=== PATIENT | female | born 1950 | race Caucasian/White ===

== ENCOUNTER 2020-02-19 15:43 | Outpatient (CLI) | payer MEDICARE, OTHER, SELFPAY ==
[2020-02-19 16:39] LABS: Basophils Absolute Auto 0.1 K/mm3 (0.0-0.1); Basophils Percent Auto 0.5 % (0.2-1.2); Eosinophils Absolute Auto 0.1 K/mm3 (0-0.3); Hematocrit 41.5 % (37.0-47.0); Hemoglobin 14.1 g/dL (12.0-15.0); Immature Granulocyte Absolute 0.05 K/mm3 (0.00-0.031); Immature Granulocyte Percent A 0.4 % (0-0.5); Lymphocytes Absolute Auto 1.16 K/mm3 (0.9-3.2); Lymphocytes Percent Auto 10.1 % (18.3-44.2); Mean Corpuscular Volume 88.3 fl (80-100); Mean Platelet Volume 10.6 fl (7.4-10.4); Monocytes Percent Auto 8.5 % (2.6-8.5); Neutrophils Absolute Auto 9.2 K/mm3 (1.3-6.7); Neutrophils Percent Auto 79.5 % (45.5-73.1); Platelet Count Result 179 k/mm3 (150-375); Red Cell Distribution Width 12.9 % (11.5-14.5); White Blood Count 11.5 K/mm3 (4.5-10.0)
[2020-02-19 17:14] LABS: Alanine Aminotransferase 35 U/L (4-35); Albumin Level 4.5 g/dL (3.5-5.1); Alkaline Phosphatase 96 U/L (38-126); Aspartate Amino Transferase 42 U/L (14-36); Bilirubin,Total 0.5 mg/dL (0.2-1.3); Blood Urea Nitrogen 20 mg/dL (7-17); CRP < 0.5 mg/dL (<1.0); Carbon Dioxide 28 mmol/L (22-30); Chloride 102 mmol/L (98-107); Estimated Glomerular Filt Rate > 60; Glucose 160 mg/dL (65-105); Potassium 4.1 mmol/L (3.4-5.0); Sodium 139 mmol/L (137-145)
[2020-02-19 17:30] LABS: Erythrocyte Sedimentation Rate 15 mm/hr (0-20)
[2020-02-20 06:29] LABS: Add Urine Microscopic? YES; Appearance Urine Clear (Clear); Bilirubin Urine Negative (Negative); Blood Urine Negative (Negative); Color Urine Yellow (Yellow); Glucose Urine UA Negative (Negative); Ketones Urine Negative (Negative); Leukocyte Esterase Ur Trace LEU/UL (NEGATIVE); Mucus Urine Rare /lpf; Nitrate Urine Negative (Negative); Protein Urine Negative (Negative); RBC Urine 0-2 /hpf (0-2); Specific Grav Ur 1.013 (1.001-1.035); Squamous Epithelial Cell Urine Occasional /hpf (Few); Urobilinogen Urine Negative mg/dL (<2.0); WBC Urine 0-3 /hpf (0-3)
== END 2020-02-19 15:44 | disposition home or self-care (01) ==
LOC: ANHLAB 15:47
PROVIDERS: PCP Internal Medicine; Visit Provider Internal Medicine
DX: R50.9 Fever, unspecified (principal); J01.90 Acute sinusitis, unspecified; Z79.899 Other long term (current) drug therapy; I10 Essential (primary) hypertension
CPT/HCPCS: 36415; 80053; 81001; 85025; 85652; 86140; 87086; 87088

== ENCOUNTER 2020-02-20 15:19 | Outpatient (CLI) | payer MEDICARE, OTHER, SELFPAY ==
--- NOTE | ~2020-02-20 | CT_ITS ---
EXAMINATION: CT sinus wo con DATE: 02/20/2020 16:25 INDICATION: Acute sinusitis. Headache. Congestion. TECHNIQUE: Computed tomography (CT) of the paranasal sinuses was performed without contrast. Iterativ e reconstruction technique was employed. Exam dose: 290.55 mGy-cm total exam DLP. COMPARISON: None FINDINGS: There is leftward deviation of the junction of the upper and middle thirds of the nasal sep júnior and rightward bowing of the upper portion of the nasal septum. The nasal turbinates are prominent in size bilaterally. There is prominent interlamellar cell of the left middle nasal turbinate and mild intralamellar cell with partial opacification at the right middl e nasal turbinate. The ostiomeatal units are patent bilaterally. The paranasal sinuses are normally developed and aerated. No mucoperiosteal thickening, fluid level o r soft tissue mass density of the paranasal sinuses. The mastoid air cells are normally developed and aerated bilaterally. Middle and inner ear apparatus appear normal bilaterally. IMPRESSION: Bilateral interlamellar cell of middle nasal turbinates, more prominent on the left Septal deviation and bowing as indicated above Patent paranasal sinuses, ostiomeatal units and mastoid air cells Reviewed, dictated and finalized at Location [facility]. Reviewed, dictated and finalized at location A. IMPRESSION: Bilateral interlamellar cell of middle nasal turbinates, more prom inent on the left Septal deviation and bowing as indicated above Patent paranasal sinuses, ostiomeatal units and mastoid air cells
--- NOTE | ~2020-02-20 | XR_ITS ---
EXAMINATION: XR chest 2V DATE: 02/20/2020 16:04 INDICATION: Other symptoms involving the circulatory and respiratory systems TECHNIQUE: PA and lateral views of the chest are obtained. COMPARISON: 03/08/2013 FINDINGS: The lungs are free of acute opacities. There is no pleural effusion or pneumothorax. The ca rdiomediastinal silhouette is normal. There is mild thoracic spondylosis. Surgical clips in the right upper quadrant are likely from prior cholecystectomy. IMPRESSION: 1. No acute cardiopulmonary abnormality. Reviewed, dictated and finalized at location A.
== END 2020-02-20 15:20 | disposition home or self-care (01) ==
PROVIDERS: PCP Internal Medicine; Visit Provider Internal Medicine
DX: R09.89 Other specified symptoms and signs involving the circulatory and respiratory systems (principal); J01.90 Acute sinusitis, unspecified; J34.2 Deviated nasal septum
CPT/HCPCS: 70486; 71046

== ENCOUNTER 2020-03-27 08:13 | Outpatient (CLI) | payer MEDICARE, OTHER, SELFPAY ==
--- NOTE | ~2020-03-27 | CT_ITS ---
EXAMINATION: CT abdomen pelvis w con EXAM DATE: 03/27/2020 09:03 INDICATION: Abdominal pain. Diverticulitis. TECHNIQUE: Spiral CT of the abdomen and pelvis was performed following intravenous injection of 100 m L Omnipaque 350. Axial, coronal and sagittal images were reviewed. The dose-length product (DLP) fo r this examination was 519.66 mGy-cm. The exposure was tailored according to patient size (auto mA e xposure control), and iterative reconstruction (ASIR) was used as additional dose reduction technique . Comparison is made to prior examination from 07/08/2019. FINDINGS: The liver, spleen, adrenal glands and pancreas are unremarkable. There are cholecystectomy clips. Portal and splenic veins are patent. Kidneys enhance symmetrically. There is no hydronephr osis. The uterus is not identified and has likely been surgically resected. Pelvic lymph node disse ction. The bladder is unremarkable. There is no retroperitoneal or pelvic lymphadenopathy. There i s mild scattered arteriosclerotic disease. The appendix is normal. The stomach and small bowel are unremarkable. There is expected amount of c olonic stool. There is moderate sigmoid predominant colonic diverticulosis. There is no adjacent inf lammatory change to suggest diverticulitis. No free intraperitoneal gas. The heart is normal in si ze. There are no pericardial or pleural effusions. The lung bases are unremarkable. There are no o steoblastic or osteolytic lesions identified. there is small umbilical fat-containing hernia. IMPRESSION: 1. No acute intra-abdominal findings. 2. Moderate sigmoid predominant colonic diverticulosis. 3. Small umbilical fat-containing hernia. 4. Surgical changes. Reviewed, dictated and finalized at location B.
[2020-03-27 08:48] LABS: Estimated Glomerular Filt Rate > 60
[2020-03-27 09:29] LABS: Basophils Percent Auto 0.8 % (0.2-1.2); Eosinophils Absolute Auto 0.2 K/mm3 (0-0.3); Eosinophils Percent Auto 4.9 % (0-4.4); Hematocrit 38.8 % (37.0-47.0); Hemoglobin 13.3 g/dL (12.0-15.0); Immature Granulocyte Absolute 0.03 K/mm3 (0.00-0.031); Immature Granulocyte Percent A 0.8 % (0-0.5); Lymphocytes Absolute Auto 0.97 K/mm3 (0.9-3.2); Lymphocytes Percent Auto 24.9 % (18.3-44.2); Mean Corpuscular HGB Conc 34.3 g/dl (32-36); Mean Corpuscular Hemoglobin 30.6 pg (26-34); Mean Corpuscular Volume 89.4 fl (80-100); Mean Platelet Volume 10.5 fl (7.4-10.4); Monocytes Absolute Auto 0.3 K/mm3 (0.1-0.6); Monocytes Percent Auto 8.5 % (2.6-8.5); Neutrophils Absolute Auto 2.4 K/mm3 (1.3-6.7); Neutrophils Percent Auto 60.1 % (45.5-73.1); Platelet Count Result 150 k/mm3 (150-375); Red Blood Count 4.34 M/mm3 (4.2-5.4); Red Cell Distribution Width 13.2 % (11.5-14.5); White Blood Count 3.9 K/mm3 (4.5-10.0)
[2020-03-27 09:36] LABS: Add Urine Microscopic? YES; Bilirubin Urine Negative (Negative); Blood Urine Negative (Negative); Glucose Urine UA Negative (Negative); Ketones Urine Negative (Negative); Leukocyte Esterase Ur Trace LEU/UL (NEGATIVE); Mucus Urine Rare /lpf; Nitrate Urine Negative (Negative); Protein Urine Negative (Negative); RBC Urine 0-2 /hpf (0-2); Squamous Epithelial Cell Urine Occasional /hpf (Few); Urobilinogen Urine Negative mg/dL (<2.0)
[2020-03-27 09:39] LABS: Alanine Aminotransferase 27 U/L (4-35); Albumin Level 4.2 g/dL (3.5-5.1); Alkaline Phosphatase 89 U/L (38-126); Aspartate Amino Transferase 32 U/L (14-36); Bilirubin,Total 0.4 mg/dL (0.2-1.3); Blood Urea Nitrogen 26 mg/dL (7-17); Calcium 9.4 mg/dL (8.4-10.2); Carbon Dioxide 26 mmol/L (22-30); Chloride 104 mmol/L (98-107); Estimated Glomerular Filt Rate > 60; Glucose 169 mg/dL (65-105); Sodium 139 mmol/L (137-145)
[2020-03-27 09:39] LABS: Specific Grav Ur 1.045 (1.001-1.035)
[2020-03-27 09:40] LABS: Appearance Urine Sl Cloudy (Clear); Color Urine Light Yellow (Yellow)
== END 2020-03-27 08:14 | disposition home or self-care (01) ==
PROVIDERS: PCP Internal Medicine; Visit Provider Internal Medicine
DX: R10.9 Unspecified abdominal pain (principal); K57.92 Diverticulitis of intestine, part unspecified, without perforation or abscess without bleeding; K42.9 Umbilical hernia without obstruction or gangrene; Z98.890 Other specified postprocedural states
CPT/HCPCS: 36415; 74177; 80053; 81001; 85025; 87086; 87088; Q9967

== ENCOUNTER 2020-04-15 08:35 | Outpatient (CLI) | payer MEDICARE, OTHER, SELFPAY ==
--- NOTE | ~2020-04-15 | XR_ITS ---
XR knee RT 3V DATE: 04/15/2020 09:21 INDICATION: Generalized chronic knee pain. No injury. TECHNIQUE: [place], AP and lateral views COMPARISON: None FINDINGS: There is prominent narrowing of the medial and lateral compartment joint spaces. There is p articular spurring as well, particularly at the patellofemoral compartment. The findings are consiste nt with osteoarthritis. No fracture or dislocation or joint effusion is detected. No periosteal reaction or bone destruction. IMPRESSION: Osteoarthritis involving particularly the patellofemoral and medial compartments Reviewed, dictated and finalized at location A.
--- NOTE | ~2020-04-15 | XR_ITS ---
XR lumbar spine 2-3V 04/15/2020 09:20 Indication: Low back pain Procedure: 3 views lumbar spine Comparison: No prior studies for comparison. Findings: Vertebral body heights are maintained. Mild disc narrowing at L5-S1. Mild facet hypertrophy at L5-S1. No fracture or traumatic malalignment. No evidence for spondylolisthesis. There are cholec ystectomy clips. There are surgical clips in the pelvis. Impression: 1: Mild lumbar spondylosis. Reviewed, dictated and finalized at location B. Impression: 1: Mild lumbar spondylosis.
--- NOTE | ~2020-04-15 | XR_ITS ---
XR sacroiliac joints min 3V 04/15/2020 09:20 Indication: Low back pain Procedure: 3 views of the sacroiliac joints Comparison: No prior studies for comparison. Findings: There is mild bilateral symmetric degenerative changes of the sacroiliac joints. No erosive changes. No evidence for ankylosis. Sacral foramen are symmetric. Surrounding pelvic structures unre markable. There are surgical clips in the lower abdomen and pelvis consistent with lymph node dissect ion. Impression: 1: Mild symmetric degenerative changes of the sacroiliac joints. Reviewed, dictated and finalized at location B. Impression: 1: Mild symmetric degenerative changes of the sacroiliac joints.
== END 2020-04-15 08:36 | disposition home or self-care (01) ==
PROVIDERS: PCP Internal Medicine; Visit Provider Internal Medicine
DX: M25.561 Pain in right knee (principal); M47.816 Spondylosis without myelopathy or radiculopathy, lumbar region; M17.11 Unilateral primary osteoarthritis, right knee
CPT/HCPCS: 72100; 72202; 73562

== ENCOUNTER 2020-05-04 22:25 | Emergency (ER) | payer MEDICARE, OTHER, SELFPAY ==
--- NOTE | ~2020-05-04 | CT_ITS ---
EXAMINATION: CT abdomen pelvis w con EXAM DATE: 05/04/2020 23:29 INDICATION: Lower abdominal pain, nausea. TECHNIQUE: Spiral CT of the abdomen and pelvis was performed following intravenous injection of 100 m L Omnipaque 350. Axial, coronal and sagittal images were reviewed. The dose-length product (DLP) fo r this examination was 646.90 mGy-cm. The exposure was tailored according to patient size (auto mA e xposure control), and iterative reconstruction (ASIR) was used as additional dose reduction technique . Comparison is made to prior examination from 03/27/2020. FINDINGS: There is hepatic steatosis without suspicious focal lesion identified. Spleen, adrenal glan ds, pancreas are unremarkable. There are cholecystectomy clips. Portal and splenic veins are patent . Kidneys enhance symmetrically. There is no hydronephrosis. The uterus is not identified and has likely been surgically resected. The bladder is unremarkable. There is no retroperitoneal or pelvi c lymphadenopathy. Probable pelvic lymph node dissection. There is mild scattered arteriosclerotic di sease. Small umbilical fat-containing hernia. The appendix is not positively visualized. There is no pericecal inflammatory change to suggest appe ndicitis. There is moderate sigmoid predominant colonic diverticulosis. There is no adjacent inflamm atory change to suggest diverticulitis. The stomach and small bowel are unremarkable. There is expec francisco javier amount of colonic stool. No free intraperitoneal gas. The heart is normal in size. There are no pericardial or pleural effusions. The lung bases are unremarkable. There are no osteoblastic or osteolytic lesions identified. IMPRESSION: 1. No acute intra-abdominal findings. 2. Moderate sigmoid diverticulosis. 3. Hepatic steatosis. Reviewed, dictated and finalized at location G.
[2020-05-04 22:27] VITALS: BP 175/81; PULSE 93; RESP 14; TEMP 36.8; O2SAT 99
[2020-05-04 22:49] LABS: Basophils Percent Auto 0.5 % (0.2-1.2); Eosinophils Percent Auto 0.2 % (0-4.4); Hematocrit 41.4 % (37.0-47.0); Hemoglobin 14.3 g/dL (12.0-15.0); Immature Granulocyte Absolute 0.07 K/mm3 (0.00-0.031); Immature Granulocyte Percent A 1.2 % (0-0.5); Lymphocytes Absolute Auto 0.76 K/mm3 (0.9-3.2); Lymphocytes Percent Auto 13.4 % (18.3-44.2); Mean Corpuscular HGB Conc 34.5 g/dl (32-36); Mean Corpuscular Hemoglobin 30.5 pg (26-34); Mean Corpuscular Volume 88.3 fl (80-100); Monocytes Absolute Auto 0.1 K/mm3 (0.1-0.6); Monocytes Percent Auto 1.1 % (2.6-8.5); Neutrophils Absolute Auto 4.8 K/mm3 (1.3-6.7); Neutrophils Percent Auto 83.6 % (45.5-73.1); Platelet Count Result 170 k/mm3 (150-375); Red Blood Count 4.69 M/mm3 (4.2-5.4); Red Cell Distribution Width 13.2 % (11.5-14.5); White Blood Count 5.7 K/mm3 (4.5-10.0)
[2020-05-04] MEDS: SODIUM CHLORIDE 0.9% IV 1,000 ML 999 ML IV CONT (22:52)
[2020-05-04 23:01] LABS: Albumin Level 4.8 g/dL (3.5-5.1); Alkaline Phosphatase 101 U/L (38-126); Anion Gap 18.4 mmol/L (7-16); Aspartate Amino Transferase 47 U/L (14-36); Bilirubin,Total 0.5 mg/dL (0.2-1.3); Blood Urea Nitrogen 21 mg/dL (7-17); Calcium 9.8 mg/dL (8.4-10.2); Carbon Dioxide 20 mmol/L (22-30); Chloride 101 mmol/L (98-107); Estimated CRCL calculation 51 ml/min; Estimated Glomerular Filt Rate > 60; Glucose 324 mg/dL (65-105); Lipase 138 U/L (23-300); Potassium 4.4 mmol/L (3.4-5.0); Sodium 135 mmol/L (137-145)
[2020-05-04] MEDS: INSULIN HUMAN REGULAR (*BKC) 100 UNITS/ML 6 UNITS SUB-Q (23:14)
[2020-05-04] MEDS: MORPHINE SULFATE 4 MG/ML INJ IV PUSH (23:15)
--- NOTE | 2020-05-04 23:17 | ED.ABDPAIN ---
HPI - Abdominal Pain General Chief Complaint: Abdominal Pain Stated Complaint: abdominal pain Time Seen by Provider: 05/04/20 22:33 History of Present Illness HPI narrative: Patient presents to the ED for lower abdominal pain. She said that earlier today she got injections on her hips , her chronic low back pain. She points to her iliac sacral joints. She said that when she got home she had lower abdominal pain, similar to when she has had diverticulitis. She has had nausea but no vomiting. No fever, chills, or sweats. She is retired. Does not smoke drink or do drugs. MD elicited complaint: abdominal pain Pertinent past history: diverticulitis Onset (ago): hour(s) Pain Consistency: constant Location: other (Lower abdominal pain) Severity: moderate Radiation: none Exacerbating factors: nothing Relieving factors: nothing Context: confirms history of similar episodes Associated symptoms: nausea Treatments prior to arrival: other (None) Related Data Home Medications Medication Instructions Recorded Confirmed Lactobacillus rhamnosus GG 1 cap PO DAILY 08/16/19 04/15/20 [Culturelle] loratadine [Claritin] 10 mg PO DAILY 08/16/19 04/15/20 calcium carbonat and lactate 200 2 tablet PO DAILY 04/07/20 04/15/20 mg calcium-vitamin D3 250 unit tablet folic acid 400 mcg tablet 0.8 mg PO DAILY tablet 04/07/20 04/15/20 mecobalamin (vitamin B12) 1,000 1,000 mcg SUBLINGUAL DAILY 04/07/20 04/15/20 mcg disintegrating tablet,sublingual Allergies Allergy/AdvReac Type Severity Reaction Status Date / Time No Known Allergies Allergy Verified 04/29/20 14:11 Review of Systems Review of Systems: Narrative: CONSTITUTIONAL: Denies fever, chills, or sweats. EYES: Denies visual changes, redness, or discharge. ENT: Denies rhinorrhea, congestion, sore throat, or otalgia. CARDIOVASCULAR: Denies chest pain, palpitations, or edema. RESPIRATORY: Denies cough or dyspnea. GASTROINTESTINAL: He has abdominal pain, nausea, but not vomiting, or diarrhea. GENITOURINARY: Denies dysuria or hematuria. SKIN: Denies rash or itching. MUSCULOSKELETAL: Denies back pain, joint pain, or myalgia. NEUROLOGIC: Denies headache, numbness, or weakness. . 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 Encounter for Medicare annual wellness exam Follow up GERD (gastroesophageal reflux disease) GERD with esophagitis History of diverticulitis of colon Hx of colonic polyps Hx of ovarian cancer Hyperlipidemia Hypothyroidism (acquired) Impaired functional mobility, balance, gait, and endurance LLQ abdominal pain Low back pain Nausea On intermediate drug therapy Ovarian cancer Persistent fever Sacroiliitis Stress Umbilical hernia Surgical History Surgical History Hx of cholecystectomy Hx of colonoscopy Hx of esophagogastroduodenoscopy Hx of hysterectomy Social History Social History Smoking status: Never smoker Alcohol intake: current Gender identity (if verbalized by the patient): Female Exam Narrative: Exam Narrative: GENERAL: Well-appearing, well-nourished, and in no acute distress. Well-groomed HEAD: Normocephalic, atraumatic. EYES: PERRLA and EOMI. ENT: Nares clear, no rhinorrhea or epistaxis. Mucous membranes moist. NECK: Supple. CHEST: Clear to auscultation. No respiratory distress. HEART: Regular rate and rhythm. No murmur heard. Normal peripheral pulses. ABDOMEN: Soft, nontender, nondistended, normal active bowel
[2020-05-04 23:33] LABS: Alanine Aminotransferase 39 U/L (4-35)
[2020-05-05 00:30] VITALS: BP 169/88; PULSE 82; RESP 15; O2SAT 92
[2020-05-05] MEDS: MORPHINE SULFATE 4 MG/ML INJ IV PUSH (00:31)
[2020-05-05 00:38] LABS: Glucose Point of Care 248 (65-105)
== END 2020-05-05 00:30 | disposition home or self-care (01) ==
PROVIDERS: Emergency Provider Emergency Medicine; PCP Internal Medicine
DX: R10.30 Lower abdominal pain, unspecified (principal); M54.5 Low back pain; I10 Essential (primary) hypertension; E11.9 Type 2 diabetes mellitus without complications; K21.0 Gastro-esophageal reflux disease with esophagitis; Z86.010 Personal history of colon polyps; E78.5 Hyperlipidemia, unspecified; E03.9 Hypothyroidism, unspecified; Z85.41 Personal history of malignant neoplasm of cervix uteri; K76.0 Fatty (change of) liver, not elsewhere classified
CPT/HCPCS: 36415; 74177; 80053; 83690; 85025; 96361; 96374; 96376; 99284; J1815; J2270; J7030; Q9967

== ENCOUNTER 2021-02-12 14:13 | Emergency (ER) | payer MEDICARE, OTHER, SELFPAY ==
[2021-02-12 14:20] VITALS: BP 178/82; PULSE 72; RESP 16; TEMP 36.5; O2SAT 99
--- NOTE | 2021-02-12 14:50 | ED.URI ---
HPI - URI/Sore Throat General Chief Complaint: Upper Respiratory Infection Stated Complaint: sinus issues Time Seen by Provider: 02/12/21 14:40 Source: patient, RN notes reviewed and old records reviewed Mode of arrival: ambulatory Limitations: no limitations History of Present Illness HPI Narrative: 71 year old female who presents to [facility] with complaints of 1 1/2 weeks duration of sinus congestion and drainage with pain to the right side of her face and right ear with pain along gums also. Patient states that she has been using nasal saline, Nasacort nasal spray, Tylenol sinus medication with no improvement in her symptoms. Patient reports low grade temperatures with fatigue and general malaise. MD elicited complaint: fever (low grade), sore throat, rhinorrhea, nasal congestion and sinus pain Pertinent past history: pneumonia, sinusitis and other (bronchitis) Onset (ago): week(s) (1 1/2 weeks) Consistency: progressively worsening Severity: moderate Pain scale (0-10): 5 Description of mucous: clear Able to tolerate fluids by mouth: Yes Treatments prior to arrival: other (nasacort nasal spray and nasal saline,Tylenol sinus) Related Data Home Medications Medication Instructions Recorded Confirmed folic acid 400 mcg tablet 0.8 mg PO DAILY tablet 04/07/20 02/12/21 mecobalamin (vitamin B12) 1,000 1,000 mcg SUBLINGUAL DAILY 04/07/20 02/12/21 mcg disintegrating tablet,sublingual lactobacillus combination no.8 3,000 mmu cells PO DAILY 02/12/21 02/12/21 [Adult Probiotic] levothyroxine 175 mcg PO DAILY 02/12/21 02/12/21 omega 2-ptx-[id number]-fish oil [Fish Oil] 1 cap PO DAILY 02/12/21 02/12/21 Allergies Allergy/AdvReac Type Severity Reaction Status Date / Time No Known Allergies Allergy Verified 02/12/21 14:22 Review of Systems Review of Systems: Narrative: CONSTITUTIONAL:Positive for low grade fevers, chills, or sweats. EYES: Denies visual changes, redness, or discharge. ENT:Positive for rhinorrhea, congestion with right sided facial pain, sore throat,right ear otalgia. CARDIOVASCULAR: Denies chest pain, palpitations, or edema. RESPIRATORY: Denies acute cough or dyspnea. GASTROINTESTINAL: Denies abdominal pain, nausea, vomiting, or diarrhea. GENITOURINARY: Denies dysuria or hematuria. SKIN: Denies rash or itching. MUSCULOSKELETAL: Denies back pain, joint pain, or myalgia. NEUROLOGIC: Denies headache, numbness, or weakness. 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 Encounter for Medicare annual wellness exam Follow up GERD (gastroesophageal reflux disease) GERD with esophagitis History of diverticulitis of colon Hx of colonic polyps Hx of ovarian cancer Hyperlipidemia Hypothyroidism (acquired) Impaired functional mobility, balance, gait, and endurance LLQ abdominal pain Low back pain Nausea On fpc drug therapy Ovarian cancer Persistent fever Sacroiliitis Sinus pressure Stress Umbilical hernia Surgical History Surgical History (Updated 02/16/21 @ 10:36 by Mary Hernandez NP) History of colon resection August 2020 Hx of cholecystectomy Hx of colonoscopy Hx of esophagogastroduodenoscopy Hx of hysterectomy Family History Family History Father Family history of elevated blood lipids Family history of Alzheimer's disease Family history of heart disease in male family member before age 55 Patient's father is Family history of cardiovascular disease Sibling Family
== END 2021-02-12 14:55 | disposition home or self-care (01) ==
PROVIDERS: Emergency Provider Registered Nurse; PCP Internal Medicine
DX: J01.90 Acute sinusitis, unspecified (principal); I10 Essential (primary) hypertension; E11.9 Type 2 diabetes mellitus without complications; K21.00 Gastro-esophageal reflux disease with esophagitis, without bleeding; E78.5 Hyperlipidemia, unspecified; E03.9 Hypothyroidism, unspecified; Z85.43 Personal history of malignant neoplasm of ovary
CPT/HCPCS: 99213; G0463

== ENCOUNTER → 2021-05-17 14:45 | Outpatient (CLI) | payer MEDICARE, OTHER, SELFPAY ==
--- NOTE | ~2021-05-17 | MM_ITS ---
EXAMINATION: MM screening ede BI w pernell HISTORY: Screening mammogram, history of left breast cancer TECHNIQUE: Craniocaudal and mediolateral oblique 3-D tomosynthesis images were obtained and synthetic 2-D images were generated. CAD analysis was submitted and interpreted. COMPARISON: 12/03/2018, 03/23/2017, 08/03/2015 BREAST PARENCHYMAL COMPOSITION: There are scattered areas of fibroglandular density. FINDINGS: There is no evidence of suspicious mass, calcification, or architectural distortion to sugg est malignancy in either breast. There has been no suspicious interval change. IMPRESSION: 1. No mammographic evidence of malignancy. 2. Recommend routine screening mammography in one year. BI-RADS Category 1: Negative Reviewed, dictated and finalized at location A.
== END ==
PROVIDERS: PCP Internal Medicine; Visit Provider Internal Medicine
DX: Z12.31 Encounter for screening mammogram for malignant neoplasm of breast (principal)
CPT/HCPCS: 77063; 77067

== ENCOUNTER 2021-06-02 15:00 | Outpatient (CLI) | payer MEDICARE, OTHER, SELFPAY ==
--- NOTE | ~2021-06-02 | CT_ITS ---
EXAMINATION: CT abdomen pelvis w con DATE: 06/02/2021 16:01 INDICATION: Left lower quadrant abdominal pain. TECHNIQUE: Computed tomography (CT) of the abdomen and pelvis was performed with 100 mL Omnipaque 350 intravenous contrast. Automated exposure control and iterative reconstruction technique were employe d. The dose-length product was 513.93 mGy-cm. COMPARISON: CT abdomen and pelvis 05/04/2020 FINDINGS: The visualized portions of the lung bases are clear without pneumonia or pleural effusion. The heart size is normal. No pericardial effusion. There is diffuse hepatic steatosis. There are todd ges of cholecystectomy. The spleen, pancreas, and adrenal glands are normal. There is cortical thinni ng of the kidneys. There is a 5 mm cyst in left kidney. There is an anastomosis in the rectosigmoid. The appendix is not visualized. There are no dilated loops of bowel. There are no pathologically enla rged lymph nodes. There is no free intraperitoneal fluid. There is mild lumbar spondylosis. IMPRESSION: 1. Diffuse hepatic steatosis. Reviewed, dictated and finalized at location A.
[2021-06-02 15:34] LABS: Basophils Percent Auto 0.7 % (0.2-1.2); Eosinophils Absolute Auto 0.5 K/mm3 (0-0.3); Eosinophils Percent Auto 8.2 % (0-4.4); Hematocrit 41.1 % (37.0-47.0); Hemoglobin 13.5 g/dL (12.0-15.0); Immature Granulocyte Absolute 0.02 K/mm3 (0.00-0.031); Immature Granulocyte Percent A 0.3 % (0-0.5); Lymphocytes Percent Auto 26.6 % (18.3-44.2); Mean Corpuscular HGB Conc 32.8 g/dl (32-36); Mean Corpuscular Hemoglobin 28.5 pg (26-34); Mean Corpuscular Volume 86.9 fl (80-100); Mean Platelet Volume 10.7 fl (7.4-10.4); Monocytes Absolute Auto 0.5 K/mm3 (0.1-0.6); Monocytes Percent Auto 8.2 % (2.6-8.5); Neutrophils Absolute Auto 3.4 K/mm3 (1.3-6.7); Platelet Count Result 187 k/mm3 (150-375); Red Blood Count 4.73 M/mm3 (4.2-5.4); Red Cell Distribution Width 14.2 % (11.5-14.5)
[2021-06-02 15:40] LABS: Anion Gap 16 mmol/L (8-16); Blood Urea Nitrogen 23 mg/dL (7-17); Calcium 10.3 mg/dL (8.4-10.2); Carbon Dioxide 25 mmol/L (22-30); Chloride 98 mmol/L (98-107); Estimated Glomerular Filt Rate 49; Glucose 177 mg/dL (65-110); Potassium 4.7 mmol/L (3.4-5.0); Sodium 139 mmol/L (137-145)
== END 2021-06-02 15:01 | disposition home or self-care (01) ==
LOC: ANHIMG 15:02
PROVIDERS: PCP Internal Medicine; Visit Provider Internal Medicine
DX: R10.32 Left lower quadrant pain (principal); Z87.19 Personal history of other diseases of the digestive system; Z51.81 Encounter for therapeutic drug level monitoring; Z79.899 Other long term (current) drug therapy; K76.0 Fatty (change of) liver, not elsewhere classified
CPT/HCPCS: 36415; 74177; 80048; 85025; Q9967

== ENCOUNTER 2021-06-29 14:45 | Outpatient (CLI) | payer MEDICARE, OTHER, SELFPAY ==
[2021-06-29 15:34] LABS: Alanine Aminotransferase 32 U/L (4-35); Aspartate Amino Transferase 39 U/L (14-36)
== END 2021-06-29 14:46 | disposition home or self-care (01) ==
LOC: ANHLAB 14:48
PROVIDERS: PCP Internal Medicine; Visit Provider Podiatrist Foot & Ankle Surgery
DX: B35.1 Tinea unguium (principal)
CPT/HCPCS: 36415; 84450; 84460

== ENCOUNTER 2022-01-03 16:15 | Outpatient (CLI) | payer MEDICARE, OTHER, SELFPAY ==
[2022-01-03 16:48] LABS: Basophils Absolute Auto 0.1 K/mm3 (0.0-0.1); Basophils Percent Auto 1.1 % (0.2-1.2); Eosinophils Absolute Auto 0.2 K/mm3 (0-0.3); Eosinophils Percent Auto 3.2 % (0-4.4); Hematocrit 39.2 % (37.0-47.0); Immature Granulocyte Absolute 0.02 K/mm3 (0.00-0.031); Immature Granulocyte Percent A 0.4 % (0-0.5); Lymphocytes Absolute Auto 1.02 K/mm3 (0.9-3.2); Lymphocytes Percent Auto 19.1 % (18.3-44.2); Mean Corpuscular HGB Conc 33.2 g/dl (32-36); Mean Corpuscular Hemoglobin 29.5 pg (26-34); Mean Corpuscular Volume 89.1 fl (80-100); Mean Platelet Volume 10.4 fl (7.4-10.4); Monocytes Absolute Auto 0.4 K/mm3 (0.1-0.6); Monocytes Percent Auto 8.1 % (2.6-8.5); Neutrophils Absolute Auto 3.6 K/mm3 (1.3-6.7); Neutrophils Percent Auto 68.1 % (45.5-73.1); Platelet Count Result 216 k/mm3 (150-375); Red Cell Distribution Width 14.6 % (11.5-14.5); White Blood Count 5.3 K/mm3 (4.5-10.0)
[2022-01-03 16:56] LABS: Add Urine Microscopic? YES; Appearance Urine Cloudy (Clear); Bilirubin Urine Negative (Negative); Blood Urine Negative (Negative); Color Urine Yellow (Yellow); Glucose Urine UA Negative (Negative); Ketones Urine Trace mg/dL (Negative); Leukocyte Esterase Ur Negative LEU/UL (Negative); Mucus Urine Rare /lpf; Nitrate Urine Negative (Negative); Protein Urine Negative (Negative); RBC Urine 0-2 /hpf (0-2); Specific Grav Ur 1.021 (1.001-1.035); Squamous Epithelial Cell Urine Rare /hpf (Few); Urobilinogen Urine Negative mg/dL (<2.0); WBC Urine 0-3 /hpf
[2022-01-03 17:02] LABS: Alanine Aminotransferase 28 U/L (4-35); Albumin Level 4.7 g/dL (3.5-5.1); Alkaline Phosphatase 102 U/L (38-126); Anion Gap 9 mmol/L (8-16); Aspartate Amino Transferase 28 U/L (14-36); Bilirubin,Total 0.5 mg/dL (0.2-1.3); Blood Urea Nitrogen 22 mg/dL (7-17); Calcium 9.6 mg/dL (8.4-10.2); Carbon Dioxide 23 mmol/L (22-30); Chloride 105 mmol/L (98-107); Cholesterol 155 mg/dL (0-200); Estimated Glomerular Filt Rate 45; Glucose 165 mg/dL (65-110); HDL Direct 50 mg/dL; Sodium 137 mmol/L (137-145); Triglycerides 110 mg/dL (<150)
[2022-01-03 17:07] LABS: Creatinine Urine 226.5 mg/dL
[2022-01-03 17:14] LABS: LDL Cholesterol Direct 66 mg/dL
[2022-01-03 17:16] LABS: Hemoglobin A1C 7.5 % (<5.7)
[2022-01-03 17:41] LABS: MALB Creatinine Ratio 6.5 mg/g (0-30); Microalbumin Urine Random 14.8 mg/L (0-16.7)
[2022-01-03 17:55] LABS: Free T4 Free Thyroxine 2.06 ng/mL (0.78-2.19); Vitamin D 25 Hydroxy 49.7 ng/mL
== END 2022-01-03 16:16 | disposition home or self-care (01) ==
LOC: ANHLAB 16:19
PROVIDERS: PCP Internal Medicine; Visit Provider Internal Medicine
DX: E03.9 Hypothyroidism, unspecified (principal); Z79.899 Other long term (current) drug therapy; E55.9 Vitamin D deficiency, unspecified; E11.9 Type 2 diabetes mellitus without complications; I10 Essential (primary) hypertension; E78.2 Mixed hyperlipidemia
CPT/HCPCS: 36415; 80053; 80061; 81001; 82043; 82306; 83036; 84439; 84443; 85025

== ENCOUNTER 2022-02-07 14:48 | Outpatient (CLI) | payer MEDICARE, OTHER, SELFPAY ==
[2022-02-07 15:18] LABS: CRP < 0.5 mg/dL (<1.0)
[2022-02-07 15:22] LABS: Complement C3 140 mg/dL (88-165)
[2022-02-07 15:50] LABS: Erythrocyte Sedimentation Rate 12 mm/hr (0-20)
[2022-02-12 21:12] LABS: Complement Total CH50 >60 U/mL (31-60)
== END 2022-02-07 14:49 | disposition home or self-care (01) ==
LOC: ANHLAB 14:50
PROVIDERS: PCP Internal Medicine; Visit Provider Internal Medicine
DX: L50.5 Cholinergic urticaria (principal); R21 Rash and other nonspecific skin eruption
CPT/HCPCS: 36415; 85652; 86140; 86160; 86162

== ENCOUNTER → 2022-10-26 15:41 | Outpatient (CLI) | payer MEDICARE, OTHER, SELFPAY ==
--- NOTE | ~2022-10-26 | MM_ITS ---
EXAMINATION: MM screening [facility] BI w pernell HISTORY: Screening mammogram TECHNIQUE: Craniocaudal and mediolateral oblique 3-D tomosynthesis images were obtained and synthetic 2-D images were generated. CAD analysis was submitted and interpreted. COMPARISON: 05/17/2021, 12/03/2018, 03/23/2017 BREAST PARENCHYMAL COMPOSITION: There are scattered areas of fibroglandular density. FINDINGS: Scattered benign-appearing calcifications are present. No suspicious mass, calcification, o r architectural distortion are identified in either breast to suggest malignancy. There has been no s uspicious interval change. IMPRESSION: 1. No mammographic evidence of malignancy. 2. Recommend routine screening mammography in one year. BI-RADS Category 2: Benign finding(s). Reviewed, dictated and finalized at location A. 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
== END ==
PROVIDERS: PCP Internal Medicine; Visit Provider Internal Medicine
DX: Z12.31 Encounter for screening mammogram for malignant neoplasm of breast (principal)
CPT/HCPCS: 77063; 77067

== ENCOUNTER 2023-10-30 12:01 | Outpatient (CLI) | payer MEDICARE, OTHER, SELFPAY ==
[2023-10-30 12:30] LABS: Basophils Percent Auto 0.8 % (0.2-1.2); Eosinophils Absolute Auto 0.5 K/mm3 (0-0.3); Eosinophils Percent Auto 10.6 % (0-4.4); Hematocrit 39.3 % (37.0-47.0); Hemoglobin 13.1 g/dL (12.0-15.0); Immature Granulocyte Absolute 0.05 K/mm3 (0.00-0.031); Lymphocytes Absolute Auto 1.62 K/mm3 (0.9-3.2); Lymphocytes Percent Auto 31.8 % (18.3-44.2); Mean Corpuscular HGB Conc 33.3 g/dl (32-36); Mean Corpuscular Hemoglobin 30.3 pg (26-34); Monocytes Absolute Auto 0.4 K/mm3 (0.1-0.6); Monocytes Percent Auto 8.4 % (2.6-8.5); Neutrophils Absolute Auto 2.4 K/mm3 (1.3-6.7); Neutrophils Percent Auto 47.4 % (45.5-73.1); Platelet Count Result 187 k/mm3 (150-375); Red Blood Count 4.32 M/mm3 (4.2-5.4); Red Cell Distribution Width 12.5 % (11.5-14.5); White Blood Count 5.1 K/mm3 (4.5-10.0)
[2023-10-30 12:42] LABS: Alanine Aminotransferase 26 U/L (6-35); Albumin Level 4.3 g/dL (3.5-5.1); Alkaline Phosphatase 72 U/L (38-126); Anion Gap 11 mmol/L (8-16); Aspartate Amino Transferase 25 U/L (14-36); Bilirubin,Total 0.5 mg/dL (0.2-1.3); Blood Urea Nitrogen 16 mg/dL (7-17); Calcium 9.8 mg/dL (8.4-10.2); Carbon Dioxide 24 mmol/L (22-30); Chloride 101 mmol/L (98-107); Cholesterol 129 mg/dL (0-200); Estimated Glomerular Filt Rate 55; Glucose 171 mg/dL (65-110); HDL Direct 45 mg/dL; Potassium 4.1 mmol/L (3.4-5.0); Sodium 136 mmol/L (137-145); Triglycerides 102 mg/dL (<150)
[2023-10-30 12:53] LABS: LDL Cholesterol Direct 68 mg/dL
[2023-10-30 13:12] LABS: Free T4 Free Thyroxine 2.04 ng/mL (0.78-2.19); Vitamin D 25 Hydroxy 55.4 ng/mL
[2023-10-30 13:13] LABS: Thyroid Stimulating Hormone 0.098 uIU/mL (0.465-4.680)
== END 2023-10-30 12:02 | disposition home or self-care (01) ==
PROVIDERS: PCP Internal Medicine; Visit Provider Internal Medicine
DX: E03.9 Hypothyroidism, unspecified (principal); E11.9 Type 2 diabetes mellitus without complications; E78.5 Hyperlipidemia, unspecified; E55.9 Vitamin D deficiency, unspecified; I10 Essential (primary) hypertension
CPT/HCPCS: 36415; 80053; 80061; 82306; 83036; 84439; 84443; 85025

== ENCOUNTER 2023-11-02 16:11 | Outpatient (CLI) | payer MEDICARE, OTHER, SELFPAY ==
--- NOTE | ~2023-11-02 | XR_ITS ---
EXAMINATION: XR sinus min 3V DATE: 11/02/2023 16:36 INDICATION: Chronic sinusitis, unspecified. TECHNIQUE: 7 views of the paranasal sinuses were obtained. COMPARISON: CT sinuses 02/20/2020 FINDINGS: There is rightward deviation of the nasal septum. The paranasal sinuses are grossly clear. IMPRESSION: 1. Rightward deviation of the nasal septum. Reviewed, dictated and finalized at location A. 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
== END 2023-11-02 16:12 | disposition home or self-care (01) ==
LOC: ANHIMG 16:13
PROVIDERS: PCP Internal Medicine; Visit Provider Internal Medicine
DX: J34.2 Deviated nasal septum (principal); J32.9 Chronic sinusitis, unspecified; J34.89 Other specified disorders of nose and nasal sinuses; R51.9 Headache, unspecified; R68.84 Jaw pain
CPT/HCPCS: 70220

== ENCOUNTER 2023-11-29 14:09 | Outpatient (CLI) | payer MEDICARE, OTHER, SELFPAY ==
[2023-11-29 15:32] LABS: Thyroid Stimulating Hormone 0.182 uIU/mL (0.465-4.680)
[2023-11-29 15:41] LABS: Free T4 Free Thyroxine 2.07 ng/mL (0.78-2.19)
== END 2023-11-29 14:10 | disposition home or self-care (01) ==
PROVIDERS: PCP Internal Medicine; Visit Provider Internal Medicine
DX: E03.9 Hypothyroidism, unspecified (principal); Z79.899 Other long term (current) drug therapy
CPT/HCPCS: 36415; 84439; 84443

== ENCOUNTER 2024-02-01 14:38 | Outpatient (CLI) | payer MEDICARE, OTHER, SELFPAY ==
[2024-02-01 16:14] LABS: Free T4 Free Thyroxine 1.75 ng/mL (0.78-2.19)
== END 2024-02-01 14:39 | disposition home or self-care (01) ==
LOC: ANHLAB 14:40
PROVIDERS: PCP Internal Medicine; Visit Provider Internal Medicine
DX: Z79.899 Other long term (current) drug therapy (principal); E03.9 Hypothyroidism, unspecified
CPT/HCPCS: 36415; 84439; 84443

== ENCOUNTER 2024-02-01 15:50 | Outpatient (CLI) | payer MEDICARE, OTHER, SELFPAY ==
--- NOTE | ~2024-02-01 | XR_ITS ---
EXAMINATION: XR thoracic spine 3V DATE: 02/01/2024 16:11 INDICATION: Dorsalgia, unspecified. TECHNIQUE: 2 views of the thoracic spine on 3 radiographs were obtained. COMPARISON: Chest 2 views 09/21/2020 FINDINGS: There is 12 degrees dextroscoliosis of thoracic spine. There is kyphosis of thoracic spine. Vertebral body heights are normal. There is multilevel disc height loss, moderate from T5-T6 through T8-T9. Surgical clips in the right upper quadrant are likely from cholecystectomy. IMPRESSION: 1. Moderate thoracic spondylosis. 2. Thoracic kyphosis and dextroscoliosis. Reviewed, dictated and finalized at location E.
--- NOTE | ~2024-02-01 | XR_ITS ---
EXAMINATION: XR chest 2V DATE: 02/01/2024 16:10 INDICATION: Dorsalgia, unspecified. TECHNIQUE: Frontal and lateral views of the chest were obtained. COMPARISON: Chest 2 views 02/20/2020 FINDINGS: There is no pneumonia, pleural effusion, or pneumothorax. The heart size is normal. Calcifi ed left hilar lymph nodes are consistent with old granulomatous disease. Surgical clips in the right upper quadrant are likely from cholecystectomy. There is moderate thoracic spondylosis. IMPRESSION: 1. No acute cardiopulmonary disease. Reviewed, dictated and finalized at location E.
== END 2024-02-01 15:51 | disposition home or self-care (01) ==
PROVIDERS: PCP Internal Medicine; Visit Provider Internal Medicine
DX: M43.04 Spondylolysis, thoracic region (principal); M41.84 Other forms of scoliosis, thoracic region
CPT/HCPCS: 36415; 71046; 72072; 84439; 84443

== ENCOUNTER 2024-03-07 14:36 | Outpatient (CLI) | payer MEDICARE, OTHER, SELFPAY ==
--- NOTE | ~2024-03-07 | CT_ITS ---
EXAMINATION:CT diagnostic chest wo con DATE: 03/07/2024 14:55 INDICATION: Exposure to radon, initial encounter. TECHNIQUE: Computed tomography (CT) of the chest was performed without intravenous contrast. Automate d exposure control and iterative reconstruction technique were employed. The dose-length product (DLP ) was 94.25 mGy-cm. COMPARISON: CT abdomen pelvis 06/02/2021 FINDINGS: There is mild scarring at the lung apices. There are a few scattered nodules in the lungs m easuring up to 4 mm, likely benign. A calcified left lung nodule is consistent with old granulomatous disease. No pleural effusion. The heart size is normal. There are coronary artery calcifications. No pericardial effusion. There is diffuse hepatic steatosis. There are changes of cholecystectomy. Ther e is mild thoracic spondylosis. IMPRESSION: 1. Small pulmonary nodules, likely benign. Reviewed, dictated and finalized at location A.
== END 2024-03-07 14:37 | disposition home or self-care (01) ==
LOC: ANHIMG 14:37
PROVIDERS: PCP Internal Medicine; Visit Provider Internal Medicine
DX: R91.1 Solitary pulmonary nodule (principal); X39.01XA Exposure to radon, initial encounter
CPT/HCPCS: 71250

== ENCOUNTER 2024-03-17 16:05 | Emergency (ER) | payer MEDICARE, OTHER, SELFPAY ==
[2024-03-17] VITALS (7 sets, daily range): BP systolic 132–161; BP diastolic 75–94; PULSE 81–110; RESP 16–21; TEMP 36.6; O2SAT 96–99
--- NOTE | ~2024-03-17 | XR_ITS ---
EXAMINATION: XR chest 2V DATE: 03/17/2024 16:51 INDICATION: Palpitations. Lightheadedness. Dizziness. TECHNIQUE: Frontal and lateral views of the chest were obtained. COMPARISON: Chest 2 views 02/01/2024 FINDINGS: There is no pneumonia, pleural effusion, or pneumothorax. The heart size is normal. Surgica l clips in the right upper quadrant are likely from cholecystectomy. IMPRESSION: 1. No acute cardiopulmonary disease. Reviewed, dictated and finalized at location E.
--- NOTE | 2024-03-17 16:22 | ECG_ITS ---
Test Date: 2024-03-17 16:35:08 Measurements Intervals [place] Rate: 85 P: 27 [place]: 169 QRS: -17 QRSD: 86 T: 32 QT: 354 QTc: 422 Interpretive Statements SINUS RHYTHM BORDERLINE VOLTAGE EVIDENCE OF LVH BORDERLINE ECG No previous ECG available for comparison Electronically Signed On 03-18-2024 15:07:44 CDT by Sha Dominguez M.D.
--- NOTE | 2024-03-17 16:42 | ED.GENADULT ---
HPI - General Adult General Chief complaint: Arrhythmia/Palpitations Stated complaint: high B/P, dizzy Time Seen by Provider: 03/17/24 16:09 History of Present Illness HPI narrative: patient is a 74-year-old female who presents ER with reports of elevated blood pressures. They have been running in the 160s at home bed daily 120/80. She also feels like she is having some palpitations of her heart. The heart monitor shows patient in trigeminy. No recent medication change where no fevers or chills or sweats. No chest pain or chest pressure. patient feels anxious and lightheaded. Related Data Home Medications Medication Instructions Recorded Confirmed folic acid 400 mcg tablet 0.8 mg PO DAILY 04/07/20 02/29/24 lactobacillus combination no.8 3 3,000 mmu cells PO DAILY 02/12/21 02/29/24 billion cell capsule (Adult Probiotic) omega 6-rzq-uqf-fish oil 1,200 mg 1 cap PO DAILY 02/12/21 02/29/24 (144 mg-216 mg) capsule (Fish Oil) triamcinolone acetonide 55 mcg 1 spray intranasal DAILY 01/03/22 02/29/24 nasal spray aerosol Calcium with VIt D BYMOUTH 11/24/23 02/29/24 diltiazem HCl 180 mg 360 mg PO DAILY 02/01/24 02/29/24 capsule,extended release 24 hr ciclopirox 0.77 % topical cream 1 applic topical ONCE 02/29/24 02/29/24 Allergies Allergy/AdvReac Type Severity Reaction Status Date / Time No Known Allergies Allergy Verified 03/17/24 16:54 Review of Systems Review of Systems: All systems reviewed & are unremarkable except as noted in HPI and below Constitutional: Constitutional: Reports no additional constitutional complaints ENT: Reports system reviewed and no additional complaints, except as documented Cardiovascular: Cardiovascular: Denies chest pain, Denies rapid heart rate and Denies radiating jaw, neck or arm pain Comments: Palpitations Respiratory: Respiratory: Reports no additional respiratory complaints Genitourinary: Genitourinary: Reports no additional female genitourinary complaints FOR[facility]LY [facility], [facility] Past Medical History Medical History Abdominal mass, left lower quadrant Abdominal pain Anxiety Benign essential hypertension BMI 27.0-27.9,adult BMI 28.0-28.9,adult Chest congestion Cholinergic urticaria Chronic low back pain Chronic pain of right knee CKD (chronic kidney disease) Constipation, acute Contact dermatitis Diabetes mellitus Diverticular disease Diverticulitis DJD (degenerative joint disease) of knee Eczema Elevated homocysteine Encounter for Medicare annual wellness exam Encounter for routine adult health examination with abnormal findings Follow up GERD (gastroesophageal reflux disease) GERD with esophagitis History of diverticulitis History of diverticulitis of colon Hx of colonic polyps Hx of ovarian cancer Hyperlipidemia Hypothyroidism (acquired) Impaired functional mobility, balance, gait, and endurance Left medial knee pain LLQ abdominal pain Nausea On intermediate designer drug therapy Onychomycosis Ovarian cancer Persistent fever Radicular low back pain Sacroiliitis Sinus pressure Sinusitis Stress Umbilical hernia UTI symptoms Vaginal candidiasis Surgical History Surgical History History of colon resection August 2020 Hx of cholecystectomy Hx of colonoscopy Hx of esophagogastroduodenoscopy Hx of hysterectomy Family History Family History Father Family history of elevated blood lipids Family history of Alzheimer's disease Family history of heart disease in male family member before age 55 Patient's father is Family history of cardiovascular disease Sibling Family history of heart disease in male family member before age 55 Family history of cardiovascular disease Mother Family history of seizure disorder Family history of hypercholesterolemia Other Diabetes mellitus Family
[2024-03-17] MEDS: SODIUM CHLORIDE 0.9% IV 1,000 ML 999 ML IV CONT (16:58)
[2024-03-17 17:23] LABS: Basophils Absolute Auto 0.1 K/mm3 (0.0-0.1); Basophils Percent Auto 0.9 % (0.2-1.2); Eosinophils Absolute Auto 0.4 K/mm3 (0-0.3); Eosinophils Percent Auto 6.5 % (0-4.4); Hematocrit 39.5 % (37.0-47.0); Hemoglobin 13.3 g/dL (12.0-15.0); Immature Granulocyte Absolute 0.02 K/mm3 (0.00-0.031); Immature Granulocyte Percent A 0.3 % (0-0.5); Lymphocytes Absolute Auto 1.26 K/mm3 (0.9-3.2); Lymphocytes Percent Auto 19.8 % (18.3-44.2); Mean Corpuscular HGB Conc 33.7 g/dl (32-36); Mean Corpuscular Hemoglobin 30.9 pg (26-34); Mean Corpuscular Volume 91.9 fl (80-100); Mean Platelet Volume 10.7 fl (7.4-10.4); Monocytes Absolute Auto 0.6 K/mm3 (0.1-0.6); Monocytes Percent Auto 8.8 % (2.6-8.5); Neutrophils Percent Auto 63.7 % (45.5-73.1); Platelet Count Result 206 k/mm3 (150-375); Red Cell Distribution Width 14.3 % (11.5-14.5); White Blood Count 6.4 K/mm3 (4.5-10.0)
[2024-03-17 17:29] LABS: Alanine Aminotransferase 33 U/L (6-35); Alkaline Phosphatase 78 U/L (38-126); Anion Gap 15 mmol/L (4-12); Aspartate Amino Transferase 34 U/L (14-36); Bilirubin,Total 0.6 mg/dL (0.2-1.3); Blood Urea Nitrogen 30 mg/dL (7-17); Calcium 10.3 mg/dL (8.4-10.2); Carbon Dioxide 20 mmol/L (22-30); Chloride 106 mmol/L (98-107); Estimated CRCL calculation 31 ml/min; Estimated Glomerular Filt Rate 40; Glucose 151 mg/dL (65-110); Magnesium 1.6 mg/dL (1.6-2.3); Potassium 4.4 mmol/L (3.4-5.0); Sodium 141 mmol/L (137-145)
[2024-03-17 17:33] LABS: Partial Thromboplastin Time 26.2 Seconds (22.3-36.8)
[2024-03-17 17:35] LABS: Troponin I < 0.012 ng/mL (0.000-0.034)
== END 2024-03-17 18:49 | disposition home or self-care (01) ==
PROVIDERS: Emergency Provider Emergency Medicine; PCP Internal Medicine
DX: R00.8 Other abnormalities of heart beat (principal); E86.0 Dehydration; I12.9 Hypertensive chronic kidney disease with stage 1 through stage 4 chronic kidney disease, or unspecified chronic kidney disease; E11.22 Type 2 diabetes mellitus with diabetic chronic kidney disease; N18.9 Chronic kidney disease, unspecified; E78.5 Hyperlipidemia, unspecified; E03.9 Hypothyroidism, unspecified
CPT/HCPCS: 36415; 71046; 80053; 83735; 84484; 85025; 85610; 85730; 93005; 96360; 99284; J7030

== ENCOUNTER 2024-03-25 16:03 | Outpatient (CLI) | payer MEDICARE, OTHER, SELFPAY ==
[2024-03-25 17:01] LABS: Anion Gap 14 mmol/L (4-12); Blood Urea Nitrogen 23 mg/dL (7-17); Carbon Dioxide 19 mmol/L (22-30); Chloride 102 mmol/L (98-107); Estimated Glomerular Filt Rate 49; Glucose 133 mg/dL (65-110); Magnesium 1.5 mg/dL (1.6-2.3); Potassium 4.5 mmol/L (3.4-5.0); Sodium 135 mmol/L (137-145)
[2024-03-25 17:46] LABS: Free T4 Free Thyroxine 1.63 ng/mL (0.78-2.19)
== END 2024-03-25 16:04 | disposition home or self-care (01) ==
LOC: ANHLAB 16:06
PROVIDERS: PCP Internal Medicine; Visit Provider Internal Medicine
DX: E03.9 Hypothyroidism, unspecified (principal); I10 Essential (primary) hypertension; R00.2 Palpitations; Z79.899 Other long term (current) drug therapy
CPT/HCPCS: 36415; 80048; 83735; 84439; 84443

== ENCOUNTER 2024-04-14 16:52 | Emergency (ER) | payer MEDICARE, OTHER, SELFPAY ==
[2024-04-14] VITALS (10 sets, daily range): BP systolic 122–161; BP diastolic 66–77; PULSE 51–90; RESP 15–24; TEMP 36.4; O2SAT 95–100
--- NOTE | ~2024-04-14 | XR_ITS ---
Portable chest x-ray Comparison: 03/17/2024 Clinical History: Shortness of breath Findings: Lungs are clear, without focal consolidation or pleural effusion. Cardiomediastinal silho uette is stable. Bones and soft tissues are unremarkable. Impression: Clear lungs. Reviewed, dictated and finalized at location . Impression: Clear lungs.
--- NOTE | 2024-04-14 16:53 | ECG_ITS ---
Test Date: 2024-04-14 16:59:54 Measurements Intervals [place] Rate: 89 P: 46 DC: 173 QRS: -4 QRSD: 98 T: 56 QT: 351 QTc: 428 Interpretive Statements SINUS RHYTHM WITH FREQUENT VENTRICULAR PREMATURE COMPLEXES VOLTAGE CRITERIA FOR LVH MINIMAL Q WAVES- HIGH LATERAL LEADS ABNORMAL ECG Compared to ECG 03/17/2024 16:35:08 Ventricular premature complex(es) now present Electronically Signed On 04-14-2024 19:47:29 CDT by Jimi Buenrostro D.O.
--- NOTE | 2024-04-14 18:17 | ED.ARRPALP ---
HPI - Arrhythmia/Palpitations General Chief Complaint: Arrhythmia/Palpitations Stated Complaint: palpitations Time Seen by Provider: 04/14/24 17:54 History of Present Illness HPI narrative: Patient is a 74-year-old female with history of hypothyroidism, diabetes, hypertension, anxiety here with palpitations. patient notes that she was seen here for similar about 3 weeks ago. She notes that the symptoms have been persistent but worsened over the last 24 hours which prompted her return to the emergency department. During her last ER visit she was diagnosed with PVCs. She has since seen her primary care doctor and received a cardiac CT and is awaiting scheduling of a outpatient echo as well as a Holter monitor. She notes that she generally felt unwell throughout the day today and her apple watch was telling her that her heart rate was abnormal. No known cardiac history, no recent changes in medications other than the addition of magnesium couple of weeks ago. No prior history of PE or DVT. No leg pain or calf swelling. Related Data Home Medications Medication Instructions Recorded Confirmed folic acid 400 mcg tablet 0.8 mg PO DAILY 04/07/20 03/25/24 lactobacillus combination no.8 3 3,000 mmu cells PO DAILY 02/12/21 03/25/24 billion cell capsule (Adult Probiotic) omega 6-ylm-bmn-fish oil 1,200 mg 1 cap PO DAILY 02/12/21 03/25/24 (144 mg-216 mg) capsule (Fish Oil) triamcinolone acetonide 55 mcg 1 spray intranasal DAILY 01/03/22 03/25/24 nasal spray aerosol Calcium with VIt D BYMOUTH 11/24/23 03/25/24 diltiazem HCl 180 mg 360 mg PO DAILY 02/01/24 03/25/24 capsule,extended release 24 hr ciclopirox 0.77 % topical cream 1 applic topical ONCE 02/29/24 03/25/24 magnesium 200 mg tablet 200 mg PO BID 03/28/24 Allergies Allergy/AdvReac Type Severity Reaction Status Date / Time No Known Allergies Allergy Verified 03/25/24 15:10 Review of Systems Review of Systems: All systems reviewed & are unremarkable except as noted in HPI and below PMFSH Past Medical History Medical History (Updated 04/14/24 @ 20:23 by Ginger Curiel MD) Abdominal mass, left lower quadrant Abdominal pain Anxiety Benign essential hypertension BMI 27.0-27.9,adult BMI 28.0-28.9,adult Chest congestion Cholinergic urticaria Chronic low back pain Chronic pain of right knee CKD (chronic kidney disease) Constipation, acute Contact dermatitis Diabetes mellitus Diverticular disease Diverticulitis DJD (degenerative joint disease) of knee Eczema Elevated homocysteine Encounter for Medicare annual wellness exam Encounter for routine adult health examination with abnormal findings Follow up GERD (gastroesophageal reflux disease) GERD with esophagitis History of diverticulitis History of diverticulitis of colon Hospital discharge follow-up Hx of colonic polyps Hx of ovarian cancer Hyperlipidemia Hypothyroidism (acquired) Impaired functional mobility, balance, gait, and endurance Left medial knee pain LLQ abdominal pain Nausea On supervisor intermediates drug therapy Onychomycosis Ovarian cancer Persistent fever Radicular low back pain Sacroiliitis Sinus pressure Sinusitis Stress Umbilical hernia UTI symptoms Vaginal candidiasis Surgical History Surgical History History of colon resection August 2020 Hx of cholecystectomy Hx of colonoscopy Hx of esophagogastroduodenoscopy Hx of hysterectomy Family History Family History Father Family history of elevated blood lipids Family history of Alzheimer's disease Family history of heart disease in male family member before age 55 Patient's father is Family history of cardiovascular disease Sibling Family history of heart disease in male family member before age 55 Family history of cardiovascular disease Mother Family history of seizure disorder Family history of hyperc
[2024-04-14 18:28] LABS: Basophils Absolute Auto 0.1 K/mm3 (0.0-0.1); Basophils Percent Auto 0.9 % (0.2-1.2); Eosinophils Absolute Auto 0.5 K/mm3 (0-0.3); Eosinophils Percent Auto 8.4 % (0-4.4); Hematocrit 38.5 % (37.0-47.0); Hemoglobin 13.3 g/dL (12.0-15.0); Immature Granulocyte Absolute 0.03 K/mm3 (0.00-0.031); Immature Granulocyte Percent A 0.5 % (0-0.5); Lymphocytes Absolute Auto 1.12 K/mm3 (0.9-3.2); Lymphocytes Percent Auto 17.4 % (18.3-44.2); Mean Corpuscular HGB Conc 34.5 g/dl (32-36); Mean Corpuscular Hemoglobin 31.1 pg (26-34); Mean Corpuscular Volume 90.2 fl (80-100); Mean Platelet Volume 9.9 fl (7.4-10.4); Monocytes Absolute Auto 0.6 K/mm3 (0.1-0.6); Monocytes Percent Auto 9.1 % (2.6-8.5); Neutrophils Absolute Auto 4.1 K/mm3 (1.3-6.7); Neutrophils Percent Auto 63.7 % (45.5-73.1); Platelet Count Result 177 k/mm3 (150-375); Red Blood Count 4.27 M/mm3 (4.2-5.4); Red Cell Distribution Width 13.3 % (11.5-14.5); White Blood Count 6.5 K/mm3 (4.5-10.0)
[2024-04-14 18:39] LABS: Alanine Aminotransferase 37 U/L (6-35); Albumin Level 4.7 g/dL (3.5-5.1); Alkaline Phosphatase 68 U/L (38-126); Anion Gap 16 mmol/L (4-12); Aspartate Amino Transferase 30 U/L (14-36); Bilirubin,Total 0.5 mg/dL (0.2-1.3); Blood Urea Nitrogen 20 mg/dL (7-17); Calcium 9.7 mg/dL (8.4-10.2); Carbon Dioxide 22 mmol/L (22-30); Chloride 93 mmol/L (98-107); Estimated CRCL calculation 40 ml/min; Estimated Glomerular Filt Rate 55; Glucose 122 mg/dL (65-110); Lipase 122 U/L (23-300); Magnesium 1.2 mg/dL (1.6-2.3); Potassium 4.4 mmol/L (3.4-5.0); Sodium 131 mmol/L (137-145)
[2024-04-14 18:40] LABS: INR 0.9; Partial Thromboplastin Time 26.5 Seconds (22.3-36.8); Prothrombin Time 12.8 Seconds (11.1-14.7)
[2024-04-14 18:47] LABS: NT Pro B Type Natriuretic Pept 236 pg/mL (19.9-100)
[2024-04-14 19:09] LABS: Thyroid Stimulating Hormone Reflex 0.602 uIU/mL (0.465-4.68)
[2024-04-14 19:23] LABS: D Dimer 0.49 ug/mL (<0.48)
[2024-04-14] MEDS: MAGNESIUM SULF 2 GM/WATER 50ML 2 GM/50 ML BAG IVPB (19:26)
[2024-04-14 19:32] LABS: Troponin I < 0.012 ng/mL (0.000-0.034)
== END 2024-04-14 21:20 | disposition home or self-care (01) ==
PROVIDERS: Emergency Provider Student in an Organized Health Care Education/Training Program; PCP Internal Medicine
DX: R00.2 Palpitations (principal); I49.3 Ventricular premature depolarization; E83.42 Hypomagnesemia; I12.9 Hypertensive chronic kidney disease with stage 1 through stage 4 chronic kidney disease, or unspecified chronic kidney disease; E11.22 Type 2 diabetes mellitus with diabetic chronic kidney disease; N18.9 Chronic kidney disease, unspecified; E03.9 Hypothyroidism, unspecified; E78.5 Hyperlipidemia, unspecified; K21.00 Gastro-esophageal reflux disease with esophagitis, without bleeding; Z86.010 Personal history of colon polyps; Z85.43 Personal history of malignant neoplasm of ovary; Z90.49 Acquired absence of other specified parts of digestive tract; Z90.710 Acquired absence of both cervix and uterus; Z79.84 Long term (current) use of oral hypoglycemic drugs; Z79.899 Other long term (current) drug therapy
CPT/HCPCS: 36415; 71045; 80053; 83690; 83735; 83880; 84443; 84484; 85025; 85380; 85610; 85730; 93005; 96365; 96366; 99284; J3475

== ENCOUNTER 2024-05-03 22:52 | Inpatient (IN) | payer MEDICARE, OTHER, SELFPAY ==
--- NOTE | ~2024-05-03 | XR_ITS ---
EXAMINATION: XR chest 2V DATE: 05/03/2024 23:20 INDICATION: Chest pain and shortness of breath TECHNIQUE: PA and lateral views of the chest were obtained. COMPARISON: Chest radiograph dated 04/14/2024 FINDINGS: The lungs remain clear with no focal airspace opacities, pulmonary edema, pleural effusion or pneumot horax. The cardiomediastinal silhouette is normal. Mild to moderate thoracic spondylosis. Cholecystec deepali clips in right upper quadrant. IMPRESSION: 1. No acute cardiopulmonary disease. Reviewed, dictated and finalized at location A.
--- NOTE | ~2024-05-03 | CT_ITS ---
EXAMINATION: CTA chest PE abdomen pel DATE: 05/04/2024 04:36 INDICATION: Chest pain. Abnormal liver function tests. TECHNIQUE: Computed tomography angiography (CTA) of the chest was performed with 100 mL Omnipaque-350 intravenous contrast timed to evaluate the pulmonary arteries. Coronal maximum intensity projection 3D-reconstructions were created by the technologist. Computed tomography (CT) of the abdomen and pelv is was performed with intravenous contrast. Automated exposure control and iterative reconstruction t echnique were employed. The dose-length product was 948.56 mGy-cm. COMPARISON: Chest CT 03/07/2024 FINDINGS: CTA chest: There is smooth septal thickening in the lungs, consistent with mild pulmonary edema. Ther e is mild atelectasis bilaterally. Cardiomegaly is noted. There are coronary artery calcifications. N o pericardial effusion. There is no pulmonary embolus. There is wall thickening of the esophagus. The re is moderate thoracic spondylosis. There is mild chronic anterior wedging of multiple midthoracic v ertebral bodies. CT abdomen and pelvis: There is diffuse hepatic steatosis. There are changes of cholecystectomy. The spleen, pancreas, and adrenal glands are normal. There is cortical thinning of the kidneys. There are cysts in the kidneys measuring up to 8 mm on the right. There are no dilated loops of bowel. The cate endix is not visualized. There are no pathologically enlarged lymph nodes. There is no free intraperi toneal fluid. There is moderate lumbar spondylosis. IMPRESSION: 1. No pulmonary embolus. 2. Mild pulmonary edema. 3. Wall thickening of the esophagus, likely esophagitis. Reviewed, dictated and finalized at location A.
[2024-05-03 22:54] VITALS: BP 133/71; PULSE 69; RESP 16; TEMP 36.9; O2SAT 100
--- NOTE | 2024-05-03 22:54 | ECG_ITS ---
Test Date: 2024-05-03 23:02:49 Measurements Intervals [place] Rate: 70 P: 45 AL: 166 QRS: 38 QRSD: 90 T: 61 QT: 386 QTc: 418 Interpretive Statements SINUS RHYTHM POSSIBLE SEPTAL MYOCARDIAL INFARCTION , OF INDETERMINATE AGE [40+ ms Q WAVE IN V1/V2] BORDERLINE ECG Compared to ECG 04/14/2024 16:59:54 LOSS OF R-WAVE VOLTAGE IN V2, INTERVAL INFARCTION VERSUS ALTERED LEAD POSITION PVCS ARE NOT DEMONSTRATED Electronically Signed On 05-04-2024 08:22:34 CDT by Sha Dominguez M.D.
[2024-05-03 23:18] LABS: Basophils Absolute Auto 0.1 K/mm3 (0.0-0.1); Basophils Percent Auto 0.7 % (0.2-1.2); Eosinophils Absolute Auto 0.4 K/mm3 (0-0.3); Eosinophils Percent Auto 3.1 % (0-4.4); Hematocrit 38.9 % (37.0-47.0); Hemoglobin 13.6 g/dL (12.0-15.0); Immature Granulocyte Absolute 0.08 K/mm3 (0.00-0.031); Immature Granulocyte Percent A 0.6 % (0-0.5); Lymphocytes Absolute Auto 1.51 K/mm3 (0.9-3.2); Lymphocytes Percent Auto 12.2 % (18.3-44.2); Mean Corpuscular Hemoglobin 31.3 pg (26-34); Mean Corpuscular Volume 89.4 fl (80-100); Mean Platelet Volume 10.4 fl (7.4-10.4); Monocytes Absolute Auto 0.9 K/mm3 (0.1-0.6); Monocytes Percent Auto 7.5 % (2.6-8.5); Neutrophils Absolute Auto 9.4 K/mm3 (1.3-6.7); Neutrophils Percent Auto 75.9 % (45.5-73.1); Platelet Count Result 254 k/mm3 (150-375); Red Blood Count 4.35 M/mm3 (4.2-5.4); Red Cell Distribution Width 13.1 % (11.5-14.5); White Blood Count 12.4 K/mm3 (4.5-10.0)
[2024-05-03 23:29] LABS: INR 0.9
[2024-05-03 23:30] LABS: Partial Thromboplastin Time 29.3 Seconds (22.3-36.8)
[2024-05-04] VITALS (53 sets, daily range): BP systolic 90–135; BP diastolic 56–109; PULSE 64–84; RESP 15–24; TEMP 36–36.7; O2SAT 90–100
[2024-05-04] LABS: Alanine Aminotransferase 44 U/L (6-35); Albumin Level 4.9 g/dL (3.5-5.1); Alkaline Phosphatase 77 U/L (38-126); Anion Gap 17 mmol/L (4-12); Aspartate Amino Transferase 42 U/L (14-36); Bilirubin,Total 0.8 mg/dL (0.2-1.3); Blood Urea Nitrogen 20 mg/dL (7-17); Calcium 9.6 mg/dL (8.4-10.2); Carbon Dioxide 16 mmol/L (22-30); Chloride 87 mmol/L (98-107); Estimated CRCL calculation 35 ml/min; Estimated Glomerular Filt Rate 49; Glucose 169 mg/dL (65-110); Lipase 104 U/L (23-300); Sodium 120 mmol/L (137-145)
--- NOTE | 2024-05-04 02:11 | ECG_ITS ---
Test Date: 2024-05-04 02:13:06 Measurements Intervals [place] Rate: 67 P: 57 CT: 165 QRS: 32 QRSD: 90 T: 58 QT: 410 QTc: 434 Interpretive Statements SINUS RHYTHM SEPTAL MYOCARDIAL INFARCTION , OF INDETERMINATE AGE [40+ ms Q WAVE IN V1/V2] BORDERLINE ECG Compared to ECG 05/03/2024 23:02:49 No significant changes Electronically Signed On 05-04-2024 08:24:07 CDT by Sha Dominguez M.D.
--- NOTE | 2024-05-04 02:34 | ED.GENADULT ---
HPI - General Adult General Chief complaint: Chest Pain Stated complaint: chest pain Time Seen by Provider: 05/04/24 01:53 History of Present Illness HPI narrative: patient 74-year-old female who presents emergency department with chief complaint of chest pain. Patient reports he has been having a fullness in her chest since around 2:00 p.m. reports that she has tried taking Flexeril and tramadol without relief. The patient states she feels as though there is like a muscle pull her something going on with her back patient reports no prior history of cardiac disease reports that she did feel nauseated with this and feels like it is heavy to breath Related Data Home Medications Medication Instructions Recorded Confirmed folic acid 400 mcg tablet 0.8 mg PO DAILY 04/07/20 03/25/24 lactobacillus combination no.8 3 3,000 mmu cells PO DAILY 02/12/21 03/25/24 billion cell capsule (Adult Probiotic) omega 0-lxe-uvt-fish oil 1,200 mg 1 cap PO DAILY 02/12/21 03/25/24 (144 mg-216 mg) capsule (Fish Oil) triamcinolone acetonide 55 mcg 1 spray intranasal DAILY 01/03/22 03/25/24 nasal spray aerosol Calcium with VIt D BYMOUTH 11/24/23 03/25/24 ciclopirox 0.77 % topical cream 1 applic topical ONCE 02/29/24 03/25/24 magnesium 200 mg tablet 200 mg PO BID 03/28/24 Allergies Allergy/AdvReac Type Severity Reaction Status Date / Time No Known Allergies Allergy Verified 05/03/24 22:57 Review of Systems Review of Systems: A 10 system review of systems was completed on the patient and is negative except for what is stated in the HPI. Nursing and ancillary documentation was reviewed. [facility] Past Medical History Medical History Abdominal mass, left lower quadrant Abdominal pain Anxiety Benign essential hypertension BMI 27.0-27.9,adult BMI 28.0-28.9,adult Chest congestion Cholinergic urticaria Chronic low back pain Chronic pain of right knee CKD (chronic kidney disease) Constipation, acute Contact dermatitis Diabetes mellitus Diverticular disease Diverticulitis DJD (degenerative joint disease) of knee Eczema Elevated homocysteine Encounter for Medicare annual wellness exam Encounter for routine adult health examination with abnormal findings Follow up GERD (gastroesophageal reflux disease) GERD with esophagitis History of diverticulitis History of diverticulitis of colon Hospital discharge follow-up Hx of colonic polyps Hx of ovarian cancer Hyperlipidemia Hypothyroidism (acquired) Impaired functional mobility, balance, gait, and endurance Left medial knee pain LLQ abdominal pain Nausea On custodial drug therapy Onychomycosis Ovarian cancer Persistent fever Radicular low back pain Sacroiliitis Sinus pressure Sinusitis Stress Umbilical hernia UTI symptoms Vaginal candidiasis Surgical History Surgical History History of colon resection August 2020 Hx of cholecystectomy Hx of colonoscopy Hx of esophagogastroduodenoscopy Hx of hysterectomy Family History Family History Father Family history of elevated blood lipids Family history of Alzheimer's disease Family history of heart disease in male family member before age 55 Patient's father is Family history of cardiovascular disease Sibling Family history of heart disease in male family member before age 55 Family history of cardiovascular disease Mother Family history of seizure disorder Family history of hypercholesterolemia Other Diabetes mellitus Family history of allergic disorder Family history of coronary artery disease Hypertension Social History Social History Smoking status: Never smoker Second hand tobacco smoke exposure: No Alcohol intake: current Do You Feel S
[2024-05-04] MEDS: ONDANSETRON INJ 4 MG/2 ML VIAL IV PUSH ×3 (02:56→10:58)
[2024-05-04] MEDS: MORPHINE SULFATE (*CRX) 4 MG/ML INJ IV PUSH (02:57)
[2024-05-04] MEDS: HEPARIN SODIUM 5,000 UNITS/ML VIAL 3500 UNITS IV PUSH (03:01)
[2024-05-04] MEDS: HEPARIN SOD/D5W 100 UNITS/ML 25,000 UNITS/250 ML BAG 7 UNITS IV CONT (03:02)
[2024-05-04 03:25] LABS: Lactic Acid Reflex 1.7 mmol/L (0.7-2.0)
[2024-05-04] MEDS: PROCHLORPERAZINE EDISYLATE 10 MG/2 ML VIAL IV PUSH (04:05)
[2024-05-04] MEDS: SODIUM CHLORIDE 0.9% IV 100 ML (04:06)
[2024-05-04] MEDS: NITROGLYCERIN SL 0.4 MG TABLET SUBLINGUAL (04:06)
[2024-05-04] MEDS: HYDROmorphone HCL INJ (*CRX) 1 MG/ML SYR IV PUSH (06:45)
--- NOTE | 2024-05-04 06:52 | PC.NURSE ---
continual attempts have been made to give baby aspirin to this patient. pt continues to have nausea and vomiting. Multiple rounds of antiemetics have been given to attempt to help pt.
--- NOTE | 2024-05-04 07:13 | PC.NURSE ---
report to kyler morales
[2024-05-04 08:14] LABS: Basophils Percent Auto 0.3 % (0.2-1.2); Eosinophils Absolute Auto 0.1 K/mm3 (0-0.3); Eosinophils Percent Auto 0.3 % (0-4.4); Hemoglobin 13.8 g/dL (12.0-15.0); Immature Granulocyte Absolute 0.12 K/mm3 (0.00-0.031); Immature Granulocyte Percent A 0.8 % (0-0.5); Lymphocytes Absolute Auto 1.29 K/mm3 (0.9-3.2); Lymphocytes Percent Auto 8.7 % (18.3-44.2); Mean Corpuscular HGB Conc 34.5 g/dl (32-36); Mean Corpuscular Hemoglobin 30.8 pg (26-34); Mean Corpuscular Volume 89.3 fl (80-100); Monocytes Absolute Auto 0.7 K/mm3 (0.1-0.6); Monocytes Percent Auto 4.6 % (2.6-8.5); Neutrophils Absolute Auto 12.6 K/mm3 (1.3-6.7); Neutrophils Percent Auto 85.3 % (45.5-73.1); Platelet Count Result 271 k/mm3 (150-375); Red Blood Count 4.48 M/mm3 (4.2-5.4); Red Cell Distribution Width 13.1 % (11.5-14.5); White Blood Count 14.8 K/mm3 (4.5-10.0)
[2024-05-04 08:25] LABS: Prothrombin Time 13.6 Seconds (11.1-14.7)
[2024-05-04 08:26] LABS: Partial Thromboplastin Time 45.8 Seconds (22.3-36.8)
--- NOTE | 2024-05-04 08:39 | ADMGEN ---
This patient, Nona Malagon, was admitted to IMU Room 200-01 at 0839. Patient/family oriented to hospital policies and general routines including ID bracelet, bed and alarms, visiting hours, pain management, procedures, bathroom and other care routines, personal items, smoking policy, room service/diet, and visiting hours. Information on how to activate the Rapid Response Team has been discussed. Patient/Family are encouraged to report perceived risks to care and to ask questions if they do not understand what they are told or what they should do.
[2024-05-04 08:47] LABS: Alanine Aminotransferase 43 U/L (6-35); Albumin Level 4.7 g/dL (3.5-5.1); Alkaline Phosphatase 84 U/L (38-126); Anion Gap 16 mmol/L (4-12); Aspartate Amino Transferase 39 U/L (14-36); Bilirubin,Total 0.7 mg/dL (0.2-1.3); Blood Urea Nitrogen 21 mg/dL (7-17); Calcium 9.2 mg/dL (8.4-10.2); Carbon Dioxide 16 mmol/L (22-30); Chloride 88 mmol/L (98-107); Cholesterol 146 mg/dL (0-200); Estimated CRCL calculation 39 ml/min; Estimated Glomerular Filt Rate 55; Glucose 194 mg/dL (65-110); HDL Direct 50 mg/dL; Magnesium 1.9 mg/dL (1.6-2.3); Potassium 4.8 mmol/L (3.4-5.0); Sodium 120 mmol/L (137-145); Triglycerides 183 mg/dL (<150)
[2024-05-04 08:54] LABS: LDL Cholesterol Direct 65 mg/dL
[2024-05-04 09:59] LABS: Hemoglobin A1C 6.6 % (<5.7)
[2024-05-04 10:31] LABS: Partial Thromboplastin Time 45.6 Seconds (22.3-36.8)
[2024-05-04] MEDS: HEPARIN SODIUM 5,000 UNITS/ML VIAL 4000 UNITS IV PUSH (10:46)
[2024-05-04] MEDS: ASPIRIN 81 MG CHEWABLE TABLET PO (10:48)
--- NOTE | 2024-05-04 10:55 | PM.CNCAR ---
Assessment and Plan Assessment and plan (1) Non-ST elevation NV (NSTEMI): Code(s): I21.4 - Non-ST elevation (NSTEMI) myocardial infarction Status: Acute Plan This is a 74-year-old lady with multiple coronary risk factors presenting in the middle night with chest pain that began about 11:12 a.m. before that. Her ECG looks relatively benign although she has lost R-wave voltage in lead V2. Her troponin levels however are indicative of non ST elevation NV they are fortunately on the downward trend however it is bothersome that she continues to have chest discomfort and nausea. In this setting I am going to arrange for angiography today. This is not an emergency but I do not believe it represents optimal care to delay angiography until Monday since she is still symptomatic. Angiography will be done shortly and we will proceed with further recommendations based on the findings Sha Dominguez MD [facility] History of Present Illness History of Present Illness Consult date/time: 05/04/24 10:55 Reason For Visit: nstemi Narrative: This is a very pleasant 74-year-old lady who I am seeing at the request of the hospitalist because of non ST elevation mi/ACS. The patient is unknown to me prior to this encounter and came to the emergency room in the middle of the night because of chest pain. She says the pain began while she was at home at about 2:00 p.m. yesterday afternoon. She was advised by they primary physician to come to the emergency room for further evaluation. She describes a substernal heaviness associated with some pain in the back and nausea. Her 12 lead electrocardiogram in the emergency room shows no acute ST segment deviation although it does show development of a Q-wave in lead V2 which was not present in the past. She was found to have an elevated troponin level of 1.6 which has been trending downward. She was treated with aspirin, heparin and statin therapy and was admitted to the IMU. When I came in to see her she was asleep with her sister in the room visiting. Upon awakening she is still feeling unwell with some central chest discomfort and nausea. Her past medical history is relevant for non insulin-dependent diabetes hypertension and dyslipidemia. She also has a remote history of ovarian cancer 24 years ago as well as a colectomy for diverticular disease several years ago. Review of Systems Constitutional: Constitutional: Reports no additional constitutional complaints Eyes: Eyes: Reports no additional eye complaints ENT: Reports system reviewed and no additional complaints, except as documented Cardiovascular: Cardiovascular: Reports as per HPI and Reports chest pain Respiratory: Respiratory: Reports no additional respiratory complaints Gastrointestinal: Gastrointestinal: Reports nausea Genitourinary: Genitourinary: Reports no additional female genitourinary complaints Musculoskeletal: Musculoskeletal: Reports no additional musculoskeletal complaints Integumentary/Breasts: Skin/Breast: Reports system reviewed and no additional complaints, except as docu Neurologic: Reports system reviewed and no additional complaints, except as documented Endocrine: Endocrine: Reports no additional endocrine complaints Hematologic/Lymphatic: Hematologic/Lymphatic: Reports no additional hematologic/lymphatic complaints Allergic/Immunologic: Allergic/Immunologic: Reports no additional allergic/immunologic complaints PMFSH Past Medical History Medical History Abdominal mass, left lower quadrant Abdominal pain Anxiety Benign essential hypertension BMI 27.0-27.9,adult BMI 28.0-28.9,adult Chest congestion Cholinergic urticaria Chronic low back pain Chronic pain of right knee CKD (chronic kidney disease) Constipation, acute Contact dermatitis Diabetes mellitus Diverticular disease Diverticulitis DJD (degenerative joint disease) of knee Eczema El
--- NOTE | 2024-05-04 11:27 | WPDMODSED ---
Moderate Sedation Note-Pt Data Patient Data Diagnosis: non ST-elevation GA Present Complaint: chest pressure with nausea Procedure to be performed/Plan: left heart catheterization possible PCI Allergies Allergy/AdvReac Type Severity Reaction Status Date / Time No Known Allergies Allergy Verified 05/03/24 22:57 Home Medications Medication Instructions Recorded Confirmed Type omega 9-rcy-ljw-fish oil 1,200 mg 1 cap PO DAILY 02/12/21 05/04/24 History (144 mg-216 mg) capsule (Fish Oil) tramadol 50 mg tablet 50 mg PO Q6H PRN pain #50 tabs 05/25/23 05/04/24 Rx ondansetron 8 mg disintegrating 8 mg PO Q8H PRN nausea and 01/16/24 05/04/24 Rx tablet vomiting #30 tabs duloxetine 60 mg capsule,delayed 60 mg PO DAILY #90 caps 03/25/24 05/04/24 Rx release (Cymbalta) lorazepam 1 mg tablet 1 mg PO BID #60 tabs 03/26/24 05/04/24 Rx cyclobenzaprine 10 mg tablet See Rx Instructions PO TID PRN 04/05/24 05/04/24 Rx muscle spasm #50 tabs magnesium 200 mg tablet 200 mg PO BID 30 days #60 tabs 04/14/24 05/04/24 Rx zolpidem 12.5 mg tablet,extended 12.5 mg PO QHS #90 tabs 04/18/24 05/04/24 Rx release,multiphase empagliflozin 10 mg tablet 10 mg PO DAILY #90 tabs 04/30/24 05/04/24 Rx (Jardiance) atorvastatin 20 mg tablet 20 mg PO DAILY 05/04/24 05/04/24 History levothyroxine 125 mcg tablet 125 mcg PO DAILY 05/04/24 05/04/24 History losartan 100 1 tablet PO DAILY 05/04/24 05/04/24 History mg-hydrochlorothiazide 25 mg tablet metformin 1,000 mg tablet 1,000 mg PO DAILY 05/04/24 05/04/24 History metformin 1,000 mg tablet 1,500 mg PO HS 05/04/24 05/04/24 History metoprolol tartrate 25 mg tablet 25 mg PO DAILY 05/04/24 05/04/24 History Current Medications: Active Medications Acetaminophen (Acetaminophen 325 Mg Tablet) 650 mg PO Q4H PRN PRN Reason: Mild Pain (1-3) or Fever Aspirin (Aspirin 81 Mg Chewable Tablet) 81 mg PO DAILY@0800 [facility] Last Admin: 05/04/24 10:48 Dose: 81 mg Heparin Sodium (Porcine) (Heparin Sodium 5,000 Units/Ml Vial) 4,000 units IV PUSH PRN PRN PRN Reason: aPTT less than 55 seconds Last Admin: 05/04/24 10:46 Dose: 4,000 units Heparin Sodium (Porcine) (Heparin Sodium 5,000 Units/Ml Vial) 2,500 units IV PUSH PRN PRN PRN Reason: aPTT 55 - 70 seconds Heparin Sodium/Dextrose (Heparin Sodium/D5w 100 Units/Ml) 25,000 units in 250 mls @ 9 mls/hr IV CONT .Q24H [place]; Protocol Last Titration: 05/04/24 10:47 Dose: 900 units/hr, 9 mls/hr Ondansetron HCl (Ondansetron Inj 4 Mg/2 Ml Vial) 4 mg IV PUSH Q6H PRN PRN Reason: Nausea And Vomiting Last Admin: 05/04/24 10:58 Dose: 4 mg Sedation/Anesthesia: No previous sedation/anesthesia problems (including family history). [facility] Past Medical History Medical History Abdominal mass, left lower quadrant Abdominal pain Anxiety Benign essential hypertension BMI 27.0-27.9,adult BMI 28.0-28.9,adult Chest congestion Cholinergic urticaria Chronic low back pain Chronic pain of right knee CKD (chronic kidney disease) Constipation, acute Contact dermatitis Diabetes mellitus Diverticular disease Diverticulitis DJD (degenerative joint disease) of knee Eczema Elevated homocysteine Encounter for Medicare annual wellness exam Encounter for routine adult health examination with abnormal findings Follow up GERD (gastroesophageal reflux disease) GERD with esophagitis History of diverticulitis History of diverticulitis of colon Hospital discharge follow-up Hx of colonic polyps Hx of ovarian cancer Hyperlipidemia Hypothyroidism (acquired) Impaired functional mobility, balance, gait, and endurance Left medial knee pain LLQ abdominal pain Nausea 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
--- NOTE | 2024-05-04 12:24 | WPDCARDPROC ---
Cardiac Cath Procedure Note Date of procedure:: 05/04/24 Performing physician:: Sha Dominguez MD Indication:: acute coronary syndrome/ non ST elevation DC Brief clinical history:: this is a 74-year-old woman with a history of diabetes hypertension and dyslipidemia presenting with chest pain that began yesterday afternoon. The patient troponin levels are mildly elevated she has new ECG abnormalities with Reduced R-wave voltage in the precordial leads and a new Q-wave in V2. No significant ST segment deviation. Because of ongoing chest discomfort and nausea despite anticoagulation angiography has been recommended. Procedure Procedure performed:: Coronary angiography left ventriculography Sedation/Medication given:: no procedural sedation case start time 12:01 p.m. case end time 12:18 p.m. sedation provided by Breanna Anderson RN, trained observer Access site:: right femoral artery Estimated blood loss:: minimal, 20 cc Procedure note:: patient was brought to the cardiac catheterization lab in the postabsorptive state where the right femoral triangle was prepped draped in the usual fashion. Anesthesia was provided with 15 cc of lidocaine infiltrated locally. Using the modified Seldinger technique the femoral artery was punctured and a 6 [place] vascular sheath was placed. After this left heart catheterization were carried out. I used of 5 [place] FL4 catheter to engage and inject the left coronary artery in multiple projections after this a 5 [place] JR4 catheters used to engage and inject the right coronary artery in multiple projections. Following this a 5 [place] angled pigtail catheter was used to measure left-sided hemodynamics and to inject the left ventriculogram in the 30 degree LEGER projection. Following this the cineangiograms were reviewed. An angiogram was done of the femoral artery through the sheath and it was determined that the sheath will be removed with direct manual compression. He was taken to the ICU room 1. For postop sheath removal. Findings:: Hemodynamics: Central aortic pressure is 138 over 70 left ventricle 138/6 end-diastolic 18 there is no gradient on pullback across the aortic valve. Left ventricle: The LV is mildly enlarged there is a large area of akinesis involving the apical 1/2 of the left ventricle. The base of the ventricle contracts well. The global ejection fraction is in the vicinity of 35%. The pattern is typical of takotsubo stress cardiomyopathy the left main coronary artery is nicely patent the left anterior descending is a moderate caliber artery extending down to the apex the LAD and its branches are smooth and angiographically normal in appearance the circumflex is a medium caliber artery giving rise to the marginal branches and a posterior branch the circumflex system is smooth and angiographically normal in appearance the right coronary artery is large in caliber proximally , dominant to the posterior circulation and is smooth a nicely patent. The RPDA and RPL branches are patent small but extremely tortuous in appearance Conclusion:: 1. right coronary dominant circulation with no angiographic evidence of coronary disease 2. akinesis of the apical half of the left ventricle with reduced ejection fraction in a pattern typical of takotsubo cardiomyopathy. Recent echocardiogram in the record does demonstrate hyperdynamic left ventricular function Sha Dominguez MD [facility]
[2024-05-04 12:30] LABS: Activated Clotting Time 183 SEC (74-137)
--- NOTE | 2024-05-04 12:30 | PM.IMHP ---
H&P: HPI History of Present Illness Date/Time: 05/04/24 12:30 Chief Complaint: Chest Pain Narrative: Patient is a 74-year-old female who presented to the emergency department with complaints of chest pain. Patient states she began to have chest pressure that radiated to her back and down her left arm up to her jaw line as though they were going numb around 1400 yesterday 05/03/2024. Patient denied any shortness of breath, dizziness, syncopal episode however did report nausea without vomiting and diaphoresis. patient's past medical history include hypertension, HLD, diabetes, and hypothyroidism. upon arrival to the emergency department patient's troponin levels were found to be elevated with a peak at 1.6.10 and now downtrending. EKG with no ST - T elevation or acute changes however upon assessment patient continued to report chest pain. patient states she has had previous episodes however not this severe and she did not seek treatment for. patient states she called her PCP who recommended she take a tramadol and muscle relaxant however the pain was unrelieved. patient was reported to IMU for further evaluation and treatment of non-STEMI a consult to Cardiology. Review of Systems Review of Systems: All systems reviewed & are unremarkable except as noted in HPI and below PMFSH Past Medical History Medical History Abdominal mass, left lower quadrant Abdominal pain Anxiety Benign essential hypertension BMI 27.0-27.9,adult BMI 28.0-28.9,adult Chest congestion Cholinergic urticaria Chronic low back pain Chronic pain of right knee CKD (chronic kidney disease) Constipation, acute Contact dermatitis Diabetes mellitus Diverticular disease Diverticulitis DJD (degenerative joint disease) of knee Eczema Elevated homocysteine Encounter for Medicare annual wellness exam Encounter for routine adult health examination with abnormal findings Follow up GERD (gastroesophageal reflux disease) GERD with esophagitis History of diverticulitis History of diverticulitis of colon Hospital discharge follow-up Hx of colonic polyps Hx of ovarian cancer Hyperlipidemia Hypothyroidism (acquired) Impaired functional mobility, balance, gait, and endurance Left medial knee pain LLQ abdominal pain Nausea 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 Onychomycosis Ovarian cancer Persistent fever Radicular low back pain Sacroiliitis Sinus pressure Sinusitis Stress Umbilical hernia UTI symptoms Vaginal candidiasis Surgical History Surgical History History of colon resection August 2020 Hx of cholecystectomy Hx of colonoscopy Hx of esophagogastroduodenoscopy Hx of hysterectomy Family History Family History Father Family history of elevated blood lipids Family history of Alzheimer's disease Family history of heart disease in male family member before age 55 Patient's father is Family history of cardiovascular disease Sibling Family history of heart disease in male family member before age 55 Family history of cardiovascular disease Mother Family history of seizure disorder Family history of hypercholesterolemia Other Diabetes mellitus Family history of allergic disorder Family history of coronary artery disease Hypertension Social History Social History Smoking status: Never smoker Second hand tobacco smoke exposure: No Alcohol intake: never Substance use: never Substance use type: does not use Do You Feel Safe in your Home?: Yes Lack of Transportation: No Lack of Food: Never True Current Housing: I Have Housing Concerned About Future Housing: No Difficulty Paying Gas/Electric Bills: No Difficulty Paying for Meds: No Currently Unemployed: No 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
[2024-05-04 14:11] LABS: Partial Thromboplastin Time 59.6 Seconds (22.3-36.8)
--- NOTE | 2024-05-04 14:12 | PC.NURSE ---
This patient, Nona Malagon, was received from Cardiac [facility] tender restoration labor on 05/04/24 at 1240. Patient/family oriented to unit policies and routines
[2024-05-04] MEDS: SODIUM CHLORIDE 0.9% IV 1,000 ML 125 ML IV CONT (14:45)
[2024-05-04] MEDS: METOPROLOL SUCCINATE EXT REL 50 MG TABCR PO (14:45)
[2024-05-04 15:25] LABS: Partial Thromboplastin Time 32.2 Seconds (22.3-36.8)
[2024-05-04] MEDS: ISOSORBIDE MONONITRATE 30 MG TAB.ER.24H PO (16:33)
[2024-05-04 16:42] LABS: Glucose Point of Care 173 mg/dl (65-105)
[2024-05-04] MEDS: ACETAMINOPHEN 325 MG TABLET 650 MG PO (18:05)
--- NOTE | 2024-05-04 19:34 | PC.NURSE ---
Pt went to Cardiac cath around 1140, went to ICU for recovery, and came back to IMU around 1740.
[2024-05-04 20:07] LABS: Glucose Point of Care 169 mg/dl (65-105)
[2024-05-04] MEDS: SACUBITRIL/VALSARTAN 24-26 MG TABLET 1 TAB PO (20:20)
[2024-05-04] MEDS: OMEGA 3 POLYUNSAT FATTY ACIDS 1 GM CAP PO (20:44)
[2024-05-05] VITALS (22 sets, daily range): BP systolic 102–113; BP diastolic 55–77; PULSE 64–71; RESP 16–20; TEMP 36.3–37.2; O2SAT 91–98
[2024-05-05] MEDS: traMADol HCL (*CRX) 50 MG TABLET PO ×2 (02:32→23:23)
[2024-05-05] MEDS: ONDANSETRON INJ 4 MG/2 ML VIAL IV PUSH ×2 (03:54→23:23)
[2024-05-05 05:12] LABS: Basophils Percent Auto 0.2 % (0.2-1.2); Eosinophils Absolute Auto 0.1 K/mm3 (0-0.3); Eosinophils Percent Auto 0.4 % (0-4.4); Hematocrit 39.7 % (37.0-47.0); Hemoglobin 13.5 g/dL (12.0-15.0); Immature Granulocyte Absolute 0.05 K/mm3 (0.00-0.031); Immature Granulocyte Percent A 0.4 % (0-0.5); Lymphocytes Absolute Auto 1.13 K/mm3 (0.9-3.2); Lymphocytes Percent Auto 8.3 % (18.3-44.2); Mean Corpuscular Hemoglobin 30.5 pg (26-34); Mean Corpuscular Volume 89.8 fl (80-100); Monocytes Percent Auto 7.4 % (2.6-8.5); Neutrophils Absolute Auto 11.3 K/mm3 (1.3-6.7); Neutrophils Percent Auto 83.3 % (45.5-73.1); Platelet Count Result 247 k/mm3 (150-375); Red Blood Count 4.42 M/mm3 (4.2-5.4); Red Cell Distribution Width 13.2 % (11.5-14.5); White Blood Count 13.6 K/mm3 (4.5-10.0)
[2024-05-05 05:29] LABS: Alanine Aminotransferase 32 U/L (6-35); Albumin Level 4.3 g/dL (3.5-5.1); Alkaline Phosphatase 78 U/L (38-126); Anion Gap 15 mmol/L (4-12); Aspartate Amino Transferase 31 U/L (14-36); Bilirubin,Total 0.7 mg/dL (0.2-1.3); Blood Urea Nitrogen 22 mg/dL (7-17); Calcium 8.8 mg/dL (8.4-10.2); Carbon Dioxide 19 mmol/L (22-30); Chloride 89 mmol/L (98-107); Estimated CRCL calculation 41 ml/min; Estimated Glomerular Filt Rate 49; Glucose 178 mg/dL (65-110); Potassium 3.9 mmol/L (3.4-5.0); Sodium 123 mmol/L (137-145)
[2024-05-05] MEDS: LEVOTHYROXINE SODIUM 125 MCG TABLET PO (06:08)
[2024-05-05 06:33] LABS: Glucose Point of Care 190 mg/dl (65-105)
[2024-05-05] MEDS: FOLIC ACID 0.4 MG TABLET PO (09:43)
[2024-05-05] MEDS: ATORVASTATIN 20 MG TABLET PO (09:43)
[2024-05-05] MEDS: ASPIRIN 81 MG CHEWABLE TABLET PO (09:43)
[2024-05-05] MEDS: OMEGA 3 POLYUNSAT FATTY ACIDS 1 GM CAP PO ×2 (09:43→21:20)
[2024-05-05] MEDS: SPIRONOLACTONE 25 MG TABLET PO (09:43)
[2024-05-05] MEDS: MAGNESIUM OXIDE 200 MG TABLET PO (09:44)
[2024-05-05] MEDS: SACUBITRIL/VALSARTAN 24-26 MG TABLET 1 TAB PO ×2 (10:23→21:20)
[2024-05-05] MEDS: METOPROLOL SUCCINATE EXT REL 50 MG TABCR PO (10:23)
--- NOTE | 2024-05-05 11:22 | PM.PNCARD ---
Progress Note: A&P Assessment and Plan (1) Takotsubo cardiomyopathy: Code(s): I51.81 - Takotsubo syndrome Status: Acute Plan This is a 74-year-old lady with admission with chest pain found to have takotsubo cardiomyopathy after catheterization yesterday. She has been transition to metoprolol succinate and placed on Entresto because of her low ejection fraction. Discussed the nature of this again with the patient today. Expect likely discharge in the next 24-48 hours if she is stable and outpatient follow-up will be arranged in the office to titrate medication if necessary and to assess for recovery of her left ventricular function. Sha Dominguez MD [facility] Subjective Date/time seen: Date of service: 05/05/24 11:22 Interval history: Follow-up visit in this 74-year-old lady with: Chest pain initial diagnosis was acute coronary syndrome but now after catheterization yesterday patient has established diagnosis of takotsubo cardiomyopathy. She feels well this morning the chest pain has resolved. Comorbidities include diabetes hypertension and dyslipidemia. Exam Const: General: comfortable and no acute distress HENMT: Mouth: Yes moist mucous membranes Eyes: Sclera: sclerae normal Neck: Neck: supple and no JVD Resp: Effort & Inspection: normal respiratory effort Auscultation: clear to auscultation bilaterally Cardio: Rate: regular rate Rhythm: regular rhythm Other: No murmur no gallop GI: GI Palp: Yes Soft to palpation Auscultation: normal bowel sounds Skin: General skin exam: normal color Neuro: Other: Normal cognition alert and oriented x3 Extrem: General: normal to inspection Other: Groin puncture site looks fine no hematoma Objective Data Vital Signs Vital Signs: Vital Signs - 24 hr 05/04/24 12:00 05/04/24 14:45 05/04/24 16:10 Temperature 36.6 C Pulse Rate 80 70 70 Pulse Rate [Right Pedal (Dorsalis Pedis) Doppler] 71 Respiratory Rate 20 16 Blood Pressure 135/81 119/80 Pulse Oximetry 95 100 Oxygen Delivery Oxygen Flow Rate Fraction of Inspired Oxygen 05/04/24 16:25 05/04/24 16:02 05/04/24 16:09 Temperature Pulse Rate 68 70 71 Pulse Rate [Right Pedal (Dorsalis Pedis) Doppler] 68 71 Respiratory Rate 22 H 16 21 H Blood Pressure 112/73 114/72 115/76 Pulse Oximetry 97 98 97 Oxygen Delivery Oxygen Flow Rate Fraction of Inspired Oxygen 05/04/24 16:15 05/04/24 16:20 05/04/24 16:30 Temperature Pulse Rate 75 72 68 Pulse Rate [Right Pedal (Dorsalis Pedis) Doppler] 71 72 68 Respiratory Rate 21 H 19 19 Blood Pressure 120/77 121/77 112/72 Pulse Oximetry 98 96 97 Oxygen Delivery Oxygen Flow Rate Fraction of Inspired Oxygen 05/04/24 16:38 05/04/24 17:00 05/04/24 16:00 Temperature Pulse Rate 69 70 Pulse Rate [Right Pedal (Dorsalis Pedis) Doppler] 69 Respiratory Rate 20 Blood Pressure 120/74 Pulse Oximetry 94 96 Oxygen Delivery High Flow Nasal Cannula Oxygen Flow Rate 7 Fraction of Inspired Oxygen 05/04/24 11:30 05/04/24 11:45 05/04/24 13:32 Temperature Pulse Rate 81 84 71 Pulse Rate [Right Pedal (Dorsalis Pedis) Doppler] Respiratory Rate 16 Blood Pressure Pulse Oximetry 91 Oxygen Delivery Oxygen Flow Rate Fraction of Inspired Oxygen 05/04/24 14:09 05/04/24 15:25 05/04/24 16:01 Temperature Pulse Rate 70 71 68 Pulse Rate [Right Pedal (Dorsalis Pedis) Doppler] Respiratory Rate 17 19 24 H Blood Pressure 129/109 H Pulse Oximetry 94 97 98 Oxygen Delivery Oxygen Flow Rate Fraction of Inspired Oxygen 05/04/24 16:33 05/04/24 16:45 05/04/24 16:46 Temperature Pulse Rate 67 67 68 Pulse Rate [Right Pedal (Dorsalis Pedis) Doppler] Respiratory Rate 18 20 22 H Blood Pressure 117/78 Pulse Oximetry 96 98 97 Oxygen Delivery Oxygen Flow Rate Fraction of Inspired Oxygen 05/04/24 17:00 05/04/24 17:01 05/04/24 17:15
--- NOTE | 2024-05-05 11:39 | P.PNIM_ITS ---
Progress Note: A&P Assessment and Plan (1) Non-ST elevation ID (NSTEMI): Code(s): I21.4 - Non-ST elevation (NSTEMI) myocardial infarction Status: Acute (2) GERD with esophagitis: Qualifiers: Esophagitis bleeding: unspecified whether hemorrhage Qualified Code(s): K21.00 - Gastro-esophageal reflux disease with esophagitis, without bleeding Code(s): K21.0 - Gastro-esophageal reflux disease with esophagitis Status: Acute (3) Hypothyroidism (acquired): Code(s): E03.9 - Hypothyroidism, unspecified Status: Acute (4) Hyperlipidemia: Qualifiers: Hyperlipidemia type: unspecified Qualified Code(s): E78.5 - Hyperlipidemia, unspecified Code(s): E78.5 - Hyperlipidemia, unspecified Status: Acute (5) Benign essential hypertension: Code(s): I10 - Essential (primary) hypertension Status: Acute (6) Diabetes mellitus: Qualifiers: Diabetes mellitus type: type 2 Diabetes mellitus 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 use: without skilled nursing use Diabetes mellitus complication status: without complication Qualified Code(s): E11.9 - Type 2 diabetes mellitus without complications Code(s): E11.9 - Type 2 diabetes mellitus without complications Status: Acute (7) Hyponatremia: Code(s): E87.1 - Hypo-osmolality and hyponatremia Status: Acute (8) Takotsubo cardiomyopathy: Code(s): I51.81 - Takotsubo syndrome Status: Acute Plan NSTEMI * elevated troponins peaked at 1.6 downtrending * serial troponins x3 q.6 hours * ASA given in the ED * Heparin gtt started in ED * EKG without ischemic changes q.6 hours * cardiology consulted * NPO for cardiac catheterization * Echocardiogram 04/2024 LVED 65-70% * continuous cardiac monitoring * cardiac risk factors: HTN, Diabetes, HLD, Family HX * resume BB * lifestyle modifications/heart healthy diet 05/05/2024: * Cardiac catheterization 05/05 showed takotsubo cardiomyopathy * Patient was started on Entresto and metoprolol * Will need to follow up 3 months for echocardiogram to evaluate LV function and response to treatment Hyponatremia * 120 POA * 123 05/05/2024 * Encouraged oral intake and hydration patient has had poor appetite prior to arrival * Patient is asymptomatic Diabetes * Accu-Cheks a.c. HS * sliding scale insulin * hold oral diabetic medications * resume patient's home long-acting * Hemoglobin A1c goal less than 7 pending * lipid panel pending * Diabetic diet * consult to dietitian * encourage lifestyle modifications and weight loss * Optimize Antwan inhibitors and statins. * Watch for hypoglycemia/hypoglycemic protocol ordered HX Hypertension: resumed home medications stable HX Hyperlipidemia: Resumed statin HX hypothyroidism:Resumed levothyroxine/TSH pending History of anxiety: Rsumed Ativan HX GERD: Resumed PPI Code status: Full code per patient DVT prophylaxis: Heparin gtt Stress ulcer prophylaxis: Protonix 40 daily PT/OT notes: ambulatory Disposition: Patient was admitted to IMU for further evaluation and treatment of NSTEMI diagnosis with takotsubo cardiomyopathy following catheterization initiated on Entresto and metoprolol. Hyponatremic asymptomatic monitoring for improvement can likely discharge home tomorrow if no events overnight. Time Spent With Patient Time with patient: 15 - 25 minutes Subjective Date/time seen: 05/05/24 11:39 Interval history:
--- NOTE | 2024-05-05 11:39 | PM.IMPN ---
Progress Note: A&P Assessment and Plan (1) Non-ST elevation ND (NSTEMI): Code(s): I21.4 - Non-ST elevation (NSTEMI) myocardial infarction Status: Acute (2) GERD with esophagitis: Qualifiers: Esophagitis bleeding: unspecified whether hemorrhage Qualified Code(s): K21.00 - Gastro-esophageal reflux disease with esophagitis, without bleeding Code(s): K21.0 - Gastro-esophageal reflux disease with esophagitis Status: Acute (3) Hypothyroidism (acquired): Code(s): E03.9 - Hypothyroidism, unspecified Status: Acute (4) Hyperlipidemia: Qualifiers: Hyperlipidemia type: unspecified Qualified Code(s): E78.5 - Hyperlipidemia, unspecified Code(s): E78.5 - Hyperlipidemia, unspecified Status: Acute (5) Benign essential hypertension: Code(s): I10 - Essential (primary) hypertension Status: Acute (6) Diabetes mellitus: Qualifiers: Diabetes mellitus type: type 2 Diabetes mellitus 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 use Diabetes mellitus complication status: without complication Qualified Code(s): E11.9 - Type 2 diabetes mellitus without complications Code(s): E11.9 - Type 2 diabetes mellitus without complications Status: Acute (7) Hyponatremia: Code(s): E87.1 - Hypo-osmolality and hyponatremia Status: Acute (8) Takotsubo cardiomyopathy: Code(s): I51.81 - Takotsubo syndrome Status: Acute Plan NSTEMI elevated troponins peaked at 1.6 downtrending serial troponins x3 q.6 hours ASA given in the ED Heparin gtt started in ED EKG without ischemic changes q.6 hours cardiology consulted NPO for cardiac catheterization Echocardiogram 04/2024 LVED 65-70% continuous cardiac monitoring cardiac risk factors: HTN, Diabetes, HLD, Family HX resume BB lifestyle modifications/heart healthy diet 05/05/2024: Cardiac catheterization 05/05 showed takotsubo cardiomyopathy Patient was started on Entresto and metoprolol Will need to follow up 3 months for echocardiogram to evaluate LV function and response to treatment Hyponatremia 120 POA 123 05/05/2024 Encouraged oral intake and hydration patient has had poor appetite prior to arrival Patient is asymptomatic Diabetes Accu-Cheks a.c. HS sliding scale insulin hold oral diabetic medications resume patient's home long-acting Hemoglobin A1c goal less than 7 pending lipid panel pending Diabetic diet consult to dietitian encourage lifestyle modifications and weight loss Optimize Antwan inhibitors and statins. Watch for hypoglycemia/hypoglycemic protocol ordered HX Hypertension: resumed home medications stable HX Hyperlipidemia: Resumed statin HX hypothyroidism:Resumed levothyroxine/TSH pending History of anxiety: Rsumed Ativan HX GERD: Resumed PPI Code status: Full code per patient DVT prophylaxis: Heparin gtt Stress ulcer prophylaxis: Protonix 40 daily PT/OT notes: ambulatory Disposition: Patient was admitted to IMU for further evaluation and treatment of NSTEMI diagnosis with takotsubo cardiomyopathy following catheterization initiated on Entresto and metoprolol. Hyponatremic asymptomatic monitoring for improvement can likely discharge home tomorrow if no events overnight. Time Spent With Patient Time with patient: 15 - 25 minutes Subjective Date/time seen: 05/05/24 11:39 Interval history: Admission: Chest Pain Narrative: Patient is a 74-year-old female who presented to the emergency department with complaints of chest pain. Patient states she began to have chest pressure that radiated to her back and down her left arm up to her jaw line as though they were going numb around 1400 yesterday 05/03/2024. Patient denied any shortness of breath, dizziness, syncopal episode however did report nausea without vomiting and diaphoresis. patient's past medical history include hypertension, HLD, diab
[2024-05-05 11:51] LABS: Glucose Point of Care 208 mg/dl (65-105)
[2024-05-05] MEDS: INSULIN ASPART (*BKC) 100 UNITS/ML SUB-Q (12:40)
[2024-05-05 16:36] LABS: Glucose Point of Care 175 mg/dl (65-105)
[2024-05-05 20:03] LABS: Glucose Point of Care 182 mg/dl (65-105)
[2024-05-06] VITALS (12 sets, daily range): BP systolic 94–107; BP diastolic 43–68; PULSE 55–68; RESP 16–20; TEMP 36–36.6; O2SAT 88–96
[2024-05-06 04:04] LABS: Basophils Absolute Auto 0.1 K/mm3 (0.0-0.1); Basophils Percent Auto 0.8 % (0.2-1.2); Eosinophils Absolute Auto 0.2 K/mm3 (0-0.3); Eosinophils Percent Auto 2.4 % (0-4.4); Hematocrit 36.9 % (37.0-47.0); Hemoglobin 12.5 g/dL (12.0-15.0); Immature Granulocyte Absolute 0.02 K/mm3 (0.00-0.031); Immature Granulocyte Percent A 0.3 % (0-0.5); Lymphocytes Absolute Auto 1.27 K/mm3 (0.9-3.2); Lymphocytes Percent Auto 20.7 % (18.3-44.2); Mean Corpuscular HGB Conc 33.9 g/dl (32-36); Mean Corpuscular Hemoglobin 30.9 pg (26-34); Mean Corpuscular Volume 91.1 fl (80-100); Mean Platelet Volume 10.3 fl (7.4-10.4); Monocytes Absolute Auto 0.8 K/mm3 (0.1-0.6); Neutrophils Absolute Auto 3.9 K/mm3 (1.3-6.7); Neutrophils Percent Auto 62.8 % (45.5-73.1); Platelet Count Result 183 k/mm3 (150-375); Red Blood Count 4.05 M/mm3 (4.2-5.4); Red Cell Distribution Width 13.6 % (11.5-14.5); White Blood Count 6.2 K/mm3 (4.5-10.0)
[2024-05-06 04:15] LABS: Alanine Aminotransferase 25 U/L (6-35); Albumin Level 3.8 g/dL (3.5-5.1); Alkaline Phosphatase 71 U/L (38-126); Anion Gap 11 mmol/L (4-12); Aspartate Amino Transferase 26 U/L (14-36); Bilirubin,Total 0.5 mg/dL (0.2-1.3); Blood Urea Nitrogen 23 mg/dL (7-17); Carbon Dioxide 23 mmol/L (22-30); Chloride 91 mmol/L (98-107); Estimated CRCL calculation 38 ml/min; Estimated Glomerular Filt Rate 44; Glucose 154 mg/dL (65-110); Potassium 3.7 mmol/L (3.4-5.0); Sodium 125 mmol/L (137-145)
[2024-05-06] MEDS: LEVOTHYROXINE SODIUM 125 MCG TABLET PO (05:47)
[2024-05-06 07:04] LABS: Glucose Point of Care 174 mg/dl (65-105)
[2024-05-06] MEDS: ATORVASTATIN 20 MG TABLET PO (08:54)
[2024-05-06] MEDS: OMEGA 3 POLYUNSAT FATTY ACIDS 1 GM CAP PO (08:54)
[2024-05-06] MEDS: SACUBITRIL/VALSARTAN 24-26 MG TABLET 1 TAB PO (08:54)
[2024-05-06] MEDS: FOLIC ACID 0.4 MG TABLET PO (08:55)
[2024-05-06] MEDS: SPIRONOLACTONE 25 MG TABLET PO (08:55)
[2024-05-06] MEDS: ASPIRIN 81 MG CHEWABLE TABLET PO (08:55)
[2024-05-06] MEDS: MAGNESIUM OXIDE 200 MG TABLET PO (08:55)
[2024-05-06] MEDS: METOPROLOL SUCCINATE EXT REL 50 MG TABCR PO (08:55)
--- NOTE | 2024-05-06 10:11 | PM.PNCARD ---
Progress Note: A&P Assessment and Plan (1) Takotsubo cardiomyopathy: Code(s): I51.81 - Takotsubo syndrome Status: Acute Assessment and Plan: Found to have Takotsubo cardiomyopathy by cardiac catheterization on 05/04/24. Clinically not in heart failure. Continue Entresto Continue Toprol Continue spironolactone Follow up echo in our office to assess for LV recovery OK for discharge today from a cardiac perspective. Subjective Date/time seen: 05/06/24 10:11 Interval history: Follow-up visit in this 74-year-old lady with: Chest pain initial diagnosis was acute coronary syndrome but now after catheterization yesterday patient has established diagnosis of takotsubo cardiomyopathy. She feels well this morning the chest pain has resolved. Comorbidities include diabetes hypertension and dyslipidemia. Date of service 05/06/2024: She is feeling well this morning and does not have any complaints. She denies chest pain, palpitations, shortness of breath, edema. Review of Systems Constitutional: Constitutional: Reports no additional constitutional complaints Eyes: Eyes: Reports no additional eye complaints ENT: Reports system reviewed and no additional complaints, except as documented Cardiovascular: Cardiovascular: Reports as per HPI and Reports chest pain Respiratory: Respiratory: Reports no additional respiratory complaints Gastrointestinal: Gastrointestinal: Reports nausea Genitourinary: Genitourinary: Reports no additional female genitourinary complaints Musculoskeletal: Musculoskeletal: Reports no additional musculoskeletal complaints Integumentary/Breasts: Skin/Breast: Reports system reviewed and no additional complaints, except as docu Neurologic: Reports system reviewed and no additional complaints, except as documented Endocrine: Endocrine: Reports no additional endocrine complaints Hematologic/Lymphatic: Hematologic/Lymphatic: Reports no additional hematologic/lymphatic complaints Allergic/Immunologic: Allergic/Immunologic: Reports no additional allergic/immunologic complaints Exam Const: General: comfortable and no acute distress HENMT: Mouth: Yes moist mucous membranes Eyes: Sclera: sclerae normal Neck: Neck: supple and no JVD Resp: Effort & Inspection: normal respiratory effort Auscultation: clear to auscultation bilaterally Cardio: Rate: regular rate Rhythm: regular rhythm Other: No murmur no gallop GI: Auscultation: normal bowel sounds Skin: General skin exam: normal color Neuro: Other: Normal cognition alert and oriented x3 Extrem: General: normal to inspection Other: Groin puncture site looks fine no hematoma Objective Data Vital Signs Vital Signs: Vital Signs - 24 hr 05/05/24 10:23 05/05/24 11:51 05/05/24 12:00 Temperature 37.2 C Pulse Rate 69 65 65 Respiratory Rate 20 Blood Pressure 102/56 L Pulse Oximetry 91 Oxygen Delivery Oxygen Flow Rate 05/05/24 12:00 05/05/24 14:00 05/05/24 16:00 Temperature 36.9 C Pulse Rate 64 66 Respiratory Rate 16 Blood Pressure 113/66 Pulse Oximetry 94 Oxygen Delivery Room Air Oxygen Flow Rate 05/05/24 16:00 05/05/24 18:00 05/05/24 16:00 Temperature Pulse Rate 65 65 Respiratory Rate Blood Pressure Pulse Oximetry Oxygen Delivery Room Air Oxygen Flow Rate 05/05/24 19:44 05/05/24 21:00 05/05/24 23:12 Temperature 36.4 C 36.4 C Pulse Rate 65 64 Respiratory Rate 16 16 Blood Pressure 110/59 L 111/77 Pulse Oximetry 93 91 Oxygen Delivery Room Air Oxygen Flow Rate 05/05/24 23:52 05/05/24 20:00 05/05/24 22:00 Temperature Pulse Rate 65 65 Respiratory Rate Blood Pressure Pulse Oximetry Oxygen Delivery Room Air Oxygen Flow Rate 05/06/24 00:00 05/06/24 01:05 05/06/24 02:00 Temperature Pulse Rate 61 59 L Respiratory Rate Blood Pressure Pulse Oximetry 88 L Oxygen Delivery
[2024-05-06] MEDS: INSULIN ASPART (*BKC) 100 UNITS/ML SUB-Q (12:27)
[2024-05-06 12:30] LABS: Glucose Point of Care 263 mg/dl (65-105)
--- NOTE | 2024-05-06 12:30 | P.DS_ITS ---
DS: Admitting Diagnosis Discharge Date 05/06/2024 Admitting Diagnosis NSTEMI DS: Discharge Diagnosis Discharge Diagnosis (1) Non-ST elevation AR (NSTEMI): Code(s): I21.4 - Non-ST elevation (NSTEMI) myocardial infarction Status: Acute (2) GERD with esophagitis: Qualifiers: Esophagitis bleeding: unspecified whether hemorrhage Qualified Code(s): K21.00 - Gastro-esophageal reflux disease with esophagitis, without bleeding Code(s): K21.0 - Gastro-esophageal reflux disease with esophagitis Status: Acute (3) Hypothyroidism (acquired): Code(s): E03.9 - Hypothyroidism, unspecified Status: Acute (4) Hyperlipidemia: Qualifiers: Hyperlipidemia type: unspecified Qualified Code(s): E78.5 - Hyperlipidemia, unspecified Code(s): E78.5 - Hyperlipidemia, unspecified Status: Acute (5) Benign essential hypertension: Code(s): I10 - Essential (primary) hypertension Status: Acute (6) Diabetes mellitus: Qualifiers: Diabetes mellitus complication status: without complication Diabetes mellitus correction insulin use: without ripshear operator use Diabetes mellitus type: type 2 Qualified Code(s): E11.9 - Type 2 diabetes mellitus without complications Code(s): E11.9 - Type 2 diabetes mellitus without complications Status: Acute (7) Hyponatremia: Code(s): E87.1 - Hypo-osmolality and hyponatremia Status: Acute (8) Takotsubo cardiomyopathy: Code(s): I51.81 - Takotsubo syndrome Status: Acute Plan NSTEMI * elevated troponins peaked at 1.6 downtrending * serial troponins x3 q.6 hours * ASA given in the ED * Heparin gtt started in ED * EKG without ischemic changes q.6 hours * cardiology consulted * NPO for cardiac catheterization * Echocardiogram 04/2024 LVED 65-70% * continuous cardiac monitoring * cardiac risk factors: HTN, Diabetes, HLD, Family HX * resume BB * lifestyle modifications/heart healthy diet 05/05/2024: * Cardiac catheterization 05/05 showed takotsubo cardiomyopathy * Patient was started on Entresto and metoprolol * Will need to follow up 3 months for echocardiogram to evaluate LV function and response to treatment Hyponatremia * 120 POA * 123 05/05/2024 * Encouraged oral intake and hydration patient has had poor appetite prior to arrival * Patient is asymptomatic Diabetes * Accu-Cheks a.c. HS * sliding scale insulin * hold oral diabetic medications * resume patient's home long-acting * Hemoglobin A1c goal less than 7 pending * lipid panel pending * Diabetic diet * consult to dietitian * encourage lifestyle modifications and weight loss * Optimize Antwan inhibitors and statins. * Watch for hypoglycemia/hypoglycemic protocol ordered HX Hypertension: resumed home medications stable HX Hyperlipidemia: Resumed statin HX hypothyroidism:Resumed levothyroxine/TSH pending History of anxiety: Rsumed Ativan HX GERD: Resumed PPI Disposition: Discharge to home DS: Summary Hospital Course Reason for hospitalization: New Takotsubo cardiomyopathy Hospital Course: Admission: Chest Pain Narrative: Patient is a 74-year-old female who presented to the emergency department with complaints of chest pain. Patient states she began to have chest pressure that radiated to her back and down her left arm up to her jaw line as though they were going numb around 1400 yesterday 05/03/20
--- NOTE | 2024-05-06 12:30 | PM.DS ---
DS: Admitting Diagnosis Discharge Date 05/06/2024 Admitting Diagnosis NSTEMI DS: Discharge Diagnosis Discharge Diagnosis (1) Non-ST elevation [place] (NSTEMI): Code(s): I21.4 - Non-ST elevation (NSTEMI) myocardial infarction Status: Acute (2) GERD with esophagitis: Qualifiers: Esophagitis bleeding: unspecified whether hemorrhage Qualified Code(s): K21.00 - Gastro-esophageal reflux disease with esophagitis, without bleeding Code(s): K21.0 - Gastro-esophageal reflux disease with esophagitis Status: Acute (3) Hypothyroidism (acquired): Code(s): E03.9 - Hypothyroidism, unspecified Status: Acute (4) Hyperlipidemia: Qualifiers: Hyperlipidemia type: unspecified Qualified Code(s): E78.5 - Hyperlipidemia, unspecified Code(s): E78.5 - Hyperlipidemia, unspecified Status: Acute (5) Benign essential hypertension: Code(s): I10 - Essential (primary) hypertension Status: Acute (6) Diabetes mellitus: Qualifiers: Diabetes mellitus complication status: without complication Diabetes mellitus mcc insulin use: without terminal make up operator use Diabetes mellitus type: type 2 Qualified Code(s): E11.9 - Type 2 diabetes mellitus without complications Code(s): E11.9 - Type 2 diabetes mellitus without complications Status: Acute (7) Hyponatremia: Code(s): E87.1 - Hypo-osmolality and hyponatremia Status: Acute (8) Takotsubo cardiomyopathy: Code(s): I51.81 - Takotsubo syndrome Status: Acute Plan NSTEMI elevated troponins peaked at 1.6 downtrending serial troponins x3 q.6 hours ASA given in the ED Heparin gtt started in ED EKG without ischemic changes q.6 hours cardiology consulted NPO for cardiac catheterization Echocardiogram 04/2024 LVED 65-70% continuous cardiac monitoring cardiac risk factors: HTN, Diabetes, HLD, Family HX resume BB lifestyle modifications/heart healthy diet 05/05/2024: Cardiac catheterization 05/05 showed takotsubo cardiomyopathy Patient was started on Entresto and metoprolol Will need to follow up 3 months for echocardiogram to evaluate LV function and response to treatment Hyponatremia 120 POA 123 05/05/2024 Encouraged oral intake and hydration patient has had poor appetite prior to arrival Patient is asymptomatic Diabetes Accu-Cheks a.c. HS sliding scale insulin hold oral diabetic medications resume patient's home long-acting Hemoglobin A1c goal less than 7 pending lipid panel pending Diabetic diet consult to dietitian encourage lifestyle modifications and weight loss Optimize Antwan inhibitors and statins. Watch for hypoglycemia/hypoglycemic protocol ordered HX Hypertension: resumed home medications stable HX Hyperlipidemia: Resumed statin HX hypothyroidism:Resumed levothyroxine/TSH pending History of anxiety: Rsumed Ativan HX GERD: Resumed PPI Disposition: Discharge to home DS: Summary Hospital Course Reason for hospitalization: New Takotsubo cardiomyopathy Hospital Course: Admission: Chest Pain Narrative: Patient is a 74-year-old female who presented to the emergency department with complaints of chest pain. Patient states she began to have chest pressure that radiated to her back and down her left arm up to her jaw line as though they were going numb around 1400 yesterday 05/03/2024. Patient denied any shortness of breath, dizziness, syncopal episode however did report nausea without vomiting and diaphoresis. patient's past medical history include hypertension, HLD, diabetes, and hypothyroidism. upon arrival to the emergency department patient's troponin levels were found to be elevated with a peak at 1.6.10 and now downtrending. EKG with no ST - T elevation or acute changes however upon assessment patient continued to report chest pain. patient states she has had previous episodes however not this se
== END 2024-05-06 14:19 | disposition home or self-care (01) | DRG 287 ==
LOC: ANHED 05-04 05:18 → ANHIMU 05-04 07:55 → ANHICU 05-04 13:02 → ANHIMU 05-04 17:21
PROVIDERS: Specialist; Admitting Provider Internal Medicine; Emergency Provider Emergency Medicine; PCP Internal Medicine; Visit Provider Nurse Practitioner Family
PROC: 4A023N7 Measurement of Cardiac Sampling and Pressure, Left Heart, Percutaneous Approach (ICD-10-PCS; CPT 93452; principal; 2024-05-04 11:30)
DX: I51.81 Takotsubo syndrome (principal); E87.1 Hypo-osmolality and hyponatremia; K21.00 Gastro-esophageal reflux disease with esophagitis, without bleeding; E03.9 Hypothyroidism, unspecified; E78.5 Hyperlipidemia, unspecified; I10 Essential (primary) hypertension; E11.9 Type 2 diabetes mellitus without complications; F41.9 Anxiety disorder, unspecified; L30.9 Dermatitis, unspecified; Z85.43 Personal history of malignant neoplasm of ovary; Z90.49 Acquired absence of other specified parts of digestive tract; Z90.710 Acquired absence of both cervix and uterus
CPT/HCPCS: 36415; 71046; 71275; 74177; 80053; 80061; 82948; 83036; 83605; 83690; 83735; 84484; 85025; 85610; 85730; 93005; 93458; 96361; 96365; 96366; 96375; 96376; 99285; A9270; C1887; C1894; G0378; J0461; J0583; J0780; J1170; J1644; J1815; J2250; J2270; J2405; J3010; J7030; J7040; Q9967

== ENCOUNTER 2024-05-10 11:13 | Outpatient (CLI) | payer MEDICARE, OTHER, SELFPAY ==
[2024-05-10 11:43] LABS: Basophils Absolute Auto 0.1 K/mm3 (0.0-0.1); Basophils Percent Auto 1.2 % (0.2-1.2); Eosinophils Percent Auto 12.8 % (0-4.4); Hemoglobin 13.2 g/dL (12.0-15.0); Immature Granulocyte Absolute 0.04 K/mm3 (0.00-0.031); Immature Granulocyte Percent A 0.5 % (0-0.5); Lymphocytes Absolute Auto 1.63 K/mm3 (0.9-3.2); Lymphocytes Percent Auto 20.1 % (18.3-44.2); Mean Corpuscular HGB Conc 32.2 g/dl (32-36); Mean Corpuscular Hemoglobin 30.8 pg (26-34); Mean Corpuscular Volume 95.8 fl (80-100); Mean Platelet Volume 10.4 fl (7.4-10.4); Monocytes Absolute Auto 0.7 K/mm3 (0.1-0.6); Monocytes Percent Auto 8.6 % (2.6-8.5); Neutrophils Absolute Auto 4.6 K/mm3 (1.3-6.7); Neutrophils Percent Auto 56.8 % (45.5-73.1); Platelet Count Result 206 k/mm3 (150-375); Red Blood Count 4.28 M/mm3 (4.2-5.4); Red Cell Distribution Width 13.9 % (11.5-14.5); White Blood Count 8.1 K/mm3 (4.5-10.0)
[2024-05-10 12:18] LABS: Influenza A QL RT-PCR Negative (Negative); Influenza B QL RT-PCR Negative (Negative); RSV RNA, RT-PCR Negative (Negative); SARS-CoV-2 RNA PCR Negative (Negative)
== END 2024-05-10 11:14 | disposition home or self-care (01) ==
PROVIDERS: PCP Internal Medicine; Visit Provider Internal Medicine
DX: R05.9 Cough, unspecified (principal); I10 Essential (primary) hypertension
CPT/HCPCS: 36415; 85025; 87637

== ENCOUNTER 2024-05-16 15:57 | Outpatient (CLI) | payer MEDICARE, OTHER, SELFPAY ==
[2024-05-16 16:46] LABS: Anion Gap 16 mmol/L (4-12); Blood Urea Nitrogen 20 mg/dL (7-17); Calcium 10.1 mg/dL (8.4-10.2); Carbon Dioxide 19 mmol/L (22-30); Chloride 100 mmol/L (98-107); Estimated Glomerular Filt Rate 44; Glucose 124 mg/dL (65-110); Potassium 4.7 mmol/L (3.4-5.0); Sodium 135 mmol/L (137-145)
== END 2024-05-16 15:58 | disposition home or self-care (01) ==
PROVIDERS: PCP Internal Medicine; Visit Provider Nurse Practitioner Family
DX: E87.1 Hypo-osmolality and hyponatremia (principal)
CPT/HCPCS: 36415; 80048

== ENCOUNTER 2024-06-27 09:39 | Outpatient (CLI) | payer MEDICARE, OTHER, SELFPAY ==
[2024-06-27 10:42] LABS: Alanine Aminotransferase 20 U/L (6-35); Albumin Level 4.5 g/dL (3.5-5.1); Alkaline Phosphatase 80 U/L (38-126); Anion Gap 12 mmol/L (4-12); Aspartate Amino Transferase 22 U/L (14-36); Bilirubin,Total 0.4 mg/dL (0.2-1.3); Blood Urea Nitrogen 25 mg/dL (7-17); Carbon Dioxide 24 mmol/L (22-30); Chloride 104 mmol/L (98-107); Cholesterol 119 mg/dL (0-200); Estimated Glomerular Filt Rate 40; Glucose 155 mg/dL (65-110); HDL Direct 43 mg/dL; Potassium 4.3 mmol/L (3.4-5.0); Sodium 140 mmol/L (137-145); Triglycerides 132 mg/dL (<150)
[2024-06-27 10:52] LABS: LDL Cholesterol Direct 53 mg/dL
[2024-06-27 10:57] LABS: Free T4 Free Thyroxine 1.29 ng/mL (0.78-2.19)
[2024-06-27 11:13] LABS: Hemoglobin A1C 7.2 % (<5.7)
[2024-06-27 11:51] LABS: Creatinine Urine 76.7 mg/dL
[2024-06-27 12:12] LABS: MALB Creatinine Ratio < 7.8 mg/g (0-30); Microalbumin Urine Random < 6.0 mg/L (0-16.7)
== END 2024-06-27 09:40 | disposition home or self-care (01) ==
PROVIDERS: PCP Internal Medicine; Visit Provider Internal Medicine
DX: E03.9 Hypothyroidism, unspecified (principal); E11.9 Type 2 diabetes mellitus without complications; E78.5 Hyperlipidemia, unspecified; I10 Essential (primary) hypertension
CPT/HCPCS: 36415; 80053; 80061; 82043; 83036; 84439; 84443

== ENCOUNTER 2024-10-31 18:36 | Emergency (ER) | payer MEDICARE, OTHER, SELFPAY ==
--- OUTSIDE RECORDS SUMMARY | 2024-10-31 18:38 | XMS_ITS | Referral Summary ---
Author Organization [facility] Address [address] [place] [address] Care Team Providers Care Manager Ent Name Role Phone Jus Gallego MD Primary Care Provider [phone] Richar Aguilar DO Unavailable Encounters Date Type Department Care Team Description 08/28/2024 Orders Only [facility] Card[facility] [address] [address] [address] [place] [address] ProviderAngy MD 08/22/2024 3:00 PM HAIR DRESSER Office Visit [facility] Cardiology at [address] [place] [address] Sha Dominguez MD Takotsubo cardiomyopathy (Primary Dx) 08/19/2024 3:00 PM HAIR DRESSER Ancillary Procedure [facility] Cardiology [address] [place] [address] [address] [place] [address] Takotsubo cardiomyopathy from Last 3 Months Allergies No known active allergies Medications metFORMIN (GLUCOPHAGE) 500 mg tablet Take 2 tablets (1,000 mg total) by mouth 2 (two) times a day with meals Active levothyroxine (SYNTHROID) 125 mcg tablet Take 1 tablet (125 mcg total) by mouth computer support specialist before breakfast 8 Active zolpidem CR (AMBIEN CR) 12.5 mg CR tabletIndications: Insomnia Take 1 tablet (12.5 mg total) by mouth nightly as needed for sleep Active FREESTYLE LITE STRIPS strip 9 Active atorvastatin (LIPITOR) 20 mg tablet Take 1 tablet (20 mg total) by mouth nightly 0 Active LORazepam (ATIVAN) 1 mg tablet Take 1 tablet (1 mg total) by mouth 2 (two) times a day as needed 0 Active folic acid (FOLVITE) 1 mg tablet Take 400 mcg by mouth every morning Active fish oil-dha-epa 1,200-144-216 mg capsule Take by mouth 2 (two) times a day Active gwndlcdhwaxh-C8-vk P50-axuul oil (METANX) 3 mg-35 mg-2 mg -90.314 mg capsule Take 1 capsule by mouth daily Taking 1/2 daily Active empagliflozin (JARDIANCE) 10 mg tablet 1 tablet (10 mg total) Active ondansetron ODT (ZOFRAN-ODT) 8 mg disintegrating tablet Take 1 tablet (8 mg total) by mouth every 8 (eight) hours as needed for nausea or vomiting Active traMADoL (ULTRAM) 50 mg tablet Take 1 tablet (50 mg total) by mouth every 6 (six) hours as needed for pain Active cetirizine (ZyrTEC) 5 mg chewable tablet Take 1 tablet (5 mg total) by mouth daily Active calcium carbonate-vitamin D3 1500 mg (600 mg elemental) -200 units per tablet Take 1 tablet by mouth daily Active magnesium oxide 200 mg magnesium tablet,chewable Take 200 mg by mouth 2 (two) times a day Active Entresto 24-26 mg tablet Take 1 tablet by mouth every 12 (twelve) hours 180 tablet 3 4 Active metoprolol XL (TOPROL-XL) 50 mg extended release tablet Take 1 tablet (50 mg total) by mouth every morning 90 tablet 3 4 Active spironolactone (ALDACTONE) 25 mg tablet Take 1 tablet (25 mg total) by mouth every morning 90 tablet 3 4 Active Active Problems Problem Noted Date Diagnosed Date Takotsubo cardiomyopathy 08/22/2024 Status post gastrointestinal surgery, follow-up exam 10/15/2020 Diverticulitis 08/19/2020 Overview (08/19/2020): Added automatically from request for surgery [id number] Diverticulitis of large inte kaia without perforation or abscess 03/21/2019 Basal cell carcinoma (BCC) of skin of nose 06/17 Knee pain 01/01/2016 Hypertension 01/15/2014 Hyperlipidemia 01/15/2014 Cephalalgia 01/15/2014 Gastroesophageal reflux disease 01/15/2014 History of hypothyroidism 01/15/2014 Arthritis 01/15/2014 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 Immunizations Name Administration Dates Next Due Influenza, Unspecified 08/17/2020 Social History Tobacco Use Types Packs/Day Years Used Date Smoking Tobacco: Never Smokeless Tobacco: Never Tobacco Cessation:Counseling Given: Not Answered Alcohol Use Standard Drinks/Week Comments Not Currently 0 (1 standard drink = 0.6 oz pur e alcohol) Humiliation, Afraid, Rape, and Kick questionnair e Answer Date Recorded Within the last year, have y ou been afraid of your partner or ex-partner? No 09/14/2020 Within the last year, have y ou been humiliated or emotionally abused in other ways by your partner or ex-partner? No Within the last year, have y ou been kicked, hit, slapped, or otherwise physically hurt by your partner or ex-partner? No 09/14/2020 Within the last year, have y ou been raped or forced to have any kind of sexual activity by your partner or ex-partner? No 09/14/2020 Social Connection and Isolation Panel [NHANES] A nswer Date Recorded In a typical week, how many times do you talk on the phone with family, friends, or neighbors? Twice a week 09/14/2020 How often do you get together with friends or re latives? Twice a week 09/14/2020 Attends Scientologist Services Not on file 09/14 Do you belong to any clubs o r organizations such as mormonism groups, unions, fraternal or athletic groups, or school groups? No 09/14/2020 How often do you attend meet ings of the clubs or organizations you belong to? Never 09/14/2020 Are you , , di vorced, , never , or living with a partner? 09/14/2020 Overall Financial Resource Strain (CARDIA) Answe r Date Recorded How hard is it for you to pa y for the very basics like food, housing, medical care, and heating? Not hard at all 09/14/2020 Hunger Vital Sign Answer Date Recorded Within the past 12 months, y ou worried that your food would run out before you got the money to buy more. Never true 09/14/20 20 Within the past 12 months, t he food you bought just didn't last and you didn't have money to get more. Never true 09/14/2020 PRAPARE - Transportation Answer Date Re corded In the past 12 months, has l ack of transportation kept you from medical appointments or from getting medications? No 09/01 In the past 12 months, has l ack of transportation kept you from meetings, work, or from getting things needed for daily living? No 09/14/2020 Comments No Sex and Gender Information Value Date Recorded Sex Assigned at Not on file Legal Sex Female 3:24 AM HAIR DRESSER Gender Identity Female 11/09/2020 7:13 PM HAIR DRESSER Sexual Orientation Straight 11/09/2020 7: 13 PM HAIR DRESSER Last Filed Vital Signs Vital Sign Reading Time Taken Comments Blood Pressure 154/86 08/22/2024 3:03 PM HAIR DRESSER Pulse 82 08/22/2024 3:03 PM HAIR DRESSER Temperature 36.2 ??C (97.2 ??F) 12/24/2020 3:11 PM CD T Respiratory Rate 15 09/18/2020 9:32 PM HAIR DRESSER Oxygen Saturation 95% 08/22/2024 3:03 PM HAIR DRESSER Inhaled Oxygen Concentration - - Weight 74.8 kg (165 lb) 08/22/2024 3:03 PM HAIR DRESSER Height 162.6 cm (5' 4 ) 08/22/2024 3:03 PM HAIR DRESSER Body Mass Index 28.32 08/22/2024 3:03 PM HAIR DRESSER Plan of Treatment Not on file Procedures Procedure Name Priority Date/Time Associated Diagnosis Comments TRANSTHORACIC ECHO (TTE) LIMITED/FOLLOW UP W LTD DOPPLER/CF WO CONTRAST Routine 08/19/2024 4:25 PM HAIR DRESSER Takotsubo cardiomyopathy from Last 3 Months Results * TRANSTHORACIC ECHO (TTE) LIMITED/FOLLOW UP W LTD DOPPLER/CF WO CONTRAST (08/19/2024 4:25 PM HAIR DRESSER) Anatomical Region Laterality Modality Ultrasound 08/19/2024 3:29 PM HAIR DRESSER Narrative 08/19/2024 6:15 PM HAIR DRESSER [facility] Cardiology [address], [place] [address] [address] [facility] [address], [place] [address] P:[phone] P:[phone] Echocardiographic Report Patient Name: NONA KEARNEY MARIE : 1950 Study Date: 08/19/2024 3:29:27 PM Gender: F Tech: Location: [place] Ref Provider: TERESITA SHAFER ?Height(Cm): 163 BSA: 1.82 Weight(Kg): 73 Heart Rate: 67 BP: 142 / 76 Quality: Good Order Provider: TERESITA SHAFER PROCEDURES: Echocardiographic Report: Limited transthoracic echocardiogram with 2D and M-Mode. With Strain Analysis. INDICATIONS: I51.81 Takotsubo syndrome. Measurements: FINDINGS: Interpretation Site: Exam was interpreted at [facility]. Left Ventricle: Normal left ventricular systolic function with no focal wall motion abnormalities. Normal left ventricular size. Normal left ventricular wall thickness. Ejection fraction is measured at 63 %. Global Longitudinal Strain is -17 %. GLS is abnormal. Right Ventricle: Normal right ventricular size. Normal right ventricular systolic function. Left Atrium: The left atrium is normal in size. Right Atrium: The right atrium is normal in size. Atrial Septum: The atrial septum is not well visualized. Mitral Valve: Normal appearance of the mitral valve. Aortic Valve: Aortic cusps appear mildly sclerotic. Trileaflet aortic valve. Tricuspid Valve: Normal appearance of the tricuspid valve. Pulmonic Valve: Pulmonic valve not well visualized. Pericardium: Trivial pericardial effusion. Aorta: Sinus of Valsalva is normal. CONCLUSIONS: Normal left ventricular systolic function with no focal wall motion abnormalities. Normal left ventricular size. Normal left ventricular wall thickness. Ejection fraction is measured at 63 %. Global Longitudinal Strain is -17 %. GLS is abnormal. Trivial pericardial effusion. Electronically Signed By: Dr. Hiral Ramirez [facility] 2024-08-19 18:14:47 HAIR DRESSER Procedure Note Hiral Ramirez MD - 08/19/2024 [facility] Cardiology [address], [place] [address] [address] [facility] [address], [place] [address] P:[phone] P:[phone] Echocardiographic Report Patient Name: NONA KEARNEY MARIE : 1950 Study Date: 08/19/2024 3:29:27 PM Gender: F Tech: Location: [place] Ref Provider: TERESITA SHAFER Height(Cm): 163 BSA: 1.82 Weight(Kg): 73 Heart Rate: 67 BP: 142 / 76 Quality: Good Order Provider: TERESITA SHAFER PROCEDURES: Echocardiographic Report: Limited transthoracic echocardiogram with 2D and M-Mode. With StrainAnalysis. INDICATIONS: I51.81 Takotsubo syndrome. Measurements: FINDINGS: Interpretation Site: Exam was interpreted at [facility]. Left Ventricle: Normal left ventricular systolic function with no focal wall motionabnormalities. Normal left ventricular size. Normal left ventricular wall thickness. Ejectionfraction is measured at 63 %. Global Longitudinal Strain is -17 %. GLS is abnormal. Right Ventricle: Normal right ventricular size. Normal right ventricular systolicfunction. Left Atrium: The left atrium is normal in size. Right Atrium: The right atrium is normal in size. Atrial Septum: The atrial septum is not well visualized. Mitral Valve: Normal appearance of the mitral valve. Aortic Valve: Aortic cusps appear mildly sclerotic. Trileaflet aortic valve. Tricuspid Valve: Normal appearance of the tricuspid valve. Pulmonic Valve: Pulmonic valve not well visualized. Pericardium: Trivial pericardial effusion. Aorta: Sinus of Valsalva is normal. CONCLUSIONS: Normal left ventricular systolic function with no focal wall motionabnormalities. Normal left ventricular size. Normal left ventricular wall thickness. Ejectionfraction is measured at 63 %. Global Longitudinal Strain is -17 %. GLS is abnormal. Trivial pericardial effusion. Electronically Signed By: Dr. Hiral Ramirez [facility] 2024-08-19 18:14:47 HAIR DRESSER Teresita Shafer NP CV ECHO PROCEDURES Final Result from Last 3 Months Insurance MEDICARE FOR LIFE [employer] MEDICARE PPO FOR LIFE Advance Directives For more information, please contact: [phone] * Full Code (Latest Code Status on File) Date Activated Date Inactivated Comments 09/12/2020 7:17 PM 09/17/2020 7:36 PM Care Teams Manager Ent Relationship Specialty Start Date End Date Jus Gallego MD [address] [employer] [place], [place] [id number] PCP - General 04/03/17 Richar Aguilar DO [address] [place] [address] Referring Physician Gastroenterology 03/21/19
--- OUTSIDE RECORDS SUMMARY | 2024-10-31 18:38 | XMS_ITS | Clinical Summary ---
Author Organization [facility] Address [address] [address] Phone Care Team Providers Care Ferryboat Operator Name Role Phone Jus Gallego MD Primary Care Provider [phone] Richar Aguilar DO Unavailable [phone] Allergies No known active allergies Medications zolpidem (AMBIEN CR) 12.5 MG Tablet Controlled Release Take 12.5 mg by mouth as needed. Active Glucosamine-Quoc droitin 4803-5057 MG/30ML Liquid Activ e esomeprazole (NEXIUM) 40 MG CAPSULE DELAYED RELEASE Active dilTIAZem (DILACOR XR) 180 MG CAPSULE SR 24 HR Active losartan potassium-hydroc hlorothiazide (HYZAAR) 100-25 MG Tablet 06/05/2018 Active metFORMIN (GLUCOPHAGE) 500 MG Tablet Active Multiple Vitamin (MULTI-VITAMINS) Tablet Active polyethylene glycol (GLYCOLAX, MIRALAX) Pack 04/09/2018 Activ e simvastatin (ZOCOR) 20 MG Tablet Active levothyroxine (SYNTHROID) 150 MCG Tablet 06/11/2018 Active levothyroxine (SYNTHROID) 150 MCG Tablet 06/11/2018 Active Immunizations Immunization Administration Dates Next Due Covid-19, Mrna, Lnp-s, Pf, 30 Mcg/0.3 Ml Dose (Ruperto serrano) 12/26/2020 Family History Medical History Relation Name Comments Heart Disease Father Heart Disease Mother Relation Name Status Comments Father Mother Social History Tobacco Use Types Packs/Day Years Used Date Smoking Tobacco: Never Smokeless Tobacco: Never Alcohol Use Standard Drinks/Week Comments No 0 (1 standard drink = 0.6 oz pur e alcohol) Comments No Sex and Gender Information Value Date Recorded Sex Assigned at Not on file Legal Sex Female 8:53 PM CDT Gender Identity Not on file Sexual Orientation Not on file Last Filed Vital Signs Vital Sign Reading Time Taken Comments Blood Pressure 138/86 07/12/2018 8:45 AM CDT Pulse 66 07/12/2018 8:45 AM CDT Temperature 36.7 ??C (98 ??F) 07/12/2018 8:45 AM CDT Respiratory Rate - - Oxygen Saturation 98% 07/12/2018 8:45 AM CDT Inhaled Oxygen Concentration - - Weight 77.3 kg (170 lb 6.4 oz) 07/12/2018 8:45 A M CDT Height 162.6 cm (5' 4 ) 07/12/2018 8:45 AM CDT Body Mass Index 29.25 07/12/2018 8:45 AM CDT Plan of Treatment Health Maintenance Due Date Last Done Comments DEXA Bone Density 1950 Hepatitis C Virus (HCV) Screening 1950 TdaP Immunization 1950 Cologuard 01/21/2002 Immunochemical Fecal Occult Blood 01/21/2002 Mammogram 01/21/2002 Pneumococcal Immunization (5 0+ years) (1 of 1 - PCV) 01/21/2002 Zoster Immunization (2 of 3) 10/03/2013 08/08/2013 Colonoscopy 08/30/2023 08/30/2018, 05/22/2014 Colorectal Cancer Screening 08/30/2023 Influenza Immunization (#1) 06/02/202407/03, 07/11/2013 SARS-COV-2 Immunization ( season) 2024 09/10/2021, 01/16/2021, 12/26/2020 Respiratory Syncytial Virus (RSV) Immunization (Adult) (1 - 1-dose 75+ series) 01/21/2027 08/30/2018, 05/22/2014 Hepatitis B Immunization Aged Out No longer eligible based on patient's age to complete this topic Meningococcal Immunization (ACWY) Aged Out No longer eligible b ased on patient's age to complete this topic Rotavirus Immunization Aged Out No lo nger eligible based on patient's age to complete this topic Procedures Procedure Name Priority Date/Time Associated Diagnosis Comments COLONOSCOPY Routine 08/30/2018 from Last 3 Months or Most Recently Relevant to Health Maintenance Results * COLONOSCOPY (08/30/2018) Richar Aguilar DO PROCEDURE/MINOR SURGICAL ORDERA BLES Final Result from Last 3 Months or Most Recently Relevant to Health Maintenance Insurance MEDICARE [employer] Care Teams Ferryboat Operator Relationship Specialty Start Date End Date Jus Gallego MD [address] [place] [address] PCP - General Internal Medicine 01/04/16 Richar Aguilar DO [address] [place] [address] Gastroenterology 01/04/16
--- OUTSIDE RECORDS SUMMARY | 2024-10-31 18:38 | XMS_ITS ---
Author Organization [facility] Address [address] [place] [address] Care Team Providers Care Scratch Finisher Name Role Phone Jus Gallego MD Primary Care Provider [phone] Richar Aguilar DO Unavailable [phone] Active Problems Problem Noted Date Diagnosed Date Takotsubo cardiomyopathy 08/22/2024 Status post gastrointestinal surgery, follow-up exam 10/15/2020 Diverticulitis 08/19/2020 Overview (08/19/2020): Added automatically from request for surgery [id number] Diverticulitis of large inte kaia without perforation or abscess 03/21/2019 Basal cell carcinoma (BCC) of skin of nose 06/17 Knee pain 01/01/2016 Hypertension 01/15/2014 Hyperlipidemia 01/15/2014 Cephalalgia 01/15/2014 Gastroesophageal reflux disease 01/15/2014 History of hypothyroidism 01/15/2014 Arthritis 01/15/2014 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 Current Oncology Plans No current plan information found. Past Plans No past plan information found. Radiation Treatments * No radiation treatments are documented for this patient in [facility]. Treatments may have been administered in another system. Lifetime Dose Tracking * Chemical Lifetime Dose Automatic Entry Manual Entr y DLP 691 mGycm 691 mGycm 0 mGycm
--- OUTSIDE RECORDS SUMMARY | 2024-10-31 18:38 | XMS_ITS | Clinical Summary ---
Author Organization [facility] Address [address] [place] [address] Care Team Providers Care Reliability Specialist Name Role Phone Jus Gallego MD Primary Care Provider Richar Aguilar DO Unavailable [phone] Allergies No known active allergies Medications metFORMIN (GLUCOPHAGE) 500 mg tablet Take 2 tablets (1,000 mg total) by mouth 2 (two) times a day with meals Active levothyroxine (SYNTHROID) 125 mcg tablet Take 1 tablet (125 mcg total) by mouth calculator operator before breakfast 8 Active zolpidem CR (AMBIEN [...] mouth 2 (two) times a day Active gjvfaylqbhpq-K2-de P05-oboxq oil (METANX) 3 mg-35 mg-2 mg -90.314 [...] (08/19/2020): Added automatically from request for surgery [id number] Diverticulitis of large inte kaia without perforation or abscess 03/21/2019 Basal cell carcinoma (BCC) of skin of nose 06/17 Knee pain 01/01/2016 Hypertension 01/15/2014 Hyperlipidemia 01/15/2014 Cephalalgia 01/15/2014 Gastroesophageal reflux disease 01/15/2014 History of hypothyroidism 01/15/2014 Arthritis 01/15/2014 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 Encounters Date Type Department Care Team Description 08/28/2024 Orders Only [facility] Cardiology [address] [facility] [address] [place] [address] ProviderAngy MD 08/22/2024 3:00 PM CUSTOMER LOGISTICS MANAGER Office Visit [facility] Cardiology at [address] [place] [address] Sha Dominguez MD Takotsubo cardiomyopathy (Primary Dx) 08/19/2024 3:00 PM CUSTOMER LOGISTICS MANAGER Ancillary Procedure [facility] Cardiology [address] [place] [address] Takotsubo cardiomyopathy from Last 3 Months Immunizations Name Administration Dates Next Due Influenza, Unspecified 08/17/2020 Surgical History Surgery Date Site/Laterality Comments [place] TOTAL ABDOMINAL HYSTERECT W/WO RMVL TUBE OVARY Hysterectomy - (Added by Conv) ANKLE SURGERY Ankle Surgery - (Added by Conv) [place] COLONOSCOPY FLX DX W/LYLY J SPEC WHEN PFRMD Complete Colonoscopy - (Added by Conv) EYE SURGERY HYSTERECTOMY CHOLECYSTECTOMY COLON SURGERY 09/12/2020 Open Left Coletomy Medical History Medical History Date Comments Personal history of malignan t neoplasm of ovary Ovarian Cancer - (Added by Conv) Cancer (CMS/HCC) (HCC) Hypertension High cholesterol Diabetes mellitus (HCC) Thyroid disease Arthritis PONV (postoperative nausea and vomiting) N/V reaction to post-operative pain medications. GERD (gastroesophageal reflux disease) Type 2 diabetes mellitus (HCC) Hypothyroidism Family History Medical History Relation Name Comments Heart disease Brother Family history of cardiac disorder - (Added by Conv) Dementia Father Family history of dementia - (Added by ) Heart disease Father Seizures Mother Breast cancer Other Family history of malignant neoplasm of breast - Relation: Aunt (Added by ) Relation Name Status Comments Brother Father Mother Other Social History Tobacco Use Types Packs/Day Years [...] re latives? Twice a week 09/14/2020 Attends Jain Services Not on file 09/14 Do you belong to any clubs o r organizations such as yazidism groups, unions, fraternal or athletic groups, or [...] on file Legal Sex Female 3:24 AM CUSTOMER LOGISTICS MANAGER Gender Identity Female 11/09/2020 7:13 PM CUSTOMER LOGISTICS MANAGER Sexual Orientation Straight 11/09/2020 7: 13 PM CUSTOMER LOGISTICS MANAGER Obstetrics History Last Filed Vital Signs Vital Sign Reading Time Taken Comments Blood Pressure 154/86 08/22/2024 3:03 PM CUSTOMER LOGISTICS MANAGER Pulse 82 08/22/2024 3:03 PM CUSTOMER LOGISTICS MANAGER Temperature 36.2 ??C (97.2 ??F) 12/24/2020 3:11 PM CD T Respiratory Rate 15 09/18/2020 9:32 PM CUSTOMER LOGISTICS MANAGER Oxygen Saturation 95% 08/22/2024 3:03 PM CUSTOMER LOGISTICS MANAGER Inhaled Oxygen Concentration - - Weight 74.8 kg (165 lb) 08/22/2024 3:03 PM CUSTOMER LOGISTICS MANAGER Height 162.6 cm (5' 4 ) 08/22/2024 3:03 PM CUSTOMER LOGISTICS MANAGER Body Mass Index 28.32 08/22/2024 3:03 PM CUSTOMER LOGISTICS MANAGER Plan of Treatment Health Maintenance Due Date Last Done Comments Breast Cancer Screening-Mammogram 1950 Colon Cancer Screening-Colonoscopy 1950 Depression Screening 1950 Hepatitis C Screening 1950 Osteoporosis Screening-Bone Density Scan 1950 DTaP/Tdap/Td Vaccine (1 - Tdap) 01/21/1963 Hepatitis B Screening 01/21/1970 Zoster Vaccine (2 of 3) 10/03/2013 08/08/2013 Pneumococcal vaccine 65+ (1 of 1 - PCV) 01/21/2017 Well Visit 65+ 01/21/2017 Fall Risk Assessment 09/17/2021 09/17/2020 Covid-19 Vaccine (2 - season) 2024 Influenza Vaccine (#1) 2024 08/17/2020, 2012 Procedures Procedure Name Priority Date/Time Associated Diagnosis Comments TRANSTHORACIC ECHO (TTE) LIMITED/FOLLOW UP W LTD DOPPLER/CF WO CONTRAST Routine 08/19/2024 4:25 PM CUSTOMER LOGISTICS MANAGER Takotsubo cardiomyopathy from Last 3 Months Results * TRANSTHORACIC ECHO (TTE) LIMITED/FOLLOW UP W LTD DOPPLER/CF WO CONTRAST (08/19/2024 4:25 PM CUSTOMER LOGISTICS MANAGER) Anatomical Region Laterality Modality Ultrasound 08/19/2024 3:29 PM CUSTOMER LOGISTICS MANAGER Narrative 08/19/2024 6:15 PM CUSTOMER LOGISTICS MANAGER [facility] Cardiology [address], [place] [address] [address] [facility] [address], [place] [address] P:[phone] P:[phone] Echocardiographic Report Patient Name: NONA KEARNEY MARIE : 1950 Study Date: 08/19/2024 3:29:27 PM Gender: F Tech: Location: [place] Ref Provider: TERESITA SHAFER ?Height(Cm): 163 BSA: 1.82 Weight(Kg): 73 Heart Rate: 67 BP: 142 / 76 Quality: Good Order Provider: TERESITA SHAFER PROCEDURES: Echocardiographic Report: Limited transthoracic echocardiogram with 2D and M-Mode. With Strain Analysis. INDICATIONS: I51.81 Takotsubo syndrome. Measurements: FINDINGS: Interpretation Site: Exam was interpreted at [facility]. Left Ventricle: Normal left ventricular systolic function [...] effusion. Electronically Signed By: Dr. Hiral Ramirez [facility] 2024-08-19 18:14:47 CUSTOMER LOGISTICS MANAGER Procedure Note Hiral Ramirez MD - 08/19/2024 [facility] Cardiology [address] [facility] [address], [place] [address] [address] [facility] [address], [place] [address] P:[phone] P:[phone] Echocardiographic Report Patient Name: NONA KEARNEY MARIE : 1950 Study Date: 08/19/2024 3:29:27 PM Gender: F Tech: Location: [place] Ref Provider: TERESITA SHAFER Height(Cm): 163 BSA: 1.82 Weight(Kg): 73 Heart Rate: 67 BP: 142 / 76 Quality: Good Order Provider: TERESITA SHAFER PROCEDURES: Echocardiographic Report: Limited transthoracic echocardiogram with 2D and M-Mode. With StrainAnalysis. INDICATIONS: I51.81 Takotsubo syndrome. Measurements: FINDINGS: Interpretation Site: Exam was interpreted at [facility]. Left Ventricle: Normal left ventricular systolic function [...] effusion. Electronically Signed By: Dr. Hiral Ramirez [facility] 2024-08-19 18:14:47 CUSTOMER LOGISTICS MANAGER Teresita Shafer NP CV ECHO PROCEDURES Final Result from Last 3 Months Insurance MEDICARE FOR LIFE [employer] CHOICE MEDICARE PPO FOR LIFE Advance Directives For more information, please contact: [phone] * Full Code (Latest Code Status on File) Date Activated Date Inactivated Comments 09/12/2020 7:17 PM 09/17/2020 7:36 PM Care Teams Reliability Specialist Relationship Specialty Start Date End Date Jus Gallego MD [address] [place] [address] PCP - General 04/03/17 Richar Aguilar DO [address] [place] [address] Referring Physician Gastroenterology 03/21/19
--- OUTSIDE RECORDS SUMMARY | 2024-10-31 18:39 | XMS_ITS | Clinical Summary ---
Author Organization [facility] Address [address] [place] [address]. [place], [place] [address] [place] [address] Care Team Providers Care Head Of Sales Name Role Phone Jus Gallego MD Primary Care Provider [phone] Social History Tobacco Use Types Packs/Day Years Used Date Smoking Tobacco: Never Assessed Comments Unknown Sex and Gender Information Value Date Recorded Sex Assigned at Not on file Legal Sex Female 5:37 PM CDT Gender Identity Not on file Sexual Orientation Not on file Plan of Treatment Health Maintenance Due Date Last Done Comments ASCVD LDL 1950 ASCVD Statin 1950 Colorectal Cancer Screening Colonoscopy (10 Years) 1950 Hepatitis C 01/21/1970 Mammogram Screening 1992 RSV Immunization or 60+ Years (1 - Risk 60-74 years 1-dose series) 2012 Annual Medicare Wellness Visit 01/21/2017 Dexa Scan (General) 01/21/2017 COVID-19 Vaccine (4 - 2023-2 5 season) 2024 09/10/2021, 01/16/2021, 12/26/2020 Influenza Adult (#1) 2024 08/17/2020, 07/11/2013 DTaP, Tdap and Td Vaccines ( 2 - Td or Tdap) 03/15/2032 03/15/2022 Pneumococcal Vaccine: 65+ Years Completed 08/19/2022 Zoster Vaccines Completed 09/06/2023, 05/01/2023, 08/08/2013 Meningococcal B Vaccine Aged Out No l onger eligible based on patient's age to complete this topic Meningococcal Vaccine Aged Out No benoit loc eligible based on patient's age to complete this topic RSV Immunizations Under 20 Months Aged Out No longer eligible b ased on patient's age to complete this topic Insurance HUMANA Care Teams Head Of Sales Relationship Specialty Start Date End Date Jus Glalego MD [address] [facility] [address] [place] [address] PCP - General INTERNAL MEDICINE 03/13/24
== END 2024-10-31 18:58 | disposition left against medical advice (07) ==
LOC: ANHED 18:49
PROVIDERS: PCP Internal Medicine
DX: R51.9 Headache, unspecified (principal)
CPT/HCPCS: 99199

== ENCOUNTER 2024-11-21 10:32 | Outpatient (CLI) | payer MEDICARE, OTHER, SELFPAY ==
--- NOTE | ~2024-11-21 | MM_ITS ---
EXAMINATION: MM screening ede BI w pernell HISTORY: Screening TECHNIQUE: Craniocaudal and mediolateral oblique 3-D tomosynthesis images were obtained and synthetic 2-D images were generated. CAD analysis was submitted and interpreted. COMPARISON: Comparison to multiple prior studies sequentially, with oldest reviewed study dated 11/2014. BREAST PARENCHYMAL COMPOSITION: Not dense: There are scattered areas of fibroglandular density. FINDINGS: There is no evidence of suspicious mass, calcification, or architectural distortion to sugg est malignancy in either breast. There has been no suspicious interval change. IMPRESSION: 1. No mammographic evidence of malignancy. 2. Recommend routine screening mammography in one year. BI-RADS Category 1: Negative Reviewed, dictated and finalized at location B. NICAL DOCUMENT WRITER
== END 2024-11-21 10:33 | disposition home or self-care (01) ==
LOC: MICIMG 10:32
PROVIDERS: PCP Internal Medicine; Visit Provider Internal Medicine
DX: Z12.31 Encounter for screening mammogram for malignant neoplasm of breast (principal)
CPT/HCPCS: 77063; 77067

== ENCOUNTER 2024-12-19 01:04 | Day surgery (SDC) | payer MEDICARE, OTHER, SELFPAY ==
[2024-12-11 15:23] VITALS: BMI 27.1
--- OUTSIDE RECORDS SUMMARY | 2024-12-19 01:11 | XMS_ITS | Referral Summary ---
Author Organization [facility] Address [address] [place] [address] Care Team Providers Care Route Service Manager Name Role Phone Jus Gallego MD Primary Care Provider [phone] Richar Aguilar DO Unavailable [phone] Encounters Date Type Department Care Team Description 11/25/2024 Telephone [facility] Orthopedics and Sports Medicine [address] [facility] [address] [place] [address] Roberto Juan PA from Last 3 Months Allergies No known active allergies Medications metFORMIN (GLUCOPHAGE) 500 mg tablet Take 2 tablets (1,000 mg total) by mouth 2 (two) times a day with meals Active levothyroxine (SYNTHROID) 125 mcg tablet Take 1 tablet (125 mcg total) by mouth food or baggage handling rampman before breakfast 8 Active zolpidem CR (AMBIEN [...] mouth 2 (two) times a day Active udgcmeulzqfm-O1-at A12-axvda oil (METANX) 3 mg-35 mg-2 mg -90.314 [...] (08/19/2020): Added automatically from request for surgery [id number] Diverticulitis of large inte kaia without perforation or abscess 03/21/2019 Basal cell carcinoma (BCC) of skin of nose 06/17 Knee pain 01/01/2016 Hypertension 01/15/2014 Hyperlipidemia 01/15/2014 Cephalalgia 01/15/2014 Gastroesophageal reflux disease 01/15/2014 History of hypothyroidism 01/15/2014 Arthritis 01/15/2014 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 Immunizations Immunization Administration Dates Next Due Influenza, Unspecified 08/17/2020 [...] re latives? Twice a week 09/14/2020 Attends Buddhist Services Not on file 09/14 Do you belong to any clubs o r organizations such as christianity groups, unions, fraternal or athletic groups, or [...] on file Legal Sex Female 3:24 AM GRADER MEAT Gender Identity Female 11/09/2020 7:13 PM GRADER MEAT Sexual Orientation Straight 11/09/2020 7: 13 PM GRADER MEAT Last Filed Vital Signs Vital Sign Reading Time Taken Comments Blood Pressure 154/86 08/22/2024 3:03 PM GRADER MEAT Pulse 82 08/22/2024 3:03 PM GRADER MEAT Temperature 36.2 C (97.2 F) 12/24/2020 3:11 PM CDT Respiratory Rate 15 09/18/2020 9:32 PM GRADER MEAT Oxygen Saturation 95% 08/22/2024 3:03 PM GRADER MEAT Inhaled Oxygen Concentration - - Weight 74.8 kg (165 lb) 08/22/2024 3:03 PM GRADER MEAT Height 162.6 cm (5' 4 ) 08/22/2024 3:03 PM GRADER MEAT Body Mass Index 28.32 08/22/2024 3:03 PM GRADER MEAT Plan of Treatment Not on file Insurance MEDICARE [employer] CHOICE MEDICARE PPO FOR LIFE Advance Directives For more information, please contact: [phone] * Full Code (Latest Code Status on File) Date Activated Date Inactivated Comments 09/12/2020 7:17 PM 09/17/2020 7:36 PM Care Teams Route Service Manager Relationship Specialty Start Date End Date Jus Gallego MD [address] [place] [address] PCP - General 04/03/17 Richar Aguilar DO [address] [place] [address] Referring Physician Gastroenterology 03/21/19
--- OUTSIDE RECORDS SUMMARY | 2024-12-19 01:11 | XMS_ITS | Continuity of Care Document ---
Author Organization [facility] Address [address] [place] [address] Phone Care Team Providers Care Census Clerk Name Role Phone Frank PT,MPT,ATC, Waqar Unavailable Unavai lable Advance Directives Directive Yes / No Effective Date File Name No Information Encounters Encounter Description Practice Location Reason(s) For Visit Diagnoses Date Provider Providers Copied on Encounter [facility] [address], [place], [place], [id number], [place] tel:[phone] [place] No Information 4 Frank Zavaleta , [place], [place]. Family History Family Member Type Diagnosis Age At Onset No Information Payers Payer name Insurance type Covered alliance party ID Authoriza tion(s) [employer] Medicare Replacement 16 [id number] For Life Medicare Se condary Only [place] [id number] Social History Type Description Quantity Date Captured [...]
--- OUTSIDE RECORDS SUMMARY | 2024-12-19 01:11 | XMS_ITS | Clinical Summary ---
Author Organization [facility] Address [address] [place] [address] Care Team Providers Care Aluminum Boats Assembler Name Role Phone Jus Gallego MD Primary Care Provider [phone] Social History Tobacco Use Types Packs/Day Years [...] complete this topic Insurance [employer]NA Care Teams Aluminum Boats Assembler Relationship Specialty Start Date End Date Jus Gallego MD [address] - [facility] [address] [place] [address] PCP - General INTERNAL MEDICINE 03/13/24
--- OUTSIDE RECORDS SUMMARY | 2024-12-19 01:11 | XMS_ITS | Clinical Summary ---
Author Organization [facility] Address [address] [place] [address] Care Team Providers Care Certified Histologic Technician Name Role Phone Jus Gallego MD Primary Care Provider [phone] Richar Aguilar DO Unavailable [phone] Allergies No known active allergies Medications metFORMIN (GLUCOPHAGE) 500 mg tablet Take 2 tablets (1,000 mg total) by mouth 2 (two) times a day with meals Active levothyroxine (SYNTHROID) 125 mcg tablet Take 1 tablet (125 mcg total) by mouth printing manager before breakfast 8 Active zolpidem CR (AMBIEN [...] mouth 2 (two) times a day Active lljegyoecumd-T5-rg C94-rvkdw oil (METANX) 3 mg-35 mg-2 mg -90.314 [...] (08/19/2020): Added automatically from request for surgery [id number] Diverticulitis of large inte kaia without perforation or abscess 03/21/2019 Basal cell carcinoma (BCC) of skin of nose 06/17 Knee pain 01/01/2016 Hypertension 01/15/2014 Hyperlipidemia 01/15/2014 Cephalalgia 01/15/2014 Gastroesophageal reflux disease 01/15/2014 History of hypothyroidism 01/15/2014 Arthritis 01/15/2014 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 Encounters Date Type Department Care Team Description 11/25/2024 Telephone [facility] Orthopedics and Sports Medicine [address] [facility] [address] [place] [id number] Roberto Juan PA from Last 3 Months Immunizations Immunization Administration Dates Next Due Influenza, Unspecified 08/17/2020 Surgical History Surgery Date Site/Laterality Comments VT TOTAL ABDOMINAL HYSTERECT W/WO RMVL TUBE OVARY Hysterectomy - (Added by TW Conv) ANKLE SURGERY Ankle Surgery - (Added by ) VT COLONOSCOPY FLX DX W/LYLY J SPEC WHEN PFRMD Complete Colonoscopy - (Added by ) EYE SURGERY HYSTERECTOMY CHOLECYSTECTOMY COLON SURGERY 09/12/2020 Open Left Coletomy Medical History Medical History Date Comments Personal history of malignan t neoplasm of ovary Ovarian Cancer - (Added by Conv) Cancer (HCC) Hypertension High cholesterol Diabetes mellitus (HCC) [...] re latives? Twice a week 09/14/2020 Attends Jew Services Not on file 09/14 Do you belong to any clubs o r organizations such as spiritism groups, unions, fraternal or athletic groups, or [...] on file Legal Sex Female 3:24 AM CERTIFIED ADAPTED PHYSICAL EDUCATOR Gender Identity Female 11/09/2020 7:13 PM CERTIFIED ADAPTED PHYSICAL EDUCATOR Sexual Orientation Straight 11/09/2020 7: 13 PM CERTIFIED ADAPTED PHYSICAL EDUCATOR Obstetrics History Last Filed Vital Signs Vital Sign Reading Time Taken Comments Blood Pressure 154/86 08/22/2024 3:03 PM CERTIFIED ADAPTED PHYSICAL EDUCATOR Pulse 82 08/22/2024 3:03 PM CERTIFIED ADAPTED PHYSICAL EDUCATOR Temperature 36.2 C (97.2 F) 12/24/2020 3:11 PM CDT Respiratory Rate 15 09/18/2020 9:32 PM CERTIFIED ADAPTED PHYSICAL EDUCATOR Oxygen Saturation 95% 08/22/2024 3:03 PM CERTIFIED ADAPTED PHYSICAL EDUCATOR Inhaled Oxygen Concentration - - Weight 74.8 kg (165 lb) 08/22/2024 3:03 PM CERTIFIED ADAPTED PHYSICAL EDUCATOR Height 162.6 cm (5' 4 ) 08/22/2024 3:03 PM CERTIFIED ADAPTED PHYSICAL EDUCATOR Body Mass Index 28.32 08/22/2024 3:03 PM CERTIFIED ADAPTED PHYSICAL EDUCATOR Plan of Treatment Health Maintenance Due Date Last Done Comments Breast Cancer Screening-Mammogram 1950 Colon Cancer Screening-Colonoscopy 1950 Depression Screening 1950 Hepatitis C Screening 1950 Osteoporosis Screening-Bone Density Scan 1950 DTaP/Tdap/Td Vaccine (1 - Tdap) 01/21/1963 Hepatitis B Screening 01/21/1970 Pneumococcal vaccine 65+ (1 of 1 - PCV) 01/21/2002 Zoster Vaccine (2 of 3) 10/03/2013 08/08/2013 Well Visit 65+ 01/21/2017 Fall Risk Assessment 09/17/2021 09/17/2020 Covid-19 Vaccine (2 - season) 2024 Influenza Vaccine (#1) 2024 08/17/2020, 2012 Insurance MEDICARE [employer] CHOICE MEDICARE PPO FOR LIFE Advance Directives For more information, please contact: [phone] * Full Code (Latest Code Status on File) Date Activated Date Inactivated Comments 09/12/2020 7:17 PM 09/17/2020 7:36 PM Care Teams Certified Histologic Technician Relationship Specialty Start Date End Date Jus Gallego MD [address] [place] [address] PCP - General 04/03/17 Richar Aguilar DO [address] [place] [address] Referring Physician Gastroenterology 03/21/19
--- OUTSIDE RECORDS SUMMARY | 2024-12-19 01:11 | XMS_ITS | Clinical Summary ---
Author Organization [facility] Address [address] [address] Phone Care Team Providers Care Process Camera Operator Name Role Phone Jus Gallego MD Primary Care Provider [phone] Richar Aguilar DO Unavailable Allergies No known active allergies Medications zolpidem (AMBIEN CR) 12.5 MG Tablet Controlled Release Take 12.5 mg by mouth as needed. Active Glucosamine-Quoc droitin 1387-0525 MG/30ML Liquid Activ e esomeprazole (NEXIUM) 40 [...] 66 07/12/2018 8:45 AM CDT Temperature 36.7 C (98 F) 07/12/2018 8:45 AM CDT Respiratory Rate - - Oxygen Saturation 98% 07/12/2018 8:45 AM CDT Inhaled Oxygen Concentration - - Weight 77.3 kg (170 lb 6.4 oz) 07/12/2018 8:45 A M CDT Height 162.6 cm (5' 4 ) 07/12/2018 8:45 AM CDT Body Mass Index 29.25 07/12/2018 8:45 AM CDT Plan of Treatment Health Maintenance Due Date Last Done Comments Hepatitis C Virus (HCV) Screening 1950 TdaP Immunization 1950 Cologuard 01/21/2002 Immunochemical Fecal Occult Blood 01/21/2002 Pneumococcal Immunization (5 0+ years) (1 [...] Recently Relevant to Health Maintenance Insurance MEDICARE [employer] Care Teams Process Camera Operator Relationship Specialty Start Date End Date Jus Gallego MD [address] [place] [address] PCP - General Internal Medicine 01/04/16 Richar Aguilar DO [address] [place] [address] Gastroenterology 01/04/16
--- OUTSIDE RECORDS SUMMARY | 2024-12-19 01:11 | XMS_ITS ---
Author Organization [facility] Address [address] [place] [address] Care Team Providers Care Postal Transportation Clerk Name Role Phone Jus Gallego MD Primary Care Provider [phone] Richar Aguilar DO Unavailable [phone] Active Problems Problem Noted Date Diagnosed Date Takotsubo cardiomyopathy 08/22/2024 Status post gastrointestinal surgery, follow-up exam 10/15/2020 Diverticulitis 08/19/2020 Overview (08/19/2020): Added automatically from request for surgery [id number] Diverticulitis of large inte kaia without perforation or abscess 03/21/2019 Basal cell carcinoma (BCC) of skin of nose 06/17 Knee pain 01/01/2016 Hypertension 01/15/2014 Hyperlipidemia 01/15/2014 Cephalalgia 01/15/2014 Gastroesophageal reflux disease 01/15/2014 History of hypothyroidism 01/15/2014 Arthritis 01/15/2014 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 Current Treatment and Therapy Plans No current plan information found. Past Treatment and Therapy Plans No past plan information found. Lifetime Dose Tracking * Chemical Lifetime Dose Automatic Entry Manual Entr y DLP 691 mGycm 691 mGycm 0 mGycm
[2024-12-19 09:17] VITALS: BP 181/88; PULSE 80; RESP 18; TEMP 36.3; O2SAT 99
[2024-12-19 09:32] LABS: Glucose Point of Care 165 mg/dl (65-105)
[2024-12-19] MEDS: LACTATED RINGERS 1,000 ML 150 ML IV CONT (09:32)
--- NOTE | 2024-12-19 09:34 | WPDANESEPPF ---
Anes - Initial Pre Proc Eval Procedure: Operation Date: 12/19/24 10:00 Proposed Procedures p Colonoscopy - Garcia Owens MD Date/Time: 12/19/24 09:34 Surgeon: Garcia Owens MD Pre Op Diagnosis: personal hx of colon polyps,diverticulosis Patient Data Age: 74 Gender: F Height: 1.64 m Weight: 74.1 kg Last Vital Signs Temp 36.3 C L 12/19/24 09:17 Pulse 80 12/19/24 09:17 Resp 18 12/19/24 09:17 BP 181/88 H 12/19/24 09:17 Pulse Ox 99 12/19/24 09:17 O2 Del Method Room Air 12/19/24 09:17 Allergies Allergy/AdvReac Type Severity Reaction Status Date / Time No Known Allergies Allergy Verified 12/19/24 09:12 Home Medications ?Medication ?Instructions ?Recorded ?Confirmed ?Type omega 2-lxr-rcy-fish oil 1,200 mg 2 cap PO Q12H 02/12/21 12/19/24 History (144 mg-216 mg) capsule (Fish Oil) tramadol 50 mg tablet 50 mg PO Q6H PRN pain #50 tabs 05/25/23 12/11/24 Rx calcium 600 mg capsule 600 mg PO Q12H 05/04/24 12/19/24 History cetirizine 5 mg tablet 5 mg PO DAILY 05/04/24 12/11/24 History folic acid 400 mcg tablet 0.4 mg PO DAILY 05/04/24 12/11/24 History magnesium 200 mg tablet 200 mg PO DAILY 05/04/24 12/11/24 History sacubitril 24 mg-valsartan 26 mg 1 tablet PO Q12HR #60 tabs 05/06/24 12/11/24 Rx tablet (Entresto) spironolactone 25 mg tablet 25 mg PO QAM #30 tabs 05/06/24 12/11/24 Rx metoprolol succinate 50 mg 50 mg PO QAM #30 tabs 07/25/24 12/19/24 Rx tablet,extended release 24 hr metformin 1,000 mg tablet See Rx Instructions .Route 08/12/24 12/19/24 Rx .COMPLEX #225 tabs lorazepam 1 mg tablet 1 mg PO BID PRN anxiety #60 tabs 08/21/24 12/19/24 Rx zolpidem 12.5 mg tablet,extended 12.5 mg PO QHS #90 tabs 10/21/24 12/19/24 Rx release,multiphase levothyroxine 125 mcg tablet See Rx Instructions .Route 10/23/24 12/19/24 Rx .COMPLEX #90 tabs empagliflozin 10 mg tablet 10 mg PO DAILY #90 tabs 11/06/24 12/19/24 Rx (Jardiance) ondansetron 8 mg disintegrating 8 mg PO Q8H PRN nausea and 11/06/24 12/11/24 Rx tablet vomiting #30 tabs cyclobenzaprine 10 mg tablet See Rx Instructions PO TID PRN 11/11/24 12/11/24 Rx muscle spasm #50 tabs levomefolate Ca 3 mg-B6 35 See Rx Instructions .Route 11/11/24 12/19/24 Rx mg-meB12 2 mg-algal oil 90.314 mg .COMPLEX #60 caps capsule (Metanx (algal oil)) tramadol 50 mg tablet 50 mg PO Q4-6H PRN pain #50 tabs 11/11/24 12/11/24 Rx atorvastatin 20 mg tablet See Rx Instructions .Route 12/09/24 12/19/24 Rx .COMPLEX #90 tabs Lactobacillus rhamnosus-Bifidobac. 1 cap PO DAILY 12/11/24 12/19/24 History animalis 3 billion cell capsule ([employer]) cetirizine 10 mg tablet (24Hour 10 mg PO DAILY PRN allergy symptoms 12/11/24 12/11/24 History Allergy) folate 666 1 tablet PO DAILY 12/11/24 12/19/24 History glucosamine sulf dipot 2 cap PO DAILY 12/11/24 12/19/24 History chlr,msm,chond 550 mg-C 30 mg-emani 1 mg capsule (Glucosamine Chondroitin) magnesium 100 mg capsule 100 mg PO DAILY 12/11/24 12/19/24 History pantoprazole 40 mg tablet,delayed 40 mg PO QAM PRN acid reflux 12/11/24 12/19/24 History release phenylephrine-acetaminophen 5 1 tablet PO Q6H PRN sinus symptoms 12/11/24 12/11/24 History mg-325 mg tablet (Tylenol Sinus Headache) Laboratory Tests 12/19/24 09:23 POC Capillary Glucose 165 H mg/dl (65-105) Patient hx anesthesia problems: none Family hx anesthesia problems: none Results Review: All pre-operative results and documents have been reviewed as part of the pre-operative evaluation. [facility] Past Medical History Medical History Hospital discharge follow-up Upper back pain Encounter for routine adult health examination with abnormal findings Diverticulitis large intestine w/o perforation or abscess w/o bleeding Vaginal candidiasis UTI symptoms Left medial knee pain Diverticulosis of colon Constipation, acute CKD (chronic kidney disease) Cholinergic urticaria Sinusitis Radicular low back pain History of diverticulitis Chronic low back pain Eczema Onychomycosis BMI 27.0-27.9,adult Sinus pressure Diverticulitis LLQ abdominal pain Umbilical hernia Abdominal mass, left lower quadrant Chronic pain of right knee Sacroiliitis Contact dermatitis Persistent fever Chest congestion DJD (degenerative joint disease) of knee Impaired functional mobility, balance, gait, and endurance Hx of colonic polyps BMI 28.0-28.9,adult Encounter for Medicare annual wellness exam Diverticular disease Follow up Abdominal pain Elevated homocysteine History of diverticulitis of colon GERD (gastroesophageal reflux disease) Hx of ovarian cancer 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 Hyperlipidemia Benign essential hypertension Hypothyroidism (acquired) GERD with esophagitis Nausea Stress Anxiety Ovarian cancer Surgical History Surgical History History of colon resection August 2020 Hx of hysterectomy Hx of esophagogastroduodenoscopy Hx of colonoscopy Hx of cholecystectomy Family History Family History Father Family history of elevated blood lipids Family history of Alzheimer's disease Family history of heart disease in male family member before age 55 Patient's father is Family history of cardiovascular disease Sibling Family history of heart disease in male family member before age 55 Family history of cardiovascular disease Mother Family history of seizure disorder Family history of hypercholesterolemia Other Diabetes mellitus Family history of allergic disorder Family history of coronary artery disease Hypertension Social History Social History Smoking status: Never smoker Second hand tobacco smoke exposure: No Alcohol intake: never Substance use: never Substance use type: does not use Do You Feel Safe in your Home?: Yes Lack of Transportation: No Lack of Food: Never True Current Housing: I Have Housing Concerned About Future Housing: No Difficulty Paying Gas/Electric Bills: No Difficulty Paying for Meds: No Currently Unemployed: No Education: Don't Know Difficulty w/ Childcare or Family Care: No Living arrangements: with family Occupation/Education: retired Gender identity (if verbalized by the patient): Female Spiritual care concerns: Yes Anes - Eval Final PreProcedure Day of Procedure 12/19/24 09:34 Patient weight: overweight Heart: regular rate and rhythm Lungs: clear to auscultation Airway: Mallampati scale class III Neurological: alert and oriented Last oral intake: >/= 8 hours ASA classification: III Emergent: no Anesthetic plan: proceed Anesthesia type and monitoring: general GIVS and standard monitoring Results Review: All pre-operative results and documents have been reviewed as part of the pre-operative evaluation. Informed Consent: The patient's anesthetic plan and its attendant risks and benefits were discussed with the patient/family/POA. Questions were solicited and answers provided to the satisfaction of the patient/family/POA.
--- NOTE | 2024-12-19 10:13 | P.HP_ITS ---
History of Present Illness History of Present Illness Consent: Risks, benefits, and alternatives have been discussed and questions answered. Patient agrees to proceed with procedure. Chief complaint: personal hx of colon polyps,diverticulosis Narrative: Nona Malagon is a 74 year old female with colon polyp in 2018, also h/o diverticulitis s/p surgery few years ago Review of Systems Review of Systems: All systems reviewed & are unremarkable except as noted in HPI and below PMFSH Past Medical History Medical History Hospital discharge follow-up Upper back pain Encounter for routine adult health examination with abnormal findings Diverticulitis large intestine w/o perforation or abscess w/o bleeding Vaginal candidiasis UTI symptoms Left medial knee pain Diverticulosis of colon Constipation, acute CKD (chronic kidney disease) Cholinergic urticaria Sinusitis Radicular low back pain History of diverticulitis Chronic low back pain Eczema Onychomycosis BMI 27.0-27.9,adult Sinus pressure Diverticulitis LLQ abdominal pain Umbilical hernia Abdominal mass, left lower quadrant Chronic pain of right knee Sacroiliitis Contact dermatitis Persistent fever Chest congestion DJD (degenerative joint disease) of knee Impaired functional mobility, balance, gait, and endurance Hx of colonic polyps BMI 28.0-28.9,adult Encounter for Medicare annual wellness exam Diverticular disease Follow up Abdominal pain Elevated homocysteine History of diverticulitis of colon GERD (gastroesophageal reflux disease) Hx of ovarian cancer 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 Hyperlipidemia Benign essential hypertension Hypothyroidism (acquired) GERD with esophagitis Nausea Stress Anxiety Ovarian cancer Surgical History Surgical History History of colon resection August 2020 Hx of hysterectomy Hx of esophagogastroduodenoscopy Hx of colonoscopy Hx of cholecystectomy Family History Family History Father Family history of elevated blood lipids Family history of Alzheimer's disease Family history of heart disease in male family member before age 55 Patient's father is Family history of cardiovascular disease Sibling Family history of heart disease in male family member before age 55 Family history of cardiovascular disease Mother Family history of seizure disorder Family history of hypercholesterolemia Other Diabetes mellitus Family history of allergic disorder Family history of coronary artery disease Hypertension Social History Social History Smoking status: Never smoker Second hand tobacco smoke exposure: No Alcohol intake: never Substance use: never Substance use type: does not use Do You Feel Safe in your Home?: Yes Lack of Transportation: No Lack of Food: Never True Current Housing: I Have Housing Concerned About Future Housing: No Difficulty Paying Gas/Electric Bills: No Difficulty Paying for Meds: No Currently Unemployed: No Education: Don't Know Difficulty w/ Childcare or Family Care: No Living arrangements: with family Occupation/Education: retired Gender identity (if verbalized by the patient): Female Spiritual care concerns: Yes Meds Home Medications and Allergies Home Medications ?Medication ?Instructions ?Recorded ?Confirmed ?Type omega 8-vjs-mxy-fish oil 1,200 mg 2 cap PO Q12H 02/12/21 12/19/24 History (144 mg-216 mg) capsule (Fish Oil) tramadol 50 mg tablet 50 mg PO Q6H PRN pain #50 tabs 05/25/23 12/11/24 Rx calcium 600 mg capsule 600 mg PO Q12H 05/04/24 12/19/24 History cetirizine 5 mg tablet 5 mg PO DAILY 05/04/24 12/11/24 History folic acid 400 mcg tablet 0.4 mg PO DAILY 05/04/24 12/11/24 History magnesium 200 mg tablet 200 mg PO DAILY 05/04/24 12/11/24 History sacubitril 24 mg-valsartan 26 mg 1 tablet PO Q12HR #60 tabs 05/06/24 12/11/24 Rx tablet (Entresto) spironolactone 25 mg tablet 25 mg PO QAM #30 tabs 05/06/24 12/11/24 Rx metoprolol succinate 50 mg 50 mg PO QAM #30 tabs 07/25/24 12/19/24 Rx tablet,extended release 24 hr metformin 1,000 mg tablet See Rx Instructions .Route 08/12/24 12/19/24 Rx .COMPLEX #225 tabs lorazepam 1 mg tablet 1 mg PO BID PRN anxiety #60 tabs 08/21/24 12/19/24 Rx zolpidem 12.5 mg tablet,extended 12.5 mg PO QHS #90 tabs 10/21/24 12/19/24 Rx release,multiphase levothyroxine 125 mcg tablet See Rx Instructions .Route 10/23/24 12/19/24 Rx .COMPLEX #90 tabs empagliflozin 10 mg tablet 10 mg PO DAILY #90 tabs 11/06/24 12/19/24 Rx (Jardiance) ondansetron 8 mg disintegrating 8 mg PO Q8H PRN nausea and 11/06/24 12/11/24 Rx tablet vomiting #30 tabs cyclobenzaprine 10 mg tablet See Rx Instructions PO TID PRN 11/11/24 12/11/24 Rx muscle spasm #50 tabs levomefolate Ca 3 mg-B6 35 See Rx Instructions .Route 11/11/24 12/19/24 Rx mg-meB12 2 mg-algal oil 90.314 mg .COMPLEX #60 caps capsule (Metanx (algal oil)) tramadol 50 mg tablet 50 mg PO Q4-6H PRN pain #50 tabs 11/11/24 12/11/24 Rx atorvastatin 20 mg tablet See Rx Instructions .Route 12/09/24 12/19/24 Rx .COMPLEX #90 tabs Lactobacillus rhamnosus-Bifidobac. 1 cap PO DAILY 12/11/24 12/19/24 History animalis 3 billion cell capsule ([employer]) cetirizine 10 mg tablet (24Hour 10 mg PO DAILY PRN allergy symptoms 12/11/24 12/11/24 History Allergy) folate 666 1 tablet PO DAILY 12/11/24 12/19/24 History glucosamine sulf dipot 2 cap PO DAILY 12/11/24 12/19/24 History chlr,msm,chond 550 mg-C 30 mg-emani 1 mg capsule (Glucosamine Chondroitin) magnesium 100 mg capsule 100 mg PO DAILY 12/11/24 12/19/24 History pantoprazole 40 mg tablet,delayed 40 mg PO QAM PRN acid reflux 12/11/24 12/19/24 History release phenylephrine-acetaminophen 5 1 tablet PO Q6H PRN sinus symptoms 12/11/24 12/11/24 History mg-325 mg tablet (Tylenol Sinus Headache) Allergies Allergy/AdvReac Type Severity Reaction Status Date / Time No Known Allergies Allergy Verified 12/19/24 09:12 Vital Signs Vital Signs - 24 hr 12/19/24 09:17 Temperature 97.4 F L Pulse Rate 80 Respiratory Rate 18 Blood Pressure 181/88 H Pulse Oximetry 99 Oxygen Delivery Room Air Exam Const: General: comfortable and no acute distress HENMT: Face/Nose/Sinus: Normal nares present Eyes: General: appearance normal, both eyes and all related structures Neck: Neck: no JVD Resp: Auscultation: clear to auscultation bilaterally Cardio: Rate: regular rate Rhythm: regular rhythm GI: Inspection: non-distended GI Palp: Yes Soft to palpation Skin: General skin exam: normal color Neuro: Speech: normal speech Extrem: General: normal to inspection Psych: Mental Status: mental status grossly normal Assessment and Plan Assessment and plan (1) Hx of colonic polyps: Code(s): Z86.010 - Personal history of colon polyps Status: Acute Assessment and Plan: colonoscopy
[2024-12-19 10:32] VITALS: BP 145/55; PULSE 62; RESP 20; O2SAT 99
[2024-12-19 10:42] VITALS: BP 135/60; PULSE 60; RESP 28; O2SAT 99
[2024-12-19 10:52] VITALS: BP 180/70; PULSE 60; RESP 18; O2SAT 99
== END 2024-12-19 10:55 | disposition home or self-care (01) ==
PROVIDERS: PCP Internal Medicine; Referring Provider Internal Medicine; Visit Provider Internal Medicine Gastroenterology
PROC: 0DJD8ZZ Inspection of Lower Intestinal Tract, Via Natural or Artificial Opening Endoscopic (ICD-10-PCS; CPT 45378; principal; 2024-12-19 10:00)
DX: Z12.11 Encounter for screening for malignant neoplasm of colon (principal); D12.4 Benign neoplasm of descending colon; K64.8 Other hemorrhoids; K64.4 Residual hemorrhoidal skin tags; K57.30 Diverticulosis of large intestine without perforation or abscess without bleeding; E78.5 Hyperlipidemia, unspecified; E03.9 Hypothyroidism, unspecified; F41.9 Anxiety disorder, unspecified; I12.9 Hypertensive chronic kidney disease with stage 1 through stage 4 chronic kidney disease, or unspecified chronic kidney disease; N18.9 Chronic kidney disease, unspecified; G89.29 Other chronic pain; M54.50 Low back pain, unspecified; M25.561 Pain in right knee; M17.10 Unilateral primary osteoarthritis, unspecified knee; R26.89 Other abnormalities of gait and mobility; K21.9 Gastro-esophageal reflux disease without esophagitis; Z79.891 Long term (current) use of opiate analgesic; Z79.84 Long term (current) use of oral hypoglycemic drugs; Z79.899 Other long term (current) drug therapy; Z98.890 Other specified postprocedural states; Z98.0 Intestinal bypass and anastomosis status; Z90.49 Acquired absence of other specified parts of digestive tract; Z87.19 Personal history of other diseases of the digestive system; Z85.43 Personal history of malignant neoplasm of ovary; Z82.49 Family history of ischemic heart disease and other diseases of the circulatory system
CPT/HCPCS: 45385; 82948; 88305; J2003; J7120

== ENCOUNTER 2025-01-14 16:25 | Emergency (ER) | payer MEDICARE, OTHER, SELFPAY ==
--- NOTE | ~2025-01-14 | CT_ITS ---
CTA chest PE protocol Ordering provider: Waqar Hart PA-C History: 74 years Female with . chest heaviness, shortness of breath . Comparison: None. Technique: CT angiogram chest was performed following timed intravenous injection of contrast. Thin s lice axial images and reformatted coronal images were obtained. Three dimensional reformatted images of the chest were also obtained using a [employer] workstation. . Automated exposure control and iterati ve reconstruction technique were employed. The dose-length product was 303.07 mGy-cm. 100 mL Omnipaqu e 350 was given IV. Findings: PULMONARY ARTERIES: No pulmonary embolus. VISUALIZED THORACIC INLET: Normal. MEDIASTINUM: Aorta/coronary arteries: Mild atheromatous disease. Heart/other: The heart is not enlarged. Lymph nodes: No mediastinal or hilar adenopathy. LUNGS: No pulmonary masses. No infiltrates or effusions. No pneumothorax. 4 mm nodule in the right upper lob e. 6 months follow-up CT is advised. VISUALIZED UPPER ABDOMEN: Fat infiltration of the liver. Small sliding hiatus hernia. Status post cho lecystectomy. Otherwise, the visualized upper abdomen is normal. MUSCULOSKELETAL: Soft tissues: The superficial soft tissues are normal. Bones: Age appropriate degenerative changes of the spine. IMPRESSION: 1. No pulmonary embolism. 2. No acute cardiopulmonary pathology. 3. Tiny nodule in the right upper lobe. 6 months follow-up CT advised. 4. Fat infiltration of the liver. 5. Small sliding hiatus hernia. Reviewed, dictated and finalized at location A.
--- NOTE | 2025-01-14 16:34 | ECG_ITS ---
Test Date: 2025-01-14 17:00:16 Measurements Intervals [place] Rate: 74 P: -8 [place]: 135 QRS: -11 QRSD: 97 T: 31 QT: 386 QTc: 429 Interpretive Statements SINUS RHYTHM LEFT VENTRICULAR HYPERTROPHY MINIMAL Q WAVES- HIGH LATERAL LEADS BORDERLINE T WAVE ABNORMALITY- ANTERIOR LEADS BASELINE ARTIFACT- I, II, III, AVR, AVL, AVF, V1-V6 BORDERLINE ECG Compared to ECG 05/04/2024 02:13:06 NO SIGNIFICANT CHANGE Electronically Signed On 01-15-2025 09:17:12 CDT by Jimi Buenrostro D.O.
[2025-01-14 16:45] VITALS: BP 188/85; PULSE 82; RESP 16; TEMP 36.4; O2SAT 100
--- OUTSIDE RECORDS SUMMARY | 2025-01-14 16:57 | XMS_ITS | Clinical Summary ---
Author Organization [facility] Address [address] [place] [address] Care Team Providers Care Switch Coupler Name Role Phone Jus Gallego MD Primary Care Provider [phone] Social History Tobacco Use Types Packs/Day Years [...] 2023-2 5 season) 2024 09/10/2021, 01/16/2021, 12/26/2020 DTaP, Tdap and Td Vaccines ( 2 - Td or Tdap) 03/15/2032 03/15/2022 Pneumococcal Vaccine: 50+ Years Completed 08/19/2022 Zoster Vaccines Completed 09/06/2023, 05/01/2023, 08/08/2013 Meningococcal B Vaccine Aged Out No l onger eligible based on patient's age to complete this topic Meningococcal Vaccine Aged Out No benoit loc eligible based on patient's age to complete this topic RSV Immunizations Under 20 Months Aged Out No longer eligible b ased on patient's age to complete this topic Insurance [employer] Care Teams Switch Coupler Relationship Specialty Start Date End Date Jus Gallego MD [address] - [facility] [address] [place] [address] PCP - General INTERNAL MEDICINE 03/13/24
--- OUTSIDE RECORDS SUMMARY | 2025-01-14 16:57 | XMS_ITS | Encounter Summary ---
Author Organization [facility] Address [address] [place] [address] Care Team Providers Care Recep Name Role Phone Jus Gallego MD Primary Care Provider [phone] Richar Aguilar DO Unavailable [phone] Reason for Visit * Diagnostic Imaging (Routine) - Closed Specialty Diagnoses / Procedures Referred By Leno swenson Referred To Contact Diagnoses Left knee pain, unspecified chronicity Procedures XR Knee Left 1 or 2 Views Roberto Juan PA [address] [place] [address] [address] Phone: tel: fax: [facility] Referral ID Status Reason Start Date Expiration Date Visits Re quested Visits Authorized [id number] Closed 01/13/2025 02/12/2026 1 1 Encounter Details Date Type Department Care Team (Latest Contact Info) Description 01/13/2025 2:55 PM CDT Ancillary Procedure [facility] Imaging at [address] [id number] Left knee pain, unspecified chronicity Social History Tobacco Use Types Packs/Day Years Used Date Smoking Tobacco: Never Smokeless Tobacco: Never Alcohol Use Standard Drinks/Week Comments Not Currently [...] re latives? Twice a week 09/14/2020 Attends [employer] Not on file 09/14 Do you belong to any clubs o r organizations such as scientology groups, unions, fraternal or athletic groups, or [...] on file Legal Sex Female 3:24 AM UNHAIRER Gender Identity Female 11/09/2020 7:13 PM UNHAIRER Sexual Orientation Straight 11/09/2020 7: 13 PM UNHAIRER documented as of this encounter Plan of Treatment Not on file documented as of this encounter Procedures Procedure Name Priority Date/Time Associated Diagnosis Comments XR KNEE LEFT 1 OR 2 VIEWS Schedule Routine, Read Routine (OP Routine) 01/13/2025 2:56 PM CDT Left knee pain, unspecified chronicity documented in this encounter Results * XR Knee Left 1 or 2 Views (01/13/2025 2:56 PM CDT) Anatomical Region Laterality Modality Lower Extremities, Knee Left Digital Radiography Narrative 01/13/2025 3:09 PM CDT Lateral view of the left knee taken today for complete series with previous right knee x-rays. Lateral view shows advanced degenerative changes in the patellofemoral compartment and osteophytes in the posterior knee. Roberto BARRAGAN IMFlakita XR PROCEDURES Final Res ult documented in this encounter Visit Diagnoses Diagnosis Left knee pain, unspecified chronicity documented in this encounter Care Teams Recep Relationship Specialty Start Date End Date Jus Gallego MD [address] [place] [address] PCP - General 04/03/17 Richar Aguilar DO [address] [place] [address] Referring Physician Gastroenterology 03/21/19 documented as of this encounter
--- OUTSIDE RECORDS SUMMARY | 2025-01-14 16:57 | XMS_ITS | Continuity of Care Document ---
Author Organization [facility] Address [address] [place] [address] Phone Care Team Providers Care Ap Operator Name Role Phone Frank PT,MPT,ATC, Waqar Unavailable Unavai lable Advance Directives Directive Yes / No Effective Date File Name No Information Encounters Encounter Description Practice Location Reason(s) For Visit Diagnoses Date Provider Providers Copied on Encounter [facility] [address], [place], [place], [id number], [place] tel:[phone] [place] No Information 4 Frank Zavaleta , [place], [place]. Family History Family Member Type Diagnosis Age At Onset No Information Payers Payer name Insurance type Covered green party ID Authoriza tion(s) [employer] Medicare Replacement 16 [id number] For Life Medicare Se condary Only [place] [id number] Social History Type Description Quantity Date Captured [...]
--- OUTSIDE RECORDS SUMMARY | 2025-01-14 16:57 | XMS_ITS ---
Author Organization [facility] Address [address] [place] [address] Care Team Providers Care Director Of Strategic Sales Name Role Phone Jus Gallego MD Primary Care Provider [phone] Richar Aguilar DO Unavailable [phone] Active Problems Problem Noted Date Diagnosed Date Takotsubo cardiomyopathy 08/22/2024 Status post gastrointestinal surgery, follow-up exam 10/15/2020 Diverticulitis 08/19/2020 Overview (08/19/2020): Added automatically from request for surgery [id number] Diverticulitis of large inte kaia without perforation [...]
--- OUTSIDE RECORDS SUMMARY | 2025-01-14 16:57 | XMS_ITS | Encounter Summary ---
Author Organization [facility] Address [address] [place] [address] Care Team Providers Care Take Away Attendant Name Role Phone Jus Gallego MD Primary Care Provider [phone] Richar Aguilar DO Unavailable [phone] Encounter Details Date Type Department Care Team (Late st Contact Info) Description 01/14/2025 Telephone [facility] Cardiology [address] [place] [address] Sha Dominguez MD [address] [place] [address] Social History Tobacco Use Types Packs/Day Years [...] re latives? Twice a week 09/14/2020 Attends Orthodox Services Not on file 09/14 Do you belong to any clubs o r organizations such as mu-ism groups, unions, fraternal or athletic groups, or [...] on file Legal Sex Female 3:24 AM LICENSED MORTICIAN Gender Identity Female 11/09/2020 7:13 PM LICENSED MORTICIAN Sexual Orientation Straight 11/09/2020 7: 13 PM LICENSED MORTICIAN documented as of this encounter Miscellaneous Notes * Telephone Encounter - Courtney Dowd RN - 01/14/2025 2:58 PM CDT Spoke with pt, pt reports erratic bp readings , SOB, and chest pressure. Pt reports symptoms are intermittent, pt audibly SOB while talking on the phone, nothing makes the symptoms worse or better. Pt advised to go to the ER for evaluation. Pt verbalizes understanding. * Telephone Encounter - Keo Hernandeznca - 01/14/2025 2:39 PM CDT Pt states her BP has been sporadic and it is hard to breath at times. States her PCP added Uabcpuqn87.5 mg on 01/06. 01/06- 143/82, 152/82 01/09- 132/78, 156/85 01/13- 180/93, 197/101 01/14- 158/89 Contact: documented in this encounter Plan of Treatment Not on file documented as of this encounter Visit Diagnoses Not on filedocumented in this encounter Care Teams Take Away Attendant Relationship Specialty Start Date End Date Jus Gallego MD [address] [place] [address] PCP - General 04/03/17 Richar Aguilar DO [address] [facility] [facility] [place], [place] [id number] Referring Physician Gastroenterology 03/21/19 documented as of this encounter
--- OUTSIDE RECORDS SUMMARY | 2025-01-14 16:57 | XMS_ITS | Clinical Summary ---
Author Organization [facility] Address [address] [place] [address] Care Team Providers Care Fermenter Wine Name Role Phone Jus Gallego MD Primary Care Provider [phone] Richar Aguilar DO Unavailable [phone] Allergies No known active allergies Medications metFORMIN (GLUCOPHAGE) 500 mg tablet Take 2 tablets (1,000 mg total) by mouth 2 (two) times a day with meals Active levothyroxine (SYNTHROID) 125 mcg tablet Take 1 tablet (125 mcg total) by mouth vessel builder before breakfast 8 Active zolpidem CR (AMBIEN [...] mouth 2 (two) times a day Active cnmhhdeahzbe-C3-ro S16-kejio oil (METANX) 3 mg-35 mg-2 mg -90.314 [...] every morning 90 tablet 3 4 Active losartan (COZAAR) 25 mg tablet Take 1 tablet (25 mg total) by mouth daily Active hhmogskxuvaz-P2-ew O84-gdusj oil (METANX) 3 mg-35 mg-2 mg -90.314 mg capsule Take 1 capsule by mouth daily Active meloxicam (MOBIC) 15 mg tabletIndications: Osteoarthritis Take 1 tablet (15 mg total) by mouth daily Take with food 30 tablet 1 5 02/13/20 25 Active Hospital, Clinic, or Other Facility Administered Medication Ordered Dose Route Frequency Start Date End Date Status lidocaine (XYLOCAINE) 20 mg/mL (2 %) injection 3 mLIndications:Admini stration of Local Anesthesia 3 mL One-Time Injection 01/13/2025 5 Ended lidocaine (XYLOCAINE) 20 mg/mL (2 %) injection 3 mLIndications:Admini stration of Local Anesthesia 3 mL One-Time Injection 01/13/2025 5 Ended methylPREDNISolone acetate (DEPO-medrol) injection 80 mgIndications:Primar y osteoarthritis of both knees 80 mg intra-artic One-Time Injection 01/13/2025 5 Ended methylPREDNISolone acetate (DEPO-medrol) injection 80 mgIndications:Primar y osteoarthritis of both knees 80 mg intra-artic One-Time Injection 01/13/2025 5 Ended Active Problems Problem Noted Date Diagnosed Date Takotsubo cardiomyopathy 08/22/2024 Status post gastrointestinal surgery, follow-up exam 10/15/2020 Diverticulitis 08/19/2020 Overview (08/19/2020): Added automatically from request for surgery [id number] Diverticulitis of large inte kaia without perforation or abscess 03/21/2019 Basal cell carcinoma (BCC) of skin of nose 06/17 Knee pain 01/01/2016 Hypertension 01/15/2014 Hyperlipidemia 01/15/2014 Cephalalgia 01/15/2014 Gastroesophageal reflux disease 01/15/2014 History of hypothyroidism 01/15/2014 Arthritis 01/15/2014 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 Encounters Date Type Department Care Team Description 01/14/2025 Telephone [facility] Cardiology [address] [facility] [address] [place] [phone] Sha Dominguez MD 01/13/2025 3:00 PM CDT Office Visit [facility] Orthopedic and Sports Medicine [address] [place] [address] Roberto Juan PA Primary osteoarthritis of both knees (Primary Dx) 01/13/2025 2:55 PM CDT Ancillary Procedure [facility] Imaging at [address] [address] Left knee pain, unspecified chronicity 11/25/2024 Telephone [facility] Orthopedics and Sports Medicine [address] [facility] [place] [address] Roberto Juan PA from Last 3 Months Immunizations Immunization Administration Dates Next Due Influenza, Unspecified 08/17/2020 Surgical History Surgery Date Site/Laterality Comments WA TOTAL ABDOMINAL HYSTERECT W/WO RMVL TUBE OVARY Hysterectomy - (Added by TW Conv) ANKLE SURGERY Ankle Surgery - (Added by TW Conv) WA COLONOSCOPY FLX DX W/LYLY J SPEC WHEN PFRMD Complete Colonoscopy - (Added by TW Conv) EYE SURGERY HYSTERECTOMY CHOLECYSTECTOMY COLON SURGERY 09/12/2020 Open Left Coletomy Medical History Medical History Date Comments Personal history of malignan t neoplasm of ovary Ovarian Cancer - (Added by T W Conv) Cancer (HCC) Hypertension High cholesterol Diabetes mellitus (HCC) Thyroid disease Arthritis PONV (postoperative nausea and vomiting) N/V reaction to post-operative pain medications. GERD (gastroesophageal reflux disease) Type 2 diabetes mellitus (HCC) Hypothyroidism Family History Medical History Relation Name Comments Heart disease Brother Family history of cardiac disorder - (Added by TW Conv) Dementia Father Family history of dementia - (Added by TW Conv) Heart disease Father Seizures Mother Breast cancer Other Family history of malignant neoplasm of breast - Relation: Aunt (Added by TW Conv) Relation Name Status Comments Brother Father Mother [...] re latives? Twice a week 09/14/2020 Attends Zoroastrian Services Not on file 09/14 Do you belong to any clubs o r organizations such as anabaptism groups, unions, fraternal or athletic groups, or [...] on file Legal Sex Female 3:24 AM HEALTH EDUCATION AIDE Gender Identity Female 11/09/2020 7:13 PM HEALTH EDUCATION AIDE Sexual Orientation Straight 11/09/2020 7: 13 PM HEALTH EDUCATION AIDE Obstetrics History Last Filed Vital Signs Vital Sign Reading Time Taken Comments Blood Pressure 196/101 01/13/2025 2:59 PM CDT Pulse 74 01/13/2025 2:59 PM CDT Temperature 36.2 C (97.2 F) 12/24/2020 3:11 PM CDT Respiratory Rate 15 09/18/2020 9:32 PM HEALTH EDUCATION AIDE Oxygen Saturation 95% 08/22/2024 3:03 PM HEALTH EDUCATION AIDE Inhaled Oxygen Concentration - - Weight 74.4 kg (164 lb) 01/13/2025 2:59 PM CDT Height 162.6 cm (5' 4 ) 01/13/2025 2:59 PM CDT Body Mass Index 28.15 01/13/2025 2:59 PM CDT Plan of Treatment Health Maintenance Due [...] Vaccine (2 - season) 2024 Influenza Vaccine (Season Ended) 2025 08/17/20 20, 07/11/2013 Procedures Procedure Name Priority Date/Time Associated Diagnosis Comments WA ARTHROCENTESIS ASPIR&/INJ MAJOR JT/BURSA W/O US Routine 01/13/2025 3:00 PM CDT Primary osteoarthritis of both knees XR KNEE LEFT 1 OR 2 VIEWS Schedule Routine, Read Routine (OP Routine) 01/13/2025 2:56 PM CDT Left knee pain, unspecified chronicity from Last 3 Months Results * WA ARTHROCENTESIS ASPIR&/INJ MAJOR JT/BURSA W/O US (01/13/2025 3:00 PM CDT) Narrative Roberto Juan PA - 01/13/2025 3:00 PM CDT Roberto Juan PA 01/13/2025 3:54 PM Large Joint (Hip, Knee, Shoulder) Injection: bilateral knee Performed by: Roberto Juan PA Authorized by: Roberto Juan PA Large Joint Injection/Aspiration: Consent Given by: Patient Site marked: the procedure site was marked Verbal consent obtained: Yes Supporting Documentation: Indications: Pain Procedure Details: Location: Knee Site: Bilateral knee Needle Size: 18 G (18 gauge used on the right side for aspiration, 22 gauge used on the left.) Approach: Superior lateral Ultrasound guided: No Fluroscopic guidance: No Medications Right Large Joint Injection: 80 mg methylPREDNISolone acetate 80 mg/mL; 3 mL lidocaine 20 mg/mL (2 %) Medications Left Large Joint Injection: 80 mg methylPREDNISolone acetate 80 mg/mL; 3 mL lidocaine 20 mg/mL (2 %) Aspirate amount (mL): 5 (5 cc aspirated from the right side) Aspirate: Clear and yellow Patient tolerance: Patient tolerated the procedure well with no immediate complications Roberto BARRAGAN IN CLINIC/BEDSIDE ORDERABLE S Final Result * XR Knee Left 1 or 2 Views (01/13/2025 2:56 PM CDT) Anatomical Region Laterality Modality Lower Extremities, Knee Left Digital Radiography Narrative 01/13/2025 3:09 PM CDT Lateral view of the left knee taken today for complete series with previous right knee x-rays. Lateral view shows advanced degenerative changes in the patellofemoral compartment and osteophytes in the posterior knee. Roberto BARRAGAN IMG XR PROCEDURES Final Res ult from Last 3 Months Insurance MEDICARE [employer] HU[employer] CHOICE MEDICARE PPO [employer] FOR LIFE Advance Directives For more information, please contact: [phone] * Full Code (Latest Code Status on File) Date Activated Date Inactivated Comments 09/12/2020 7:17 PM 09/17/2020 7:36 PM Care Teams Fermenter Wine Relationship Specialty Start Date End Date Jus Gallego MD [address] [place] [address] PCP - General 04/03/17 Richar Aguilar DO [address] [place] [address] Referring Physician Gastroenterology 03/21/19
--- OUTSIDE RECORDS SUMMARY | 2025-01-14 16:57 | XMS_ITS | Referral Summary ---
Author Organization [facility] Address [address] [place] [address] Care Team Providers Care Supervisor Waterworks Name Role Phone Jus Gallego MD Primary Care Provider [phone] Richar Aguilar DO Unavailable [phone] Encounters Date Type Department Care Team Description 01/14/2025 Telephone [facility] Cardiology [address] [address] [address] [place] [address] Sha Dominguez MD 01/13/2025 2:55 PM CDT Ancillary Procedure [facility] Imaging at [address] [address] Left knee pain, unspecified chronicity 01/13/2025 3:00 PM CDT Office Visit [facility] Orthopedic and Sports Medicine [address] [place] [address] Roberto Juan PA Primary osteoarthritis of both knees (Primary Dx) 11/25/2024 Telephone [facility] Orthopedics and Sports Medicine [address] [place] [address] [address] [address] Roberto Juan PA from Last 3 Months Allergies No known active allergies Medications metFORMIN (GLUCOPHAGE) 500 mg tablet Take 2 tablets (1,000 mg total) by mouth 2 (two) times a day with meals Active levothyroxine (SYNTHROID) 125 mcg tablet Take 1 tablet (125 mcg total) by mouth cafeteria helper before breakfast 8 Active zolpidem CR (AMBIEN [...] mouth 2 (two) times a day Active yklrjlcgoxoh-C3-cn N96-sdpng oil (METANX) 3 mg-35 mg-2 mg -90.314 [...] (25 mg total) by mouth daily Active wenvqynqhruy-P9-ff X88-bknqy oil (METANX) 3 mg-35 mg-2 mg -90.314 [...] (08/19/2020): Added automatically from request for surgery [id number] Diverticulitis of large inte kaia without perforation [...] re latives? Twice a week 09/14/2020 Attends Restorationism Services Not on file 09/14 Do you belong to any clubs o r organizations such as catholic groups, unions, fraternal or athletic groups, or [...] on file Legal Sex Female 3:24 AM SEAFOOD PROCESS WORKER Gender Identity Female 11/09/2020 7:13 PM SEAFOOD PROCESS WORKER Sexual Orientation Straight 11/09/2020 7: 13 PM SEAFOOD PROCESS WORKER Last Filed Vital Signs Vital Sign Reading Time Taken Comments Blood Pressure 196/101 01/13/2025 2:59 PM CDT Pulse 74 01/13/2025 2:59 PM CDT Temperature 36.2 C (97.2 F) 12/24/2020 3:11 PM CDT Respiratory Rate 15 09/18/2020 9:32 PM SEAFOOD PROCESS WORKER Oxygen Saturation 95% 08/22/2024 3:03 PM SEAFOOD PROCESS WORKER Inhaled Oxygen Concentration - - Weight 74.4 kg (164 lb) 01/13/2025 2:59 PM CDT Height 162.6 cm (5' 4 ) 01/13/2025 2:59 PM CDT Body Mass Index 28.15 01/13/2025 2:59 PM CDT Plan of Treatment Not on file Procedures Procedure Name Priority Date/Time Associated Diagnosis Comments DE ARTHROCENTESIS ASPIR&/INJ MAJOR JT/BURSA W/O US Routine 01/13/2025 3:00 PM CDT Primary osteoarthritis of both knees XR KNEE LEFT 1 OR 2 VIEWS Schedule Routine, Read Routine (OP Routine) 01/13/2025 2:56 PM CDT Left knee pain, unspecified chronicity from Last 3 Months Results * DE ARTHROCENTESIS ASPIR&/INJ MAJOR JT/BURSA W/O US (01/13/2025 3:00 PM CDT) Narrative Roberto Juan PA - 01/13/2025 3:00 PM CDT Roberto Juan PA 01/13/2025 3:54 PM Large Joint (Hip, Knee, Shoulder) Injection: bilateral knee Performed by: Roberto Juan PA Authorized by: Roberto Jaun PA Large Joint Injection/Aspiration: Consent Given by: [...] ult from Last 3 Months Insurance MEDICARE [employer] HUMANA CHOICE MEDICARE PPO FOR LIFE Advance Directives For more information, please contact: [phone] * Full Code (Latest Code Status on File) Date Activated Date Inactivated Comments 09/12/2020 7:17 PM 09/17/2020 7:36 PM Care Teams Supervisor Waterworks Relationship Specialty Start Date End Date Jus Gallego MD [address] [facility] [address] [place] [address] PCP - General 04/03/17 Richar Aguilar DO [address] [facility] [address] [address] [place] [address] Referring Physician Gastroenterology 03/21/19
--- OUTSIDE RECORDS SUMMARY | 2025-01-14 16:57 | XMS_ITS | Clinical Summary ---
Author Organization [facility] Address [address] [address] Phone Care Team Providers Care Baseball Glove Shaper Name Role Phone Jus Gallego MD Primary Care Provider [phone] Richar Aguilar DO Unavailable [phone] Allergies No known active allergies Medications zolpidem (AMBIEN CR) 12.5 MG Tablet Controlled Release Take 12.5 mg by mouth as needed. Active Glucosamine-Quoc droitin 2300-4531 MG/30ML Liquid Activ e esomeprazole (NEXIUM) 40 [...] Recently Relevant to Health Maintenance Insurance MEDICARE [employer] Care Teams Baseball Glove Shaper Relationship Specialty Start Date End Date Jus Gallego MD [address] [place] [address] PCP - General Internal Medicine 01/04/16 Richar Aguilar DO [address] [place] [address] Gastroenterology 01/04/16
--- OUTSIDE RECORDS SUMMARY | 2025-01-14 16:57 | XMS_ITS | Encounter Summary ---
Author Organization [facility] Healthcare Address [address] [place] [address] Care Team Providers Care Float Nurse Name Role Phone Jus Gallego MD Primary Care Provider [phone] Richar Aguilar DO Unavailable [phone] Reason for Referral * Procedure (Routine) - Authorized Specialty Diagnoses / Procedures Referred By Contac t Referred To Contact Diagnoses Primary osteoarthritis of both knees Procedures Large Joint (Hip, Knee, Shoulder) Injection: bilateral knee Roberto uJan PA [address] [place] [address] [address] [place] [address] Phone: tel: fax: [facility] Referral ID Status Reason Start Date Expiration Date V isits Requested Visits Authorized [id number] Authorized 01/13/2025 02/12/2026 1 1 * Diagnostic Imaging (Routine) - Closed Specialty Diagnoses / Procedures Referred By Contac t Referred To Contact Diagnoses Left knee pain, unspecified chronicity Procedures XR Knee Left 1 or 2 Views Roberto Juan PA [address] [place] [address] [address] [place] [address] Phone: tel: fax: [facility] Referral ID Status Reason Start Date Expiration Date Visits Re quested Visits Authorized [id number] Closed 01/13/2025 02/12/2026 1 1 Reason for Visit * Reason Comments Pain Pain Encounter Details Date Type Department Care Team (Late st Contact Info) Description 01/13/2025 3:00 PM CDT Office Visit [facility] Orthopedic and Sports Medicine [address] [place] [phone] Roberto Juan PA [address] [facility] [address] [place] [address] Primary osteoarthritis of both knees (Primary Dx) Social History Tobacco Use Types Packs/Day Years [...] re latives? Twice a week 09/14/2020 Attends [employer] Not on file 09/14 Do you belong to any clubs o r organizations such as shinto groups, unions, fraternal or athletic groups, or [...] on file Legal Sex Female 3:24 AM RN PERIOPERATIVE Gender Identity Female 11/09/2020 7:13 PM RN PERIOPERATIVE Sexual Orientation Straight 11/09/2020 7: 13 PM RN PERIOPERATIVE documented as of this encounter Last Filed Vital Signs Vital Sign Reading Time Taken Comments Blood Pressure 196/101 01/13/2025 2:59 PM CDT Pulse 74 01/13/2025 2:59 PM CDT Temperature - - Respiratory Rate - - Oxygen Saturation - - Inhaled Oxygen Concentration - - Weight 74.4 kg (164 lb) 01/13/2025 2:59 PM CDT Height 162.6 cm (5' 4 ) 01/13/2025 2:59 PM CDT Body Mass Index 28.15 01/13/2025 2:59 PM CDT documented in this encounter Patient Instructions * Attachments The following attachments cannot be sent through Care Everywhere. * Steroid Joint Injection (Behavioral Medical Director) (American) documented in this encounter Ordered Prescriptions Prescription Sig Dispense Quantity Refills Last Filled Start Date End Date meloxicam (MOBIC) 15 mg tabletIndications: Osteoarthritis Take 1 tablet (15 mg total) by mouth daily Take with food 30 tablet 1 01/13/2025 02/12/2025 documented in this encounter Progress Notes * Roberto Juan PA - 01/13/2025 3:00 PM CDTAssociated Order(s): Large Joint (Hip, Knee, Shoulder) Injection: bilateral knee Post-Procedure Diagnose(s): Primary osteoarthritis of both knees Images from the original note were not included. NEW PATIENT VISIT This patient has verbally consented to recording this visit in order to utilize AI technology in generating this note. Subjective CHIEF COMPLAINT She had concerns including Pain of the Right Knee and Pain of the Left Knee. HISTORY OF PRESENT ILLNESS History of Present Illness Nona Knight is a 74-year-old female who presents with bilateral knee pain and difficulty ambulating. Follow up on right knee and new complaint of left knee She has been experiencing bilateral knee pain, with the right knee previously diagnosed as bone on bone. The pain has not improved due to her inability to attend physical therapy, largely because of personal life circumstances, including her 's cancer diagnosis. The left knee has also started to exhibit similar symptoms, with pain worsening over time. She was previously prescribed Celebrex for pain management, but it caused significant side effects,including gastrointestinal discomfort and feeling 'loopy', leading her to discontinue its use. She currently manages her pain with Advil, which she takes sparingly due to concerns about its long-termeffects. Tylenol is ineffective for her pain. Her pain is exacerbated by activities such as walking and climbing stairs, with variability in her ability to walk distances. Some days she manages well, while on others, the pain is more debilitating. She recalls having knee injections in the past, which provided minimal relief, and mentions a previous procedure where fluid was aspirated from her knee, which was somewhat beneficial. Pain Assessment Pain Assessment: 0-10 Pain Score: 6 Pain Location: Knee Pain Orientation: Left, Right PAST MEDCIAL HISTORY She has a past medical history of Arthritis, Cancer ([facility]), Diabetes mellitus ([facility]), GERD (gastroesophageal reflux disease), High cholesterol, Hypertension, Hypothyroidism, Personal history of malignant neoplasm of ovary, PONV (postoperative nausea and vomiting), Thyroid disease, and Type 2 diabetes mellitus ([facility]). She has no past medical history of Awareness under anesthesia, COPD (chronic obstructive pulmonary disease) ([facility]), Coronary artery disease, Delayed emergence from general anesthesia, Motion sickness,Postoperative delirium, Seizures ([facility]), Sleep apnea, or Stroke ([facility]). PAST SURGICAL HISTORY She has a past surgical history that includes pr total abdominal hysterect w/wo rmvl tube ovary; Ankle surgery; pr colonoscopy flx dx w/collj spec when pfrmd; Eye surgery; Hysterectomy; Cholecystectomy; and Colon surgery (09/12/2020). MEDICATIONS She has a current medication list which includes the following prescription(s): atorvastatin, calcium carbonate-vitamin d3, cetirizine, empagliflozin, entresto, fish oil-dha-epa, folic acid, freestyle lite strips, cppugjayyade-o7-snl19-algal oil, spvxqesdljhk-r7-jmm18-algal oil, levothyroxine, lorazepam, losartan, magnesium oxide, metformin, metoprolol xl, ondansetron odt, spironolactone, tramadol, and zolpidem cr. ALLERGIES She has no known allergies. SOCIAL HISTORY She reports that she has never smoked. She has never used smokeless tobacco. She reports that she does not use drugs. No alcohol history on file. FAMILY HISTORY Her family history includes Breast cancer in an other family member; Dementia in her father; Heart disease in her brother and father; Seizures in her mother. REVIEW OF SYSTEMS All appropriate ROS addressed in the HPI. Objective PHYSICAL EXAM BP (!) 196/101 Pulse 74 Ht 162.6 cm (5' 4 ) Wt 74.4 kg (164 lb) BMI 28.15 kg/m?? Right knee Inspection The patient has normal inspection of the right knee. Skin temperature: normal Alignment: varus Gait: antalgic Palpation Tenderness: present. The tenderness is located in the condyle, medial joint line and lateral joint line. Crepitus: positive Range of motion The patient has reduced range of motion of the right knee. The patient has pain with range of motion of the right knee. Flexion contracture: yes. Degrees: 6-10 Stability AP stability: stable ML stability: stable Strength Knee extension: 4/5 Knee flexion: 4/5 Neurovascular The patient has normal vascular on the right side of their body. The patient has normal sensation on the right side of their body. Left knee Inspection The patient has normal inspection of the left knee. Skin temperature: normal Alignment: varus Gait: antalgic Palpation Tenderness: present. The tenderness is located in the condyle, medial joint line and lateral joint line. Crepitus: positive Range of motion The patient has reduced range of motion of the left knee. The patient has pain with range of motion of the left knee. Flexion contracture: yes. Degrees: <5 Stability AP stability: stable ML stability: stable Strength Knee extension: 4/5 Knee flexion: 4/5 Neurovascular The patient has normal vascular on the left side of their body. The patient has normal sensation on the left side of their body. REVIEW OF X-RAYS/STUDIES/LABS XR Knee Left 1 or 2 Views Lateral view of the left knee taken today for complete series with previous right knee x-rays. Lateral view shows advanced degenerative changes in the patellofemoral compartment and osteophytes in the posterior knee. Assessment/Plan Nona Knight was seen today for pain and pain. Diagnoses and all orders for this visit: Primary osteoarthritis of both knees - XR Knee Left 1 or 2 Views; Future Large Joint (Hip, Knee, Shoulder) Injection: bilateral [...] the procedure well with no immediate complications PLAN Assessment & Plan Primary osteoarthritis of both knees Severe osteoarthritis in the right knee and moderate to severe in the left. Previous Celebrex not tolerated. Informed consent for steroid injections obtained. We discussed the risks and benefits of corticosteroid injection today including but not limited to: Pain, bleeding, infection, risk to neurovascular structures, incomplete resolution of symptoms, elevation of blood glucose levels, and the potential need for additional procedures in the future. Injection was administered today, patient tolerated the injection well. Post- injection instructions were provided to the patient today. - Administer steroid injections in both knees. - Consider knee replacement surgery if injections fail. - Stop Advil and start meloxicam. - Discontinue meloxicam if not tolerated well. All questions were addressed today and the patient was instructed to call the office with any questions or concerns. LAUREL Starr documented in this encounter Plan of Treatment Not on file documented as of this encounter Procedures Procedure Name Priority Date/Time Associated Diagnosis Comments MS ARTHROCENTESIS ASPIR&/INJ MAJOR JT/BURSA W/O US Routine 01/13/2025 3:00 PM CDT Primary osteoarthritis of both knees documented in this encounter Results * MS ARTHROCENTESIS ASPIR&/INJ MAJOR JT/BURSA W/O US (01/13/2025 [...] [facility] IMG XR PROCEDURES Final Res ult documented in this encounter Visit Diagnoses Diagnosis Primary osteoarthritis of both knees- Primary Left knee pain, unspecified chronicity documented in this encounter Administered Medications Inactive Administered Medications - up to 3 most recent administrations Medication Order MAR Action Action Date Dose Rate Site lidocaine (XYLOCAINE) 20 mg/mL (2 %) injection 3 mL 3 mL, One-Time Injection, Starting on Mon01/13/25 at 1500, For 1 dose, Indications: Administration of Local AnesthesiaIndications:Administratio n of Local Anesthesia Given 01/13/2025 3:00 PM CDT 3 mL lidocaine (XYLOCAINE) 20 mg/mL (2 %) injection 3 mL 3 mL, One-Time Injection, Starting on Mon01/13/25 at 1500, For 1 dose, Indications: Administration of Local AnesthesiaIndications:Administratio n of Local Anesthesia Given 01/13/2025 3:00 PM CDT 3 mL methylPREDNISolone acetate (DEPO-medrol) injection 80 mg 80 mg, intra-articular, One-Time Injection, Starting on Mon01/13/25 at 1500, For 1 doseIndications:Primary osteoarthritis of both knees Given 01/13/2025 3:00 PM CDT 80 mg methylPREDNISolone acetate (DEPO-medrol) injection 80 mg 80 mg, intra-articular, One-Time Injection, Starting on Mon01/13/25 at 1500, For 1 doseIndications:Primary osteoarthritis of both knees Given 01/13/2025 3:00 PM CDT 80 mg documented in this encounter Historical Medications * This list may reflect changes made after this encounter. vaqpsmmzycjx-F7-r bX31-vxosx oil (METANX) 3 mg-35 mg-2 mg -90.314 mg capsule Take 1 capsule by mouth daily losartan (COZAAR) 25 mg tablet Take 1 tablet (25 mg total) by mouth daily added in this encounter Care Teams Float Nurse Relationship Specialty Start Date End Date Jus Gallego MD [address] [place] [address] PCP - General 04/03/17 Richar Aguilar DO [address] [place] [address] Referring Physician Gastroenterology 03/21/19 documented as of this encounter
[2025-01-14 17:07] LABS: Basophils Percent Auto 0.2 % (0.2-1.2); Hematocrit 43.7 % (37.0-47.0); Hemoglobin 14.1 g/dL (12.0-15.0); Immature Granulocyte Absolute 0.08 K/mm3 (0.00-0.031); Immature Granulocyte Percent A 0.6 % (0-0.5); Lymphocytes Absolute Auto 0.82 K/mm3 (0.9-3.2); Lymphocytes Percent Auto 6.6 % (18.3-44.2); Mean Corpuscular HGB Conc 32.3 g/dl (32-36); Mean Corpuscular Hemoglobin 28.3 pg (26-34); Mean Corpuscular Volume 87.6 fl (80-100); Mean Platelet Volume 10.7 fl (7.4-10.4); Monocytes Absolute Auto 0.6 K/mm3 (0.1-0.6); Monocytes Percent Auto 4.7 % (2.6-8.5); Neutrophils Absolute Auto 10.9 K/mm3 (1.3-6.7); Neutrophils Percent Auto 87.9 % (45.5-73.1); Platelet Count Result 231 k/mm3 (150-375); Red Blood Count 4.99 M/mm3 (4.2-5.4); Red Cell Distribution Width 14.4 % (11.5-14.5); White Blood Count 12.4 K/mm3 (4.5-10.0)
[2025-01-14 17:12] VITALS: O2SAT 98
[2025-01-14 17:18] LABS: Albumin Level 5.1 g/dL (3.5-5.1); Alkaline Phosphatase 91 U/L (38-126); Anion Gap 20 mmol/L (4-12); Aspartate Amino Transferase 36 U/L (14-36); Bilirubin,Total 0.7 mg/dL (0.2-1.3); Blood Urea Nitrogen 34 mg/dL (7-17); Calcium 10.2 mg/dL (8.4-10.2); Carbon Dioxide 17 mmol/L (22-30); Chloride 101 mmol/L (98-107); Estimated Glomerular Filt Rate 45; Glucose 203 mg/dL (65-110); Potassium 4.3 mmol/L (3.4-5.0); Sodium 138 mmol/L (137-145)
[2025-01-14 17:25] LABS: Alanine Aminotransferase 42 U/L (6-35)
--- NOTE | 2025-01-14 17:38 | ED.SOB ---
HPI - SOB/Dyspnea General Chief Complaint: Shortness of Breath/Dyspnea Stated Complaint: Heaviness in chest, shortness of breath Time Seen by Provider: 01/14/25 17:21 Source: patient Mode of arrival: ambulatory Limitations: no limitations History of Present Illness HPI Narrative: This is a 74-year-old female who presents to the ED for chief complaint of chest heaviness, shortness of breath ongoing for the past couple of months. Patient states that these symptoms worsen today. States that she has been very stressed over blood pressure that has been elevated while taking home readings. States that her recent blood pressure medication increase has not done anything. States that she was diagnosed with talk to cardiomyopathy back in May and does follow up with Cardiology group here. Endorses some heaviness across the chest but no specific location of pain. Denies association with nausea, vomiting, syncope, lightheadedness, dizziness, numbness, weakness or back pain. Denies fevers, chills, cough. Related Data Home Medications ?Medication ?Instructions ?Recorded ?Confirmed ?Last Taken ?Type omega 7-cnq-vwl-fish oil 1,200 mg 2 cap PO Q12H 02/12/21 12/19/24 12/13/24 History (144 mg-216 mg) capsule (Fish Oil) calcium 600 mg capsule 600 mg PO Q12H 05/04/24 12/19/24 12/18/24 History cetirizine 5 mg tablet 5 mg PO DAILY 05/04/24 12/11/24 Unknown History folic acid 400 mcg tablet 0.4 mg PO DAILY 05/04/24 12/11/24 Unknown History magnesium 200 mg tablet 200 mg PO DAILY 05/04/24 12/11/24 Unknown History Lactobacillus rhamnosus-Bifidobac. 1 cap PO DAILY 12/11/24 12/19/24 12/18/24 History animalis 3 billion cell capsule (Cloudstaff) cetirizine 10 mg tablet (24Hour 10 mg PO DAILY PRN allergy symptoms 12/11/24 12/11/24 Unknown History Allergy) folate 666 1 tablet PO DAILY 12/11/24 12/19/24 12/18/24 History glucosamine sulf dipot 2 cap PO DAILY 12/11/24 12/19/24 12/18/24 History chlr,msm,chond 550 mg-C 30 mg-emani 1 mg capsule (Glucosamine Chondroitin) magnesium 100 mg capsule 100 mg PO DAILY 12/11/24 12/19/24 12/18/24 History pantoprazole 40 mg tablet,delayed 40 mg PO QAM PRN acid reflux 12/11/24 12/19/24 12/18/24 History release phenylephrine-acetaminophen 5 1 tablet PO Q6H PRN sinus symptoms 12/11/24 12/11/24 Unknown History mg-325 mg tablet (Tylenol Sinus Headache) Allergies Allergy/AdvReac Type Severity Reaction Status Date / Time No Known Allergies Allergy Verified 12/19/24 09:12 Review of Systems Review of Systems: All systems as dictated [place] [facility] Past Medical History Medical History Hospital discharge follow-up Upper back pain Encounter for routine adult health examination with abnormal findings Diverticulitis large intestine w/o perforation or abscess w/o bleeding Vaginal candidiasis UTI symptoms Left medial knee pain Diverticulosis of colon Constipation, acute CKD (chronic kidney disease) Cholinergic urticaria Sinusitis Radicular low back pain History of diverticulitis Chronic low back pain Eczema Onychomycosis BMI 27.0-27.9,adult Sinus pressure Diverticulitis LLQ abdominal pain Umbilical hernia Abdominal mass, left lower quadrant Chronic pain of right knee Sacroiliitis Contact dermatitis Persistent fever Chest congestion DJD (degenerative joint disease) of knee Impaired functional mobility, balance, gait, and endurance Hx of colonic polyps BMI 28.0-28.9,adult Encounter for Medicare annual wellness exam Diverticular disease Follow up Abdominal pain Elevated homocysteine History of diverticulitis of colon GERD (gastroesophageal reflux disease) Hx of ovarian cancer On prison drug therapy Hyperlipidemia Benign essential hypertension Hypothyroidism (acquired) GERD with esophagitis Nausea Stress Anxiety Ovarian cancer Surgical History Surgical History History of colon resection August 2020 Hx of hysterectomy Hx of esophagogastroduodenoscopy Hx of colonoscopy Hx of cholecystectomy Family History Family History Father Family history of elevated blood lipids Family history of Alzheimer's disease Family history of heart disease in male family member before age 55 Patient's father is Family history of cardiovascular disease Sibling Family history of heart disease in male family member before age 55 Family history of cardiovascular disease Mother Family history of seizure disorder Family history of hypercholesterolemia Other Diabetes mellitus Family history of allergic disorder Family history of coronary artery disease Hypertension Social History Social History Smoking status: Never smoker Second hand tobacco smoke exposure: No Alcohol intake: never Substance use: never Substance use type: does not use Do You Feel Safe in your Home?: Yes Lack of Transportation: No Lack of Food: Never True Current Housing: I Have Housing Concerned About Future Housing: No Difficulty Paying Gas/Electric Bills: No Difficulty Paying for Meds: No Currently Unemployed: No Education: Don't Know Difficulty w/ Childcare or Family Care: No Living arrangements: with family Occupation/Education: retired Gender identity (if verbalized by the patient): Female Spiritual care concerns: Yes Exam Narrative: GENERAL: Well-appearing, well-nourished, and in no acute distress. HEAD: Normocephalic, atraumatic. EYES: PERRLA and EOMI. ENT: Nares clear, no rhinorrhea or epistaxis. Mucous membranes moist. Oropharynx without tonsillar hypertrophy exudate or other lesions. NECK: Supple. No adenopathy or masses. CHEST: No respiratory distress. Clear to auscultation. No wheezes rales or rhonchi HEART: Regular rate and rhythm. No murmur heard. Normal peripheral pulses. ABDOMEN: Soft, nontender, nondistended, normal active bowel sounds. MSK: Normal range of motion. No edema. SKIN: Warm, dry, no rash. NEURO: Alert and oriented x4. No focal deficits. PSYCH: Normal mood and affect. Course Vital Signs Vital signs: Vital Signs Temperature 97.6 F 01/14/25 16:45 Pulse Rate 82 01/14/25 16:45 Respiratory Rate 16 01/14/25 16:45 Blood Pressure 188/85 H 01/14/25 16:45 Pulse Oximetry 100 01/14/25 16:45 Temperature 97.6 F 01/14/25 16:45 Pulse Rate 68 01/14/25 19:47 Respiratory Rate 17 01/14/25 19:47 Blood Pressure 194/89 H 01/14/25 20:51 Pulse Oximetry 100 01/14/25 19:47 Oxygen Delivery Room Air 01/14/25 17:12 MDM - SOB/Dyspnea MDM Narrative Medical decision making narrative: This is a 74-year-old female who presents to the ED for chief complaint of shortness of breath and chest heaviness for the past several months. She feels it is residual from takotsubo cardiomyopathy evident back in May of 2024. Vitals are showing elevated blood pressure but otherwise normal. Exam is unremarkable. Lab work is unremarkable. BNP is just slightly elevated she does not appear to be in acute heart failure. Chest CTA: IMPRESSION: 1. No pulmonary embolism. 2. No acute cardiopulmonary pathology. 3. Tiny nodule in the right upper lobe. 6 months follow-up CT advised. 4. Fat infiltration of the liver. 5. Small sliding hiatus hernia. She was given hydralazine dose for elevated blood pressure, however she does not appear to be in hypertensive emergency or ACS. Symptoms are more chronic in nature today. Encouraged follow-up closely with her PCP on these issues. Patient will be discharged in stable condition. Supportive measures discussed and return precautions given. Patient is understanding and agreeable with plan for discharge with PCP follow-up. Lab Data 01/14/25 17:00 01/14/25 17:00 Labs: Lab Results 01/14/25 Range/Units 17:00 WBC 12.4 H (4.5-10.0) K/mm3 RBC 4.99 (4.2-5.4) M/mm3 Hgb 14.1 (12.0-15.0) g/dL Hct 43.7 (37.0-47.0) % MCV 87.6 (80-100) fl MCH 28.3 (26-34) pg MCHC 32.3 (32-36) g/dl RDW 14.4 (11.5-14.5) % Plt Count 231 (150-375) k/mm3 MPV 10.7 H (7.4-10.4) fl Immature Gran % (Auto) 0.6 H (0-0.5) % Neut % (Auto) 87.9 H (45.5-73.1) % Lymph % (Auto) 6.6 L (18.3-44.2) % [place] % (Auto) 4.7 (2.6-8.5) % Eos % (Auto) 0.0 (0-4.4) % Baso % (Auto) 0.2 (0.2-1.2) % Lymph # (Auto) 0.82 L (0.9-3.2) K/mm3 [place] # (Auto) 0.6 (0.1-0.6) K/mm3 Eos # (Auto) 0.0 (0-0.3) K/mm3 Baso # (Auto) 0.0 (0.0-0.1) K/mm3 Abs Immat Gran (auto) 0.08 H (0.00-0.031) K/mm3 Absolute Neuts (auto) 10.9 H (1.3-6.7) K/mm3 Absolute Nucleated RBC 0.000 (0.0-0.012) K/mm3 Nucleated RBC % 0.0 (0.0-0.2) % Sodium 138 (137-145) mmol/L Potassium 4.3 (3.4-5.0) mmol/L Chloride 101 (98-107) mmol/L Carbon Dioxide 17 L (22-30) mmol/L Anion Gap 20 H (4-12) mmol/L BUN 34 H (7-17) mg/dL Creatinine 1.19 H (0.7-1.0) mg/dL Estim Creat Clear Calc Not Reportable Estimated GFR 45 L (59 - ) Glucose 203 H (65-110) mg/dL Calcium 10.2 (8.4-10.2) mg/dL Total Bilirubin 0.7 (0.2-1.3) mg/dL AST 36 (14-36) U/L ALT 42 H (6-35) U/L Alkaline Phosphatase 91 (38-126) U/L Troponin I < 0.012 (0.000-0.034) ng/mL NT-Pro-B Natriuret Pep 692 H (19.9-100) pg/mL Total Protein 8.0 (6.3-8.2) g/dL Albumin 5.1 (3.5-5.1) g/dL Discharge Plan Discharge Clinical Impression: Chronic dyspnea Patient Disposition: Home Condition: Stable Instructions: Antibiotic Form Patient Language: Nepali Prescriptions: No Action omega 9-ubo-aqu-fish oil [Fish Oil] 1,200 (144-216) mg Capsule 2 cap PO Q12H losartan-hydrochlorothiazide 50-12.5 mg tablet 1 tablet PO DAILY Qty: 90 0RF calcium 600 mg Capsule 600 mg PO Q12H cetirizine 5 mg Tablet 5 mg PO DAILY folic acid 400 mcg Tablet 0.4 mg PO DAILY magnesium 200 mg tablet 200 mg PO DAILY Entresto 24-26 mg Tablet 1 tablet PO Q12HR Qty: 60 0RF spironolactone 25 mg Tablet 25 mg PO QAM Qty: 30 0RF pantoprazole 40 mg tablet,delayed release (DR/EC) 40 mg PO QAM PRN (Reason: acid reflux) magnesium 100 mg capsule 100 mg PO DAILY Glucosamine Chondroitin 550-30-1 mg capsule 2 cap PO DAILY folate 666 1 tablet PO DAILY Cloudstaff 3 billion cell capsule 1 cap PO DAILY cetirizine [24Hour Allergy] 10 mg tablet 10 mg PO DAILY PRN (Reason: allergy symptoms) Tylenol Sinus Headache 5-325 mg tablet 1 tablet PO Q6H PRN (Reason: sinus symptoms) tramadol 50 mg tablet 50 mg PO Q6H PRN (Reason: pain) Qty: 50 0RF metoprolol succinate 50 mg tablet extended release 24 hr 50 mg PO QAM Qty: 30 2RF metformin 1,000 mg tablet See Rx Instructions .ROUTE .COMPLEX Qty: 225 1RF Dose Instruction: TAKE 1 TABLET BY MOUTH IN THE MORNING AND 1 AND 1/2 TABLETS IN THE EVENING Rx Instructions: TAKE 1 TABLET BY MOUTH IN THE MORNING AND 1 AND 1/2 TABLETS IN THE EVENING lorazepam 1 mg tablet 1 mg PO BID PRN (Reason: anxiety) Qty: 60 1RF zolpidem 12.5 mg tablet,ext release multiphase 12.5 mg PO QHS Qty: 90 0RF Rx Instructions: Brand name. levothyroxine 125 mcg tablet See Rx Instructions .ROUTE .COMPLEX Qty: 90 0RF Dose Instruction: TAKE 1 TABLET BY MOUTH DAILY Rx Instructions: TAKE 1 TABLET BY MOUTH DAILY Jardiance 10 mg tablet 10 mg PO DAILY Qty: 90 1RF ondansetron 8 mg tablet,disintegrating 8 mg PO Q8H PRN (Reason: nausea and vomiting) Qty: 30 0RF zfwjctifv-X1-mbF54-algal oil [Metanx (algal oil)] 3 mg-35 mg-2 mg -90.314 mg capsule See Rx Instructions .ROUTE .COMPLEX Qty: 60 2RF Dose Instruction: TAKE 1 CAPSULE BY MOUTH TWICE DAILY Rx Instructions: TAKE 1 CAPSULE BY MOUTH TWICE DAILY cyclobenzaprine 10 mg tablet See Rx Instructions PO TID PRN (Reason: muscle spasm) Qty: 50 0RF Rx Instructions: take 1/2 to 1 tab orally three times a day PRN; tramadol 50 mg tablet 50 mg PO Q4-6H PRN (Reason: pain) Qty: 50 0RF atorvastatin 20 mg tablet See Rx Instructions .ROUTE .COMPLEX Qty: 90 0RF Dose Instruction: TAKE 1 TABLET BY MOUTH EVERY DAY Rx Instructions: TAKE 1 TABLET BY MOUTH EVERY DAY Follow-up/Referrals: PHYSICIAN NOT ON STAFF,NONSTAFF [Non-Staff] -
--- OUTSIDE RECORDS SUMMARY | 2025-01-14 17:47 | XMS_ITS | Continuity of Care Document ---
Author Organization [facility] Address [address] [place] [address] Phone Care Team Providers Care C Iron Worker Name Role Phone Frank PT,MPT,ATC, Waqar Unavailable Unavai lable Advance Directives Directive Yes / No Effective Date File Name No Information Encounters Encounter Description Practice Location Reason(s) For Visit Diagnoses Date Provider Providers Copied on Encounter [facility] [address], [place], [place], [id number], [place] tel:[phone] [place] No Information 4 Frank Zaval[place] , [place], [place]. Family History Family Member Type Diagnosis Age At Onset No Information Payers Payer name Insurance type Covered democrat ID Authoriza tion(s) [employer] Medicare Replacement 16 [id number] For Life Medicare Se condary Only CI [id number] Social History Type Description Quantity Date Captured [...]
--- OUTSIDE RECORDS SUMMARY | 2025-01-14 17:47 | XMS_ITS ---
Author Organization [facility] Address [address] [place] [address] Care Team Providers Care Aix Architect Name Role Phone Jus Gallego MD Primary Care Provider [phone] Richar Aguilar DO Unavailable [phone] Active Problems Problem Noted Date Diagnosed Date Takotsubo cardiomyopathy 08/22/2024 Status post gastrointestinal surgery, follow-up exam 10/15/2020 Diverticulitis 08/19/2020 Overview (08/19/2020): Added automatically from request for surgery [id number] Diverticulitis of large inte kaia without perforation [...]
--- OUTSIDE RECORDS SUMMARY | 2025-01-14 17:47 | XMS_ITS | Clinical Summary ---
Author Organization [facility] Address [address] [address] Phone Care Team Providers Care Talent Acquisition Project Manager Name Role Phone Jus Gallego MD Primary Care Provider [phone] Richar Aguilar DO Unavailable [phone] Allergies No known active allergies Medications zolpidem (AMBIEN CR) 12.5 MG Tablet Controlled Release Take 12.5 mg by mouth as needed. Active Glucosamine-Quoc droitin 4831-2508 MG/30ML Liquid Activ e esomeprazole (NEXIUM) 40 [...] Recently Relevant to Health Maintenance Insurance MEDICARE [employer] Care Teams Talent Acquisition Project Manager Relationship Specialty Start Date End Date Jus Gallego MD [address] [place] [address] PCP - General Internal Medicine 01/04/16 Richar Aguilar DO [address] [place] [address] Gastroenterology 01/04/16
--- OUTSIDE RECORDS SUMMARY | 2025-01-14 17:47 | XMS_ITS | Clinical Summary ---
Author Organization [facility] Address [address] [place] [address] Care Team Providers Care Grease Buffer Name Role Phone Jus Gallego MD Primary Care Provider [phone] Richar Aguilar DO Unavailable [phone] Allergies No known active allergies Medications metFORMIN (GLUCOPHAGE) 500 mg tablet Take 2 tablets (1,000 mg total) by mouth 2 (two) times a day with meals Active levothyroxine (SYNTHROID) 125 mcg tablet Take 1 tablet (125 mcg total) by mouth orthopedic physician before breakfast 8 Active zolpidem CR (AMBIEN [...] mouth 2 (two) times a day Active zcbkatppmtsi-Y8-el S80-ptard oil (METANX) 3 mg-35 mg-2 mg -90.314 [...] (25 mg total) by mouth daily Active ncuntifdemkx-Q0-bf A92-qqkbt oil (METANX) 3 mg-35 mg-2 mg -90.314 [...] (08/19/2020): Added automatically from request for surgery [id number] Diverticulitis of large inte kaia without perforation or abscess 03/21/2019 Basal cell carcinoma (BCC) of skin of nose 06/17 Knee pain 01/01/2016 Hypertension 01/15/2014 Hyperlipidemia 01/15/2014 Cephalalgia 01/15/2014 Gastroesophageal reflux disease 01/15/2014 History of hypothyroidism 01/15/2014 Arthritis 01/15/2014 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 Encounters Date Type Department Care Team Description 01/14/2025 Telephone [facility] Cardiology [address] [facility] [address] [place] [address] Sha Dominguez MD 01/13/2025 3:00 PM CDT Office Visit [facility] Orthopedic and Sports Medicine [address] [place] [address] Roberto Juan PA Primary osteoarthritis of both knees (Primary Dx) 01/13/2025 2:55 PM CDT Ancillary Procedure [facility] Imaging at [address] [address] Left knee pain, unspecified chronicity 11/25/2024 Telephone [facility] Orthopedics and Sports Medicine [address] [facility] [address] [place] [address] Roberto Juan PA from Last 3 Months Immunizations Immunization Administration Dates Next Due Influenza, Unspecified 08/17/2020 Surgical History Surgery Date Site/Laterality Comments DE TOTAL ABDOMINAL HYSTERECT W/WO RMVL TUBE OVARY Hysterectomy - (Added by TW Conv) ANKLE SURGERY Ankle Surgery - (Added by TW Conv) DE COLONOSCOPY FLX DX W/LYLY J SPEC WHEN [...] re latives? Twice a week 09/14/2020 Attends Bahai Services Not on file 09/14 Do you belong to any clubs o r organizations such as rastafarian groups, unions, fraternal or athletic groups, or [...] on file Legal Sex Female 3:24 AM WAX PUMPER Gender Identity Female 11/09/2020 7:13 PM WAX PUMPER Sexual Orientation Straight 11/09/2020 7: 13 PM WAX PUMPER Obstetrics History Last Filed Vital Signs Vital Sign Reading Time Taken Comments Blood Pressure 196/101 01/13/2025 2:59 PM CDT Pulse 74 01/13/2025 2:59 PM CDT Temperature 36.2 C (97.2 F) 12/24/2020 3:11 PM CDT Respiratory Rate 15 09/18/2020 9:32 PM WAX PUMPER Oxygen Saturation 95% 08/22/2024 3:03 PM WAX PUMPER Inhaled Oxygen Concentration - - Weight 74.4 [...] ult from Last 3 Months Insurance MEDICARE [employer] HUMANA CHOICE MEDICARE PPO [employer] FOR LIFE Advance Directives For more information, please contact: [phone] * Full Code (Latest Code Status on File) Date Activated Date Inactivated Comments 09/12/2020 7:17 PM 09/17/2020 7:36 PM Care Teams Grease Buffer Relationship Specialty Start Date End Date Jus Gallego MD [address] [place] [address] PCP - General 04/03/17 Richar Aguilar DO [address] [place] [address] Referring Physician Gastroenterology 03/21/19
--- OUTSIDE RECORDS SUMMARY | 2025-01-14 17:47 | XMS_ITS | Referral Summary ---
Author Organization [facility] Address [address] [place] [address] Care Team Providers Care Plug Sorter Name Role Phone Jus Gallego MD Primary Care Provider [phone] Richar Aguilar DO Unavailable [phone] Encounters Date Type Department Care Team Description 01/14/2025 Telephone [facility] Cardiology [address] [address] [address] [place] [address] Sha Dominguez MD 01/13/2025 2:55 PM CDT Ancillary Procedure [facility] Imaging at [address] [address] Left knee pain, unspecified chronicity 01/13/2025 3:00 PM CDT Office Visit [facility] Orthopedic and Sports Medicine [address] [place] [address] Roberto Juan PA Primary osteoarthritis of both knees (Primary Dx) 11/25/2024 Telephone [facility] Orthopedics and Sports Medicine [address] [place] [address] [address], [place] [address] Roberto Juan PA from Last 3 Months Allergies No known active allergies Medications metFORMIN (GLUCOPHAGE) 500 mg tablet Take 2 tablets (1,000 mg total) by mouth 2 (two) times a day with meals Active levothyroxine (SYNTHROID) 125 mcg tablet Take 1 tablet (125 mcg total) by mouth legal billing analyst before breakfast 8 Active zolpidem CR (AMBIEN [...] mouth 2 (two) times a day Active ulzibrshcrop-Z1-ez C39-zchjr oil (METANX) 3 mg-35 mg-2 mg -90.314 [...] (25 mg total) by mouth daily Active iauxtjpkprot-G6-hs J79-zqaek oil (METANX) 3 mg-35 mg-2 mg -90.314 [...] (08/19/2020): Added automatically from request for surgery [id number] Diverticulitis of large inte kaia without perforation [...] re latives? Twice a week 09/14/2020 Attends Sikh Services Not on file 09/14 Do you belong to any clubs o r organizations such as confucianist groups, unions, fraternal or athletic groups, or [...] on file Legal Sex Female 3:24 AM NETWORK SECURITY CONSULTANT Gender Identity Female 11/09/2020 7:13 PM NETWORK SECURITY CONSULTANT Sexual Orientation Straight 11/09/2020 7: 13 PM NETWORK SECURITY CONSULTANT Last Filed Vital Signs Vital Sign Reading Time Taken Comments Blood Pressure 196/101 01/13/2025 2:59 PM CDT Pulse 74 01/13/2025 2:59 PM CDT Temperature 36.2 C (97.2 F) 12/24/2020 3:11 PM CDT Respiratory Rate 15 09/18/2020 9:32 PM NETWORK SECURITY CONSULTANT Oxygen Saturation 95% 08/22/2024 3:03 PM NETWORK SECURITY CONSULTANT Inhaled Oxygen Concentration - - Weight 74.4 kg (164 lb) 01/13/2025 2:59 PM CDT Height 162.6 cm (5' 4 ) 01/13/2025 2:59 PM CDT Body Mass Index 28.15 01/13/2025 2:59 PM CDT Plan of Treatment Not on file Procedures Procedure Name Priority Date/Time Associated Diagnosis Comments NE ARTHROCENTESIS ASPIR&/INJ MAJOR JT/BURSA W/O US Routine 01/13/2025 3:00 PM CDT Primary osteoarthritis of both knees XR KNEE LEFT 1 OR 2 VIEWS Schedule Routine, Read Routine (OP Routine) 01/13/2025 2:56 PM CDT Left knee pain, unspecified chronicity from Last 3 Months Results * NE ARTHROCENTESIS ASPIR&/INJ MAJOR JT/BURSA W/O US (01/13/2025 [...] ult from Last 3 Months Insurance MEDICARE [employer] HUMANA CHOICE MEDICARE PPO FOR LIFE Advance Directives For more information, please contact: [phone] * Full Code (Latest Code Status on File) Date Activated Date Inactivated Comments 09/12/2020 7:17 PM 09/17/2020 7:36 PM Care Teams Plug Sorter Relationship Specialty Start Date End Date Jus Gallego MD [address] [facility] [address] [place] [address] PCP - General 04/03/17 Richar Aguilar DO [address] [facility] [address] [place] [place] [address] [place] [address] Referring Physician Gastroenterology 03/21/19
--- OUTSIDE RECORDS SUMMARY | 2025-01-14 17:48 | XMS_ITS | Clinical Summary ---
Author Organization [facility] Address [address] [place] [address] Care Team Providers Care Interpretive Program Coordinator Name Role Phone Jus Gallego MD Primary Care Provider [phone] Social History Tobacco Use Types Packs/Day Years [...] complete this topic Insurance HUMAN Care Teams Interpretive Program Coordinator Relationship Specialty Start Date End Date Jus Gallego MD [address] - [facility] [address] [place] [address] PCP - General INTERNAL MEDICINE 03/13/24
--- OUTSIDE RECORDS SUMMARY | 2025-01-14 17:48 | XMS_ITS | Encounter Summary ---
Author Organization [facility] Healthcare Address [address] [place] [address] Care Team Providers Care Word Processing Supervisor Name Role Phone Jus Gallego MD Primary Care Provider [phone] Richar Aguilar DO Unavailable [phone] Reason for Referral * Procedure (Routine) - Authorized Specialty Diagnoses / Procedures Referred By Contac t Referred To Contact Diagnoses Primary osteoarthritis of both knees Procedures Large Joint (Hip, Knee, Shoulder) Injection: bilateral knee Roberto Juan PA [address] [place] [address] [address] [place] [address] Phone: tel: fax: [facility] Referral ID Status Reason Start Date Expiration Date V isits Requested Visits Authorized [id number] Authorized 01/13/2025 02/12/2026 1 1 * Diagnostic Imaging (Routine) - Closed Specialty Diagnoses / Procedures Referred By Contac t Referred To Contact Diagnoses Left knee pain, unspecified chronicity Procedures XR Knee Left 1 or 2 Views Roberto Juan PA [address] [place] [address] [address] [place] [address] Phone: tel: fax: [facility] Referral ID Status Reason Start Date Expiration Date Visits Re quested Visits Authorized [id number] Closed 01/13/2025 02/12/2026 1 1 Reason for Visit * Reason Comments Pain Pain Encounter Details Date Type Department Care Team (Late st Contact Info) Description 01/13/2025 3:00 PM CDT Office Visit [facility] Orthopedic and Sports Medicine [address] [place] [address] Roberto Juan PA [address] [facility] [address] [place] [address] Primary osteoarthritis of both knees [...] any clubs o r organizations such as episcopalian groups, unions, fraternal or athletic groups, or [...] on file Legal Sex Female 3:24 AM VARIETY LATHE OPERATOR Gender Identity Female 11/09/2020 7:13 PM VARIETY LATHE OPERATOR Sexual Orientation Straight 11/09/2020 7: 13 PM VARIETY LATHE OPERATOR documented as of this encounter Last Filed [...] through Care Everywhere. * Steroid Joint Injection (Briquette Machine Operator) (Gibraltarian) documented in this encounter Ordered Prescriptions Prescription [...] medical history of Arthritis, Cancer ([facility]), Diabetes mellitus ([facility]), GERD (gastroesophageal reflux disease), High cholesterol, Hypertension, Hypothyroidism, Personal history of malignant neoplasm of ovary, PONV (postoperative nausea and vomiting), Thyroid disease, and Type 2 diabetes mellitus ([facility]). She has no past medical history of Awareness under anesthesia, COPD (chronic obstructive pulmonary disease) ([facility]), Coronary artery disease, Delayed emergence from general anesthesia, Motion sickness,Postoperative delirium, Seizures ([facility]), Sleep apnea, or Stroke ([facility]). PAST SURGICAL HISTORY She has [...] fish oil-dha-epa, folic acid, freestyle lite strips, iccxknpngave-x5-xkd20-algal oil, hxdfnskkrkuo-f7-bjg90-algal oil, levothyroxine, lorazepam, losartan, magnesium oxide, metformin, [...] Procedure Name Priority Date/Time Associated Diagnosis Comments CT ARTHROCENTESIS ASPIR&/INJ MAJOR JT/BURSA W/O US Routine 01/13/2025 3:00 PM CDT Primary osteoarthritis of both knees documented in this encounter Results * CT ARTHROCENTESIS ASPIR&/INJ MAJOR JT/BURSA W/O US (01/13/2025 [...] may reflect changes made after this encounter. kxfwrulxsupg-N0-b nI67-tmnki oil (METANX) 3 mg-35 mg-2 mg -90.314 mg capsule Take 1 capsule by mouth daily losartan (COZAAR) 25 mg tablet Take 1 tablet (25 mg total) by mouth daily added in this encounter Care Teams Word Processing Supervisor Relationship Specialty Start Date End Date Jus Gallego MD [address] [place] [address] PCP - General 04/03/17 Richar Aguilar DO [address] [place] [address] Referring Physician Gastroenterology 03/21/19 documented as of this encounter
--- OUTSIDE RECORDS SUMMARY | 2025-01-14 17:48 | XMS_ITS | Encounter Summary ---
Author Organization [facility] Healthcare Address [address] [place] [address] Care Team Providers Care Computer Numerical Control Grinder Name Role Phone Jus Gallego MD Primary Care Provider [phone] Richar Aguilar DO Unavailable [phone] Reason for Visit * Diagnostic Imaging (Routine) - Closed Specialty Diagnoses / Procedures Referred By Leno swenson Referred To Contact Diagnoses Left knee pain, unspecified chronicity Procedures XR Knee Left 1 or 2 Views Roberto Juan PA [address] [place] [address] [address] Phone: tel: fax: [facility] Referral ID Status Reason Start Date Expiration Date Visits Re quested Visits Authorized [id number] Closed 01/13/2025 02/12/2026 1 1 Encounter Details Date Type Department Care Team (Latest Contact Info) Description 01/13/2025 2:55 PM CDT Ancillary Procedure [facility] Imaging at [address] [phone] Left knee pain, unspecified chronicity Social History [...] re latives? Twice a week 09/14/2020 Attends Episcopal Services Not on file 09/14 Do you belong to any clubs o r organizations such as lutheran groups, unions, fraternal or athletic groups, or [...] on file Legal Sex Female 3:24 AM HIGH SCHOOL PROFESSIONAL Gender Identity Female 11/09/2020 7:13 PM HIGH SCHOOL PROFESSIONAL Sexual Orientation Straight 11/09/2020 7: 13 PM HIGH SCHOOL PROFESSIONAL documented as of this encounter Plan of [...] chronicity documented in this encounter Care Teams Computer Numerical Control Grinder Relationship Specialty Start Date End Date Jus Gallego MD [address] [place] [address] PCP - General 04/03/17 Richar Aguilar DO [address] [place] [address] Referring Physician Gastroenterology 03/21/19 documented as of this encounter
--- OUTSIDE RECORDS SUMMARY | 2025-01-14 17:48 | XMS_ITS | Encounter Summary ---
Author Organization [facility] Healthcare Address [address] [place] [address] Care Team Providers Care Baker Bread Name Role Phone Jus Gallego MD Primary Care Provider [phone] Richar Aguilar DO Unavailable [phone] Encounter Details Date Type Department Care Team (Late st Contact Info) Description 01/14/2025 Telephone [facility] Cardiology [address] [place] [address] Sha Domingeuz MD [address] [place] [address] Social History Tobacco Use Types [...] re latives? Twice a week 09/14/2020 Attends Presybeterian Services Not on file 09/14 Do you belong to any clubs o r organizations such as scientologist groups, unions, fraternal or athletic groups, or [...] on file Legal Sex Female 3:24 AM FABRIC AWNING REPAIRER Gender Identity Female 11/09/2020 7:13 PM FABRIC AWNING REPAIRER Sexual Orientation Straight 11/09/2020 7: 13 PM FABRIC AWNING REPAIRER documented as of this encounter Miscellaneous Notes [...] breath at times. States her PCP added Lwgcgmbu00.5 mg on 01/06. 01/06- 143/82, 152/82 01/09- 132/78, 156/85 01/13- 180/93, 197/101 01/14- 158/89 Contact: documented in this encounter Plan of Treatment Not on file documented as of this encounter Visit Diagnoses Not on filedocumented in this encounter Care Teams Baker Bread Relationship Specialty Start Date End Date Jus Gallego MD [address] [place] [address] PCP - General 04/03/17 Richar Aguilar DO [address] [place], [place] [address] Referring Physician Gastroenterology 03/21/19 documented as of this encounter
[2025-01-14 18:07] LABS: NT Pro B Type Natriuretic Pept 692 pg/mL (19.9-100); Troponin I < 0.012 ng/mL (0.000-0.034)
[2025-01-14 19:47] VITALS: BP 214/92; PULSE 68; RESP 17; O2SAT 100
[2025-01-14] MEDS: hydrALAZINE HCL 20 MG/ML VIAL 10 MG IV PUSH (19:47)
[2025-01-14 20:51] VITALS: BP 194/89
== END 2025-01-14 20:52 | disposition home or self-care (01) ==
LOC: ANHED 17:45
PROVIDERS: Emergency Medicine; Emergency Provider Physician Assistant
DX: R06.00 Dyspnea, unspecified (principal); I12.9 Hypertensive chronic kidney disease with stage 1 through stage 4 chronic kidney disease, or unspecified chronic kidney disease; K21.00 Gastro-esophageal reflux disease with esophagitis, without bleeding; K21.9 Gastro-esophageal reflux disease without esophagitis; F41.9 Anxiety disorder, unspecified; Z85.43 Personal history of malignant neoplasm of ovary; Z86.0100 Personal history of colon polyps, unspecified; Z90.49 Acquired absence of other specified parts of digestive tract; Z90.710 Acquired absence of both cervix and uterus; K76.0 Fatty (change of) liver, not elsewhere classified; K44.9 Diaphragmatic hernia without obstruction or gangrene; Z79.84 Long term (current) use of oral hypoglycemic drugs; Z79.899 Other long term (current) drug therapy
CPT/HCPCS: 36415; 71275; 80053; 83880; 84484; 85025; 93005; 96374; 99284; J0360; Q9967

== ENCOUNTER 2025-03-17 16:46 | Outpatient (CLI) | payer MEDICARE, OTHER, SELFPAY ==
--- NOTE | ~2025-03-17 | XR_ITS ---
HISTORY: M54.2 - Cervicalgia, CHRONIC PAIN COMPARISON: None TECHNIQUE: 4 views of the cervical spine were performed FINDINGS: Visualization of the cervical spine to the inferior endplate of T1. Normal curvature of the cervical spine is identified. No prevertebral soft tissue swelling is appreciated. No acute compression fracture is noted. Degenerative disease is identified with anterior osteophyte formation and disc space narrowing most p rominent at the levels of C4/C5 and C5/C6. Alignment is maintained within alternating between neutral to flexion and extension. The dens is equidistant between the pillars, without asymmetry. Air column within the trachea is minimally to the left midline. The visualized portions of the bilateral upper lung conklin are unremarkable. IMPRESSION: Degenerative disease, without fracture, as detailed above. Reviewed, dictated and finalized at location A.
--- NOTE | ~2025-03-17 | XR_ITS ---
HISTORY: M79.673 - Pain in unspecified foot COMPARISON: None TECHNIQUE: 3 views of the right foot were performed FINDINGS: Prior fracture deformity within the distal shaft of the third metatarsal. The first metatarsophalangeal angle measures 16 degrees, consistent with mild hallux valgus. No acute fracture or dislocation is appreciated. No significant degenerative disease is noted. The base of the fifth metatarsal is intact. Large calcaneal spur is noted. No significant soft tissue swelling is present. IMPRESSION: Large calcaneal spur with mild hallux valgus Reviewed, dictated and finalized at location A.
--- NOTE | ~2025-03-17 | XR_ITS ---
HISTORY: M79.673 - Pain in unspecified foot COMPARISON: None TECHNIQUE: 3 views of the left foot were performed FINDINGS: No acute fracture or dislocation is appreciated. First metatarsophalangeal angle is normal. Medial deviation of the proximal phalanx of the fifth toe. The base of the fifth metatarsal is intact. Moderate calcaneal spur is noted. Ossification of the insertion of the Achilles tendon. Calcifications project within the soft tissues along the course of the Achilles tendon suggesting christine cific tendinitis. Additional radiopaque foreign bodies are detected, which appear iatrogenic, possibly representing lef t Achilles tendon repair for which clinical correlation is needed. No significant soft tissue swelling is present. IMPRESSION: Findings suggesting calcific tendinitis with possible postoperative change (as detailed above). Moderate calcaneal spur. Reviewed, dictated and finalized at location A. IMPRESSION: Findings suggesting calcific tendinitis with possible postoperativ e change (as detailed above). Moderate calcaneal spur.
--- NOTE | ~2025-03-17 | XR_ITS ---
HISTORY: M54.9 - Dorsalgia, unspecified COMPARISON: None TECHNIQUE: 3 views of the thoracic spine were performed FINDINGS: No acute compression fracture is present. Bone mineralization is age-appropriate. Age-appropriate degenerative disease. IMPRESSION: Age-appropriate degenerative disease, without acute fracture. Reviewed, dictated and finalized at location A.
--- OUTSIDE RECORDS SUMMARY | 2025-03-17 17:13 | XMS_ITS | Clinical Summary ---
Author Organization [facility] Address [address] [place] [address] Care Team Providers Care Predator Control Trapper Name Role Phone Jus Gallego MD Primary Care Provider [phone] Social History Tobacco Use Types Packs/Day Years [...] complete this topic Insurance HUMAN Care Teams Predator Control Trapper Relationship Specialty Start Date End Date Jus Gallego MD [address] - [facility] [address] [place] [address] PCP - General INTERNAL MEDICINE 03/13/24
--- OUTSIDE RECORDS SUMMARY | 2025-03-17 17:13 | XMS_ITS | Clinical Summary ---
Author Organization [facility] Address [address] [address] Phone Care Team Providers Care Brand Executive Name Role Phone Jus Gallego MD Primary Care Provider [phone] Richar Aguilar DO Unavailable [phone] Allergies No known active allergies Medications zolpidem (AMBIEN CR) 12.5 MG Tablet Controlled Release Take 12.5 mg by mouth as needed. Active Glucosamine-Quoc droitin 8134-9694 MG/30ML Liquid Activ e esomeprazole (NEXIUM) 40 [...] A M CDT Height 162.6 cm (5' 4) 07/12/2018 8:45 AM CDT Body Mass Index 29.25 07/12/2018 8:45 AM CDT Plan of Treatment Health Maintenance Due Date Last Done Comments Hepatitis C Virus (HCV) Screening 1950 TdaP Immunization 1950 Cologuard 01/21/1997 Immunochemical Fecal Occult Blood 01/21/1997 Pneumococcal Immunization (5 0+ years) (1 of 1 - PCV) 01/21/2002 Zoster Immunization (2 of 3) 10/03/2013 08/08/2013 Colonoscopy 08/30/2023 08/30/2018, 05/22/2014 Colorectal Cancer Screening 08/30/2023 SARS-COV-2 Immunization ( season) 2024 09/10/2021, 01/16/2021, 12/26/2020 Influenza Immunization (Seas on Ended) 2025 07/24/2020, 07/11/2013 Respiratory Syncytial Virus (RSV) Immunization (Adult) (1 - 1-dose 75+ series) 01/21/2027 Hepatitis B Immunization Aged Out No longer eligible based on patient's age to complete this topic Human Papillomavirus (HPV) Immunization Aged Out No longer eligible b ased [...] Recently Relevant to Health Maintenance Insurance MEDICARE [employer] [facility] Care Teams Brand Executive Relationship Specialty Start Date End Date Jus Gallego MD PCP - General Internal Medicine 01/04/16 Richar Aguilar DO Gastroenterology 01/04/16
--- OUTSIDE RECORDS SUMMARY | 2025-03-17 17:13 | XMS_ITS | Referral Summary ---
Author Organization [facility] Address [address] [place] [address] Care Team Providers Care Art Objects Salesperson Name Role Phone Jus Gallego MD Primary Care Provider [phone] Richar Aguilar DO Unavailable [phone] Encounters Date Type Department Care Team Description 01/31/2025 Telephone [facility] Orthopedic and Sports Medicine [address] [place] [address] Allan Zelaya MD Additional Services Or Orders 01/14/2025 Telephone [facility] Cardiology [address] [place] [address] Sha Dominguez MD 01/13/2025 2:55 PM CDT Ancillary Procedure [facility] Imaging at [address] [address] Left knee pain, unspecified chronicity 01/13/2025 3:00 PM CDT Office Visit [facility] Orthopedic and Sports Medicine [address] [place] [address] Roberto Juan PA Primary osteoarthritis of both knees (Primary Dx) from Last 3 Months Allergies No known active allergies Medications metFORMIN (GLUCOPHAGE) 500 mg tablet Take 2 tablets (1,000 mg total) by mouth 2 (two) times a day with meals Active levothyroxine (SYNTHROID) 125 mcg tablet Take 1 tablet (125 mcg total) by mouth human resource consultant before breakfast 8 Active zolpidem CR (AMBIEN [...] mouth 2 (two) times a day Active vyxabaccvkxq-R4-gg X77-chqnd oil (METANX) 3 mg-35 mg-2 mg -90.314 [...] (25 mg total) by mouth daily Active evnhwdpsawpb-B4-wt E95-ldpcb oil (METANX) 3 mg-35 mg-2 mg -90.314 mg capsule Take 1 capsule by mouth daily Active meloxicam (MOBIC) 15 mg tabletIndications: Osteoarthritis Take 1 tablet (15 mg total) by mouth daily Take with food 30 tablet 1 5 Active Active Problems Problem Noted Date Diagnosed Date Takotsubo cardiomyopathy 08/22/2024 Status post gastrointestinal surgery, follow-up exam 10/15/2020 Diverticulitis 08/19/2020 Overview (08/19/2020): Added automatically from request for surgery [id number] Diverticulitis of large inte kaia without perforation [...] re latives? Twice a week 09/14/2020 Attends Scientology Services Not on file 12/14 /2020 Do you belong to any clubs o r organizations such as synagogue groups, unions, fraternal or athletic groups, or [...] on file Legal Sex Female 3:24 AM GLUE SIZE MACHINE OPERATOR Gender Identity Female 11/09/2020 7:13 PM GLUE SIZE MACHINE OPERATOR Sexual Orientation Straight 11/09/2020 7: 13 PM GLUE SIZE MACHINE OPERATOR Last Filed Vital Signs Vital Sign Reading Time Taken Comments Blood Pressure 196/101 01/13/2025 2:59 PM CDT Pulse 74 01/13/2025 2:59 PM CDT Temperature 36.2 C (97.2 F) 12/24/2020 3:11 PM CDT Respiratory Rate 15 09/18/2020 9:32 PM GLUE SIZE MACHINE OPERATOR Oxygen Saturation 95% 08/22/2024 3:03 PM GLUE SIZE MACHINE OPERATOR Inhaled Oxygen Concentration - - Weight 74.4 kg (164 lb) 01/13/2025 2:59 PM CDT Height 162.6 cm (5' 4) 01/13/2025 2:59 PM CDT Body Mass Index 28.15 01/13/2025 2:59 PM CDT Plan of Treatment Not on file Procedures Procedure Name Priority Date/Time Associated Diagnosis Comments PA ARTHROCENTESIS ASPIR&/INJ MAJOR JT/BURSA W/O US Routine 01/13/2025 3:00 PM CDT Primary osteoarthritis of both knees XR KNEE LEFT 1 OR 2 VIEWS Schedule Routine, Read Routine (OP Routine) 01/13/2025 2:56 PM CDT Left knee pain, unspecified chronicity from Last 3 Months Results * PA ARTHROCENTESIS ASPIR&/INJ MAJOR JT/BURSA W/O US (01/13/2025 [...] the procedure well with no immediate complications us Roberto [facility]AN IN CLINIC/BEDSIDE ORDERABLE S Final [...] ult from Last 3 Months Insurance MEDICARE [facility] Address: [address] [address] [place] [address] [employer] CHOICE MEDICARE PPO [employer] FOR LIFE Advance Directives For more information, please contact: [phone] * Full Code (Latest Code Status on File) Date Activated Date Inactivated Comments 09/12/2020 7:17 PM 09/17/2020 7:36 PM Care Teams Art Objects Salesperson Relationship Specialty Start Date End Date Jus Gallego MD [address] [place] [address] PCP - General 04/03/17 Richar Aguilar DO [address] [place] [address] Referring Physician Gastroenterology 03/21/19
--- OUTSIDE RECORDS SUMMARY | 2025-03-17 17:13 | XMS_ITS ---
Author Organization [facility] Address [address] [place] [address] Care Team Providers Care Residential Sales Rep Name Role Phone Jus Gallego MD Primary Care Provider [phone] Richar Aguilar DO Unavailable [phone] Active Problems Problem Noted Date Diagnosed Date Takotsubo cardiomyopathy 08/22/2024 Status post gastrointestinal surgery, follow-up exam 10/15/2020 Diverticulitis 08/19/2020 Overview (08/19/2020): Added automatically from request for surgery [id number] Diverticulitis of large inte kaia without perforation [...]
--- OUTSIDE RECORDS SUMMARY | 2025-03-17 17:13 | XMS_ITS | Clinical Summary ---
Author Organization [facility] Address [address] [place] [address] Care Team Providers Care Immersion Metalcleaner Name Role Phone Jus Gallego MD Primary Care Provider [phone] Richar Aguilar DO Unavailable [phone] Allergies No known active allergies Medications metFORMIN (GLUCOPHAGE) 500 mg tablet Take 2 tablets (1,000 mg total) by mouth 2 (two) times a day with meals Active levothyroxine (SYNTHROID) 125 mcg tablet Take 1 tablet (125 mcg total) by mouth material reprocessing associate before breakfast 8 Active zolpidem CR (AMBIEN [...] mouth 2 (two) times a day Active wycnahmqtcyz-V4-sp R63-dhyua oil (METANX) 3 mg-35 mg-2 mg -90.314 [...] (25 mg total) by mouth daily Active fuhwaobksdme-B7-fg O01-lylbn oil (METANX) 3 mg-35 mg-2 mg -90.314 [...] (08/19/2020): Added automatically from request for surgery [id number] Diverticulitis of large inte kaia without perforation or abscess 03/21/2019 Basal cell carcinoma (BCC) of skin of nose 06/17 Knee pain 01/01/2016 Hypertension 01/15/2014 Hyperlipidemia 01/15/2014 Cephalalgia 01/15/2014 Gastroesophageal reflux disease 01/15/2014 History of hypothyroidism 01/15/2014 Arthritis 01/15/2014 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 Orthopedic and Sports Medicine [address] [place] [address] Allan Zelaya MD Additional Services Or Orders 01/14/[address] [facility] Cardiology [address] [place] [address] Sha Dominguez MD 01/13/2025 3:00 PM CDT Office Visit [facility] Orthopedic and Sports Medicine [address] [place] [address] Roberto Juan PA Primary osteoarthritis of both knees (Primary Dx) 01/13/2025 2:55 PM CDT Ancillary Procedure [facility] Imaging at [address] [address] Left knee pain, unspecified chronicity from Last 3 Months Immunizations Immunization Administration Dates Next Due Influenza, Unspecified 08/17/2020 Surgical History Surgery Date Site/Laterality Comments MA TOTAL ABDOMINAL HYSTERECT W/WO RMVL TUBE OVARY Hysterectomy - (Added by Conv) ANKLE SURGERY Ankle Surgery - (Added by Conv) MA COLONOSCOPY FLX DX W/LYLY J SPEC WHEN [...] Family history of dementia - (Added by Conv) Heart disease Father Seizures Mother Breast cancer Other Family history of malignant neoplasm of breast - Relation: Aunt (Added by Conv) Relation Name Status Comments Brother Father [...] any clubs o r organizations such as bahai groups, unions, fraternal or athletic groups, or [...] on file Legal Sex Female 3:24 AM SHIP WIRER Gender Identity Female 11/09/2020 7:13 PM SHIP WIRER Sexual Orientation Straight 11/09/2020 7: 13 PM SHIP WIRER Obstetrics History Last Filed Vital Signs Vital Sign Reading Time Taken Comments Blood Pressure 196/101 01/13/2025 2:59 PM CDT Pulse 74 01/13/2025 2:59 PM CDT Temperature 36.2 C (97.2 F) 12/24/2020 3:11 PM CDT Respiratory Rate 15 09/18/2020 9:32 PM SHIP WIRER Oxygen Saturation 95% 08/22/2024 3:03 PM SHIP WIRER Inhaled Oxygen Concentration - - Weight 74.4 [...] Procedure Name Priority Date/Time Associated Diagnosis Comments MA ARTHROCENTESIS ASPIR&/INJ MAJOR JT/BURSA W/O US Routine 01/13/2025 3:00 PM CDT Primary osteoarthritis of both knees XR KNEE LEFT 1 OR 2 VIEWS Schedule Routine, Read Routine (OP Routine) 01/13/2025 2:56 PM CDT Left knee pain, unspecified chronicity from Last 3 Months Results * MA ARTHROCENTESIS ASPIR&/INJ MAJOR JT/BURSA W/O US (01/13/2025 [...] ult from Last 3 Months Insurance MEDICARE FOR LIFE [employer] CHOICE MEDICARE PPO FOR LIFE Advance Directives For more information, please contact: [phone] * Full Code (Latest Code Status on File) Date Activated Date Inactivated Comments 09/12/2020 7:17 PM 09/17/2020 7:36 PM Care Teams Immersion Metalcleaner Relationship Specialty Start Date End Date Jus Gallego MD [address] [place] [address] PCP - General 04/03/17 Richar Aguilar DO [address] [place] [address] Referring Physician Gastroenterology 03/21/19
[2025-03-17 17:28] LABS: Hemoglobin A1C 6.8 % (<5.7)
[2025-03-17 17:51] LABS: Alanine Aminotransferase 32 U/L (6-35); Albumin Level 4.6 g/dL (3.5-5.1); Alkaline Phosphatase 72 U/L (38-126); Anion Gap 12 mmol/L (4-12); Aspartate Amino Transferase 32 U/L (14-36); Bilirubin,Total 0.5 mg/dL (0.2-1.3); Blood Urea Nitrogen 18 mg/dL (7-17); Calcium 9.7 mg/dL (8.4-10.2); Carbon Dioxide 23 mmol/L (22-30); Chloride 102 mmol/L (98-107); Cholesterol 143 mg/dL (0-200); Estimated Glomerular Filt Rate 44; Glucose 187 mg/dL (65-110); HDL Direct 56 mg/dL; Potassium 4.4 mmol/L (3.4-5.0); Sodium 137 mmol/L (137-145); Total Protein 7.4 g/dL (6.3-8.2); Triglycerides 176 mg/dL (<150)
[2025-03-17 18:02] LABS: LDL Cholesterol Direct 59 mg/dL
[2025-03-17 18:06] LABS: Free T4 Free Thyroxine 1.53 ng/dL (0.78-2.19)
[2025-03-17 21:10] LABS: Folic Acid > 20.0 ng/mL (2.76->20); Vitamin B12 > 1000.0 pg/mL (239-931)
[2025-03-20 00:54] LABS: Vitamin B6 67.9 ng/mL (2.1-21.7)
[2025-03-20 08:49] LABS: Vitamin B1 9 nmol/L (8-30)
== END 2025-03-17 16:47 | disposition home or self-care (01) ==
PROVIDERS: PCP Internal Medicine; Visit Provider Internal Medicine
DX: M65.272 Calcific tendinitis, left ankle and foot (principal); M47.814 Spondylosis without myelopathy or radiculopathy, thoracic region; M47.812 Spondylosis without myelopathy or radiculopathy, cervical region; M77.31 Calcaneal spur, right foot; M20.11 Hallux valgus (acquired), right foot; E11.9 Type 2 diabetes mellitus without complications; E03.9 Hypothyroidism, unspecified; R20.2 Paresthesia of skin; I10 Essential (primary) hypertension; G89.29 Other chronic pain; Z79.899 Other long term (current) drug therapy
CPT/HCPCS: 36415; 72050; 72072; 73630; 80053; 80061; 82607; 82746; 83036; 84207; 84252; 84425; 84439; 84443

== ENCOUNTER 2025-04-26 11:55 | Emergency (ER) | payer MEDICARE, OTHER, SELFPAY ==
[2025-04-26] VITALS (11 sets, daily range): BP systolic 148–195; BP diastolic 71–82; PULSE 49–63; RESP 10–21; TEMP 36.6; O2SAT 88–100
--- NOTE | ~2025-04-26 | CT_ITS ---
CLINICAL INDICATION: Weakness and acholic stool COMPARISON: 06/02/2021. TECHNIQUE: Multiple contiguous axial images of the abdomen and pelvis were performed following the ad ministration of with 100 mL Omnipaque-350 intravenous contrast The dose-length product (DLP) was 386.92 mGy-cm. Automated exposure control and iterative reconstruction technique were employed. FINDINGS/OBSERVATIONS: Visualized lower thorax: The bilateral lung bases are clear. The heart is of normal size, without pericardial effusion. Small hiatal hernia is present. Liver: The liver demonstrates homogeneous enhancement and is not enlarged. Gallbladder and biliary system: The gallbladder is surgically absent. Pancreas: The pancreas demonstrates fatty atrophy, limiting its evaluation. Spleen: The spleen enhances homogeneously and is not enlarged. Kidneys: The bilateral kidneys enhance symmetrically without hydronephrosis or renal calculi. Adrenal glands: Unremarkable. Gastrointestinal tract: Enteric staple line within the rectum. Colonic diverticulosis without surrounding inflammatory change. Appendix: The appendix is not definitively visualized. However, no pericecal inflammatory change is identified suggest the presence of acute appendicitis. Vasculature: Calcified atherosclerotic disease. Lymph nodes: Findings within the right retroperitoneum and deep pelvis suggesting prior lymph node di ssection. No pathologically enlarged or morphologically suspicious lymph nodes within the retroperitoneum or at the root of the mesentery. Pelvic structures: The bladder is distended, and otherwise unremarkable. The uterus is surgically absent or markedly atrophic. Body wall and musculoskeletal: Age-appropriate degenerative disease within the lower thoracic and lumbosacral spine. No acute fracture. No lytic or blastic lesions. IMPRESSION: Postoperative change throughout the abdomen, as detailed above. No acute intra-abdominal pathology is appreciated on the current examination. Reviewed, dictated and finalized at location A.
--- NOTE | ~2025-04-26 | XR_ITS ---
CHEST RADIOGRAPH, PA AND LATERAL CLINICAL HISTORY: dyspnea . COMPARISON: 05/03/2024 TECHNIQUE: PA and lateral views of the chest. FINDINGS The cardiomediastinal silhouette is unremarkable. The lungs are clear. IMPRESSION: No focal infiltrate or effusion. Reviewed, dictated and finalized at location A.
--- OUTSIDE RECORDS SUMMARY | 2025-04-26 11:57 | XMS_ITS ---
Author Organization [facility] Address [address] [place] [address] Care Team Providers Care Development Intern Name Role Phone Jus Gallego MD Primary Care Provider [phone] Richar Aguilar DO Unavailable [phone] Active Problems Problem Noted Date Diagnosed Date Takotsubo cardiomyopathy 08/22/2024 Status post gastrointestinal surgery, follow-up exam 10/15/2020 Diverticulitis 08/19/2020 Overview (08/19/2020): Added automatically from request for surgery [id number] Diverticulitis of large inte kaia without perforation [...]
--- OUTSIDE RECORDS SUMMARY | 2025-04-26 11:57 | XMS_ITS | Encounter Summary ---
Author Organization [facility] Address [address] [place] [address] Care Team Providers Care Chip Mucker Name Role Phone Jus Gallego MD Primary Care Provider [phone] Richar Aguilar DO Unavailable [phone] Encounter Details Date Type Department Care Team (Late st Contact Info) Description 05/16/2024 Orders Only [facility] Health Information Management [address] [place] [id number] Scanning, Provider Social History Tobacco Use Types Packs/Day Years [...] re latives? Twice a week 09/14/2020 Attends Worship Services Not on file 09/14 Do you [...] on file Legal Sex Female 3:24 AM RULES EXAMINER Gender Identity Female 11/09/2020 7:13 PM RULES EXAMINER Sexual Orientation Straight 11/09/2020 7: 13 PM RULES EXAMINER documented as of this encounter Plan of Treatment Not on file documented as of this encounter Procedures Procedure Name Priority Date/Time Associated Diagnosis Comments SCAN - LABS 05/16/2024 documented in this encounter Results * SCAN - LABS (05/16/2024) us Provider Scanning Final Result documented in this encounter Visit Diagnoses Not on filedocumented in this encounter Care Teams Chip Mucker Relationship Specialty Start Date End Date Jus Gallego MD [address] [facility] [address] [place] [address] PCP - General 04/03/17 Richar Aguilar DO [address] [facility] [address] [place] [address] [place] [address] Referring Physician Gastroenterology 03/21/19 documented as of this encounter
--- OUTSIDE RECORDS SUMMARY | 2025-04-26 11:57 | XMS_ITS | Encounter Summary ---
Author Organization [facility] Healthcare Address [address] [place] [address] Care Team Providers Care Business Support Associate Name Role Phone Jus Gallego MD Primary Care Provider [phone] Richar Aguilar DO Unavailable [phone] Encounter Details Date Type Department Care Team (Late st Contact Info) Description 05/04/2024 Orders Only [facility] Health Information Management [address] [place] [id number] Scanning, Provider Social History Tobacco Use [...] re latives? Twice a week 09/14/2020 Attends [employer] Services Not on file 09/14 Do you belong to any clubs o r organizations such as caodaism groups, unions, fraternal or athletic groups, or [...] on file Legal Sex Female 3:24 AM PIPING DESIGN SPECIALIST Gender Identity Female 11/09/2020 7:13 PM PIPING DESIGN SPECIALIST Sexual Orientation Straight 11/09/2020 7: 13 PM PIPING DESIGN SPECIALIST documented as of this encounter Plan of Treatment Not on file documented as of this encounter Procedures Procedure Name Priority Date/Time Associated Diagnosis Comments SCAN - RADIOLOGY/IMAGING 05/03/2024 documented in this encounter Results * SCAN - RADIOLOGY/IMAGING (05/03/2024) Anatomical Region Laterality Modality Other us Provider Scanning Edited Result - Final documented in this encounter Visit Diagnoses Not on filedocumented in this encounter Care Teams Business Support Associate Relationship Specialty Start Date End Date Jus Gallego MD [address] [facility] [address] INTER[address] MEDICINE [place] [id number] PCP - General 04/03/17 Richar Aguilar DO [address] [facility] [address] [facility] [address] [place] [address] Referring Physician Gastroenterology 03/21/19 documented as of this encounter
--- OUTSIDE RECORDS SUMMARY | 2025-04-26 11:57 | XMS_ITS | Clinical Summary ---
Author Organization [facility] Address [address] [address] Phone Care Team Providers Care Logistics Technician Name Role Phone Jus Gallego MD Primary Care Provider [phone] Richar Aguilar DO Unavailable [phone] Allergies No known active allergies Medications zolpidem (AMBIEN CR) 12.5 MG Tablet Controlled Release Take 12.5 mg by mouth as needed. Active Glucosamine-Quoc droitin 3084-9042 MG/30ML Liquid Activ e esomeprazole (NEXIUM) 40 [...] season) 2024 09/10/2021, 01/16/2021, 12/26/2020 Influenza Immunization (#1) 06/02/202507/03, 07/11/2013 Respiratory Syncytial Virus (RSV) Immunization (Adult) [...] Recently Relevant to Health Maintenance Insurance MEDICARE [facility] [employer] [facility] Care Teams Logistics Technician Relationship Specialty Start Date End Date Jus Gallego MD PCP - General Internal Medicine 01/04/16 Richar Aguilar DO Gastroenterology 01/04/16
--- OUTSIDE RECORDS SUMMARY | 2025-04-26 11:57 | XMS_ITS | Referral Summary ---
Author Organization [facility] Address [address] [place] [address] Care Team Providers Care Staffing And Scheduling Coordinator Name Role Phone Jus Gallego MD Primary Care Provider [phone] Richar Aguilar DO Unavailable [phone] Encounters Date Type Department Care Team Description 04/14/2025 3:30 PM CDT Office Visit [facility] Orthopedic and Sports Medicine [address] [place] [phone] Roberto Juan PA Primary osteoarthritis of both knees (Primary Dx) 04/08/2025 3:30 PM CDT Office Visit [facility] Cardiology at [address] [place] [address] Sha Dominguez MD Takotsubo cardiomyopathy (Primary Dx) 01/31/2025 Telephone [facility] Orthopedic and Sports Medicine [address] [place] [phone] Allan Zelaya MD Additional Services Or Orders from Last 3 Months Allergies No known active allergies Medications metFORMIN (GLUCOPHAGE) 500 mg tablet Take 2 tablets (1,000 mg total) by mouth 2 (two) times a day with meals Active levothyroxine (SYNTHROID) 125 mcg tablet Take 1 tablet (125 mcg total) by mouth court manager before breakfast 06/11/20 18 Active zolpidem CR (AMBIEN CR) 12.5 mg CR tabletIndications :Insomnia Take 1 tablet (12.5 mg total) by mouth nightly as needed for sleep Active FREESTYLE LITE STRIPS strip 02/08/20 19 Active atorvastatin (LIPITOR) 20 mg tablet Take 1 tablet (20 mg total) by mouth nightly 05/26/20 20 Active LORazepam (ATIVAN) 1 mg tablet Take 1 tablet (1 mg total) by mouth 2 (two) times a day as needed 06/16/20 20 Active folic acid (FOLVITE) 1 mg tablet Take 400 mcg by mouth every morning Active fish oil-dha-epa 1,200-144-216 mg capsule Take by mouth 2 (two) times a day Active stiensvwgbjz-U7-c jL01-jfslz oil (METANX) 3 mg-35 mg-2 mg -90.314 [...] mouth 2 (two) times a day Active metoprolol XL (TOPROL-XL) 50 mg extended release tablet Take 1 tablet (50 mg total) by mouth every morning 90 tablet 3 05/31/20 24 Active kdvswgxduigo-L5-i rL23-vdted oil (METANX) 3 mg-35 mg-2 mg -90.314 mg capsule Take 1 capsule by mouth daily Active cyclobenzaprine (FLEXERIL) 10 mg tablet Take 1 tablet (10 mg total) by mouth 3 (three) times a day as needed for muscle spasms Active gabapentin (NEURONTIN) 100 mg capsule Take 1 capsule (100 mg total) by mouth 3 (three) times a day 03/31/20 25 Active losartan-hydroCHL OROthiazide (HYZAAR) 50-12.5 mg per tablet Take 1 tablet by mouth daily 03/18/20 25 Active Entresto 24-26 mg tablet Take 1 tablet by mouth every 12 (twelve) hours 180 tablet 3 05/31/20 24 2024 Discontinued(T herapy completed) spironolactone (ALDACTONE) 25 mg tablet Take 1 tablet (25 mg total) by mouth every morning 90 tablet 3 05/31/20 24 2024 Discontinued losartan (COZAAR) 25 mg tablet Take 1 tablet (25 mg total) by mouth daily 2024 Discontinued(T herapy completed) meloxicam (MOBIC) 15 mg tabletIndications :Osteoarthritis Take 1 tablet (15 mg total) by mouth daily Take with food 30 tablet 1 01/14/20 25 2024 Discontinued Hospital, Clinic, or Other Facility Administered Medication Ordered Dose Route Frequency Start Date End Date Status lidocaine (XYLOCAINE) 20 mg/mL (2 %) injection 3 mLIndications:Admini stration of Local Anesthesia 3 mL One-Time Injection 04/14/2025 5 Ended lidocaine (XYLOCAINE) 20 mg/mL (2 %) injection 3 mLIndications:Admini stration of Local Anesthesia 3 mL One-Time Injection 04/14/2025 5 Ended methylPREDNISolone acetate (DEPO-medrol) injection 80 mgIndications:Primar y osteoarthritis of both knees 80 mg intra-artic One-Time Injection 04/14/2025 5 Ended methylPREDNISolone acetate (DEPO-medrol) injection 80 mgIndications:Primar y osteoarthritis of both knees 80 mg intra-artic One-Time Injection 04/14/2025 5 Ended Active Problems Problem Noted Date Diagnosed Date Takotsubo cardiomyopathy 08/22/2024 Status post gastrointestinal surgery, follow-up exam 10/15/2020 Diverticulitis 08/19/2020 Overview (08/19/2020): Added automatically from request for surgery [id number] Diverticulitis of large inte kaia without perforation [...] re latives? Twice a week 09/14/2020 Attends Faith Services Not on file 09/14 Do you belong to any clubs o r organizations such as hoahaoism groups, unions, fraternal or athletic groups, or school groups? No 09/14/2020 How often do you attend meet ings of the clubs or organizations you belong to? Never 09/14/2020 Are you , , di vorced, , never , or living with a partner? 09/14/2020 AUDIT-C Answer Date Recorded Q1: How often do you have a drink containing alc ohol? Never 04/14/2025 Average Number of Drinks Not on file 025 Frequency of Binge Drinking Not on file 04/01 Overall Financial Resource Strain (CARDIA) Answe r [...] on file Legal Sex Female 3:24 AM MILK TANKER DRIVER Gender Identity Female 11/09/2020 7:13 PM MILK TANKER DRIVER Sexual Orientation Straight 11/09/2020 7: 13 PM MILK TANKER DRIVER Last Filed Vital Signs Vital Sign Reading Time Taken Comments Blood Pressure 207/94 04/14/2025 3:32 PM CDT Pulse 74 04/14/2025 3:32 PM CDT Temperature 36.2 C (97.2 F) 12/24/2020 3:11 PM CDT Respiratory Rate 15 09/18/2020 9:32 PM MILK TANKER DRIVER Oxygen Saturation 95% 04/08/2025 3:42 PM CDT Inhaled Oxygen Concentration - - Weight 77.1 kg (170 lb) 04/14/2025 3:32 PM CDT Height 162.6 cm (5' 4) 04/14/2025 3:32 PM CDT Body Mass Index 29.18 04/14/2025 3:32 PM CDT Plan of Treatment Not on file Procedures Procedure Name Priority Date/Time Associated Diagnosis Comments MA ARTHROCENTESIS ASPIR&/INJ MAJOR JT/BURSA W/O US Routine 04/14/2025 3:30 PM CDT Primary osteoarthritis of both knees from Last 3 Months Results * MA ARTHROCENTESIS ASPIR&/INJ MAJOR JT/BURSA W/O US (04/14/2025 3:30 PM CDT) Narrative Roberto Juan PA - 04/14/2025 3:30 PM CDT Roberto Juan PA 04/14/2025 4:31 PM Large Joint (Hip, Knee, Shoulder) Injection: bilateral knee Performed by: Roberto Juan PA Authorized by: Roberto Juan PA Large Joint Injection/Aspiration: Consent Given by: Patient Site marked: the procedure site was marked Verbal consent obtained: Yes Supporting Documentation: Indications: Pain Procedure Details: Location: Knee Site: Bilateral knee Needle Size: 22 G Approach: Anterolateral Ultrasound guided: No Fluroscopic guidance: No Medications Right Large Joint Injection: 80 mg methylPREDNISolone acetate 80 mg/mL; 3 mL lidocaine 20 mg/mL (2 %) Medications Left Large Joint Injection: 80 mg methylPREDNISolone acetate 80 mg/mL; 3 mL lidocaine 20 mg/mL (2 %) Patient tolerance: Patient tolerated the procedure well with no immediate complications us Roberto [facility]/BEDSIDE ORDERABLE S Final Result from Last 3 Months Insurance MEDICARE [employer] CHOICE MEDICARE PPO [employer] FOR LIFE Advance Directives For more information, please contact: [phone] * Full Code (Latest Code Status on File) Date Activated Date Inactivated Comments 09/12/2020 7:17 PM 09/17/2020 7:36 PM Care Teams Staffing And Scheduling Coordinator Relationship Specialty Start Date End Date Jus Gallego MD [address] [place] [address] PCP - General 04/03/17 Richar Aguilar DO [address] [place] [address] Referring Physician Gastroenterology 03/21/19
--- OUTSIDE RECORDS SUMMARY | 2025-04-26 11:57 | XMS_ITS | Clinical Summary ---
Author Organization [facility] Address [address] [place] [address] Care Team Providers Care Language Tutor Name Role Phone Jus Gallego MD Primary Care Provider [phone] Richar Aguilar DO Unavailable [phone] Allergies No known active allergies Medications metFORMIN (GLUCOPHAGE) 500 mg tablet Take 2 tablets (1,000 mg total) by mouth 2 (two) times a day with meals Active levothyroxine (SYNTHROID) 125 mcg tablet Take 1 tablet (125 mcg total) by mouth fish frog or oyster farmer before breakfast 06/11/20 18 Active zolpidem CR [...] mouth 2 (two) times a day Active ellfdapvjuzy-S7-b zR25-ukeir oil (METANX) 3 mg-35 mg-2 mg -90.314 [...] morning 90 tablet 3 05/31/20 24 Active opmdvnfbbqew-Z3-r hI97-vdepr oil (METANX) 3 mg-35 mg-2 mg -90.314 [...] (08/19/2020): Added automatically from request for surgery [id number] Diverticulitis of large inte kaia without perforation or abscess 03/21/2019 Basal cell carcinoma (BCC) of skin of nose 06/17 Knee pain 01/01/2016 Hypertension 01/15/2014 Hyperlipidemia 01/15/2014 Cephalalgia 01/15/2014 Gastroesophageal reflux disease 01/15/2014 History of hypothyroidism 01/15/2014 Arthritis 01/15/2014 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 Encounters Date Type Department Care Team Description 04/14/2025 3:30 PM CDT Office Visit [facility] Orthopedic and Sports Medicine [address] [place] [phone] Roberto Juan PA Primary osteoarthritis of both knees (Primary Dx) 04/08/2025 3:30 PM CDT Office Visit [facility] Medical [facility] Cardiology at [address] [place] [address] Sha Dominguez MD Takotsubo cardiomyopathy (Primary Dx) 01/31/2025 Telephone [facility] Orthopedic and Sports Medicine [address] [place] [phone] Allan Zelaya MD Additional Services Or Orders from Last 3 Months Immunizations Immunization Administration Dates Next Due Influenza, Unspecified 08/17/2020 Surgical History Surgery Date Site/Laterality Comments MD TOTAL ABDOMINAL HYSTERECT W/WO RMVL TUBE OVARY Hysterectomy - (Added by Conv) ANKLE SURGERY Ankle Surgery - (Added by ) MD COLONOSCOPY FLX DX W/LYLY J SPEC WHEN [...] history of cardiac disorder - (Added by ) Dementia Father Family history of dementia - [...] re latives? 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 ADJUSTER Gender Identity Female 11/09/2020 7:13 PM AUTOMOTIVE BRAKE ADJUSTER Sexual Orientation Straight 11/09/2020 7: 13 PM AUTOMOTIVE BRAKE ADJUSTER Obstetrics History Last Filed Vital Signs Vital Sign Reading Time Taken Comments Blood Pressure 207/94 04/14/2025 3:32 PM CDT Pulse 74 04/14/2025 3:32 PM CDT Temperature 36.2 C (97.2 F) 12/24/2020 3:11 PM CDT Respiratory Rate 15 09/18/2020 9:32 PM AUTOMOTIVE BRAKE ADJUSTER Oxygen Saturation 95% 04/08/2025 3:42 PM CDT Inhaled Oxygen Concentration - - Weight 77.1 kg (170 lb) 04/14/2025 3:32 PM CDT Height 162.6 cm (5' 4) 04/14/2025 3:32 PM CDT Body Mass Index 29.18 04/14/2025 3:32 PM CDT Plan of Treatment Health Maintenance [...] (2 - season) 2024 Influenza Vaccine (#1) 2025 08/17/2020, 2012 Procedures Procedure Name Priority Date/Time Associated Diagnosis Comments MD ARTHROCENTESIS ASPIR&/INJ MAJOR JT/BURSA W/O US Routine 04/14/2025 3:30 PM CDT Primary osteoarthritis of both knees from Last 3 Months Results * MD ARTHROCENTESIS ASPIR&/INJ MAJOR JT/BURSA W/O US (04/14/2025 [...] Result from Last 3 Months Insurance MEDICARE [employer] LIFE Member Subscriber Plan / Payer (Ef fective 2018-Present) Name:Nona Malagon Relation to Subscriber:Self Name:Nona Malagon Payer ID:[id number] (NAIC) Group ID:Not on file Type:[employer] Address: [address] [place] [address] HU[employer] CHOICE MEDICARE PPO FOR LIFE Advance Directives For more information, please contact: [phone] * Full Code (Latest Code Status on File) Date Activated Date Inactivated Comments 09/12/2020 7:17 PM 09/17/2020 7:36 PM Care Teams Language Tutor Relationship Specialty Start Date End Date Jus Gallego MD [address] [place] [address] PCP - General 04/03/17 Richar Aguilar DO [address] [place] [address] Referring Physician Gastroenterology 03/21/19
--- OUTSIDE RECORDS SUMMARY | 2025-04-26 11:57 | XMS_ITS | Clinical Summary ---
Author Organization [facility] Address [address] [place] [address] Care Team Providers Care Diamond Powder Technician Name Role Phone Jus Gallego MD Primary Care Provider [phone] Social History Tobacco Use Types Packs/Day Years Used Date Smoking Tobacco: Never Assessed Comments Unknown Sex and Gender Information Value Date Recorded Sex Assigned at Not on file Legal Sex Female 5:37 PM CDT Gender Identity Not on file Sexual Orientation Not on file Plan of Treatment Health Maintenance Due Date Last Done Comments Colorectal Cancer Screening Colonoscopy (10 Years) 1952 Hepatitis C 01/21/1970 Mammogram Screening 1992 Annual Medicare Wellness Visit 01/21/2017 Dexa Scan (General) 01/21/2017 COVID-19 Vaccine (2023-2 5 season) 2024 09/10/2021, 01/16/2021, 12/26/2020 RSV Immunization or 60+ Years (1 - 1-dose 75+ series) 01/21/2027 DTaP, Tdap and Td Vaccines ( 2 [...] complete this topic Insurance [employer] Care Teams Diamond Powder Technician Relationship Specialty Start Date End Date Jus Gallego MD [address] [place] [address] PCP - General INTERNAL MEDICINE 03/13/24
--- OUTSIDE RECORDS SUMMARY | 2025-04-26 11:57 | XMS_ITS | Continuity of Care Document ---
Author Organization [facility] Address [address] [place] [address] Phone Care Team Providers Care Manager Sql Name Role Phone Frank PT,MPT,ATC, Waqar Unavailable Unavai lable Advance Directives Directive Yes / No Effective Date File Name No Information Encounters Encounter Description Practice Location Reason(s) For Visit Diagnoses Date Provider Providers Copied on Encounter [facility] [address], [place], [place], [id number], [place] tel:[phone] [place] No Information 4 Frank Zavaleta , [place], [place]. Family History Family Member Type Diagnosis Age At Onset No Information Payers Payer name Insurance type Covered alliance party ID Authoriza tion(s) [employer] Medicare Replacement 16 [id number] For Life Medicare Se condary Only [place] [id number] Social History Type Description Quantity Date Captured [...]
--- NOTE | 2025-04-26 12:02 | ECG_ITS ---
Test Date: 2025-04-26 12:02:35 Measurements Intervals [place] Rate: 57 P: 9 NE: 144 QRS: -14 QRSD: 90 T: 44 QT: 424 QTc: 416 Interpretive Statements SINUS BRADYCARDIA MODERATE VOLTAGE CRITERIA FOR LVH, CONSIDER NORMAL VARIANT [MEETS CRITERIA IN ONE OF: R(aVL), S(V1), R(V5), R(V5/V6)+S(V1)] Compared to ECG 01/14/2025 17:00:16 Sinus rhythm no longer present Electronically Signed On 04-27-2025 14:08:43 CDT by Robert Longo M.D.
--- OUTSIDE RECORDS SUMMARY | 2025-04-26 12:16 | XMS_ITS | Continuity of Care Document ---
Author Organization [facility] Address [address] [place] [address] Phone Care Team Providers Care Server Administrator Name Role Phone Frank PT,MPT,ATC, Waqar Unavailable Unavai lable Advance Directives Directive Yes / No Effective Date File Name No Information Encounters Encounter Description Practice Location Reason(s) For Visit Diagnoses Date Provider Providers Copied on Encounter [facility] [address], [place], [place], [id number], [place] tel:[phone] [place] No Information 4 Frank Zavaleta , [place], [place]. Family History Family Member Type Diagnosis Age At Onset No Information Payers Payer name Insurance type Covered alliance party ID Authoriza tion(s) [employer] Medicare Replacement 16 [id number] For Life Medicare Se condary Only [place] [id number] Social History Type Description Quantity Date Captured [...]
[2025-04-26 12:44] LABS: Hematocrit 42.1 % (37.0-47.0); Hemoglobin 14.3 g/dL (12.0-15.0); Immature Granulocyte Percent A 0.4 % (0-0.5); Lymphocytes Absolute Auto 1.16 K/mm3 (0.9-3.2); Mean Corpuscular HGB Conc 34.0 g/dl (32-36); Mean Corpuscular Hemoglobin 29.5 pg (26-34); Mean Corpuscular Volume 86.8 fl (80-100); Nucleated Red Blood Cells Absolute Auto 0.000 K/mm3 (0.0-0.012); Nucleated Red Blood Cells Perc 0.0 % (0.0-0.2); Platelet Count Result 158 k/mm3 (150-375); Red Blood Count 4.85 M/mm3 (4.2-5.4); White Blood Count 7.0 K/mm3 (4.5-10.0)
--- NOTE | 2025-04-26 12:51 | ED_ITS ---
HPI - SOB/Dyspnea General Chief Complaint: Shortness of Breath/Dyspnea Stated Complaint: low heart rate, sob Time Seen by Provider: 04/26/25 12:03 Source: patient, RN notes reviewed and old records reviewed Mode of arrival: ambulatory History of Present Illness HPI Narrative: This is a 75 year old female with history of hypertension, DM and other medical problems who presents for evaluation of weakness and shortness of breath. Patient has been on Tramadol for several months. She reports she developed weakness, shortness of breath after taking tramadol on . She reports she has not felt better. She reports getting shortness of breath with any activity. She denies chest pain or cough. She states she is always sweating. She also reports she is nauseaous. Her nausea is a chronic issue that she has been prescribed zofran for. She denies edema. She does reports her bowel movement this morning was pale but she denies abdominal pain. She also states her resting heart rate in 45-47 and she takes metoprolol Related Data Home Medications ?Medication ?Instructions ?Recorded ?Confirmed ?Last Taken ?Type omega 2-syw-rzj-fish oil 1,200 mg 2 cap PO Q12H 02/12/21 03/25/25 12/13/24 History (144 mg-216 mg) capsule (Fish Oil) calcium 600 mg capsule 600 mg PO Q12H 05/04/24 03/25/25 12/18/24 History Lactobacillus rhamnosus-Bifidobac. 1 cap PO DAILY 12/11/24 03/25/25 12/18/24 History animalis 3 billion cell capsule (D-Sight) cetirizine 10 mg tablet (24Hour 10 mg PO DAILY PRN allergy symptoms 12/11/24 03/25/25 Unknown History Allergy) folate 666 1 tablet PO DAILY 12/11/24 03/25/25 12/18/24 History glucosamine sulf dipot 2 cap PO DAILY 12/11/24 03/25/25 12/18/24 History chlr,msm,chond 550 mg-C 30 mg-emani 1 mg capsule (Glucosamine Chondroitin) magnesium 100 mg capsule 100 mg PO DAILY 12/11/24 03/25/25 12/18/24 History pantoprazole 40 mg tablet,delayed 40 mg PO QAM PRN acid reflux 12/11/24 03/25/25 12/18/24 History release phenylephrine-acetaminophen 5 1 tablet PO Q6H PRN sinus symptoms 12/11/24 03/25/25 Unknown History mg-325 mg tablet (Tylenol Sinus Headache) Allergies Allergy/AdvReac Type Severity Reaction Status Date / Time No Known Allergies Allergy Verified 03/25/25 13:43 [facility] Past Medical History Medical History Bilateral foot pain Encounter for routine adult health examination without abnormal findings Lung nodule Hospital discharge follow-up Upper back pain Encounter for routine adult health examination with abnormal findings Diverticulitis large intestine w/o perforation or abscess w/o bleeding Vaginal candidiasis UTI symptoms Left medial knee pain Diverticulosis of colon Constipation, acute CKD (chronic kidney disease) Cholinergic urticaria Sinusitis Radicular low back pain History of diverticulitis Chronic low back pain Eczema Onychomycosis BMI 27.0-27.9,adult Sinus pressure Diverticulitis LLQ abdominal pain Umbilical hernia Abdominal mass, left lower quadrant Chronic pain of right knee Sacroiliitis Contact dermatitis Persistent fever Chest congestion DJD (degenerative joint disease) of knee Impaired functional mobility, balance, gait, and endurance Hx of colonic polyps BMI 28.0-28.9,adult Encounter for Medicare annual wellness exam Diverticular disease Follow up Abdominal pain Elevated homocysteine History of diverticulitis of colon GERD (gastroesophageal reflux disease) Hx of ovarian cancer On snf drug therapy Hyperlipidemia Benign essential hypertension Hypothyroidism (acquired) GERD with esophagitis Nausea Stress Anxiety Ovarian cancer Surgical History Surgical History History of colon resection August 2020 Hx of hysterectomy Hx of esophagogastroduodenoscopy Hx of colonoscopy Hx of cholecystectomy Family History Family History Father Family history of elevated blood lipids Family history of Alzheimer's disease Family history of heart disease in male family member before age 55 Patient's father is Family history of cardiovascular disease Sibling Family history of heart disease in male family member before age 55 Family history of cardiovascular disease Mother Family history of seizure disorder Family history of hypercholesterolemia Other Diabetes mellitus Family history of allergic disorder Family history of coronary artery disease Hypertension Social History Social History Smoking status: Never smoker Second hand tobacco smoke exposure: No Alcohol intake: never Substance use: never Substance use type: does not use Do You Feel Safe in your Home?: Yes Lack of Transportation: No Lack of Food: Never True Current Housing: I Have Housing Concerned About Future Housing: No Difficulty Paying Gas/Electric Bills: No Difficulty Paying for Meds: No Currently Unemployed: No Education: Don't Know Difficulty w/ Childcare or Family Care: No Living arrangements: with family Occupation/Education: retired Gender identity (if verbalized by the patient): Female Spiritual care concerns: Yes Exam 2 Const: General: no acute distress and alert Nutritional Appearance: well nourished Orientation/consciousness: patient oriented x3 HENMT: Head: normal to inspection Mouth: Yes Normal oral and palatal mucosa present, Yes lip normal and Yes moist mucous membranes Eyes: EOM: EOMs intact bilaterally Chest: Chest palpation & inspection: normal inspection of the chest Resp: Effort & Inspection: normal respiratory effort Auscultation: clear to auscultation bilaterally Cardio: Rate: regular rate Rhythm: regular rhythm Heart sounds: no murmurs GI: GI Palp: Yes Soft to palpation, No Tenderness to palpation present (GI), No Guarding due to palpation present (GI) and No Rigid due to palpation A uscultation: normal bowel sounds Skin: General skin exam: normal color Neuro: General: patient oriented x3, moves all extremities and CN's II-XI intact bilaterally Extrem: General: normal to inspection and no pedal edema Psych: Mental Status: mental status grossly normal Affect: normal affect Attitude: cooperative Course Reevaluation(s) Reevaluation #1: I reviewed with patient labs and evaluation. She states that her issues today are chronic and she is comfortable with follow up with DR. Gallego on Monday. Date: 04/26/25 Time: 15:58 Consultations Consultation #1: I spoke with patient's PCP about patient having low magnesium and elevated calcium. She was given IV fluids and IV magnesium sulfate. He request for PTH and ionized calcium to be ordered and he can assess as outpatient. Date: 04/26/25 Time: 15:57 Vital Signs Vital signs: Vital Signs Temperature 97.8 F 04/26/25 12:00 Pulse Rate 61 04/26/25 12:00 Respiratory Rate 21 H 04/26/25 12:00 Blood Pressure 195/82 H 04/26/25 12:00 Pulse Oximetry 100 04/26/25 12:00 Temperature 97.8 F 04/26/25 16:11 Pulse Rate 49 L 04/26/25 16:11 Respiratory Rate 16 04/26/25 16:11 Blood Pressure 161/71 H 04/26/25 16:11 Pulse Oximetry 100 04/26/25 16:11 Oxygen Delivery Room Air 04/26/25 14:43 MDM - SOB/Dyspnea Differential Diagnosis Differential diagnosis: Likely acute exacerbation of chronic obstructive airways disease, congestive heart failure, community acquired pneumonia, pulmonary embolism and other (anxiety, cancer, ) Medical Records Attestation: I reviewed the patient's medical records. Lab Data Attestation: I reviewed the patient's lab results. 04/26/25 12:34 04/26/25 12:35 Labs: Lab Results 04/26/25 04/26/25 Range/Units 12:34 12:35 WBC 7.0 (4.5-10.0) K/mm3 RBC 4.85 (4.2-5.4) M/mm3 Hgb 14.3 (12.0-15.0) g/dL Hct 42.1 (37.0-47.0) % MCV 86.8 (80-100) fl MCH 29.5 (26-34) pg MCHC 34.0 (32-36) g/dl RDW 13.9 (11.5-14.5) % Plt Count 158 (150-375) k/mm3 MPV 10.7 H (7.4-10.4) fl Immature Gran % (Auto) 0.4 (0-0.5) % Neut % (Auto) 68.2 (45.5-73.1) % Lymph % (Auto) 16.6 L (18.3-44.2) % [place] % (Auto) 8.0 (2.6-8.5) % Eos % (Auto) 5.9 H (0-4.4) % Baso % (Auto) 0.9 (0.2-1.2) % Lymph # (Auto) 1.16 (0.9-3.2) K/mm3 [place] # (Auto) 0.6 (0.1-0.6) K/mm3 Eos # (Auto) 0.4 H (0-0.3) K/mm3 Baso # (Auto) 0.1 (0.0-0.1) K/mm3 Abs Immat Gran (auto) 0.03 (0.00-0.031) K/mm3 Absolute Neuts (auto) 4.8 (1.3-6.7) K/mm3 Absolute Nucleated RBC 0.000 (0.0-0.012) K/mm3 Nucleated RBC % 0.0 (0.0-0.2) % PT 12.8 (11.1-14.7) Seconds INR 1.0 APTT 25.5 (22.3-36.8) Seconds D-Dimer 0.45 (<0.48) ug/mL Sodium 134 L (137-145) mmol/L Potassium 4.0 (3.4-5.0) mmol/L Chloride 100 (98-107) mmol/L Carbon Dioxide 21 L (22-30) mmol/L Anion Gap 13 H (4-12) mmol/L BUN 20 H (7-17) mg/dL Creatinine 1.29 H (0.7-1.0) mg/dL Estim Creat Clear Calc 35 ml/min Estimated GFR 41 L (59 - ) Glucose 198 H (65-110) mg/dL Calcium 11.6 H (8.4-10.2) mg/dL Magnesium 1.4 L (1.6-2.3) mg/dL Total Bilirubin 0.9 (0.2-1.3) mg/dL AST 30 (14-36) U/L ALT 31 (6-35) U/L Alkaline Phosphatase 82 (38-126) U/L Troponin I < 0.012 (0.000-0.034) ng/mL NT-Pro-B Natriuret Pep 366 H (19.9-100) pg/mL Total Protein 7.1 (6.3-8.2) g/dL Albumin 4.4 (3.5-5.1) g/dL Lipase 140 (23-300) U/L ECG Data EKG #1: Attestation: I personally reviewed and interpreted this ECG as follows: ECG completion date: 04/26/25 ECG completion time: 12:02 EKG Interpretation: bradycardia (57), sinus rhythm, no ST changes and NL axis Discharge Plan Discharge Clinical Impression: Hypercalcemia, Hypomagnesemia Dyspnea Qualifiers: Dyspnea type: unspecified Qualified Code(s): R06.00 - Dyspnea, unspecified Patient Disposition: Home Condition: Stable Instructions: Antibiotic Form, Weakness (ED), Hypercalcemia (ED) Additional Instructions: Follow up with DR. Gallego on Monday. Patient Language: Chinese Prescriptions: No Action omega 0-lxg-lex-fish oil [Fish Oil] 1,200 (144-216) mg Capsule 2 cap PO Q12H gabapentin [Neurontin] 100 mg capsule 100 mg PO TID Qty: 90 4RF calcium 600 mg Capsule 600 mg PO Q12H pantoprazole 40 mg tablet,delayed release (DR/EC) 40 mg PO QAM PRN (Reason: acid reflux) magnesium 100 mg capsule 100 mg PO DAILY Glucosamine Chondroitin 550-30-1 mg capsule 2 cap PO DAILY folate 666 1 tablet PO DAILY D-Sight 3 billion cell capsule 1 cap PO DAILY cetirizine [24Hour Allergy] 10 mg tablet 10 mg PO DAILY PRN (Reason: allergy symptoms) Tylenol Sinus Headache 5-325 mg tablet 1 tablet PO Q6H PRN (Reason: sinus symptoms) metoprolol succinate 50 mg tablet extended release 24 hr 50 mg PO QAM Qty: 30 2RF cyclobenzaprine 10 mg tablet See Rx Instructions PO TID PRN (Reason: muscle spasm) Qty: 50 0RF Rx Instructions: take 1/2 to 1 tab orally three times a day PRN; tramadol 50 mg tablet 50 mg PO Q4-6H PRN (Reason: pain) Qty: 50 0RF levothyroxine 125 mcg tablet See Rx Instructions .ROUTE .COMPLEX Qty: 90 0RF Dose Instruction: TAKE 1 TABLET BY MOUTH DAILY Rx Instructions: TAKE 1 TABLET BY MOUTH DAILY metformin 1,000 mg tablet See Rx Instructions .ROUTE .COMPLEX Qty: 225 1RF Dose Instruction: TAKE 1 TABLET BY MOUTH IN THE MORNING AND 1 AND 1/2 TABLETS IN THE EVENING Rx Instructions: TAKE 1 TABLET BY MOUTH IN THE MORNING AND 1 AND 1/2 TABLETS IN THE EVENING ondansetron 8 mg tablet,disintegrating 8 mg PO Q8H PRN (Reason: nausea and vomiting) Qty: 30 0RF atorvastatin 20 mg tablet See Rx Instructions .ROUTE .COMPLEX Qty: 90 1RF Dose Instruction: TAKE 1 TABLET BY MOUTH EVERY DAY Rx Instructions: TAKE 1 TABLET BY MOUTH EVERY DAY losartan-hydrochlorothiazide 50-12.5 mg tablet See Rx Instructions .ROUTE .COMPLEX Qty: 90 1RF Dose Instruction: TAKE 1 TABLET BY MOUTH DAILY Rx Instructions: TAKE 1 TABLET BY MOUTH DAILY zolpidem 12.5 mg tablet,ext release multiphase 12.5 mg PO QHS Qty: 90 0RF lorazepam 1 mg tablet 1 mg PO BID PRN (Reason: anxiety) Qty: 60 1RF Jardiance 10 mg tablet 10 mg PO DAILY Qty: 90 2RF Follow-up/Referrals: Jus Gallego MD [Primary Care Provider] -
[2025-04-26 13:00] LABS: INR 1.0; Prothrombin Time 12.8 Seconds (11.1-14.7)
[2025-04-26 13:01] LABS: Partial Thromboplastin Time 25.5 Seconds (22.3-36.8)
[2025-04-26 13:07] LABS: Lipase 140 U/L (23-300)
[2025-04-26 13:14] LABS: Alanine Aminotransferase 31 U/L (6-35); Albumin Level 4.4 g/dL (3.5-5.1); Alkaline Phosphatase 82 U/L (38-126); Anion Gap 13 mmol/L (4-12); Aspartate Amino Transferase 30 U/L (14-36); Bilirubin,Total 0.9 mg/dL (0.2-1.3); Blood Urea Nitrogen 20 mg/dL (7-17); Calcium 11.6 mg/dL (8.4-10.2); Carbon Dioxide 21 mmol/L (22-30); Chloride 100 mmol/L (98-107); Estimated CRCL calculation 35 ml/min; Estimated Glomerular Filt Rate 41; Glucose 198 mg/dL (65-110); Magnesium 1.4 mg/dL (1.6-2.3); Potassium 4.0 mmol/L (3.4-5.0); Sodium 134 mmol/L (137-145); Total Protein 7.1 g/dL (6.3-8.2)
[2025-04-26 13:20] LABS: NT Pro B Type Natriuretic Pept 366 pg/mL (19.9-100); Troponin I < 0.012 ng/mL (0.000-0.034)
[2025-04-26] MEDS: SODIUM CHLORIDE 0.9% IV 1,000 ML 999 ML IV CONT (13:54)
[2025-04-26] MEDS: MAGNESIUM SULF 2 GM/WATER 50ML 2 GM/50 ML BAG IVPB (13:55)
--- NOTE | 2025-04-26 15:55 | PC.NURSE ---
spoke with lab to see if labs that were just ordered could be added on to labs that were sent down earlier today.
== END 2025-04-26 16:12 | disposition home or self-care (01) ==
PROVIDERS: Emergency Provider General Practice; PCP Internal Medicine
DX: E83.52 Hypercalcemia (principal); E83.42 Hypomagnesemia; R06.00 Dyspnea, unspecified; N18.9 Chronic kidney disease, unspecified; K21.9 Gastro-esophageal reflux disease without esophagitis; I10 Essential (primary) hypertension; E03.9 Hypothyroidism, unspecified; Z85.43 Personal history of malignant neoplasm of ovary
CPT/HCPCS: 36415; 71046; 74177; 80053; 83690; 83735; 83880; 84484; 85025; 85380; 85610; 85730; 93005; 96365; 96366; 99284; J3475; J7030; Q9967

== ENCOUNTER 2025-04-28 16:35 | Outpatient (CLI) | payer MEDICARE, OTHER, SELFPAY ==
--- OUTSIDE RECORDS SUMMARY | 2025-04-28 16:37 | XMS_ITS | Clinical Summary ---
Author Organization [facility] Address [address] [place] [address] Care Team Providers Care Retail Account Specialist Name Role Phone Jus Gallego MD Primary Care Provider Richar Aguilar DO Unavailable [phone] Allergies No known active allergies Medications metFORMIN (GLUCOPHAGE) 500 mg tablet Take 2 tablets (1,000 mg total) by mouth 2 (two) times a day with meals Active levothyroxine (SYNTHROID) 125 mcg tablet Take 1 tablet (125 mcg total) by mouth bobbin fixer before breakfast 06/11/20 18 Active zolpidem CR [...] mouth 2 (two) times a day Active reehncolkixb-J6-y dR26-iuaaz oil (METANX) 3 mg-35 mg-2 mg -90.314 [...] morning 90 tablet 3 05/31/20 24 Active kzzrrjjkydxo-X0-n qR81-mgghy oil (METANX) 3 mg-35 mg-2 mg -90.314 [...] (08/19/2020): Added automatically from request for surgery [id number] Diverticulitis of large inte kaia without perforation or abscess 03/21/2019 Basal cell carcinoma (BCC) of skin of nose 06/17 Knee pain 01/01/2016 Hypertension 01/15/2014 Hyperlipidemia 01/15/2014 Cephalalgia 01/15/2014 Gastroesophageal reflux disease 01/15/2014 History of hypothyroidism 01/15/2014 Arthritis 01/15/2014 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 Encounters Date Type Department Care Team Description 04/14/2025 3:30 PM CDT Office Visit [facility] Orthopedic and Sports Medicine [address] [place] [phone] Roberto Juan PA Primary osteoarthritis of both knees (Primary Dx) 04/08/2025 3:30 PM CDT Office Visit [facility] Cardiology at [address] [place] [address] Sha Dominguez MD Takotsubo cardiomyopathy (Primary Dx) 01/31/2025 Telephone [facility] Orthopedic and Sports Medicine [address] [place] [phone] Allan Zelaya MD Additional Services Or Orders from Last 3 Months Immunizations Immunization Administration Dates Next Due Influenza, Unspecified 08/17/2020 Surgical History Surgery Date Site/Laterality Comments [place] TOTAL ABDOMINAL HYSTERECT W/WO RMVL TUBE OVARY Hysterectomy - (Added by Conv) ANKLE SURGERY Ankle Surgery - (Added by ) [place] COLONOSCOPY FLX DX W/LYLY J SPEC WHEN [...] re latives? Twice a week 09/14/2020 Attends Pentecostal Services Not on file 09/14 Do you belong to any clubs o r organizations such as jewish groups, unions, fraternal or athletic groups, or [...] on file Legal Sex Female 3:24 AM TIRE SERVICE TECHNICIAN Gender Identity Female 11/09/2020 7:13 PM TIRE SERVICE TECHNICIAN Sexual Orientation Straight 11/09/2020 7: 13 PM TIRE SERVICE TECHNICIAN Obstetrics History Last Filed Vital Signs Vital Sign Reading Time Taken Comments Blood Pressure 207/94 04/14/2025 3:32 PM CDT Pulse 74 04/14/2025 3:32 PM CDT Temperature 36.2 C (97.2 F) 12/24/2020 3:11 PM CDT Respiratory Rate 15 09/18/2020 9:32 PM TIRE SERVICE TECHNICIAN Oxygen Saturation 95% 04/08/2025 3:42 PM CDT [...] Procedure Name Priority Date/Time Associated Diagnosis Comments [place] ARTHROCENTESIS ASPIR&/INJ MAJOR JT/BURSA W/O US Routine 04/14/2025 3:30 PM CDT Primary osteoarthritis of both knees from Last 3 Months Results * [place] ARTHROCENTESIS ASPIR&/INJ MAJOR JT/BURSA W/O US (04/14/2025 [...] Result from Last 3 Months Insurance MEDICARE [employer] Address: [address] [place] [address] [employer] MEDIC[employer] PPO FOR LIFE Advance Directives For more information, please contact: [phone] * Full Code (Latest Code Status on File) Date Activated Date Inactivated Comments 09/12/2020 7:17 PM 09/17/2020 7:36 PM Care Teams Retail Account Specialist Relationship Specialty Start Date End Date Jus Gallego MD [address] [place] [address] PCP - General 04/03/17 Richar Aguilar DO [address] [place] [address] Referring Physician Gastroenterology 03/21/19
--- OUTSIDE RECORDS SUMMARY | 2025-04-28 16:37 | XMS_ITS | Encounter Summary ---
Author Organization [facility] Address [address] [place] [address] Care Team Providers Care Bridge Expert Name Role Phone Jus Gallego MD Primary Care Provider [phone] Richar Aguilar DO Unavailable [phone] Encounter Details Date Type Department Care Team (Late st Contact Info) Description 05/16/2024 Orders Only [facility] Health Information Management [address] [place] [id number] Scanning, Provider Social History Tobacco Use [...] re latives? Twice a week 09/14/2020 Attends Jewish Services Not on file 09/14 Do you belong to any clubs o r organizations such as hinduism groups, unions, fraternal or athletic groups, or [...] on file Legal Sex Female 3:24 AM BURNING SUPERVISOR Gender Identity Female 11/09/2020 7:13 PM BURNING SUPERVISOR Sexual Orientation Straight 11/09/2020 7: 13 PM BURNING SUPERVISOR documented as of this encounter Plan of Treatment Not on file documented as of this encounter Procedures Procedure Name Priority Date/Time Associated Diagnosis Comments SCAN - LABS 05/16/2024 documented in this encounter Results * SCAN - LABS (05/16/2024) us Provider Scanning Final Result documented in this encounter Visit Diagnoses Not on filedocumented in this encounter Care Teams Bridge Expert Relationship Specialty Start Date End Date Jus Gallego MD [address] [facility] [address] [place] [address] PCP - General 04/03/17 Richar Aguilar DO [address] [facility] [address] [place] [address] [place] [address] Referring Physician Gastroenterology 03/21/19 documented as of this encounter
--- OUTSIDE RECORDS SUMMARY | 2025-04-28 16:37 | XMS_ITS ---
Author Organization [facility] Address [address] [place] [address] Care Team Providers Care Stock Worker Name Role Phone Jus Gallego MD Primary Care Provider [phone] Richar Aguilar DO Unavailable [phone] Active Problems Problem Noted Date Diagnosed Date Takotsubo cardiomyopathy 08/22/2024 Status post gastrointestinal surgery, follow-up exam 10/15/2020 Diverticulitis 08/19/2020 Overview (08/19/2020): Added automatically from request for surgery [id number] Diverticulitis of large inte kaia without perforation [...]
--- OUTSIDE RECORDS SUMMARY | 2025-04-28 16:37 | XMS_ITS | Referral Summary ---
Author Organization [facility] Address [address] [place] [address] Care Team Providers Care Rope Coiling Machine Operator Name Role Phone Jus Gallego MD Primary Care Provider [phone] Richar Aguilar DO Unavailable [phone] Encounters Date Type Department Care Team Description 04/14/2025 3:30 PM CDT Office Visit [facility] Orthopedic and Sports Medicine [address] [place] [phone] Roberto Juan PA Primary osteoarthritis of both knees (Primary Dx) 04/08/2025 3:30 PM CDT Office Visit [facility] Cardiology at [address] [place] [address] Sah Dominguez MD Takotsubo cardiomyopathy (Primary Dx) 01/31/2025 Telephone [facility] Orthopedic and Sports Medicine [address] [place] [phone] Allan Zelaya MD Additional Services Or Orders from Last 3 Months Allergies No known active allergies Medications metFORMIN (GLUCOPHAGE) 500 mg tablet Take 2 tablets (1,000 mg total) by mouth 2 (two) times a day with meals Active levothyroxine (SYNTHROID) 125 mcg tablet Take 1 tablet (125 mcg total) by mouth die cutter diamond before breakfast 06/11/20 18 Active zolpidem CR [...] mouth 2 (two) times a day Active evmgtkieukju-K6-x oR44-mlhsn oil (METANX) 3 mg-35 mg-2 mg -90.314 [...] morning 90 tablet 3 05/31/20 24 Active hdedmwumkofz-G6-p zM51-xbjcr oil (METANX) 3 mg-35 mg-2 mg -90.314 [...] (08/19/2020): Added automatically from request for surgery [id number] Diverticulitis of large inte kaia without perforation [...] re latives? Twice a week 09/14/2020 Attends Shinto Services Not on file 09/14 Do you belong to any clubs o r organizations such as muslim groups, unions, fraternal or athletic groups, or [...] on file Legal Sex Female 3:24 AM BOWLING FLOOR MANAGER Gender Identity Female 11/09/2020 7:13 PM BOWLING FLOOR MANAGER Sexual Orientation Straight 11/09/2020 7: 13 PM BOWLING FLOOR MANAGER Last Filed Vital Signs Vital Sign Reading Time Taken Comments Blood Pressure 207/94 04/14/2025 3:32 PM CDT Pulse 74 04/14/2025 3:32 PM CDT Temperature 36.2 C (97.2 F) 12/24/2020 3:11 PM CDT Respiratory Rate 15 09/18/2020 9:32 PM BOWLING FLOOR MANAGER Oxygen Saturation 95% 04/08/2025 3:42 PM CDT [...] knees from Last 3 Months Results * [place] ARTHROCENTESIS ASPIR&/INJ MAJOR JT/BURSA W/O US (04/14/2025 [...] Result from Last 3 Months Insurance MEDICARE [facility] Address: [address] [address] [place] [address] [employer] [employer] CHOICE MEDICARE PPO [employer] FOR LIFE Advance Directives For more information, please contact: [phone] * Full Code (Latest Code Status on File) Date Activated Date Inactivated Comments 09/12/2020 7:17 PM 09/17/2020 7:36 PM Care Teams Rope Coiling Machine Operator Relationship Specialty Start Date End Date Jus Gallego MD [address] [place] [address] PCP - General 04/03/17 Richar Aguilar DO [address] [place] [address] Referring Physician Gastroenterology 03/21/19
--- OUTSIDE RECORDS SUMMARY | 2025-04-28 16:37 | XMS_ITS | Clinical Summary ---
Author Organization [facility] Address [address] [address] Phone Care Team Providers Care Press Maintainer Name Role Phone Jus Gallego MD Primary Care Provider [phone] Richar Aguilar DO Unavailable [phone] Allergies No known active allergies Medications zolpidem (AMBIEN CR) 12.5 MG Tablet Controlled Release Take 12.5 mg by mouth as needed. Active Glucosamine-Quoc droitin 0198-2200 MG/30ML Liquid Activ e esomeprazole (NEXIUM) 40 [...] Recently Relevant to Health Maintenance Insurance MEDICARE Member Subscriber Plan / Payer (Ef fective 2016-Present) Name:Nona Malagon Member ID:[id number] Relation to Subscriber:Self Name:Nona Malagon Subscriber ID:[id number] Payer ID:[id number] Group ID:Not on file Type:Not on file Address: [address] [facility] [employer] [facility] [place] [address] [facility] [employer] [facility] Care Teams Press Maintainer Relationship Specialty Start Date End Date Jus Gallego MD PCP - General Internal Medicine 01/04/16 Richar Aguilar DO Gastroenterology 01/04/16
--- OUTSIDE RECORDS SUMMARY | 2025-04-28 16:38 | XMS_ITS | Encounter Summary ---
Author Organization [facility] Healthcare Address [address] [place] [address] Care Team Providers Care Food Service Coordinator Name Role Phone Jus Gallego MD Primary Care Provider [phone] Richar Aguilar DO Unavailable [phone] Encounter Details Date Type Department Care Team (Late st Contact Info) Description 05/04/2024 Orders Only [facility] Health Information Management [address] [place] [address] Scanning, Provider Social History Tobacco Use [...] re latives? Twice a week 09/14/2020 Attends Islam Services Not on file 09/14 Do you [...] on file Legal Sex Female 3:24 AM ACCESS SPEC Gender Identity Female 11/09/2020 7:13 PM ACCESS SPEC Sexual Orientation Straight 11/09/2020 7: 13 PM ACCESS SPEC documented as of this encounter Plan of [...] on filedocumented in this encounter Care Teams Food Service Coordinator Relationship Specialty Start Date End Date Jus Gallego MD [address] [facility] [address] [place] [id number] PCP - General 04/03/17 Richar Aguilar DO [address] [facility] [address] [facility] [address] [place] [address] Referring Physician Gastroenterology 03/21/19 documented as of this encounter
--- OUTSIDE RECORDS SUMMARY | 2025-04-28 16:39 | XMS_ITS | Clinical Summary ---
Author Organization [facility] Address [address] [place] [address] Care Team Providers Care Founder And Ceo Name Role Phone Jus Gallego MD Primary Care Provider [phone] Social History Tobacco Use Types Packs/Day Years [...] complete this topic Insurance HUMANA Care Teams Founder And Ceo Relationship Specialty Start Date End Date Jus Gallego MD [address] [place] [address] PCP - General INTERNAL MEDICINE 03/13/24
[2025-04-28 17:15] LABS: Anion Gap 14 mmol/L (4-12); Blood Urea Nitrogen 20 mg/dL (7-17); Calcium 10.3 mg/dL (8.4-10.2); Carbon Dioxide 21 mmol/L (22-30); Chloride 97 mmol/L (98-107); Estimated Glomerular Filt Rate 39; Glucose 149 mg/dL (65-110); Potassium 4.4 mmol/L (3.4-5.0); Sodium 132 mmol/L (137-145)
== END 2025-04-28 16:36 | disposition home or self-care (01) ==
PROVIDERS: PCP Internal Medicine; Visit Provider Internal Medicine
DX: E83.52 Hypercalcemia (principal)
CPT/HCPCS: 36415; 80048

== ENCOUNTER 2025-04-30 12:58 | Outpatient (CLI) | payer MEDICARE, OTHER, SELFPAY ==
--- OUTSIDE RECORDS SUMMARY | 2025-04-30 12:54 | XMS_ITS | Clinical Summary ---
Author Organization [facility] Address [address] [place] [address] Care Team Providers Care Experimental Aircraft Mechanic Name Role Phone Jus Gallego MD Primary Care Provider [phone] Social History Tobacco Use Types Packs/Day Years [...] complete this topic Insurance HUMANA Care Teams Experimental Aircraft Mechanic Relationship Specialty Start Date End Date Jus aGllego MD [address] [place] [address] PCP - General INTERNAL MEDICINE 03/13/24
--- OUTSIDE RECORDS SUMMARY | 2025-04-30 12:54 | XMS_ITS | Encounter Summary ---
Author Organization [facility] Healthcare Address [address] [place] [address] Care Team Providers Care Curriculum Development Specialist Name Role Phone Jus Gallego MD Primary Care Provider [phone] Richar Aguilar DO Unavailable [phone] Encounter Details Date Type Department Care Team (Late st Contact Info) Description 05/16/2024 Orders Only [facility] [place] Health Information Management [address] [place] [address] Scanning, Provider Social History Tobacco Use [...] re latives? Twice a week 09/14/2020 Attends Hinduism Services Not on file 09/14 Do you belong to any clubs o r organizations such as religious groups, unions, fraternal or athletic groups, or [...] on file Legal Sex Female 3:24 AM EXERCISE SCIENTIST Gender Identity Female 11/09/2020 7:13 PM EXERCISE SCIENTIST Sexual Orientation Straight 11/09/2020 7: 13 PM EXERCISE SCIENTIST documented as of this encounter Plan of Treatment Not on file documented as of this encounter Procedures Procedure Name Priority Date/Time Associated Diagnosis Comments SCAN - LABS 05/16/2024 documented in this encounter Results * SCAN - LABS (05/16/2024) us Provider Scanning Final Result documented in this encounter Visit Diagnoses Not on filedocumented in this encounter Care Teams Curriculum Development Specialist Relationship Specialty Start Date End Date Jus Gallego MD [address] [facility] [address] [place] [address] PCP - General 04/03/17 Richar Aguilar DO [address] [facility] [address] [place] [address] [place] [address] Referring Physician Gastroenterology 03/21/19 documented as of this encounter
--- OUTSIDE RECORDS SUMMARY | 2025-04-30 12:54 | XMS_ITS | Encounter Summary ---
Author Organization [facility] Healthcare Address [address] [place] [address] Care Team Providers Care Engraver Pantograph Name Role Phone Jus Gallego MD Primary Care Provider [phone] Richar Aguilar DO Unavailable [phone] Encounter Details Date Type Department Care Team (Late st Contact Info) Description 05/04/2024 Orders Only [facility] [place] Management [address] [place] [address] Scanning, Provider Social History Tobacco Use [...] re latives? Twice a week 09/14/2020 Attends Jainism Services Not on file 09/14 Do you belong to any clubs o r organizations such as confucianism groups, unions, fraternal or athletic groups, or [...] on file Legal Sex Female 3:24 AM WELDER AND FITTER Gender Identity Female 11/09/2020 7:13 PM WELDER AND FITTER Sexual Orientation Straight 11/09/2020 7: 13 PM WELDER AND FITTER documented as of this encounter Plan of [...] on filedocumented in this encounter Care Teams Engraver Pantograph Relationship Specialty Start Date End Date Jus Gallego MD [address] [facility] [address] INTERNAL MEDICINE [place] [id number] PCP - General 04/03/17 Ricahr Aguilar DO [address] [facility] [address] [facility] [address] [place] [address] Referring Physician Gastroenterology 03/21/19 documented as of this encounter
--- OUTSIDE RECORDS SUMMARY | 2025-04-30 12:54 | XMS_ITS | Clinical Summary ---
Author Organization [facility] Address [address] [place] [address] Care Team Providers Care Corporate Development Intern Name Role Phone Jus Gallego MD Primary Care Provider [phone] Richar Aguilar DO Unavailable [phone] Allergies No known active allergies Medications metFORMIN (GLUCOPHAGE) 500 mg tablet Take 2 tablets (1,000 mg total) by mouth 2 (two) times a day with meals Active levothyroxine (SYNTHROID) 125 mcg tablet Take 1 tablet (125 mcg total) by mouth body cleaner before breakfast 06/11/20 18 Active zolpidem CR [...] mouth 2 (two) times a day Active wlrzzlijfxea-A5-u aX06-gjary oil (METANX) 3 mg-35 mg-2 mg -90.314 [...] morning 90 tablet 3 05/31/20 24 Active feuhbqknflun-O1-l yX60-oircr oil (METANX) 3 mg-35 mg-2 mg -90.314 [...] (08/19/2020): Added automatically from request for surgery [id number] Diverticulitis of large inte kaia without perforation or abscess 03/21/2019 Basal cell carcinoma (BCC) of skin of nose 06/17 Knee pain 01/01/2016 Hypertension 01/15/2014 Hyperlipidemia 01/15/2014 Cephalalgia 01/15/2014 Gastroesophageal reflux disease 01/15/2014 History of hypothyroidism 01/15/2014 Arthritis 01/15/2014 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 Encounters Date Type Department Care Team Description 04/14/2025 3:30 PM CDT Office Visit [facility] Medical Group Orthopedic and Sports Medicine [address] [place] [address] Roberto Juan PA Primary osteoarthritis of both knees (Primary Dx) 04/08/2025 3:30 PM CDT Office Visit [facility] Medical Group Cardiology at [address] [place] [address] Sha Dominguez MD Takotsubo cardiomyopathy (Primary Dx) 01/31/2025 Telephone [facility] Medical Group Orthopedic and Sports Medicine [address] [place] [phone] Allan Zelaya MD Additional Services Or Orders from Last 3 Months Immunizations Immunization Administration Dates Next Due Influenza, Unspecified 08/17/2020 Surgical History Surgery Date Site/Laterality Comments ND TOTAL ABDOMINAL HYSTERECT W/WO RMVL TUBE OVARY Hysterectomy - (Added by Conv) ANKLE SURGERY Ankle Surgery - (Added by ) ND COLONOSCOPY FLX DX W/LYLY J SPEC WHEN [...] re latives? Twice a week 09/14/2020 Attends Anabaptism Services Not on file 09/14 Do you belong to any clubs o r organizations such as yazidi groups, unions, fraternal or athletic groups, or [...] on file Legal Sex Female 3:24 AM PERSONAL LOAN SPECIALIST Gender Identity Female 11/09/2020 7:13 PM PERSONAL LOAN SPECIALIST Sexual Orientation Straight 11/09/2020 7: 13 PM PERSONAL LOAN SPECIALIST Obstetrics History Last Filed Vital Signs Vital Sign Reading Time Taken Comments Blood Pressure 207/94 04/14/2025 3:32 PM CDT Pulse 74 04/14/2025 3:32 PM CDT Temperature 36.2 C (97.2 F) 12/24/2020 3:11 PM CDT Respiratory Rate 15 09/18/2020 9:32 PM PERSONAL LOAN SPECIALIST Oxygen Saturation 95% 04/08/2025 3:42 PM CDT [...] Procedure Name Priority Date/Time Associated Diagnosis Comments ND ARTHROCENTESIS ASPIR&/INJ MAJOR JT/BURSA W/O US Routine 04/14/2025 3:30 PM CDT Primary osteoarthritis of both knees from Last 3 Months Results * ND ARTHROCENTESIS ASPIR&/INJ MAJOR JT/BURSA W/O US (04/14/2025 [...] Result from Last 3 Months Insurance MEDICARE [employer] HUMANA CHOICE MEDICARE PPO FOR LIFE Advance Directives For more information, please contact: [phone] * Full Code (Latest Code Status on File) Date Activated Date Inactivated Comments 09/12/2020 7:17 PM 09/17/2020 7:36 PM Care Teams Corporate Development Intern Relationship Specialty Start Date End Date Jus Gallego MD [address] [place] [address] PCP - General 04/03/17 Richar Aguilar DO [address] [place] [address] Referring Physician Gastroenterology 03/21/19
--- OUTSIDE RECORDS SUMMARY | 2025-04-30 12:54 | XMS_ITS | Referral Summary ---
Author Organization [facility] Address [address] [place] [address] Care Team Providers Care Director Career Services Name Role Phone Jus Gallego MD Primary Care Provider [phone] Richar Aguilar DO Unavailable [phone] Encounters Date Type Department Care Team Description 04/14/2025 3:30 PM CDT Office Visit [facility] Medical Group Orthopedic and Sports Medicine [address] [place] [address] Roberto Juan PA Primary osteoarthritis of both knees (Primary Dx) 04/08/2025 3:30 PM CDT Office Visit [facility] Medical Group Cardiology at [address] [place] [address] Sha Dominguez MD Takotsubo cardiomyopathy (Primary Dx) 01/31/2025 Telephone [facility] Medical Group Orthopedic and Sports Medicine [address] [place] [address] Allan Zelaya MD Additional Services Or Orders from Last 3 Months Allergies No known active allergies Medications metFORMIN (GLUCOPHAGE) 500 mg tablet Take 2 tablets (1,000 mg total) by mouth 2 (two) times a day with meals Active levothyroxine (SYNTHROID) 125 mcg tablet Take 1 tablet (125 mcg total) by mouth insurance underwriting assistant before breakfast 06/11/20 18 Active zolpidem CR [...] mouth 2 (two) times a day Active nmzrskqnsagn-M7-f oU00-odjlw oil (METANX) 3 mg-35 mg-2 mg -90.314 [...] morning 90 tablet 3 05/31/20 24 Active luqcvfeuxiah-Y5-n yQ43-suyou oil (METANX) 3 mg-35 mg-2 mg -90.314 [...] (08/19/2020): Added automatically from request for surgery [id number] Diverticulitis of large inte kaia without perforation [...] re latives? Twice a week 09/14/2020 Attends Roman Catholic Services Not on file 09/14 Do you [...] on file Legal Sex Female 3:24 AM LITERARY WRITER Gender Identity Female 11/09/2020 7:13 PM LITERARY WRITER Sexual Orientation Straight 11/09/2020 7: 13 PM LITERARY WRITER Last Filed Vital Signs Vital Sign Reading Time Taken Comments Blood Pressure 207/94 04/14/2025 3:32 PM CDT Pulse 74 04/14/2025 3:32 PM CDT Temperature 36.2 C (97.2 F) 12/24/2020 3:11 PM CDT Respiratory Rate 15 09/18/2020 9:32 PM LITERARY WRITER Oxygen Saturation 95% 04/08/2025 3:42 PM CDT Inhaled Oxygen Concentration - - Weight 77.1 kg (170 lb) 04/14/2025 3:32 PM CDT Height 162.6 cm (5' 4) 04/14/2025 3:32 PM CDT Body Mass Index 29.18 04/14/2025 3:32 PM CDT Plan of Treatment Not on file Procedures Procedure Name Priority Date/Time Associated Diagnosis Comments [place] ARTHROCENTESIS ASPIR&/INJ MAJOR JT/BURSA W/O US Routine 04/14/2025 3:30 PM CDT Primary osteoarthritis of both knees from Last 3 Months Results * [place] ARTHROCENTESIS ASPIR&/INJ MAJOR JT/BURSA W/O US (04/14/2025 [...] Result from Last 3 Months Insurance MEDICARE [employer] HUMANA CHOICE MEDICARE PPO [employer] FOR LIFE Advance Directives For more information, please contact: [phone] * Full Code (Latest Code Status on File) Date Activated Date Inactivated Comments 09/12/2020 7:17 PM 09/17/2020 7:36 PM Care Teams Director Career Services Relationship Specialty Start Date End Date Jus Gallego MD [address] [place] [address] PCP - General 04/03/17 Richar Aguilar DO [address] [place] [address] Referring Physician Gastroenterology 03/21/19
--- OUTSIDE RECORDS SUMMARY | 2025-04-30 12:54 | XMS_ITS ---
Author Organization [facility] Address [address] [place] [address] Care Team Providers Care Potato Inspector Name Role Phone Jus Gallego MD Primary Care Provider [phone] Richar Aguilar DO Unavailable Active Problems Problem Noted Date Diagnosed Date Takotsubo cardiomyopathy 08/22/2024 Status post gastrointestinal surgery, follow-up exam 10/15/2020 Diverticulitis 08/19/2020 Overview (08/19/2020): Added automatically from request for surgery [id number] Diverticulitis of large inte kaia without perforation [...]
--- OUTSIDE RECORDS SUMMARY | 2025-04-30 12:54 | XMS_ITS | Clinical Summary ---
Author Organization [facility] Address [address] [address] Phone Care Team Providers Care Manager Subway Name Role Phone Jus Gallego MD Primary Care Provider [phone] Richar Aguilar DO Unavailable [phone] Allergies No known active allergies Medications zolpidem (AMBIEN CR) 12.5 MG Tablet Controlled Release Take 12.5 mg by mouth as needed. Active Glucosamine-Quoc droitin 8544-5694 MG/30ML Liquid Activ e esomeprazole (NEXIUM) 40 [...] Payer (Ef fective 2016-Present) Name:Nona Malagon Member ID:[id number] Relation to Subscriber:Self Name:Nona Malagon Subscriber ID:[id number] Payer ID:[id number] Group ID:Not on file Type:Not on file Address: [address] [facility] [employer] [facility] [place] [address] [facility] [employer] [facility] Care Teams Manager Subway Relationship Specialty Start Date End Date Jus Gallego MD PCP - General Internal Medicine 01/04/16 Richar Aguilar DO Gastroenterology 01/04/16
[2025-04-30 14:03] LABS: Parathyroid Intact 25.5 pg/mL (14.5-75.2)
[2025-05-01 16:08] LABS: Calcium, Ionized 5.0 mg/dL (4.5-5.6)
== END 2025-04-30 12:59 | disposition home or self-care (01) ==
LOC: ANHLAB 12:59
PROVIDERS: PCP Internal Medicine; Visit Provider Internal Medicine
DX: E83.52 Hypercalcemia (principal)
CPT/HCPCS: 36415; 82330; 83970

== ENCOUNTER 2025-05-21 16:25 | Outpatient (CLI) | payer MEDICARE, OTHER, SELFPAY ==
--- OUTSIDE RECORDS SUMMARY | 2025-05-21 16:29 | XMS_ITS | Clinical Summary ---
Author Organization [facility] Address [address] [place] [address] Care Team Providers Care Plastics Seasoner Operator Name Role Phone Jus Gallego MD Primary Care Provider Richar Aguilar DO Unavailable [phone] Allergies No known active allergies Medications metFORMIN (GLUCOPHAGE) 500 mg tablet Take 2 tablets (1,000 mg total) by mouth 2 (two) times a day with meals Active levothyroxine (SYNTHROID) 125 mcg tablet Take 1 tablet (125 mcg total) by mouth dyer and washer before breakfast 8 Active zolpidem CR (AMBIEN [...] mouth 2 (two) times a day Active unhkyrbepely-S3-pk P56-lessc oil (METANX) 3 mg-35 mg-2 mg -90.314 [...] every morning 90 tablet 3 4 Active pkpdexzhhqxg-H8-al G12-dadvk oil (METANX) 3 mg-35 mg-2 mg -90.314 mg capsule Take 1 capsule by mouth daily Active cyclobenzaprine (FLEXERIL) 10 mg tablet Take 1 tablet (10 mg total) by mouth 3 (three) times a day as needed for muscle spasms Active gabapentin (NEURONTIN) 100 mg capsule Take 1 capsule (100 mg total) by mouth 3 (three) times a day 5 Active losartan-hydroCHLO ROthiazide (HYZAAR) 50-12.5 mg per tablet Take 1 tablet by mouth daily 5 Active Active Problems Problem Noted Date Diagnosed Date Takotsubo cardiomyopathy 08/22/2024 Status post gastrointestinal surgery, follow-up exam 10/15/2020 Diverticulitis 08/19/2020 Overview (08/19/2020): Added automatically from request for surgery [id number] Diverticulitis of large inte kaia without perforation or abscess 03/21/2019 Basal cell carcinoma (BCC) of skin of nose 06/17 Knee pain 01/01/2016 Hypertension 01/15/2014 Hyperlipidemia 01/15/2014 Cephalalgia 01/15/2014 Gastroesophageal reflux disease 01/15/2014 History of hypothyroidism 01/15/2014 Arthritis 01/15/2014 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 Encounters Date Type Department Care Team Description 04/14/2025 3:30 PM CDT Office Visit [facility] Medical Group Orthopedic and Sports Medicine [address] [place] [address] Roberto Juan PA Primary osteoarthritis of both knees (Primary Dx) 04/08/2025 3:30 PM CDT Office Visit [facility] Medical Group Cardiology at [address] [place] [address] Sha Dominguez MD Takotsubo cardiomyopathy (Primary Dx) from Last 3 Months Immunizations Immunization Administration Dates Next Due Influenza, Unspecified 08/17/2020 Surgical History Surgery Date Site/Laterality Comments NM TOTAL ABDOMINAL HYSTERECT W/WO RMVL TUBE OVARY Hysterectomy - (Added by Conv) ANKLE SURGERY Ankle Surgery - (Added by Conv) NM COLONOSCOPY FLX DX W/LYLY J SPEC WHEN [...] (gastroesophageal reflux disease) Type 2 diabetes mellitus Hypothyroidism Family History Medical History Relation Name [...] No 09/14/2020 Social Connection and Isolation Panel Answer Date Recorded In a typical week, how many times do you talk on the phone with family, friends, or neighbors? Twice a week 09/14/2020 How often do you get together with friends or re latives? Twice a week 09/14/2020 Attends Caodaism Services Not on file 09/14 Do you belong to any clubs o r organizations such as holiness groups, unions, fraternal or athletic groups, or [...] on file Legal Sex Female 3:24 AM FACTORY MAINTENANCE TECHNICIAN Gender Identity Female 11/09/2020 7:13 PM FACTORY MAINTENANCE TECHNICIAN Sexual Orientation Straight 11/09/2020 7: 13 PM FACTORY MAINTENANCE TECHNICIAN Obstetrics History Last Filed Vital Signs Vital Sign Reading Time Taken Comments Blood Pressure 207/94 04/14/2025 3:32 PM CDT Pulse 74 04/14/2025 3:32 PM CDT Temperature 36.2 C (97.2 F) 12/24/2020 3:11 PM CDT Respiratory Rate 15 09/18/2020 9:32 PM FACTORY MAINTENANCE TECHNICIAN Oxygen Saturation 95% 04/08/2025 3:42 PM [...] Procedure Name Priority Date/Time Associated Diagnosis Comments [place] ARTHROCENTESIS ASPIR&/INJ MAJOR JT/BURSA W/O US Routine 04/14/2025 3:30 PM CDT Primary osteoarthritis of both knees from Last 3 Months Results * NM ARTHROCENTESIS ASPIR&/INJ MAJOR JT/BURSA W/O US (04/14/2025 [...] Result from Last 3 Months Insurance MEDICARE [employer] HUMANA CHOICE MEDICARE PPO [employer] FOR LIFE Advance Directives For more information, please contact: [phone] * Full Code (Latest Code Status on File) Date Activated Date Inactivated Comments 09/12/2020 7:17 PM 09/17/2020 7:36 PM Care Teams Plastics Seasoner Operator Relationship Specialty Start Date End Date Jus Gallego MD [address] [place] [address] PCP - General 04/03/17 Richar Aguilar DO [address] [place] [address] Referring Physician Gastroenterology 03/21/19
--- OUTSIDE RECORDS SUMMARY | 2025-05-21 16:29 | XMS_ITS | Clinical Summary ---
Author Organization [facility] Address [address] [place] [address] Care Team Providers Care Health Care Assistant Name Role Phone Jus Gallego MD Primary Care Provider [phone] Social History Tobacco Use Types Packs/Day Years [...] complete this topic Insurance HUMANA Care Teams Health Care Assistant Relationship Specialty Start Date End Date Jus Gallego MD [address] [place] [address] PCP - General INTERNAL MEDICINE 03/13/24
--- OUTSIDE RECORDS SUMMARY | 2025-05-21 16:29 | XMS_ITS | Clinical Summary ---
Author Organization [facility] Address [address] [address] Phone Care Team Providers Care Inside Account Representative Name Role Phone Jus Gallego MD Primary Care Provider [phone] Richar Aguilar DO Unavailable [phone] Allergies No known active allergies Medications zolpidem (AMBIEN CR) 12.5 MG Tablet Controlled Release Take 12.5 mg by mouth as needed. Active Glucosamine-Quoc droitin 2473-1044 MG/30ML Liquid Activ e esomeprazole (NEXIUM) 40 [...] Recently Relevant to Health Maintenance Insurance MEDICARE [facility] Care Teams Inside Account Representative Relationship Specialty Start Date End Date Jus Gallego MD PCP - General Internal Medicine 01/04/16 Richar Aguilar DO Gastroenterology 01/04/16
--- OUTSIDE RECORDS SUMMARY | 2025-05-21 16:29 | XMS_ITS ---
Author Organization [facility] Address [address] [place] [address] Care Team Providers Care Prep Room Supervisor Name Role Phone Jus Gallego MD Primary Care Provider [phone] Richar Aguilar DO Unavailable [phone] Active Problems Problem Noted Date Diagnosed Date Takotsubo cardiomyopathy 08/22/2024 Status post gastrointestinal surgery, follow-up exam 10/15/2020 Diverticulitis 08/19/2020 Overview (08/19/2020): Added automatically from request for surgery [id number] Diverticulitis of large inte kaia without perforation [...]
--- OUTSIDE RECORDS SUMMARY | 2025-05-21 16:29 | XMS_ITS | Encounter Summary ---
Author Organization [facility] Healthcare Address [address] [place] [address] Care Team Providers Care Microstrategy Architect Developer Name Role Phone Jus Gallego MD Primary Care Provider [phone] Richar Aguilar DO Unavailable [phone] Encounter Details Date Type Department Care Team (Late st Contact Info) Description 05/04/2024 Orders Only [facility] Health Information Management [address] [place] [id number] Scanning, Provider Social History Tobacco Use Types [...] any clubs o r organizations such as sikh groups, unions, fraternal or athletic groups, or [...] on file Legal Sex Female 3:24 AM KNITTING MACHINE MECHANIC Gender Identity Female 11/09/2020 7:13 PM KNITTING MACHINE MECHANIC Sexual Orientation Straight 11/09/2020 7: 13 PM KNITTING MACHINE MECHANIC documented as of this encounter Plan of [...] on filedocumented in this encounter Care Teams Microstrategy Architect Developer Relationship Specialty Start Date End Date Jus Gallego MD [address] [place] [address] PCP - General 04/03/17 Richar Aguilar DO [address] [place] [address] Referring Physician Gastroenterology 03/21/19 documented as of this encounter
--- OUTSIDE RECORDS SUMMARY | 2025-05-21 16:29 | XMS_ITS | Encounter Summary ---
Author Organization [facility] Healthcare Address [address] [place] [address] Care Team Providers Care Rotor Plate Washer Name Role Phone Jus Gallego MD Primary Care Provider [phone] Richar Aguilar DO Unavailable [phone] Encounter Details Date Type Department Care Team (Late st Contact Info) Description 05/16/[address] [facility] Health Information Management [address] [place] [id number] Scanning, Provider Social History Tobacco Use Types [...] re latives? Twice a week 09/14/2020 Attends Yazidi Services Not on file 09/14 Do you [...] on file Legal Sex Female 3:24 AM DECONTAMINATION WORKER Gender Identity Female 11/09/2020 7:13 PM DECONTAMINATION WORKER Sexual Orientation Straight 11/09/2020 7: 13 PM DECONTAMINATION WORKER documented as of this encounter Plan of Treatment Not on file documented as of this encounter Procedures Procedure Name Priority Date/Time Associated Diagnosis Comments SCAN - LABS 05/16/2024 documented in this encounter Results * SCAN - LABS (05/16/2024) us Provider Scanning Final Result documented in this encounter Visit Diagnoses Not on filedocumented in this encounter Care Teams Rotor Plate Washer Relationship Specialty Start Date End Date Jus Gallego MD [address] INTERNAL MEDICINE [place] [id number] PCP - General 04/03/17 Richar Aguilar DO [address] [facility] [address] [place] [address] Referring Physician Gastroenterology 03/21/19 documented as of this encounter
[2025-05-21 17:41] LABS: Alanine Aminotransferase 30 U/L (6-35); Albumin Level 4.6 g/dL (3.5-5.1); Alkaline Phosphatase 81 U/L (38-126); Anion Gap 11 mmol/L (4-12); Aspartate Amino Transferase 30 U/L (14-36); Bilirubin,Total 0.5 mg/dL (0.2-1.3); Blood Urea Nitrogen 19 mg/dL (7-17); Calcium 10.5 mg/dL (8.4-10.2); Carbon Dioxide 25 mmol/L (22-30); Chloride 103 mmol/L (98-107); Estimated Glomerular Filt Rate 43; Glucose 125 mg/dL (65-110); Potassium 4.7 mmol/L (3.4-5.0); Sodium 139 mmol/L (137-145); Total Protein 7.3 g/dL (6.3-8.2)
== END 2025-05-21 16:26 | disposition home or self-care (01) ==
LOC: ANHLAB 16:27
PROVIDERS: PCP Internal Medicine; Visit Provider Internal Medicine
DX: I12.9 Hypertensive chronic kidney disease with stage 1 through stage 4 chronic kidney disease, or unspecified chronic kidney disease (principal); N18.9 Chronic kidney disease, unspecified; E83.52 Hypercalcemia
CPT/HCPCS: 36415; 80053

== ENCOUNTER 2025-07-23 12:29 | Outpatient (CLI) | payer MEDICARE, OTHER, SELFPAY ==
--- NOTE | 2025-07-23 14:15 | NEURO_ITS ---
Impression: # Complains of pain of feet. Non-diabetic. ? # Normal Nerve Conduction Study. ? # Normal needle/EMG exam. ? # Clinical correlation recommended. ?Nerve Conduction Studies ?Stim Site NR Peak (ms) P-T Amp (?V) Site1 Site2 Delta-P (ms) Dist (cm) Kamran (m/s) Left Sup Fibular Anti Sensory (Ant Lat Mall) 14 cm ? 3.5 18.8 14 cm Ant Lat Mall 3.5 16.0 46 Right Sup Fibular Anti Sensory (Ant Lat Mall) 14 cm ? 3.8 15.9 14 cm Ant Lat Mall 3.8 16.0 42 Left Sural Anti Sensory (Lat Mall) Calf ? 4.0 16.2 Calf Lat Mall 4.0 16.0 40 Right Sural Anti Sensory (Lat Mall) Calf ? 3.2 10.7 Calf Lat Mall 3.2 16.0 50 ?Stim Site NR Onset (ms) O-P Amp (mV) Site1 Site2 Delta-0 (ms) Dist (cm) Kamran (m/s) Left Peroneal Motor (Vastus Med) Ankle ? 3.8 2.7 Popit Ankle 9.6 41.0 43 Popit ? 13.4 3.5 Right Peroneal Motor (Vastus Med) Ankle ? 4.1 3.6 Popit Ankle 8.7 39.0 45 Popit ? 12.8 3.5 Left Tibial Motor (Abd Bowling Brev) Ankle ? 4.3 5.8 Knee Ankle 9.1 41.0 45 Knee ? 13.4 3.5 Right Tibial Motor (Abd Bowling Brev) Ankle ? 4.1 3.2 Knee Ankle 9.4 39.0 41 Knee ? 13.5 2.0 F Wave Studies ?NR F-Lat (ms) L-R F-Lat (ms) Left Peroneal (Mrkrs) (EDB) ? 53.68 1.24 Right Peroneal (Mrkrs) (EDB) ? 54.92 1.24 Left Tibial (Mrkrs) (Abd Hallucis) ? 54.54 1.32 Right Tibial (Mrkrs) (Abd Hallucis) ? 55.86 1.32 Electromyography ?Side Muscle Nerve Root Ins Act Fibs Amp Dur Recrt Comment Right AntTibialis Dp Br Fibular L4-5 Nml Nml Nml Nml Nml Right Gastroc Tibial S1-2 Nml Nml Nml Nml Nml Right Fibularis Long Sup Br Fibular L5-S1 Nml Nml Nml Nml Nml Right Flex Dig Long Tibial L5-S2 Nml Nml Nml Nml Nml Right Ext Dig Brev Dp Br Fibular L5, S1 Nml Nml Nml Nml Nml Right QuadratusFem QuadFemoris L4-5, S1 Nml Nml Nml Nml Nml Left AntTibialis Dp Br Fibular L4-5 Nml Nml Nml Nml Nml Left Gastroc Tibial S1-2 Nml Nml Nml Nml Nml Left Fibularis Long Sup Br Fibular L5-S1 Nml Nml Nml Nml Nml Left Flex Dig Long Tibial L5-S2 Nml Nml Nml Nml Nml Left Ext Dig Brev Dp Br Fibular L5, S1 Nml Nml Nml Nml Nml Left QuadratusFem QuadFemoris L4-5, S1 Nml Nml Nml Nml Nml
== END 2025-07-23 12:30 | disposition home or self-care (01) ==
LOC: ANHNEURO 12:30
PROVIDERS: PCP Internal Medicine; Visit Provider Orthopaedic Surgery
DX: I77.9 Disorder of arteries and arterioles, unspecified (principal); E08.42 Diabetes mellitus due to underlying condition with diabetic polyneuropathy
CPT/HCPCS: 95886; 95910

== ENCOUNTER 2025-07-30 00:58 | Emergency (ER) | payer MEDICARE, OTHER, SELFPAY ==
--- OUTSIDE RECORDS SUMMARY | 2024-03-18 09:05 | XMS_ITS | Continuity of Care Document ---
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 Family History Family Member Type Diagnosis Age At Onset No Information Payers Payer name Insurance type Covered republican ID Authoriza tion(s) [employer] Medicare Replacement 16 [id number] For Life Medicare Se condary Only [place] [id number] Social History Type Description Quantity Date Captured [...]
[2025-07-30 01:03] VITALS: BP 183/78; PULSE 78; RESP 20; TEMP 37.1; O2SAT 95
[2025-07-30 01:07] VITALS: BP 183/78; PULSE 69; RESP 20; TEMP 37.1; O2SAT 95
--- OUTSIDE RECORDS SUMMARY | 2025-07-30 01:11 | XMS_ITS | Clinical Summary ---
Author Organization [facility] Address [address] [place] [address] Care Team Providers Care Consumer Sales Representative Name Role Phone Jus Gallego MD Primary Care Provider [phone] Social History Tobacco Use Types Packs/Day Years [...] 01/21/2017 Dexa Scan (General) 01/21/2017 COVID-19 Vaccine (2024-2 6 season) 2025 09/10/2021, 01/16/2021, 12/26/2020 Influenza Adult (#1) 2025 08/17/2020, 07/11/2013 RSV Immunization or 60+ Years (1 - 1-dose 75+ series) 01/21/2027 DTaP, Tdap and Td Vaccines ( 2 - Td or Tdap) 03/15/2032 03/15/2022 Pneumococcal Vaccine: 50+ Years Completed 08/19/2022 Zoster Vaccines Completed 09/06/2023, 05/01/2023, 08/08/2013 Hepatitis A Vaccines Aged Out No long er eligible based on patient's age to complete this topic Meningococcal B Vaccine Aged Out No l onger eligible based on patient's age to complete this topic Meningococcal Vaccine Aged Out No benoit loc eligible based on patient's age to complete this topic RSV Immunizations Under 20 Months Aged Out No longer eligible b ased on patient's age to complete this topic Insurance [facility] MEDICARE Care Teams Consumer Sales Representative Relationship Specialty Start Date End Date Jus Gallego MD [address] - [facility] [address] [place] [address] PCP - General INTERNAL MEDICINE 03/13/24
--- OUTSIDE RECORDS SUMMARY | 2025-07-30 01:11 | XMS_ITS | Clinical Summary ---
Author Organization [facility] Address [address] [address] Phone Care Team Providers Care Assembly Member Name Role Phone Jus Gallego MD Primary Care Provider [phone] Richar Aguilar DO Unavailable [phone] Allergies No known active allergies Medications zolpidem (AMBIEN CR) 12.5 MG Tablet Controlled Release Take 12.5 mg by mouth as needed. Active Glucosamine-Quoc droitin 9753-0195 MG/30ML Liquid Activ e esomeprazole (NEXIUM) 40 [...] Zoster Immunization (2 of 3) 10/03/2013 08/08/2013 Medicare Initial AWV [id number] 12/31/2017 Colonoscopy 08/30/2023 08/30/2018, 05/22/2014 Colorectal Cancer Screening 08/30/2023 Influenza Immunization (#1) 06/02/202507/03, 07/11/2013 SARS-COV-2 Immunization ( season) 2025 09/10/2021, 01/16/2021, 12/26/2020 Respiratory Syncytial Virus (RSV) [...] Procedure Name Priority Date/Time Associated Diagnosis Comments HM COLONOSCOPY Routine 08/30/2018 from Last 3 Months or Most Recently Relevant to Health Maintenance Results * HM COLONOSCOPY (08/30/2018) Richar Aguilar DO PROCEDURE/MINOR SURGICAL ORDERA BLES Final Result from Last 3 Months or Most Recently Relevant to Health Maintenance Insurance MEDICARE [facility] Care Teams Assembly Member Relationship Specialty Start Date End Date Jus Gallego MD PCP - General Internal Medicine 01/04/16 Richar Aguilar DO Gastroenterology 01/04/16
--- OUTSIDE RECORDS SUMMARY | 2025-07-30 01:11 | XMS_ITS | Clinical Summary ---
Author Organization [facility] Address [address] [place] [address] Care Team Providers Care Park Aide Name Role Phone Jus Gallego MD Primary Care Provider [phone] Richar Aguilar DO Unavailable [phone] Allergies No known active allergies Medications metFORMIN (GLUCOPHAGE) 500 mg tablet Take 2 tablets (1,000 mg total) by mouth 2 (two) times a day with meals Active levothyroxine (SYNTHROID) 125 mcg tablet Take 1 tablet (125 mcg total) by mouth c consultant before breakfast 8 Active zolpidem CR [...] mouth 2 (two) times a day Active drynclmgatvm-K2-qp F79-bbijb oil (METANX) 3 mg-35 mg-2 mg -90.314 [...] every morning 90 tablet 3 4 Active dhxghecltvpe-U9-mx Z51-nxroj oil (METANX) 3 mg-35 mg-2 mg -90.314 [...] (08/19/2020): Added automatically from request for surgery [id number] Diverticulitis of large inte kaia without perforation or abscess 03/21/2019 Basal cell carcinoma (BCC) of skin of nose 06/17 Knee pain 01/01/2016 Hypertension 01/15/2014 Hyperlipidemia 01/15/2014 Cephalalgia 01/15/2014 Gastroesophageal reflux disease 01/15/2014 History of hypothyroidism 01/15/2014 Arthritis 01/15/2014 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 Encounters Date Type Department Care Team Description 06/11/2025 1:41 PM CDT - 06/11/2025 11:59 PM CDT Hospital Encounter [facility] Cardiac Testing [address] [place] [address] Peripheral vascular disease, unspecified Discharge Disposition: Discharge to home or self care from Last 3 Months Immunizations Immunization Administration Dates Next Due Influenza, Unspecified 08/17/2020 Surgical History Surgery Date Site/Laterality Comments DE TOTAL ABDOMINAL HYSTERECT W/WO RMVL TUBE OVARY Hysterectomy - (Added by Conv) ANKLE SURGERY Ankle Surgery - (Added by Conv) DE COLONOSCOPY FLX DX W/LYLY J SPEC WHEN PFRMD Complete Colonoscopy - (Added by Conv) EYE SURGERY HYSTERECTOMY CHOLECYSTECTOMY COLON SURGERY 09/12/2020 Open Left Coletomy Medical History Medical History Date Comments Personal history of malignan t neoplasm of ovary Ovarian Cancer - (Added by Conv) Cancer (HCC) Hypertension High cholesterol Diabetes mellitus Thyroid disease Arthritis PONV (postoperative nausea and [...] re latives? Twice a week 09/14/2020 Attends [employer] Services Not on file 09/14 Do you belong to any clubs o r organizations such as advent groups, unions, fraternal or athletic groups, or [...] file Legal Sex Female 3:24 AM LICENSED PRACTICAL NURSE CLINIC NURSE Gender Identity Female 11/09/2020 7:13 PM LICENSED PRACTICAL NURSE CLINIC NURSE Sexual Orientation Straight 11/09/2020 7: 13 PM LICENSED PRACTICAL NURSE CLINIC NURSE Obstetrics History Last Filed Vital Signs Vital Sign Reading Time Taken Comments Blood Pressure 207/94 04/14/2025 3:32 PM CDT Pulse 74 04/14/2025 3:32 PM CDT Temperature 36.2 C (97.2 F) 12/24/2020 3:11 PM CDT Respiratory Rate 15 09/18/2020 9:32 PM LICENSED PRACTICAL NURSE CLINIC NURSE Oxygen Saturation 95% 04/08/2025 3:42 PM CDT [...] 09/17/2021 09/17/2020 Covid-19 Vaccine (2 - season) 2025 Influenza Vaccine (#1) 2025 08/17/2020, 2012 Procedures Procedure Name Priority Date/Time Associated Diagnosis Comments US KIKI Schedule Routine, Read Routine (OP Routine) 06/11/2025 2:04 PM CDT Peripheral vascular disease, unspecified from Last 3 Months Results * US KIKI (06/11/2025 2:04 PM CDT) Anatomical Region Laterality Modality Vascular N/A Ultrasound 06/11/2025 1:43 PM CDT Narrative 06/13/2025 4:16 PM CDT Lower Extremity Arterial Doppler Report Patient Name: NONA KEARNEY Quinn : 1950 Study Date: 06/11/2025 1:43:00 PM Gender: F Billing Auditor: John Boyle Rdms,rvt Ref Provider: THEO NAIDU Quality: Adequate Order Provider: THEO NAIDU PROCEDURES: Arterial Report: Ankle - Brachial Index Doppler exam. INDICATIONS: DM,HTN, HDL and I73.9 Peripheral vascular disease, unspecified. COMPARISONS: No prior exams. MEASUREMENTS: Right Value Left Value Rt Brachial Pressure 200 mmHg Lt Brachial Pressure 215 mmHg Rt LOGISTICAL ENGINEER Pressure 240 mmHg Lt LOGISTICAL ENGINEER Pressure 240 mmHg Rt DPA Pressure 213 mmHg Lt DPA Pressure 183 mmHg Rt 1st Digit Pressure 183 mmHg Lt 1st Digit Pressure 181 mmHg Rt PT KIKI Resting 1.12 Lt PT KIKI Resting 1.12 Rt DP KIKI Resting 0.99 Lt DP KIKI Resting 0.85 Rt Digit 1/Arm Index 0.85 Lt Digit 1/Arm Index 0.84 - FINDINGS: Right Posterior Tibial Artery Analysis: The posterior tibial waveform is triphasic. The right ankle segmental pressure is non-compressible. Right Dorsalis Pedis Artery Analysis: The dorsalis pedis waveform is triphasic. Right Digits: Normal right digit pressure and waveform. Left Posterior Tibial Artery Analysis: The posterior tibial waveform is triphasic. The left ankle segmental pressure is non-compressible. Left Dorsalis Pedis Artery Analysis: The dorsalis pedis waveform is triphasic. Left Digits: Normal left digit pressure and waveform. CONCLUSIONS: 1. Ankle-brachial index of 0.9-1.3 is within normal limits in the right lower extremity. 2. Ankle-brachial index of 0.8-0.9 is consistent with mild occlusive arterial disease in the left lower extremity. ATTESTATION: I have reviewed and interpreted the pertinent images and measurements of this study. I attest to the conclusions in the final report that is provided above. Electronically Signed By: Jose Torres MD 06/13/2025 4:16:01 PM CDT Procedure Note Jose Torres MD - 06/13/2025 Lower Extremity Arterial Doppler Report Patient Name: NONA KEARNEY M : 1950 Study Date: 06/11/2025 1:43:00 PM Gender: F Billing Auditor: John Boyle Rdms,rvt Ref Provider: THEO NAIDU Quality: Adequate Order Provider: THEO NAIDU PROCEDURES: Arterial Report: Ankle - Brachial Index Doppler exam. INDICATIONS: DM,HTN, HDL and I73.9 Peripheral vascular disease, unspecified. COMPARISONS: No prior exams. MEASUREMENTS: Right Value Left Value Rt Brachial Pressure 200 mmHg Lt Brachial Pressure 215 mmHg Rt LOGISTICAL ENGINEER Pressure 240 mmHg Lt LOGISTICAL ENGINEER Pressure 240 mmHg Rt DPA Pressure 213 mmHg Lt DPA Pressure 183 mmHg Rt 1st Digit Pressure 183 mmHg Lt 1st Digit Pressure 181 mmHg Rt PT KKII Resting 1.12 Lt PT KIKI Resting 1.12 Rt DP KIKI Resting 0.99 Lt DP KIKI Resting 0.85 Rt Digit 1/Arm Index 0.85 Lt Digit 1/Arm Index 0.84 - FINDINGS: Right Posterior Tibial Artery Analysis: The posterior tibial waveform is triphasic. The right ankle segmentalpressure is non-compressible. Right Dorsalis Pedis Artery Analysis: The dorsalis pedis waveform is triphasic. Right Digits: Normal right digit pressure and waveform. Left Posterior Tibial Artery Analysis: The posterior tibial waveform is triphasic. The left ankle segmentalpressure is non-compressible. Left Dorsalis Pedis Artery Analysis: The dorsalis pedis waveform is triphasic. Left Digits: Normal left digit pressure and waveform. CONCLUSIONS: 1. Ankle-brachial index of 0.9-1.3 is within normal limits in the rightlower extremity. 2. Ankle-brachial index of 0.8-0.9 is consistent with mild occlusivearterial disease in the left lower extremity. ATTESTATION: I have reviewed and interpreted the pertinent images and measurements ofthis study. I attest to the conclusions in the final report that is provided above. Electronically Signed By: Jose Torres MD 06/13/2025 4:16:01 PM CDT us Theo Naidu MD [facility] PROCEDURES Final Resu lt from Last 3 Months Insurance MEDICARE [facility] Address: [address] [address] [place] [address] [place] [employer] MEDIC[employer] PPO W[employer] FOR LIFE Advance Directives For more information, please contact: [phone] * Full Code (Latest Code Status on File) Date Activated Date Inactivated Comments 09/12/2020 7:17 PM 09/17/2020 7:36 PM Care Teams Park Aide Relationship Specialty Start Date End Date Jus Gallego MD PCP - General 04/03/17 Richar Aguilar DO Referring Physician Gastroenterology 03/21/19
--- NOTE | 2025-07-30 01:19 | ED.FEMALEGU ---
HPI - Female Genitourinary General Chief complaint: Urogenital-Female Stated complaint: think I have vaginal infection Time Seen by Provider: 07/30/25 01:05 History of Present Illness HPI Narrative: Patient is a 75-year-old female presents to the ER with vaginal discomfort. She reports her symptoms started a couple days ago but they became so severe this evening that she was unable to sleep. Patient reports she used yet yeast infection years ago before menopause but has not had any recently. She denies any recent fevers, abnormal vaginal discharge, abdominal pain, burning or urgency with urination. Patient sources a history of diabetes, hyperlipidemia, high blood pressure, and abnormal thyroid. She reports she has been using Vagisil for the past couple of days to try to relieve her symptoms. Patient denies any concern for STDs. Related Data Home Medications ?Medication ?Instructions ?Recorded ?Confirmed ?Last Taken ?Type omega 2-taq-zsv-fish oil 1,200 mg 2 cap PO Q12H 02/12/21 05/27/25 12/13/24 History (144 mg-216 mg) capsule (Fish Oil) calcium 600 mg capsule 600 mg PO Q12H 05/04/24 05/27/25 12/18/24 History Lactobacillus rhamnosus-Bifidobac. 1 cap PO DAILY 12/11/24 05/27/25 12/18/24 History animalis 3 billion cell capsule ([employer]) cetirizine 10 mg tablet (24Hour 10 mg PO DAILY PRN allergy symptoms 12/11/24 05/27/25 Unknown History Allergy) folate 666 1 tablet PO DAILY 12/11/24 05/27/25 12/18/24 History phenylephrine-acetaminophen 5 1 tablet PO Q6H PRN sinus symptoms 12/11/24 05/27/25 Unknown History mg-325 mg tablet (Tylenol Sinus Headache) ascorbate calcium (vitamin C) 500 500 mg PO DAILY 05/27/25 05/27/25 Unknown History mg tablet esomeprazole magnesium 20 mg 20 mg PO DAILY 05/27/25 05/27/25 Unknown History capsule,delayed release (Nexium) magnesium 100 mg capsule 400 mg PO DAILY 05/27/25 05/27/25 Unknown History Allergies Allergy/AdvReac Type Severity Reaction Status Date / Time No Known Allergies Allergy Verified 07/30/25 01:11 Review of Systems Review of Systems: All systems reviewed & are unremarkable except as noted in HPI and below PMFSH Past Medical History Medical History BMI 29.0-29.9,adult Dizziness and giddiness Peripheral arterial occlusive disease Diabetic neuropathy associated with diabetes mellitus due to underlying condition Weakness Bilateral foot pain Encounter for routine adult health examination without abnormal findings Lung nodule Hospital discharge follow-up Upper back pain Encounter for routine adult health examination with abnormal findings Diverticulitis large intestine w/o perforation or abscess w/o bleeding Vaginal candidiasis UTI symptoms Left medial knee pain Diverticulosis of colon Constipation, acute CKD (chronic kidney disease) Cholinergic urticaria Sinusitis Radicular low back pain History of diverticulitis Chronic low back pain Eczema Onychomycosis BMI 27.0-27.9,adult Sinus pressure Diverticulitis LLQ abdominal pain Umbilical hernia Abdominal mass, left lower quadrant Chronic pain of right knee Sacroiliitis Contact dermatitis Persistent fever Chest congestion DJD (degenerative joint disease) of knee Impaired functional mobility, balance, gait, and endurance Hx of colonic polyps BMI 28.0-28.9,adult Encounter for Medicare annual wellness exam Diverticular disease Follow up Abdominal pain Elevated homocysteine History of diverticulitis of colon GERD (gastroesophageal reflux disease) Hx of ovarian cancer On fpc drug therapy Hyperlipidemia Benign essential hypertension Hypothyroidism (acquired) GERD with esophagitis Nausea Stress Anxiety Ovarian cancer Surgical History Surgical History History of colon resection August 2020 Hx of hysterectomy Hx of esophagogastroduodenoscopy Hx of colonoscopy Hx of cholecystectomy Family History Family History Father Family history of elevated blood lipids Family history of Alzheimer's disease Family history of heart disease in male family member before age 55 Patient's father is Family history of cardiovascular disease Sibling Family history of heart disease in male family member before age 55 Family history of cardiovascular disease Mother Family history of seizure disorder Family history of hypercholesterolemia Other Diabetes mellitus Family history of allergic disorder Family history of coronary artery disease Hypertension Social History Social History Smoking status: Never smoker Second hand tobacco smoke exposure: No Alcohol intake: never Substance use: never Substance use type: does not use Do You Feel Safe in your Home?: Yes Lack of Transportation: No Lack of Food: Never True Current Housing: I Have Housing Concerned About Future Housing: No Difficulty Paying Gas/Electric Bills: No Difficulty Paying for Meds: No Currently Unemployed: No Education: Don't Know Difficulty w/ Childcare or Family Care: No Living arrangements: with family Occupation/Education: retired Gender identity (if verbalized by the patient): Female Spiritual care concerns: Yes Exam Narrative: GENERAL: Well appearing, well-nourished, non-toxic, in no acute distress. HEAD: Normocephalic, atraumatic. NECK: Supple. No adenopathy, no masses. RESPIRATORY: Airway patent, respirations nonlabored. Clear to auscultation bilaterally, no rales, rhonchi, wheezing. CARDIOVASCULAR: Regular rate and rhythm without murmurs, rubs, or gallops. Peripheral pulses 2+ and equal bilaterally. ABDOMINAL: Soft, nontender, nondistended, no hepatosplenomegaly. Normoactive BS. MUSCULOSKELETAL: Moves all extremities. Strength/ROM intact without gross deformities. SKIN: Warm, dry, normal color. No rashes. NEURO: A&O X3. Speech clear. Cranial nerves II-XII intact. No ataxic movements. PSYCHIATRIC: Appropriate mood and affect. Normal interaction. : Patient's vaginal exam indicates slight redness around her vaginal opening, no visible abnormal discharge. Course Vital Signs Vital signs: Vital Signs Temperature 37.1 C 07/30/25 01:03 Pulse Rate 78 07/30/25 01:03 Respiratory Rate 20 07/30/25 01:03 Blood Pressure 183/78 H 07/30/25 01:03 Pulse Oximetry 95 07/30/25 01:03 Oxygen Delivery Room Air 07/30/25 01:03 Temperature 37.1 C 07/30/25 01:07 Pulse Rate 69 07/30/25 01:07 Respiratory Rate 20 07/30/25 01:07 Blood Pressure 183/78 H 07/30/25 01:07 Pulse Oximetry 95 07/30/25 01:07 Oxygen Delivery Room Air 07/30/25 01:03 MDM - Female Genitourinary MDM Narrative Medical decision making narrative: Patient is a 75-year-old female presents to the ER with vaginal discomfort. She reports her symptoms started a couple days ago but they became so severe this evening that she was unable to sleep. Patient reports she used yet yeast infection years ago before menopause but has not had any recently. She denies any recent fevers, abnormal vaginal discharge, abdominal pain, burning or urgency with urination. Patient sources a history of diabetes, hyperlipidemia, high blood pressure, and abnormal thyroid. She reports she has been using Vagisil for the past couple of days to try to relieve her symptoms. Patient denies any concern for STDs. Patient Education/Shared MDM: Results of lab work shared with patient. She endorses improvement of symptoms following medication administration. Patient will be given her 1st dose of Diflucan here in the ER. She was advised to discontinue use of the Vagisil. Patient strongly advised to maintain hydration status upon discharge and follow-up with her PCP as soon as possible for re-evaluation. She will be discharged home with a prescription for lidocaine and a repeat dose of Diflucan. Strict return precautions provided. Patient verbalized understanding and is in agreement with plan. Vital signs stable at time of discharge. All questions answered. Differential Diagnosis Differential diagnosis: Likely urinary tract infection, ovarian cyst, vaginitis and cystitis Lab Data Attestation: I reviewed the patient's lab results. Labs: Lab Results 07/30/25 Range/Units 01:12 Urine Color Yellow (Yellow) Urine Appearance Clear (Clear) Urine pH 6.5 (5.0-9.0) Ur Specific [place] 1.015 (1.001-1.035) Urine Protein Negative (Negative) mg/dL Urine Glucose (UA) 3+ H (Negative) mg/dL Urine Ketones Negative (Negative) mg/dL Ur Blood (Man) Negative (Negative) Urine Nitrate Negative (Negative) Urine Bilirubin Negative (Negative) Urine Urobilinogen 0.2 (<2.0) mg/dL Add Ur Microanalysis Reviewed Leukocyte Esterase Rfl 1+ H (Negative) MICHELLE/UL Urine RBC 3-5 H (0-2) /hpf Urine WBC 0-5 (0-3) /hpf Ur Squamous Epith Cells None seen (Few) /hpf Urine Bacteria Trace /hpf Urine Casts 0-2 Discharge Plan Discharge Clinical Impression: Vaginal yeast infection, Vaginal irritation Patient Disposition: Home Condition: Stable Instructions: Antibiotic Form, Yeast Infection (ED) Additional Instructions: Please return to the ER with any worsening symptoms, including fevers, urinary symptoms, or uncontrolled pain. You may take Tylenol and Ibuprofen together as needed for pain control. Please take Diflucan again in three days. You may place LET gel on the irritated area. Follow-up with your primary care provider for re-evaluation and to ensure you're healing appropriately. Please check your blood sugars regularly at home. Take all regular medications as prescribed. Patient Language: Khmer Prescriptions: New fluconazole 150 mg tablet 150 mg PO ONCE Qty: 1 0RF Rx Instructions: as a single dose lidocaine 5 % ointment 1 applic topical TID PRN (Reason: skin irritation) Qty: 30 0RF No Action omega 6-dmq-pfn-fish oil [Fish Oil] 1,200 (144-216) mg Capsule 2 cap PO Q12H valsartan 320 mg tablet 320 mg PO DAILY Qty: 90 1RF Rx Instructions: Please D/C the Losartan HCTZ. Thank you ascorbate calcium (vitamin C) 500 mg tablet 500 mg PO DAILY esomeprazole magnesium [Nexium] 20 mg capsule,delayed release(DR/EC) 20 mg PO DAILY hydrochlorothiazide 25 mg tablet 25 mg PO DAILY Qty: 90 1RF magnesium 100 mg capsule 400 mg PO DAILY gabapentin [Neurontin] 100 mg capsule 100 mg PO TID Qty: 90 4RF calcium 600 mg Capsule 600 mg PO Q12H folate 666 1 tablet PO DAILY [employer] 3 billion cell capsule 1 cap PO DAILY cetirizine [24Hour Allergy] 10 mg tablet 10 mg PO DAILY PRN (Reason: allergy symptoms) Tylenol Sinus Headache 5-325 mg tablet 1 tablet PO Q6H PRN (Reason: sinus symptoms) metformin 1,000 mg tablet See Rx Instructions .ROUTE .COMPLEX Qty: 225 1RF Dose Instruction: TAKE 1 TABLET BY MOUTH IN THE MORNING AND 1 AND 1/2 TABLETS IN THE EVENING Rx Instructions: TAKE 1 TABLET BY MOUTH IN THE MORNING AND 1 AND 1/2 TABLETS IN THE EVENING atorvastatin 20 mg tablet See Rx Instructions .ROUTE .COMPLEX Qty: 90 1RF Dose Instruction: TAKE 1 TABLET BY MOUTH EVERY DAY Rx Instructions: TAKE 1 TABLET BY MOUTH EVERY DAY lorazepam 1 mg tablet 1 mg PO BID PRN (Reason: anxiety) Qty: 60 1RF Jardiance 10 mg tablet 10 mg PO DAILY Qty: 90 2RF levothyroxine 125 mcg tablet See Rx Instructions .ROUTE .COMPLEX Qty: 90 0RF Dose Instruction: TAKE 1 TABLET BY MOUTH DAILY Rx Instructions: TAKE 1 TABLET BY MOUTH DAILY ondansetron 8 mg tablet,disintegrating 8 mg PO Q8H PRN (Reason: nausea and vomiting) Qty: 30 0RF metoprolol succinate 50 mg tablet extended release 24 hr 75 mg PO QHS Qty: 45 2RF zolpidem 12.5 mg tablet,ext release multiphase 12.5 mg PO QHS Qty: 90 0RF Follow-up/Referrals: Jus Gallego MD [Primary Care Provider, Internal Medicine] Time of Disposition: 02:10
[2025-07-30] MEDS: ACETAMINOPHEN 500 MG TABLET 1000 MG PO (01:23)
[2025-07-30] MEDS: LIDOCAINE, EPINEPHRINE, TETRACAINE VISCOUS SOLN 3 ML TOPICAL (01:23)
[2025-07-30 01:26] LABS: Add Urine Microscopic? YES; Appearance Urine Clear (Clear); Glucose Urine UA 3+ mg/dL (Negative); Leukocyte Esterase Ur 1+ LEU/UL (Negative); Need Manual Microscopic Reviewed; Nitrate Urine Negative (Negative); Non Pathogenic Casts 0-2; Specific Grav Ur 1.015 (1.001-1.035)
[2025-07-30] MEDS: FLUCONAZOLE 150 MG TABLET PO (02:05)
[2025-07-30 02:27] VITALS: BP 174/70; PULSE 62; RESP 21; O2SAT 98
== END 2025-07-30 02:23 | disposition home or self-care (01) ==
PROVIDERS: Emergency Provider Registered Nurse; PCP Internal Medicine
DX: B37.31 Acute candidiasis of vulva and vagina (principal); E78.5 Hyperlipidemia, unspecified; E11.40 Type 2 diabetes mellitus with diabetic neuropathy, unspecified; E11.22 Type 2 diabetes mellitus with diabetic chronic kidney disease; I12.9 Hypertensive chronic kidney disease with stage 1 through stage 4 chronic kidney disease, or unspecified chronic kidney disease; N18.9 Chronic kidney disease, unspecified; E03.9 Hypothyroidism, unspecified; K21.00 Gastro-esophageal reflux disease with esophagitis, without bleeding; M17.9 Osteoarthritis of knee, unspecified; F41.9 Anxiety disorder, unspecified; Z85.43 Personal history of malignant neoplasm of ovary; Z90.49 Acquired absence of other specified parts of digestive tract; Z90.710 Acquired absence of both cervix and uterus; Z79.84 Long term (current) use of oral hypoglycemic drugs; Z79.899 Other long term (current) drug therapy
CPT/HCPCS: 81001; 87086; 99283; A9270

== ENCOUNTER 2025-09-06 20:21 | Observation (INO) | payer MEDICARE, OTHER, SELFPAY ==
--- OUTSIDE RECORDS SUMMARY | 2024-03-18 08:05 | XMS_ITS | Continuity of Care Document ---
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 Family History Family Member Type Diagnosis Age At Onset No Information Payers Payer name Insurance type Covered democrat ID Authoriza tion(s) [employer] Medicare Replacement 16 [id number] For Life Medicare Se condary Only [place] [id number] Social History Type Description Quantity Date Captured Comments Sex Female Smoking Status No Information Chief Complaint And Reason For Visit No Information Reason For Referral Reason For Referral No Information History Of Present Illness Encounter Date Complaint History Of Prese nt Illness No Information Functional Status Date Functional Assessmen t No Information Instructions Date Instruction Additional Infor mation No Information Assessments Type Assessment Date No Information Patient Care Teams Name Effective Dates (start - stop) Status Members No Information
--- NOTE | ~2025-09-06 | CT_ITS ---
EXAMINATION: CTA abdomen pelvis DATE: 09/07/2025 00:58 INDICATION: Back pain. TECHNIQUE: Computed tomographic angiography (CTA) of the abdomen and pelvis was performed with 100 mL Omnipaque-350 intravenous contrast. Automated exposure control and iterative reconstruction technique were employed. The dose-length product was 547.39 mGy-cm. Maximum intensity projection 3D-reconstructions of the aorta and other arteries were constructed by the technologist on a separate workstation. COMPARISON: CT abdomen and pelvis 04/26/2025 FINDINGS: The visualized portions of the lung bases demonstrate mild atelectasis. No pleural effusion. The heart size is normal. No pericardial effusion. The liver and spleen are normal. There are changes of cholecystectomy. The pancreas and adrenal glands are normal. There is cortical thinning of the kidneys. There is an anastomosis in the sigmoid colon. The appendix is not visualized. There are no dilated loops of bowel. There are no pathologically enlarged lymph nodes. There is no ascites. There is no significant stenosis of celiac axis, superior mesenteric artery, or the renal arteries. 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 There is mild thoracic and lumbar spondylosis. IMPRESSION: 1. Total occlusion of inferior mesenteric artery. Reviewed, dictated and finalized at location E. LOTINE OPERATOR
--- NOTE | ~2025-09-06 | CT_ITS ---
EXAMINATION: CT brain wo con DATE: 09/08/2025 19:08 INDICATION: Headache. Hypertension. TECHNIQUE: Computed tomography (CT) of the head was performed without intravenous contrast. The mA was adjusted according to patient size. Iterative reconstruction technique was employed. The dose-length product was 605.33 mGy-cm. COMPARISON: None FINDINGS: No acute intracranial bleed. No evidence of ventriculomegaly or midline shift. Chronic small vessel ischemic change of periventricular white matter. Partly calcified extra-axial lesion in the right parasagittal location in the occipital region, 1.5 cm in diameter, probably representing meningioma. No acute bony lesions. Sinuses and mastoids are clear. IMPRESSION: 1. No acute intracranial lesions. Chronic small vessel ischemic change of periventricular white matter. 2. Partly calcified extra-axial lesion 1.5 cm in size in the right parasagittal location in the occipital region, probably representing a meningioma. Elective further evaluation with MRI with contrast is recommended. Reviewed, dictated and finalized at location T. ER OPERATOR TILE IMPRESSION: 1. No acute intracranial lesions. Chronic small vessel ischemic change of periv entricular white matter. 2. Partly calcified extra-axial lesion 1.5 cm in size in the right parasagittal location in the occipital region, probably representing a meningioma. Elective further evaluation with MRI with contrast is recommended.
--- NOTE | ~2025-09-06 | CT_ITS ---
EXAMINATION: CTA chest PE protocol DATE: 09/07/2025 03:31 INDICATION: Breathing abnormality. TECHNIQUE: Computed tomography angiography (CTA) of the chest was performed with 100 mL Omnipaque-350 intravenous contrast timed to evaluate the pulmonary arteries. Coronal maximum intensity projection 3D-reconstructions were created by the technologist. Automated exposure control and iterative reconstruction technique were employed. The dose-length product was 283.99 mGy-cm. COMPARISON: Chest CT 01/14/25 FINDINGS: There is mild scarring at the lung apices. There is mild atelectasis bilaterally. No pleural effusion. The heart size is normal. There are coronary artery calcifications. No pericardial effusion. There is no pulmonary embolus. There is wall thickening of the esophagus. There are changes of cholecystectomy. There is mild thoracic spondylosis. IMPRESSION: 1. No pulmonary embolus. 2. Wall thickening of the esophagus, consistent with esophagitis. Reviewed, dictated and finalized at location E. [facility]
--- NOTE | ~2025-09-06 | MR_ITS ---
EXAMINATION: MRI brain with and without contrast DATE: 09/09/2025 INDICATION: Headache. Follow-up of CT finding of unclear 1.5 cm size parasagittal meningioma in the occipital region. TECHNIQUE: Axial, coronal and sagittal images as contrast study with seen in the Amperionce IV. COMPARISON: CT head without contrast 09/08/2025 FINDINGS: No acute ischemic change on the diffusion study. No intracranial bleed or extra-axial collections. No significant chronic ischemic change. Well-circumscribed, enhancing extra-axial mass is noted in the occipital region in the right parasagittal location. The mass measures 15 x 18 x 12 mm in size. Findings are suggestive of meningioma. No ventriculomegaly or midline shift. IMPRESSION: 1. No evidence of acute ischemia or intracranial bleed. No ventriculomegaly or midline shift. 2. Well-circumscribed enhancing extra-axial mass in the right parasagittal location in the occipital region, 15 x 18 x 12 mm in size suggestive of meningioma. This is consistent with findings on the CT head dated 09/08/2025. Reviewed, dictated and finalized at location T. STERED DENTAL ASSISTANT RDA IMPRESSION: 1. No evidence of acute ischemia or intracranial bleed. No ventriculomegaly or midline shift. 2. Well-circumscribed enhancing extra-axial mass in the right parasagittal loca tion in the occipital region, 15 x 18 x 12 mm in size suggestive of meningioma. This is consistent with findings on the CT head dated 09/08/2025.
--- NOTE | ~2025-09-06 | XR_ITS ---
Examination: XR chest 1V Clinical History: fatigue Comparison: 04/26/2025 Technique: Portable AP Findings: Heart size normal. Lungs clear. No acute bony abnormality. IMPRESSION: 1. No acute cardiopulmonary findings given portable technique. Reviewed, dictated and finalized at location R. TRIC REPAIR SUPERVISOR
--- OUTSIDE RECORDS SUMMARY | 2025-09-06 20:22 | XMS_ITS | Clinical Summary ---
Author Organization [facility] Address [address] [address] Care Team Providers Care Powderman Name Role Phone Jus Gallego MD Primary Care Provider [phone] Source Comments [facility],non-owned Affiliates and Associated Physician Practices is amultiple site organization consisting of ambulatory clinics and hospital sitesin [place], [place] and [place]. This disclosure is being madepursuant to the Care Everywhere program and may not contain all information available regarding this patient. Last updated 18.[facility] Encounters Date Type Department Care Team Description 08/21/2025 Lab Requisition [facility] - Derm[facility] Lab [address] [place] [id number] Bruna Ledezma DO Neoplasm of uncertain behavior of skin from Last 3 Months Social History Tobacco Use Types Packs/Day Years Used Date Smoking Tobacco: Never Assessed Comments Unknown Sex and Gender Information Value Date Recorded Sex Assigned at Not on file Legal Sex Female 12:34 PM STONEWORK TRACER Gender Identity Not on file Sexual Orientation Not on file Plan of Treatment Health Maintenance Due Date Last Done Comments BONE DENSITY TESTING 1950 COLOGUARD (AGES 45-75) - COL ON CA SCREENING 1952 COLON MONITORING 1952 COLONOSCOPY - COLON CA SCREENING 1952 CT COLONOGRAPHY - COLON CA SCREENING 1950 Colorectal Cancer Screening 1952 FIT - COLON CA SCREENING 1952 FLEX SIG - COLON CA SCREENING 1952 LIPID TESTING 1952 MAMMOGRAM 1952 HEPATITIS C SCREENING 01/17/1970 DTAP/TDAP/TD VACCINES (1 - Tdap) 01/21/1971 PNEUMOCOCCAL VACCINE 50+ (1 of 1 - PCV) 01/21/2002 ZOSTER VACCINE (1 of 2) 01/21/2002 DEPRESSION SCREENING 10/02/2024 MEDICARE AWV CALENDAR YEAR 2024 COVID-19 VACCINE (1 - 2024-2 6 season) 2025 INFLUENZA VACCINE (#1) 2025 08/17/2020 Respiratory Syncytial Virus (RSV) Vaccine Pt: or over 60 yrs (1 - 1-dose 75+ series) 01/21/2027 HEPATITIS B VACCINE Aged Out No longe r eligible based on patient's age to complete this topic HIB VACCINE Aged Out No longer eligi ble based on patient's age to complete this topic HPV VACCINE Aged Out No longer eligi ble based on patient's age to complete this topic MENINGOCOCCAL (Group B) VACC INE SHARED DECISION-MAKING Aged Out No longer eligibl e based on patient's age to complete this topic MENINGOCOCCAL GROUPS A/C/Y/W VACCINE Aged Out No longer eligible b ased on patient's age to complete this topic Procedures Procedure Name Priority Date/Time Associated Diagnosis Comments DERMATOPATHOLOGY Routine 08/21/2025 7:00 AM STONEWORK TRACER Neoplasm of uncertain behavior of skin from Last 3 Months Results * DERMATOPATHOLOGY (08/21/2025 7:00 AM STONEWORK TRACER) Case Report Dermatopathology Report Case: [id number] Authorizing Provider: Bruna Ledezma DO Collected: 08/21/2025 07:00 AM Ordering Location: [facility] - Received: 08/22/2025 10:30 AM DermPath Lab Pathologist: Liliana Cerna MD Specimen: Skin, left lower back 12:45 PM STONEWORK TRACER DERMATOPATHOLOGY LABORATORY Final Diagnosis Specimen A. 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 The specimen consists of a shave biopsy measuring 5x5x1 mm. Jar 0. 12:45 PM [facility] DERMATOPATHOLOGY LABORATORY Microscopic Description Specimen A. SKIN, left lower back: Sections show a proliferation of spindled and S-shaped cells within the dermis. The stromal collagen is delicate and pale. The epidermis is focally eroded. The base of the lesion is not visualized. 12:45 PM [facility] DERMATOPATHOLOGY LABORATORY Disclaimer An external and internal positive and negative controls are appropriate for the histochemical, immunohistochemical and immunofluorescence stain(s) in this case (if any), except where stated explicitly. The performance characteristics of the stain(s) cited in this report were developed and its performance characteristic determined by the Dermatopathology Laboratory at [facility], directed by Dr. Mile Hartman. These tests need not be, and therefore are not, approved by the [place] Food and Drug Administration. The tests are used for clinical purposes. Billing Codes Specimen Charges Stain Charges 44994 1 12:45 PM [facility] DERMATOPATHOLOGY LABORATORY Embedded Images 12:45 PM [facility] DERMATOPATHOLOGY LABORATORY Pathology/Cytolo gy TISSUE SPECIMEN FROM SKIN / Unknown 08/21/2025 7:00 AM STONEWORK TRACER 08/22/2025 10:30 AM STONEWORK TRACER us Bruna Ledezma DO LAB - PATHOLOGY/CYTOLOGY ORDERABLES Final Result DERMATOPATHOLOGY LABORATORY [facility] - Department of Dermatology [facility] [address] [place] [address], [address] [phone] from Last 3 Months Insurance MEDICARE SELF PAY NO INSURANCE Member Subscriber Plan / Payer (Ef fective for All Dates) Name:Nona Kearney Member ID:Not on file Relation to Subscriber:Not on file Name:NONA KEARNEY Subscriber ID:Not on file (Home) Address: [address] [place] [address] Payer ID:Not on file Group ID:Not on file Type:Self Pay Address: [place], [place] [employer] MEDICARE ADV HMO & PPO Care Teams Powderman Relationship Specialty Start Date End Date Jus Gallego MD [address] [place] [phone] PCP - General Internal Medicine 10/22/15
--- OUTSIDE RECORDS SUMMARY | 2025-09-06 20:22 | XMS_ITS | Clinical Summary ---
Author Organization [facility] Address [address] [place] [address] Care Team Providers Care Buzzsaw Operator Name Role Phone Jus Gallego MD Primary Care Provider [phone] Social History Tobacco Use Types Packs/Day Years [...] patient's age to complete this topic Insurance [facility] MEDICARE Care Teams Buzzsaw Operator Relationship Specialty Start Date End Date Jus Gallego MD [address] [place] [phone] PCP - General INTERNAL MEDICINE 03/13/24
--- OUTSIDE RECORDS SUMMARY | 2025-09-06 20:22 | XMS_ITS ---
Author Organization [facility] Address [address] [place] [address] Care Team Providers Care Dermatology Nurse Practitioner Name Role Phone Jus Gallego MD Primary Care Provider [phone] Richar Aguilar DO Unavailable [phone] Active Problems Problem Noted Date Diagnosed Date PVD (peripheral vascular disease) 09/03/2025 Assessment & Plan (09/03/2025 9:11 AM HEAD OF MUSIC): No evidence of significant PVD on exam or on her ABIs. I suspect her symptoms are due to neuropathy possibly from her diabetes or prior chemotherapy, suggest re- evaluation of her gabapentin dosing. Can follow up me as needed. Primary osteoarthritis of left knee 08/13/2025 Primary osteoarthritis of right knee 08/13/2025 Takotsubo cardiomyopathy 08/22/2024 Status post gastrointestinal surgery, follow-up exam 10/15/2020 Diverticulitis 08/19/2020 Overview (08/19/2020): Added automatically from request for surgery [id number] Diverticulitis of large inte kaia without perforation or abscess 03/21/2019 Basal cell carcinoma (BCC) of skin of nose 06/17 Knee pain 01/01/2016 Hypertension 01/15/2014 Assessment & Plan (09/03/2025 9:11 AM HEAD OF MUSIC): Stable metoprolol Hyperlipidemia 01/15/2014 Assessment & Plan (09/03/2025 9:11 AM HEAD OF MUSIC): Stable continue Lipitor Cephalalgia 01/15/2014 Gastroesophageal reflux disease 01/15/2014 History [...]
--- OUTSIDE RECORDS SUMMARY | 2025-09-06 20:22 | XMS_ITS | Clinical Summary ---
Author Organization [facility] Address [address] [place] [address] Care Team Providers Care Project Development Engineer Name Role Phone Jus Gallego MD Primary Care Provider [phone] Richar Aguilar DO Unavailable [phone] Allergies No known active allergies Medications metFORMIN (GLUCOPHAGE) 500 mg tablet Take 2 tablets (1,000 mg total) by mouth 2 (two) times a day with meals Active levothyroxine (SYNTHROID) 125 mcg tablet Take 1 tablet (125 mcg total) by mouth director volunteer services before breakfast 8 Active zolpidem CR (AMBIEN [...] mouth 2 (two) times a day Active xcvysunytpsi-V3-zh U80-wwbmp oil (METANX) 3 mg-35 mg-2 mg -90.314 [...] every morning 90 tablet 3 4 Active ksdtwzsziyji-C2-jt U91-tncol oil (METANX) 3 mg-35 mg-2 mg -90.314 [...] 09/03/2025 Assessment & Plan (09/03/2025 9:11 AM M1 ARMOR CREWMAN): No evidence of significant PVD on exam [...] (08/19/2020): Added automatically from request for surgery [id number] Diverticulitis of large inte kaia without perforation or abscess 03/21/2019 Basal cell carcinoma (BCC) of skin of nose 06/17 Knee pain 01/01/2016 Hypertension 01/15/2014 Assessment & Plan (09/03/2025 9:11 AM M1 ARMOR CREWMAN): Stable metoprolol Hyperlipidemia 01/15/2014 Assessment & Plan (09/03/2025 9:11 AM M1 ARMOR CREWMAN): Stable continue Lipitor Cephalalgia 01/15/2014 Gastroesophageal reflux disease 01/15/2014 History of hypothyroidism 01/15/2014 Arthritis 01/15/2014 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 Encounters Date Type Department Care Team Description 09/03/2025 9:00 AM M1 ARMOR CREWMAN Office Visit [facility] at [address] [place] [address] Guido Torres MD PVD (peripheral vascular disease) (Primary Dx); Mixed hyperlipidemia; Primary hypertension 08/13/2025 2:00 PM M1 ARMOR CREWMAN Office Visit [facility] [address] [place] [phone] Allan Zelaya MD Left knee pain, unspecified chronicity (Primary Dx); Primary osteoarthritis of left knee; Primary osteoarthritis of right knee 08/13/2025 1:55 PM M1 ARMOR CREWMAN Ancillary Procedure [facility] at [address] [phone] 08/13/2025 Orders Only [facility] [address] [place] [phone] Allan Zelaya MD Pre-operative exam (Primary Dx); S/P total knee arthroplasty, left 08/13/2025 Telephone [facility] [address] [place] [phone] Allan Zelaya MD Surgical Clearance 06/11/2025 1:41 PM CDT - 06/11/2025 11:59 PM CDT Hospital Encounter [facility] Cardiac Testing [address] [place] [address] Peripheral vascular disease, unspecified Discharge Disposition: Discharge to home or self care from Last 3 Months Immunizations Immunization Administration Dates Next Due Influenza, Unspecified 08/17/2020 Surgical History Surgery Date Site/Laterality Comments LA TOTAL ABDOMINAL HYSTERECT W/WO RMVL TUBE OVARY Hysterectomy - (Added by Conv) ANKLE SURGERY Ankle Surgery - (Added by Conv) LA COLONOSCOPY FLX DX W/LYLY J SPEC WHEN [...] re latives? Twice a week 09/14/2020 Attends Mosque Services Not on file 09/14 Do you belong to any clubs o r organizations such as protestant groups, unions, fraternal or athletic groups, or [...] on file Legal Sex Female 3:24 AM M1 ARMOR CREWMAN Gender Identity Female 11/09/2020 7:13 PM M1 ARMOR CREWMAN Sexual Orientation Straight 11/09/2020 7: 13 PM M1 ARMOR CREWMAN Last Filed Vital Signs Vital Sign Reading Time Taken Comments Blood Pressure 168/85 09/03/2025 8:49 AM M1 ARMOR CREWMAN Pulse 67 09/03/2025 8:49 AM M1 ARMOR CREWMAN Temperature 36.2 C (97.2 F) 12/24/2020 3:11 PM CDT Respiratory Rate 15 09/18/2020 9:32 PM M1 ARMOR CREWMAN Oxygen Saturation 98% 09/03/2025 8:49 AM M1 ARMOR CREWMAN Inhaled Oxygen Concentration - - Weight 76.7 kg (169 lb) 09/03/2025 8:49 AM M1 ARMOR CREWMAN Height 162.6 cm (5' 4) 09/03/2025 8:49 AM M1 ARMOR CREWMAN Body Mass Index 29.01 09/03/2025 8:49 AM M1 ARMOR CREWMAN Plan of Treatment Health Maintenance Due Date [...] Date/Time Associated Diagnosis Comments XR KNEE LEFT 4 OR MORE VIEWS Schedule Routine, Read Routine (OP Routine) 08/13/2025 2:36 PM M1 ARMOR CREWMAN Left knee pain, unspecified chronicity US KIKI Schedule Routine, Read Routine (OP Routine) 06/11/2025 2:04 PM CDT Peripheral vascular disease, unspecified from Last 3 Months Results * XR Knee Left 4 or More Views (08/13/2025 2:36 PM M1 ARMOR CREWMAN) Anatomical Region Laterality Modality Lower Extremities, Knee Left Digital Radiography Narrative 08/13/2025 3:32 PM M1 ARMOR CREWMAN Four views left knee shows end-stage osteoarthrosis with varus deformity kl grade 3 osteoarthrosis right knee shows kl grade 4 osteoarthrosis no fractures us Allan Zelaya MD IMG XR PROCEDURES Final Resu lt * US KIKI (06/11/2025 2:04 PM CDT) Anatomical Region Laterality Modality Vascular N/A Ultrasound 06/11/2025 1:43 PM CDT Narrative 06/13/2025 4:16 PM CDT Lower Extremity Arterial Doppler Report Patient Name: NONA KEARNEY M : 1950 Study Date: 06/11/2025 1:43:00 PM Gender: F Community Integration Specialist: John Boyle Rdms,rvt Ref Provider: THEO NAIDU Quality: Adequate Order Provider: THEO NAIDU PROCEDURES: Arterial Report: Ankle - Brachial Index Doppler exam. INDICATIONS: DM,HTN, HDL and I73.9 Peripheral vascular disease, unspecified. COMPARISONS: No prior exams. MEASUREMENTS: Right Value Left Value Rt Brachial Pressure 200 mmHg Lt Brachial Pressure 215 mmHg Rt SUPERINTENDENT TESTS Pressure 240 mmHg Lt SUPERINTENDENT TESTS Pressure 240 mmHg Rt DPA Pressure 213 [...] Study Date: 06/11/2025 1:43:00 PM Gender: F Community Integration Specialist: John Boyle Rdms,t Ref Provider: THEO NAIDU Quality: Adequate Order Provider: THEO NAIDU PROCEDURES: Arterial Report: Ankle - Brachial Index Doppler exam. INDICATIONS: DM,HTN, HDL and I73.9 Peripheral vascular disease, unspecified. COMPARISONS: No prior exams. MEASUREMENTS: Right Value Left Value Rt Brachial Pressure 200 mmHg Lt Brachial Pressure 215 mmHg Rt SUPERINTENDENT TESTS Pressure 240 mmHg Lt SUPERINTENDENT TESTS Pressure 240 mmHg Rt DPA Pressure 213 [...] Jose Torres MD 06/13/2025 4:16:01 PM CDT Theo Naidu MD [facility] PROCEDURES Final Resu lt from Last 3 Months Insurance MEDICARE Member Subscriber Plan / Payer (Ef fective 2016-Present) Name:Nona Kearney Member ID:[id number] Relation to Subscriber:Self Name:Nona Kearney Subscriber ID:[id number] Payer ID:[id number] Group ID:Not on file Type:MEDICARE TRADITIONAL Address: [address] [address] [place] [address] FOR LIFE [employer] CHOICE MEDICARE PPO FOR LIFE Advance Directives For more information, please contact: [phone] * Full Code (Latest Code Status on File) Date Activated Date Inactivated Comments 09/12/2020 7:17 PM 09/17/2020 7:36 PM Care Teams Project Development Engineer Relationship Specialty Start Date End Date Jus Gallego MD PCP - General 04/03/17 Richar Aguilar DO Referring Physician Gastroenterology 03/21/19
--- OUTSIDE RECORDS SUMMARY | 2025-09-06 20:22 | XMS_ITS | Encounter Summary ---
Author Organization [facility] Address [address] [place] [address] Care Team Providers Care Sheetmetal Trades Worker Name Role Phone Jus Gallego MD Primary Care Provider [phone] Encounter Details Date Type Department Care Team (Late st Contact Info) Description 08/21/2025 Lab Requisition [facility] - DermPath Lab [address] [place] [phone] Bruna Ledezma DO [address] [facility] [address] [place] [address] Neoplasm of uncertain behavior of skin Social History Tobacco Use Types Packs/Day Years Used Date Smoking Tobacco: Never Assessed Comments Unknown Sex and Gender Information Value Date Recorded Sex Assigned at Not on file Legal Sex Female 12:34 PM SKIVER OPERATOR Gender Identity Not on file Sexual Orientation Not on file documented as of this encounter Plan of Treatment Not on file documented as of this encounter Procedures Procedure Name Priority Date/Time Associated Diagnosis Comments DERMATOPATHOLOGY Routine 08/21/2025 7:00 AM SKIVER OPERATOR Neoplasm of uncertain behavior of skin documented in this encounter Results * DERMATOPATHOLOGY (08/21/2025 7:00 AM SKIVER OPERATOR) Case Report Dermatopathology Report Case: [id number] Authorizing Provider: Bruna Ledezma DO Collected: 08/21/2025 07:00 AM Ordering Location: [facility] - Received: 08/22/2025 10:30 AM DermPath Lab Pathologist: Liliana Cerna MD Specimen: Skin, left lower back 12:45 PM SKIVER OPERATOR DERMATOPATHOLOGY LABORATORY Final Diagnosis Specimen A. 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 The specimen consists of a shave biopsy measuring 5x5x1 mm. Jar 0. 12:45 PM [facility] DERMATOPATHOLOGY LABORATORY Microscopic Description Specimen A. SKIN, left lower back: Sections show a proliferation of spindled and S-shaped cells within the dermis. The stromal collagen is delicate and pale. The epidermis is focally eroded. The base of the lesion is not visualized. 12:45 PM [facility] DERMATOPATHOLOGY LABORATORY Disclaimer An external and internal positive and negative controls are appropriate for the histochemical, immunohistochemical and immunofluorescence stain(s) in this case (if any), except where stated explicitly. The performance characteristics of the stain(s) cited in this report were developed and its performance characteristic determined by the Dermatopathology Laboratory at [facility], directed by Dr. Mile Hartman. These tests need not be, and therefore are not, approved by the [place] Food and Drug Administration. The tests are used for clinical purposes. Billing Codes Specimen Charges Stain Charges 92217 1 12:45 PM [facility] DERMATOPATHOLOGY LABORATORY Embedded Images 12:45 PM [facility] DERMATOPATHOLOGY LABORATORY Pathology/Cytolo gy TISSUE SPECIMEN FROM SKIN / Unknown 08/21/2025 7:00 AM SKIVER OPERATOR 08/22/2025 10:30 AM [facility] us Bruna Ledezma DO LAB - PATHOLOGY/CYTOLOGY ORDERABLES Final Result DERMATOPATHOLOGY LABORATORY [facility] - Department of Dermatology [facility] Medicine [address] [place] [address], [address] [phone] documented in this encounter Visit Diagnoses Diagnosis Neoplasm of uncertain behavior of skin documented in this encounter Care Teams Sheetmetal Trades Worker Relationship Specialty Start Date End Date Jus Gallego MD [address] [place] [address] PCP - General Internal Medicine 10/22/15 documented as of this encounter
--- OUTSIDE RECORDS SUMMARY | 2025-09-06 20:22 | XMS_ITS | Clinical Summary ---
Author Organization [facility] Address [address] [address] Phone Care Team Providers Care Lithograph Printer Name Role Phone Jus Gallego MD Primary Care Provider [phone] Richar Aguilar DO Unavailable [phone] Allergies No known active allergies Medications zolpidem (AMBIEN CR) 12.5 MG Tablet Controlled Release Take 12.5 mg by mouth as needed. Active Glucosamine-Quoc droitin 0149-5794 MG/30ML Liquid Activ e esomeprazole (NEXIUM) 40 [...] Recently Relevant to Health Maintenance Insurance MEDICARE [facility] Care Teams Lithograph Printer Relationship Specialty Start Date End Date Jus Gallego MD PCP - General Internal Medicine 01/04/16 Richar Aguilar DO Gastroenterology 01/04/16
[2025-09-06 20:25] VITALS: BP 213/78; PULSE 81; RESP 15; TEMP 36.7; O2SAT 97
[2025-09-06 20:59] LABS: Add Urine Microscopic? NO; Appearance Urine Clear (Clear); Glucose Urine UA 3+ mg/dL (Negative); Leukocyte Esterase Ur Negative LEU/UL (Negative); Nitrate Urine Negative (Negative); Specific Grav Ur 1.012 (1.001-1.035)
[2025-09-06 23:39] VITALS: BP 160/92; PULSE 77; RESP 18; O2SAT 96
[2025-09-06 23:45] LABS: Hematocrit 40.6 % (37.0-47.0); Hemoglobin 14.2 g/dL (12.0-15.0); Immature Granulocyte Percent A 0.5 % (0-0.5); Lymphocytes Absolute Auto 1.30 K/mm3 (0.9-3.2); Mean Corpuscular HGB Conc 35.0 g/dl (32-36); Mean Corpuscular Hemoglobin 30.0 pg (26-34); Mean Corpuscular Volume 85.7 fl (80-100); Nucleated Red Blood Cells Absolute Auto 0.000 K/mm3 (0.0-0.012); Nucleated Red Blood Cells Perc 0.0 % (0.0-0.2); Platelet Count Result 216 k/mm3 (150-375); Red Blood Count 4.74 M/mm3 (4.2-5.4); White Blood Count 8.3 K/mm3 (4.5-10.0)
[2025-09-07] VITALS (13 sets, daily range): BP systolic 133–177; BP diastolic 59–95; PULSE 65–85; RESP 15–18; TEMP 36–36.7; O2SAT 94–100; BMI 29.2
[2025-09-07 00:04] LABS: Alanine Aminotransferase 43 U/L (6-35); Albumin Level 4.8 g/dL (3.5-5.1); Alkaline Phosphatase 84 U/L (38-126); Anion Gap 13 mmol/L (4-12); Aspartate Amino Transferase 31 U/L (14-36); Bilirubin,Total 0.5 mg/dL (0.2-1.3); Blood Urea Nitrogen 25 mg/dL (7-17); CRP < 0.5 mg/dL (<1.0); Calcium 10.0 mg/dL (8.4-10.2); Carbon Dioxide 21 mmol/L (22-30); Chloride 92 mmol/L (98-107); Creatine Kinase 43 U/L (30-135); Estimated CRCL calculation 34 ml/min; Estimated Glomerular Filt Rate 38; Glucose 140 mg/dL (65-110); Lipase 134 U/L (23-300); Magnesium 1.6 mg/dL (1.6-2.3); Potassium 4.4 mmol/L (3.4-5.0); Sodium 126 mmol/L (137-145); Total Protein 7.7 g/dL (6.3-8.2)
--- NOTE | 2025-09-07 00:17 | ECG_ITS ---
Test Date: 2025-09-07 00:25:59 Measurements Intervals [place] Rate: 75 P: -1 NH: 145 QRS: -10 QRSD: 86 T: 101 QT: 406 QTc: 456 Interpretive Statements SINUS RHYTHM DELAYED PRECORDIAL R/S TRANSITION LEFT VENTRICULAR HYPERTROPHY AND ST-T CHANGE BASELINE ARTIFACT- I, II, III, AVR, AVL, AVF BORDERLINE ECG Compared to ECG 04/26/2025 12:02:35 HEART RATE HAS INCREASED Electronically Signed On 09-07-2025 09:25:53 RESTAURANT OPERATIONS MANAGER by Jimi Buenrostro D.O.
--- NOTE | 2025-09-07 00:17 | ED.GENADULT ---
HPI - General Adult General Chief complaint: Urogenital-Female Stated complaint: urinary tract infection Time Seen by Provider: 09/06/25 23:50 Source: patient Mode of arrival: ambulatory Limitations: no limitations History of Present Illness HPI narrative: Patient is a 75-year-old female presents to the emergency department complaining of a possible UTI. Patient notes that she has noticed a a foul odor to her urine over the past few days. Patient has been having some lower back discomfort over the past 1 week bilateral. Patient notes that she has been having a low-grade fever for the past 1 week as well which she is noting to be around 97-98 degrees F. Patient notes she has been taking her medications as prescribed. Patient denies any recent injuries or recent illness. Patient does note that she has been having some nasal congestion for the past 1 month. Patient denies any cough. Patient denies any vomiting but admits to nausea. Patient admits to occasional diarrhea. Patient denies any bloody bowel movements. Patient denies any chest pain or difficulty breathing, but notes her breathing seems irregular. Patient denies any focal weakness or numbness. Patient admits to feeling fatigued. Related Data Home Medications ?Medication ?Instructions ?Recorded ?Confirmed ?Last Taken ?Type omega 3-foi-aac-fish oil 1,200 mg 2 cap PO Q12H 02/12/21 05/27/25 12/13/24 History (144 mg-216 mg) capsule (Fish Oil) calcium 600 mg capsule 600 mg PO Q12H 05/04/24 05/27/25 12/18/24 History Lactobacillus rhamnosus-Bifidobac. 1 cap PO DAILY 12/11/24 05/27/25 12/18/24 History animalis 3 billion cell capsule ([employer]) cetirizine 10 mg tablet (24Hour 10 mg PO DAILY PRN allergy symptoms 12/11/24 05/27/25 Unknown History Allergy) folate 666 1 tablet PO DAILY 12/11/24 05/27/25 12/18/24 History phenylephrine-acetaminophen 5 1 tablet PO Q6H PRN sinus symptoms 12/11/24 05/27/25 Unknown History mg-325 mg tablet (Tylenol Sinus Headache) ascorbate calcium (vitamin C) 500 500 mg PO DAILY 05/27/25 05/27/25 Unknown History mg tablet esomeprazole magnesium 20 mg 20 mg PO DAILY 05/27/25 05/27/25 Unknown History capsule,delayed release (Nexium) magnesium 100 mg capsule 400 mg PO DAILY 05/27/25 05/27/25 Unknown History Allergies Allergy/AdvReac Type Severity Reaction Status Date / Time No Known Allergies Allergy Verified 08/05/25 15:24 Review of Systems Review of Systems: A 10 system review of systems was completed on the patient and is negative except for what is stated in the HPI. Nursing and ancillary documentation was reviewed. [facility] Past Medical History Medical History BMI 29.0-29.9,adult Dizziness and giddiness Peripheral arterial occlusive disease Diabetic neuropathy associated with diabetes mellitus due to underlying condition Weakness Bilateral foot pain Encounter for routine adult health examination without abnormal findings Lung nodule Hospital discharge follow-up Upper back pain Encounter for routine adult health examination with abnormal findings Diverticulitis large intestine w/o perforation or abscess w/o bleeding Vaginal candidiasis UTI symptoms Left medial knee pain Diverticulosis of colon Constipation, acute CKD (chronic kidney disease) Cholinergic urticaria Sinusitis Radicular low back pain History of diverticulitis Chronic low back pain Eczema Onychomycosis BMI 27.0-27.9,adult Sinus pressure Diverticulitis LLQ abdominal pain Umbilical hernia Abdominal mass, left lower quadrant Chronic pain of right knee Sacroiliitis Contact dermatitis Persistent fever Chest congestion DJD (degenerative joint disease) of knee Impaired functional mobility, balance, gait, and endurance Hx of colonic polyps BMI 28.0-28.9,adult Encounter for Medicare annual wellness exam Diverticular disease Follow up Abdominal pain Elevated homocysteine History of diverticulitis of colon GERD (gastroesophageal reflux disease) Hx of ovarian cancer 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 Hyperlipidemia Benign essential hypertension Hypothyroidism (acquired) GERD with esophagitis Nausea Stress Anxiety Ovarian cancer Surgical History Surgical History History of colon resection August 2020 Hx of hysterectomy Hx of esophagogastroduodenoscopy Hx of colonoscopy Hx of cholecystectomy Family History Family History Father Family history of elevated blood lipids Family history of Alzheimer's disease Family history of heart disease in male family member before age 55 Patient's father is Family history of cardiovascular disease Sibling Family history of heart disease in male family member before age 55 Family history of cardiovascular disease Mother Family history of seizure disorder Family history of hypercholesterolemia Other Diabetes mellitus Family history of allergic disorder Family history of coronary artery disease Hypertension Social History Social History Smoking status: Never smoker Second hand tobacco smoke exposure: No Alcohol intake: never Substance use: never Substance use type: does not use Lack of Transportation: No Lack of Food: Never True Current Housing: I Have Housing Concerned About Future Housing: No Difficulty Paying Gas/Electric Bills: No Difficulty Paying for Meds: No Currently Unemployed: No Education: Don't Know Difficulty w/ Childcare or Family Care: No Living arrangements: with family Occupation/Education: retired Gender identity (if verbalized by the patient): Female Spiritual care concerns: Yes Exam Narrative: CONST: No acute distress. Well nourished. HENMT: Head is normocephalic and atraumatic. Moist mucous membranes. No posterior oropharynx erythema. EYES: No scleral icterus. No conjunctival injection or pallor. PERRL. NECK: No meningeal signs. RESP: Able to speak in full sentences. Normal respiratory effort. CTAB. CARDIO: Regular rate. Regular rhythm. 2+ DP and radial pulses bilaterally. GI: Nondistended. No tenderness to palpation. Soft. : No CVA tenderness to palpation. SKIN: No rashes or lesions noted on exposed skin. NEURO: Oriented x3. Moves all extremities. EXTREM/MSK/BACK: No pedal edema. PSYCH: Normal affect. Course Vital Signs Vital signs: Vital Signs Temperature 98.1 F 09/06/25 20:25 Pulse Rate 81 09/06/25 20:25 Respiratory Rate 15 09/06/25 20:25 Blood Pressure 213/78 H 09/06/25 20:25 Pulse Oximetry 97 09/06/25 20:25 Oxygen Delivery Room Air 09/06/25 20:25 Temperature 98 F 09/07/25 07:20 Pulse Rate 67 09/07/25 07:20 Respiratory Rate 16 09/07/25 07:20 Blood Pressure 135/63 09/07/25 07:20 Pulse Oximetry 97 09/07/25 07:20 Oxygen Delivery Room Air 09/06/25 20:25 MDM MDM Narrative Medical decision making narrative: Patient presents with the above complaint. Initial vitals are remarkable for elevated blood pressure. Physical examination as noted above. Plan discussed: laboratory analysis, EKG, imaging. Patient ordered IVF, continuous cardiac monitoring, continuous pulse oximetry. CT of the abdomen pelvis preliminary findings per Radiology impression is no acute findings. CT of the chest preliminary findings radiology interpretation is no PE, no definite acute finding seen, recommend esophagram for possible esophagitis. I spoke with the hospitalist on-call who has accepted the patient for admission. Differential Diagnosis Differential Diagnosis: UTI, ureterolithiasis, ACS, metabolic derangement, electrolyte derangement, adverse effect of medications, thyroid dysfunction, dehydration, pulmonary embolism, viral syndrome, enteritis, ureterolithiasis, pneumonia, URI, pancreatitis. Lab Data MDM Lab Attestation statement: I personally reviewed the patient's lab results. Lab results narrative: CBC is grossly unremarkable. Coags are within normal limits. VBG reveals a pH is 7.446, pCO2 of 27, bicarbonate of 18.2. Comprehensive metabolic panel reveals a sodium of 126, chloride 92, bicarb 21, anion gap 13, BUN of 25, creatinine 1.35, glucose 140, ALT of 43. BNP is 256. Lipase is 134. TSH is 1.42. CRP is less than 0.5. Troponins less than 0.012. Total creatine kinase is 43. Magnesium is 1.6. Lactic acid is 4.9. Urinalysis reveals 3+ glucose, trace ketones. COVID and influenza and RSV testing are negative. 09/06/25 23:36 09/06/25 23:36 Labs: Lab Results 09/06/25 09/06/25 09/07/25 Range/Units 20:52 23:36 00:18 WBC 8.3 (4.5-10.0) K/mm3 RBC 4.74 (4.2-5.4) M/mm3 Hgb 14.2 (12.0-15.0) g/dL Hct 40.6 (37.0-47.0) % MCV 85.7 (80-100) fl MCH 30.0 (26-34) pg MCHC 35.0 (32-36) g/dl RDW 13.2 (11.5-14.5) % Plt Count 216 (150-375) k/mm3 MPV 10.1 (7.4-10.4) fl Immature Gran % (Auto) 0.5 (0-0.5) % Neut % (Auto) 69.3 (45.5-73.1) % Lymph % (Auto) 15.7 L (18.3-44.2) % Hayes % (Auto) 8.3 (2.6-8.5) % Eos % (Auto) 5.2 H (0-4.4) % Baso % (Auto) 1.0 (0.2-1.2) % Lymph # (Auto) 1.30 (0.9-3.2) K/mm3 Hayes # (Auto) 0.7 H (0.1-0.6) K/mm3 Eos # (Auto) 0.4 H (0-0.3) K/mm3 Baso # (Auto) 0.1 (0.0-0.1) K/mm3 Abs Immat Gran (auto) 0.04 H (0.00-0.031) K/mm3 Absolute Neuts (auto) 5.7 (1.3-6.7) K/mm3 Absolute Nucleated RBC 0.000 (0.0-0.012) K/mm3 Nucleated RBC % 0.0 (0.0-0.2) % PT 12.9 (11.1-14.7) Seconds INR 1.0 APTT 27.9 (22.3-36.8) Seconds Sodium 126 L (137-145) mmol/L Potassium 4.4 (3.4-5.0) mmol/L Chloride 92 L (98-107) mmol/L Carbon Dioxide 21 L (22-30) mmol/L Anion Gap 13 H (4-12) mmol/L BUN 25 H (7-17) mg/dL Creatinine 1.35 H (0.7-1.0) mg/dL Estim Creat Clear Calc 34 ml/min Estimated GFR 38 L (59 - ) Glucose 140 H (65-110) mg/dL Serum Osmolality Lactic Acid 4.9 H* (0.7-2.0) mmol/L Calcium 10.0 (8.4-10.2) mg/dL Phosphorus 3.3 (2.5-4.5) mg/dL Magnesium 1.6 (1.6-2.3) mg/dL Total Bilirubin 0.5 (0.2-1.3) mg/dL AST 31 (14-36) U/L ALT 43 H (6-35) U/L Alkaline Phosphatase 84 (38-126) U/L Total Creatine Kinase 43 (30-135) U/L Troponin I < 0.012 (0.000-0.034) ng/mL C-Reactive Protein < 0.5 (<1.0) mg/dL NT-Pro-B Natriuret Pep 256 H (19.9-100) pg/mL Total Protein 7.7 (6.3-8.2) g/dL Albumin 4.8 (3.5-5.1) g/dL Lipase 134 (23-300) U/L TSH (Reflex) 1.420 (0.465-4.68) uIU/mL Urine Color Yellow (Yellow) Urine Appearance Clear (Clear) Urine pH 6.0 (5.0-9.0) Ur Specific [place] 1.012 (1.001-1.035) Urine Protein Negative (Negative) mg/dL Urine Glucose (UA) 3+ H (Negative) mg/dL Urine Ketones Trace H (Negative) mg/dL Ur Blood (Man) Negative (Negative) Urine Nitrate Negative (Negative) Urine Bilirubin Negative (Negative) Urine Urobilinogen 0.2 (<2.0) mg/dL Leukocyte Esterase Rfl Negative (Negative) MICHELLE/UL Influenza A (RT-PCR) (Negative) Influenza B (RT-PCR) (Negative) RSV (RT-PCR) (Negative) SARS-CoV-2 RNA (RT-PCR) (Negative) 09/07/25 09/07/25 09/07/25 Range/Units 00:36 02:08 02:08 WBC (4.5-10.0) K/mm3 RBC (4.2-5.4) M/mm3 Hgb (12.0-15.0) g/dL Hct (37.0-47.0) % MCV (80-100) fl MCH (26-34) pg MCHC (32-36) g/dl RDW (11.5-14.5) % Plt Count (150-375) k/mm3 MPV (7.4-10.4) fl Immature Gran % (Auto) (0-0.5) % Neut % (Auto) (45.5-73.1) % Lymph % (Auto) (18.3-44.2) % Hayes % (Auto) (2.6-8.5) % Eos % (Auto) (0-4.4) % Baso % (Auto) (0.2-1.2) % Lymph # (Auto) (0.9-3.2) K/mm3 Hayes # (Auto) (0.1-0.6) K/mm3 Eos # (Auto) (0-0.3) K/mm3 Baso # (Auto) (0.0-0.1) K/mm3 Abs Immat Gran (auto) (0.00-0.031) K/mm3 Absolute Neuts (auto) (1.3-6.7) K/mm3 Absolute Nucleated RBC (0.0-0.012) K/mm3 Nucleated RBC % (0.0-0.2) % PT (11.1-14.7) Seconds INR APTT (22.3-36.8) Seconds Sodium (137-145) mmol/L Potassium (3.4-5.0) mmol/L Chloride (98-107) mmol/L Carbon Dioxide (22-30) mmol/L Anion Gap (4-12) mmol/L BUN (7-17) mg/dL Creatinine (0.7-1.0) mg/dL Estim Creat Clear Calc ml/min Estimated GFR (59 - ) Glucose (65-110) mg/dL Serum Osmolality Cancelled Pending Lactic Acid 4.6 H* (0.7-2.0) mmol/L Calcium (8.4-10.2) mg/dL Phosphorus (2.5-4.5) mg/dL Magnesium (1.6-2.3) mg/dL Total Bilirubin (0.2-1.3) mg/dL AST (14-36) U/L ALT (6-35) U/L Alkaline Phosphatase (38-126) U/L Total Creatine Kinase (30-135) U/L Troponin I (0.000-0.034) ng/mL C-Reactive Protein (<1.0) mg/dL NT-Pro-B Natriuret Pep (19.9-100) pg/mL Total Protein (6.3-8.2) g/dL Albumin (3.5-5.1) g/dL Lipase (23-300) U/L TSH (Reflex) (0.465-4.68) uIU/mL Urine Color (Yellow) Urine Appearance (Clear) Urine pH (5.0-9.0) Ur Specific [place] (1.001-1.035) Urine Protein (Negative) mg/dL Urine Glucose (UA) (Negative) mg/dL Urine Ketones (Negative) mg/dL Ur Blood (Man) (Negative) Urine Nitrate (Negative) Urine Bilirubin (Negative) Urine Urobilinogen (<2.0) mg/dL Leukocyte Esterase Rfl (Negative) MICHELLE/UL Influenza A (RT-PCR) Negative (Negative) Influenza B (RT-PCR) Negative (Negative) RSV (RT-PCR) Negative (Negative) SARS-CoV-2 RNA (RT-PCR) Negative (Negative) ABG Data ABG results: 09/07/25 00:36 VBG pH 7.446 H* VBG pCO2 27.0 L* VBG pO2 59.4 H VBG HCO3 18.2 L O2 Delivery Device Room air O2 Liters/Min Not Reportable FiO2 21 ECG Data EKG #1: Attestation: I personally reviewed and interpreted this ECG as follows: ECG completion date: 09/07/25 ECG completion time: 00:25 Interpretation: Rate of 75, rhythm is sinus rhythm, axis is indeterminate, left ventricular hypertrophy present, T-wave inversion in leads aVL and V2, T-wave flattening in lead 1, no ST elevation, borderline ST depression in leads V4 and V5, Q-waves present in leads V1 and V2. Discharge Plan Discharge Clinical Impression: Elevated lactic acid level, Acute hyponatremia, Back pain, MARIA DOLORES (acute kidney injury), Metabolic acidosis with respiratory alkalosis, Elevated brain natriuretic peptide (BNP) level Patient Disposition: Still a Patient Condition: Stable Time of Disposition: 05:20
[2025-09-07 00:19] LABS: INR 1.0; Prothrombin Time 12.9 Seconds (11.1-14.7)
[2025-09-07 00:20] LABS: Partial Thromboplastin Time 27.9 Seconds (22.3-36.8)
[2025-09-07] MEDS: SODIUM CHLORIDE 0.9% IV 1,000 ML 999 ML IV CONT (00:32)
[2025-09-07 00:49] LABS: Fractional Inspired Oxygen 21 %; HCO3 VBG 18.2 mEq/l (24.0-30.0); PO2 VBG 59.4 mmHg (35.0-45.0)
[2025-09-07 00:56] LABS: NT Pro B Type Natriuretic Pept 256 pg/mL (19.9-100); Troponin I < 0.012 ng/mL (0.000-0.034)
[2025-09-07 00:59] LABS: PCO2 VBG 27.0 mmHg (42.0-48.0); pH VBG 7.446 (7.300-7.400)
[2025-09-07 01:14] LABS: Thyroid Stimulating Hormone Reflex 1.420 uIU/mL (0.465-4.68)
[2025-09-07 01:19] LABS: Influenza A QL RT-PCR Negative (Negative); Influenza B QL RT-PCR Negative (Negative); RSV RNA, RT-PCR Negative (Negative); SARS-CoV-2 RNA PCR Negative (Negative)
[2025-09-07] MEDS: SODIUM CHLORIDE 0.9% IV 1,000 ML 125 ML IV CONT ×2 (05:44→23:42)
--- NOTE | 2025-09-07 06:29 | PM.IMHP2 ---
H&P: HPI History of Present Illness Date/Time: 09/07/25 06:29 Chief Complaint: Lower back discomfort, breathing issues Narrative: 75-year-old female presents with multiple complaints. She has some lower back discomfort for a week. She has a low-grade fever however she reports this to be 98? F. she has been taking her medications as prescribed. She has been eating and drinking adequately. No nausea, vomiting, fever, cough, shortness of breath except that her breathing is weird, denies abdominal pain. She had diarrhea for a few days, on day of admission 09/07/2025 only once. Saturating 97% on room air. Temperature 98.1? F. WBC normal at 8300, INR 1.0, VBG reveals pH 7.446, pCO2 27, PO2 59, bicarb 18, sodium 126, chloride 92, bicarb 21, anion gap 13, BUN 25, serum creatinine 1.35 only slightly above her average baseline. Lactic acid 4.9. Serum osmolality pending. ALT 43, troponin negative. BNP 256, TSH 1.420. Urinalysis reveals glucose, quad viral screen negative. Of note, patient takes Jardiance, hydrochlorothiazide, metformin. CT abdomen pelvis no acute findings, showed radiology read interpretation pending. CT chest no acute findings except for possible esophagitis. Patient received 1 L normal saline bolus. Review of Systems Review of Systems: All systems reviewed & are unremarkable except as noted in HPI and below (Subjective) [facility] Past Medical History Medical History BMI 29.0-29.9,adult Dizziness and giddiness Peripheral arterial occlusive disease Diabetic neuropathy associated with diabetes mellitus due to underlying condition Weakness Bilateral foot pain Encounter for routine adult health examination without abnormal findings Lung nodule Hospital discharge follow-up Upper back pain Encounter for routine adult health examination with abnormal findings Diverticulitis large intestine w/o perforation or abscess w/o bleeding Vaginal candidiasis UTI symptoms Left medial knee pain Diverticulosis of colon Constipation, acute CKD (chronic kidney disease) Cholinergic urticaria Sinusitis Radicular low back pain History of diverticulitis Chronic low back pain Eczema Onychomycosis BMI 27.0-27.9,adult Sinus pressure Diverticulitis LLQ abdominal pain Umbilical hernia Abdominal mass, left lower quadrant Chronic pain of right knee Sacroiliitis Contact dermatitis Persistent fever Chest congestion DJD (degenerative joint disease) of knee Impaired functional mobility, balance, gait, and endurance Hx of colonic polyps BMI 28.0-28.9,adult Encounter for Medicare annual wellness exam Diverticular disease Follow up Abdominal pain Elevated homocysteine History of diverticulitis of colon GERD (gastroesophageal reflux disease) Hx of ovarian cancer 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 Hyperlipidemia Benign essential hypertension Hypothyroidism (acquired) GERD with esophagitis Nausea Stress Anxiety Ovarian cancer Surgical History Surgical History History of colon resection August 2020 Hx of hysterectomy Hx of esophagogastroduodenoscopy Hx of colonoscopy Hx of cholecystectomy Family History Family History Father Family history of elevated blood lipids Family history of Alzheimer's disease Family history of heart disease in male family member before age 55 Patient's father is Family history of cardiovascular disease Sibling Family history of heart disease in male family member before age 55 Family history of cardiovascular disease Mother Family history of seizure disorder Family history of hypercholesterolemia Other Diabetes mellitus Family history of allergic disorder Family history of coronary artery disease Hypertension Social History Social History Smoking status: Never smoker Second hand tobacco smoke exposure: No Alcohol intake: never Substance use: never Substance use type: does not use Lack of Transportation: No Lack of Food: Never True Current Housing: I Have Housing Concerned About Future Housing: No Difficulty Paying Gas/Electric Bills: No Difficulty Paying for Meds: No Currently Unemployed: No Education: Don't Know Difficulty w/ Childcare or Family Care: No Living arrangements: with family Occupation/Education: retired Gender identity (if verbalized by the patient): Female Spiritual care concerns: Yes Meds Home Medications and Allergies Home Medications ?Medication ?Instructions ?Recorded ?Confirmed ?Type omega 1-wcu-ghd-fish oil 1,200 mg 2 cap PO Q12H 02/12/21 05/27/25 History (144 mg-216 mg) capsule (Fish Oil) calcium 600 mg capsule 600 mg PO Q12H 05/04/24 05/27/25 History Lactobacillus rhamnosus-Bifidobac. 1 cap PO DAILY 12/11/24 05/27/25 History animalis 3 billion cell capsule ([employer]) cetirizine 10 mg tablet (24Hour 10 mg PO DAILY PRN allergy symptoms 12/11/24 05/27/25 History Allergy) folate 666 1 tablet PO DAILY 12/11/24 05/27/25 History phenylephrine-acetaminophen 5 1 tablet PO Q6H PRN sinus symptoms 12/11/24 05/27/25 History mg-325 mg tablet (Tylenol Sinus Headache) atorvastatin 20 mg tablet See Rx Instructions .Route 03/11/25 05/27/25 Rx .COMPLEX #90 tabs lorazepam 1 mg tablet 1 mg PO BID PRN anxiety #60 tabs 04/14/25 05/27/25 Rx empagliflozin 10 mg tablet 10 mg PO DAILY #90 tabs 04/16/25 05/27/25 Rx (Jardiance) valsartan 320 mg tablet 320 mg PO DAILY #90 tabs 04/30/25 05/27/25 Rx ondansetron 8 mg disintegrating 8 mg PO Q8H PRN nausea and 05/22/25 05/27/25 Rx tablet vomiting #30 tabs ascorbate calcium (vitamin C) 500 500 mg PO DAILY 05/27/25 05/27/25 History mg tablet esomeprazole magnesium 20 mg 20 mg PO DAILY 05/27/25 05/27/25 History capsule,delayed release (Nexium) hydrochlorothiazide 25 mg tablet 25 mg PO DAILY #90 tabs 05/27/25 05/27/25 Rx magnesium 100 mg capsule 400 mg PO DAILY 05/27/25 05/27/25 History metoprolol succinate 50 mg 75 mg (1.5 x 50 mg) PO QHS #45 tabs 07/03/25 Rx tablet,extended release 24 hr zolpidem 12.5 mg tablet,extended 12.5 mg PO QHS #90 tabs 07/07/25 Rx release,multiphase lidocaine 5 % topical ointment 1 applic topical TID PRN skin 07/30/25 Rx irritation #30 grams metformin 1,000 mg tablet See Rx Instructions .Route 08/04/25 Rx .COMPLEX #225 tabs estradiol 0.01% (0.1 mg/gram) 1 g vaginal 3XW #42.5 grams 08/05/25 08/05/25 Rx vaginal cream levothyroxine 125 mcg tablet See Rx Instructions .Route 08/13/25 Rx .COMPLEX #90 tabs gabapentin 100 mg capsule 200 mg (2 x 100 mg) PO TID #180 09/03/25 Rx caps Allergies Allergy/AdvReac Type Severity Reaction Status Date / Time No Known Allergies Allergy Verified 08/05/25 15:24 Vital Signs Vital Signs - 24 hr 09/06/25 20:25 09/06/25 23:39 09/07/25 00:45 Temperature 98.1 F Pulse Rate 81 77 85 Respiratory Rate 15 18 18 Blood Pressure 213/78 H 160/92 H 148/73 H Pulse Oximetry 97 96 94 Oxygen Delivery Room Air 09/07/25 03:08 09/07/25 04:46 09/07/25 05:46 Temperature Pulse Rate 71 72 78 Respiratory Rate 18 18 18 Blood Pressure 133/92 H 162/95 H 139/59 L Pulse Oximetry 97 98 96 Oxygen Delivery Exam Const: General: comfortable and no acute distress Other: A&O x3. No flank tenderness. No reproducible back pain. No lesions, masses on the back. HENMT: Mouth: Yes moist mucous membranes Eyes: Pupils: Equal, round and reactive pupils present Resp: Effort & Inspection: normal respiratory effort Auscultation: clear to auscultation bilaterally Cardio: Rate: regular rate Rhythm: regular rhythm GI: Inspection: non-distended GI Palp: Yes Soft to palpation : General: Yes bladder normal to palpation Neuro: Motor exam (neuro): 5/5 motor strength present throughout Extrem: General: no edema Results Labs Labs: Short CBC 09/06/25 Range/Units 23:36 WBC 8.3 (4.5-10.0) K/mm3 Hgb 14.2 (12.0-15.0) g/dL Hct 40.6 (37.0-47.0) % Plt Count 216 (150-375) k/mm3 [facility] 09/06/25 23:36 Sodium 126 L Potassium 4.4 Chloride 92 L Carbon Dioxide 21 L BUN 25 H Creatinine 1.35 H Glucose 140 H Calcium 10.0 Cardiac Enzymes 09/06/25 09/07/25 Range/Units 23:36 00:18 Total Creatine Kinase 43 (30-135) U/L Troponin I < 0.012 (0.000-0.034) ng/mL Liver Function 09/06/25 Range/Units 23:36 Total Bilirubin 0.5 (0.2-1.3) mg/dL AST 31 (14-36) U/L ALT 43 H (6-35) U/L Alkaline Phosphatase 84 (38-126) U/L Albumin 4.8 (3.5-5.1) g/dL Urine 09/06/25 Range/Units 20:52 Urine Color Yellow (Yellow) Urine Appearance Clear (Clear) Urine pH 6.0 (5.0-9.0) Ur Specific [place] 1.012 (1.001-1.035) Urine Protein Negative (Negative) mg/dL Urine Glucose (UA) 3+ H (Negative) mg/dL Assessment and Plan Assessment and plan (1) Hyponatremia: Code(s): E87.1 - Hypo-osmolality and hyponatremia Status: Acute (2) Metabolic acidosis with respiratory alkalosis: Code(s): E87.20 - Acidosis, unspecified; E87.3 - Alkalosis Status: Acute Plan Continue fluids. Hold Jardiance, metformin, hydrochlorothiazide. Trend sodium, renal function. Trend lactic acid. Patient wishes to be full code. Diabetic heart healthy diet. SCDs. Prior Studies I have reviewed the following patient records and this information was taken into consideration when formulating the assessment and plan.: previous labs Time Spent with Patient Time with patient: 45 - 74 minutes Hospitalist MIPS Advance Care Plan I have confirmed that the patient's Advanced Care Plan is present, code status is documented, or surrogate decision maker is listed in patient medical record.: Yes Medication Reconciliation I have utilized all available resources to obtain, update and review the patients current medications (includes all prescriptions, OTC, herbals, cannabis, and nutritional supplements).: Yes
--- NOTE | 2025-09-07 07:22 | WPCEDHO ---
ED Hand Off Checklist All vitals saved: Yes IV Site documented:Yes All med administrations documented:Yes Triage Note Triage Note pt ambulatory to ED with c/o 09/06/25 20:51 possible UTI. pt states she has a foul odor and flank pain that has been going on for a few days. pt states she also has been having a low grade fever for a week. pt has hx of UTI. pt has hx of hypertension and takes medication but has not had her nightly dose. Agree with triage assessment. Allergies No Known Allergies Allergy (Verified 08/05/25 15:24) Current Diagnoses Hypo-osmolality and hyponatremia (09/07/25) Acidosis, unspecified (09/07/25) Alkalosis (09/07/25) Family History (Last Reviewed 08/05/25 @ 15:25 by Lula Navarro [facility]) Father Family history of elevated blood lipids Family history of Alzheimer's disease Family history of heart disease in male family member before age 55 Patient's father is Family history of cardiovascular disease Sibling Family history of heart disease in male family member before age 55 Family history of cardiovascular disease Mother Family history of seizure disorder Family history of hypercholesterolemia Other Diabetes mellitus Family history of allergic disorder Family history of coronary artery disease Hypertension Active Medications including assessments/comments Sodium Chloride (Normal Saline Iv) 1,000 mls @ 125 mls/hr IV CONT .Q8H SALEEM Last Admin: 09/07/25 05:44 Dose: 125 mls/hr Documented By: DEEPTHI Infusion/Titration Document 09/07/25 05:44 DEEPTHI (Rec: 09/07/25 05:44 DEEPTHI [id number]) Intake IV Site Peripheral Access Right Antecubital Container Volume 1,000 Waste Amount 0 Dosing Infusion Rate 125 Cumulative Dose Not Applicable Increase/Decrease Started Elapsed Time Elapsed Time ( 0m minutes) Administered/Completed Medications Discontinued Medications Sodium Chloride (Normal Saline Iv) 1,000 mls @ 999 mls/hr IV CONT .Q1H1M STA Stop: 09/07/25 01:17 Last Infusion: 09/07/25 02:02 Dose: Infused Documented By: Admin: 09/07/25 00:32 Dose: 999 mls/hr Documented By: DEEPTHI Interventions/Assessments IV / Saline Lock, Insert Start: 09/06/25 20:25 Freq: Status: Active Protocol: Document 09/06/25 23:39 DEEPTHI (Rec: 09/06/25 23:39 KRZ [id number]) IV Assessment Peripheral Access Right Antecubital IV Catheter Access Initiated IV Insertion Date 09/06/25 IV Insertion Time 23:39 Catheter Gauge 20 IV Insertion 1 Attempts Ultrasound Used for No Placement IV Site Assessment WNL IV Care and WNL Maintenance PA: Genitourinary Assessment Start: 09/06/25 20:25 Freq: Status: Active Protocol: Document 09/06/25 20:52 DAMARIS (Rec: 09/06/25 20:52 DAMARIS [id number]) Assessment Genitourinary Burning,Urgency Symptoms Voiding Method Toilet Urine Color Light/Pale Urine Clear Characteristics Last Vital Signs Temperature 98.1 F 09/06/25 20:25 Pulse Rate 65 09/07/25 06:51 Respiratory Rate 18 09/07/25 06:51 Pulse Oximetry 96 09/07/25 06:51 Blood Pressure 149/59 H 09/07/25 06:51 Blood Pressure Mean 89 09/07/25 06:51 Oxygen Delivery Room Air 09/06/25 20:25 Weight 77.5 kg 09/06/25 20:51 Last Result - Abnormals Only Lymph % (Auto) 15.7 % (18.3-44.2) L 09/06/25 23:36 Eos % (Auto) 5.2 % (0-4.4) H 09/06/25 23:36 [place] # (Auto) 0.7 K/mm3 (0.1-0.6) H 09/06/25 23:36 Eos # (Auto) 0.4 K/mm3 (0-0.3) H 09/06/25 23:36 Abs Immat Gran (auto) 0.04 K/mm3 (0.00-0.031) H 09/06/25 23:36 VBG pH 7.446 (7.300-7.400) H* 09/07/25 00:36 VBG pCO2 27.0 mmHg (42.0-48.0) L* 09/07/25 00:36 VBG pO2 59.4 mmHg (35.0-45.0) H 09/07/25 00:36 VBG HCO3 18.2 mEq/l (24.0-30.0) L 09/07/25 00:36 Sodium 126 mmol/L (137-145) L 09/06/25 23:36 Chloride 92 mmol/L (98-107) L 09/06/25 23:36 Carbon Dioxide 21 mmol/L (22-30) L 09/06/25 23:36 Anion Gap 13 mmol/L (4-12) H 09/06/25 23:36 BUN 25 mg/dL (7-17) H 09/06/25 23:36 Creatinine 1.35 mg/dL (0.7-1.0) H 09/06/25 23:36 Estimated GFR 38 (59-) L 09/06/25 23:36 Glucose 140 mg/dL (65-110) H 09/06/25 23:36 POC Capillary Glucose 158 mg/dl (65-105) H 09/07/25 06:53 Lactic Acid 4.6 mmol/L (0.7-2.0) H* 09/07/25 02:08 ALT 43 U/L (6-35) H 09/06/25 23:36 NT-Pro-B Natriuret Pep 256 pg/mL (19.9-100) H 09/07/25 00:18 Urine Glucose (UA) 3+ mg/dL (Negative) H 09/06/25 20:52 Urine Ketones Trace mg/dL (Negative) H 09/06/25 20:52 Most Recent Suicide Severity Rating Suicide Severity Rating NO RISK INDICATED 09/06/25 20:51
[2025-09-07 07:45] LABS: Hematocrit 38.7 % (37.0-47.0); Hemoglobin 13.3 g/dL (12.0-15.0); Mean Corpuscular HGB Conc 34.4 g/dl (32-36); Mean Corpuscular Hemoglobin 29.6 pg (26-34); Mean Corpuscular Volume 86.2 fl (80-100); Platelet Count Result 191 k/mm3 (150-375); Red Blood Count 4.49 M/mm3 (4.2-5.4); White Blood Count 6.1 K/mm3 (4.5-10.0)
[2025-09-07 07:56] LABS: Alanine Aminotransferase 30 U/L (6-35); Albumin Level 4.3 g/dL (3.5-5.1); Alkaline Phosphatase 83 U/L (38-126); Anion Gap 8 mmol/L (4-12); Aspartate Amino Transferase 25 U/L (14-36); Bilirubin,Total 0.5 mg/dL (0.2-1.3); Blood Urea Nitrogen 23 mg/dL (7-17); Calcium 9.5 mg/dL (8.4-10.2); Carbon Dioxide 22 mmol/L (22-30); Chloride 99 mmol/L (98-107); Estimated CRCL calculation 39 ml/min; Estimated Glomerular Filt Rate 46; Glucose 141 mg/dL (65-110); Magnesium 1.8 mg/dL (1.6-2.3); Potassium 4.8 mmol/L (3.4-5.0); Sodium 129 mmol/L (137-145); Total Protein 6.9 g/dL (6.3-8.2)
--- NOTE | 2025-09-07 08:12 | ADMGEN ---
This patient, Nona Malagon, was admitted to 2 Medical Room 255-01. Patient/family oriented to hospital policies and general routines including ID bracelet, bed and alarms, visiting hours, pain management, procedures, bathroom and other care routines, personal items, smoking policy, room service/diet, and visiting hours. Information on how to activate the Rapid Response Team has been discussed. Patient/Family are encouraged to report perceived risks to care and to ask questions if they do not understand what they are told or what they should do.
--- NOTE | 2025-09-07 10:11 | PC.NURSE ---
Ct Ab Pelvis findings reported to Dr. Vick @1011 09/07/25. Ordered to consult Dr. Hernandez from surgery regarding findings and further orders at this time.
[2025-09-07 10:39] LABS: CRP < 0.5 mg/dL (<1.0)
--- NOTE | 2025-09-07 13:07 | PM.CNGS ---
Assessment and Plan Assessment and plan (1) Abnormal CT scan, colon: Code(s): R93.3 - Abnormal findings on diagnostic imaging of other parts of digestive tract Status: Acute Assessment and Plan: Discussed my evaluation with Dr. Vick. I reviewed the operative note from the left colectomy she had in 2019. The operative note describes ligating the superior rectal artery which is very near the inferior mesenteric artery and is a branch of the inferior mesenteric artery. 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 The inferior mesenteric artery is not a vessel that is vital for colon perfusion although there are instances following abdominal aortic aneurysm repair that colon perfusion is dependent on the inferior mesenteric artery. In all cases of left colon and sigmoid colon cancer, the SARAH is ligated at its origin. Perfusion of the colon is redundant through the marginal artery and the SMA. I think the SARAH has been occluded for the last 5 years. I do not feel it has any role in her current illness. 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 She was not feeling good and felt she had a low-grade fever. She was having some lower back pain. She came to the emergency room because she was concerned she had a urinary tract infection. She also had some other complaints such as couple of days of loose stools, nasal congestion, nausea. Mostly just did not feel well. She had a thorough evaluation in the emergency room and, although her white blood cell count was normal, was found to have an initial serum lactate of 4.9. This gradually decreased until at 730 this morning it was 2. She had a CTA of the chest which showed esophagitis. She had a chest x-ray which was negative. She had a CT scan of the abdomen and pelvis which showed evidence of previous cholecystectomy and sigmoid colon resection with anastomosis. Patient reports that she did have a hysterectomy 25 years ago for ovarian cancer and had chemotherapy following that. Her EKG was unremarkable other than left ventricular hypertrophy. She was noted to have hyponatremia with a sodium of 126. 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 With her elevated lactate and otherwise minimal symptoms or other abnormalities to explain this, I was asked to see her regarding her inferior mesenteric artery occlusion. Review of Systems Review of Systems: All systems reviewed & are unremarkable except as noted in HPI and below (Please see HPI) Constitutional: Constitutional: Reports as per HPI, Reports fever(s), Reports lethargy and Reports malaise Gastrointestinal: Gastrointestinal: Denies abdominal pain, Reports bloating and Reports loose stools (2 days of 2 bowel movements per day that were loose prior to coming to ER) Genitourinary: Genitourinary: Reports as per HPI Comments: History of ovarian cancer 25 years ago status post TAHBSO and postoperative chemotherapy Musculoskeletal: Musculoskeletal: Reports back pain (Low back) [facility] Past Medical History Medical History BMI 29.0-29.9,adult Dizziness and giddiness Peripheral arterial occlusive disease Diabetic neuropathy associated with diabetes mellitus due to underlying condition Weakness Bilateral foot pain Encounter for routine adult health examination without abnormal findings Lung nodule Hospital discharge follow-up Upper back pain Encounter for routine adult health examination with abnormal findings Diverticulitis large intestine w/o perforation or abscess w/o bleeding Vaginal candidiasis UTI symptoms Left medial knee pain Diverticulosis of colon Constipation, acute CKD (chronic kidney disease) Cholinergic urticaria Sinusitis Radicular low back pain History of diverticulitis Chronic low back pain Eczema Onychomycosis BMI 27.0-27.9,adult Sinus pressure Diverticulitis LLQ abdominal pain Umbilical hernia Abdominal mass, left lower quadrant Chronic pain of right knee Sacroiliitis Contact dermatitis Persistent fever Chest congestion DJD (degenerative joint disease) of knee Impaired functional mobility, balance, gait, and endurance Hx of colonic polyps BMI 28.0-28.9,adult Encounter for Medicare annual wellness exam Diverticular disease Follow up Abdominal pain Elevated homocysteine History of diverticulitis of colon GERD (gastroesophageal reflux disease) Hx of ovarian cancer 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 Hyperlipidemia Benign essential hypertension Hypothyroidism (acquired) GERD with esophagitis Nausea Stress Anxiety Ovarian cancer Surgical History Surgical History History of colon resection August 2020 Hx of hysterectomy Hx of esophagogastroduodenoscopy Hx of colonoscopy Hx of cholecystectomy Family History Family History Father Family history of elevated blood lipids Family history of Alzheimer's disease Family history of heart disease in male family member before age 55 Patient's father is Family history of cardiovascular disease Sibling Family history of heart disease in male family member before age 55 Family history of cardiovascular disease Mother Family history of seizure disorder Family history of hypercholesterolemia Other Diabetes mellitus Family history of allergic disorder Family history of coronary artery disease Hypertension Social History Social History Smoking status: Never smoker Second hand tobacco smoke exposure: No Alcohol intake: never Substance use: never Substance use type: does not use Lack of Transportation: YES Lack of Food: Never True Current Housing: I Have Housing Concerned About Future Housing: No Difficulty Paying Gas/Electric Bills: No Difficulty Paying for Meds: No Currently Unemployed: No Education: Associate Degree Difficulty w/ Childcare or Family Care: No Living arrangements: with family Occupation/Education: retired Gender identity (if verbalized by the patient): Female Spiritual care concerns: No Meds Home Medications and Allergies Home Medications ?Medication ?Instructions ?Recorded ?Confirmed ?Type omega 0-alr-lcd-fish oil 1,200 mg 1 cap PO Q12H 02/12/21 09/07/25 History (144 mg-216 mg) capsule (Fish Oil) calcium 600 mg capsule 600 mg PO Q12H 05/04/24 09/07/25 History Lactobacillus rhamnosus-Bifidobac. 1 cap PO DAILY 12/11/24 09/07/25 History animalis 3 billion cell capsule ([facility]) cetirizine 10 mg tablet (24Hour 10 mg PO DAILY PRN allergy symptoms 12/11/24 09/07/25 History Allergy) phenylephrine-acetaminophen 5 1 tablet PO Q6H PRN sinus symptoms 12/11/24 09/07/25 History mg-325 mg tablet (Tylenol Sinus Headache) atorvastatin 20 mg tablet See Rx Instructions .Route 03/11/25 09/07/25 Rx .COMPLEX #90 tabs lorazepam 1 mg tablet 1 mg PO BID PRN anxiety #60 tabs 04/14/25 09/07/25 Rx empagliflozin 10 mg tablet 10 mg PO DAILY #90 tabs 04/16/25 09/07/25 Rx (Jardiance) valsartan 320 mg tablet 320 mg PO DAILY #90 tabs 04/30/25 09/07/25 Rx ondansetron 8 mg disintegrating 8 mg PO Q8H PRN nausea and 05/22/25 09/07/25 Rx tablet vomiting #30 tabs esomeprazole magnesium 20 mg 20 mg PO DAILY 05/27/25 09/07/25 History capsule,delayed release (Nexium) hydrochlorothiazide 25 mg tablet 25 mg PO DAILY #90 tabs 05/27/25 09/07/25 Rx magnesium 100 mg capsule 400 mg PO BID 05/27/25 09/07/25 History zolpidem 12.5 mg tablet,extended 12.5 mg PO QHS #90 tabs 07/07/25 09/07/25 Rx release,multiphase estradiol 0.01% (0.1 mg/gram) 1 g vaginal 3XW #42.5 grams 08/05/25 09/07/25 Rx vaginal cream levothyroxine 125 mcg tablet See Rx Instructions .Route 08/13/25 09/07/25 Rx .COMPLEX #90 tabs gabapentin 100 mg capsule 100 mg PO BID 09/07/25 09/07/25 History metformin 1,000 mg tablet 1,000 mg PO QAM 09/07/25 09/07/25 History metoprolol succinate 50 mg 50 mg PO QHS 09/07/25 09/07/25 History tablet,extended release 24 hr Allergies Allergy/AdvReac Type Severity Reaction Status Date / Time No Known Allergies Allergy Verified 09/07/25 08:22 Vital Signs Vital Signs - 24 hr 09/06/25 20:25 09/06/25 23:39 09/07/25 00:45 Temperature 36.7 C Pulse Rate 81 77 85 Respiratory Rate 15 18 18 Blood Pressure 213/78 H 160/92 H 148/73 H Pulse Oximetry 97 96 94 Oxygen Delivery Room Air 09/07/25 03:08 09/07/25 04:46 09/07/25 05:46 Temperature Pulse Rate 71 72 78 Respiratory Rate 18 18 18 Blood Pressure 133/92 H 162/95 H 139/59 L Pulse Oximetry 97 98 96 Oxygen Delivery 09/07/25 06:51 09/07/25 07:20 09/07/25 09:03 Temperature 36.6 C 36.0 C L Pulse Rate 65 67 68 Respiratory Rate 18 16 16 Blood Pressure 149/59 H 135/63 155/65 H Pulse Oximetry 96 97 100 Oxygen Delivery Exam Const: General: comfortable, no acute distress, alert and awake Nutritional Appearance: well nourished Orientation/consciousness: patient oriented x3 and No confusion HENMT: Head: normocephalic and atraumatic Mouth: Yes Normal oral and palatal mucosa present Eyes: Conjunctivae: conjunctivae normal Pupils: Equal, round and reactive pupils present EOM: EOMs intact bilaterally Neck: Neck: normal visual inspection, no lymphadenopathy and nontender Resp: Effort & Inspection: normal respiratory effort Auscultation: clear to auscultation bilaterally Cardio: Rate: regular rate Rhythm: regular rhythm Heart sounds: no gallops, no murmurs and no rubs GI: Inspection: non-distended, scar (Large midline scar) and no visible herniation GI Palp: Yes Soft to palpation, Yes Tenderness to palpation present (GI) (Mild diffuse tenderness, says she always has this), No Guarding due to palpation present (GI), No Hepatomegaly present, No Splenomegaly present, No Hernia present, No Palpable mass present and No Rebound tenderness present Auscultation: normoactive bowel sounds Skin: Lesions: no lesions Rashes: no rashes Neuro: General: no focal motor deficits and CN's II-XI intact bilaterally Cranial nerves: Yes Equal, round and reactive pupils present, Yes Bilaterally intact EOM present, Yes facial symmetry and Yes Midline tongue present Speech: normal speech Motor exam (neuro): 5/5 motor strength present throughout and Motor abnormalities not present Extrem: General: no clubbing, cyanosis or edema and edema Psych: Affect: normal affect Thought process: Normal thought process present Insight: Good insight present (Psych) Results Labs 09/07/25 07:40 09/07/25 07:40 Labs: Abnormal lab results 09/06/25 09/06/25 09/07/25 Range/Units 20:52 23:36 00:18 Lymph % (Auto) 15.7 L (18.3-44.2) % Eos % (Auto) 5.2 H (0-4.4) % Davis # (Auto) 0.7 H (0.1-0.6) K/mm3 Eos # (Auto) 0.4 H (0-0.3) K/mm3 Abs Immat Gran (auto) 0.04 H (0.00-0.031) K/mm3 VBG pH (7.300-7.400) VBG pCO2 (42.0-48.0) mmHg VBG pO2 (35.0-45.0) mmHg VBG HCO3 (24.0-30.0) mEq/l Sodium 126 L (137-145) mmol/L Chloride 92 L (98-107) mmol/L Carbon Dioxide 21 L (22-30) mmol/L Anion Gap 13 H (4-12) mmol/L BUN 25 H (7-17) mg/dL Creatinine 1.35 H (0.7-1.0) mg/dL Estimated GFR 38 L (59 - ) Glucose 140 H (65-110) mg/dL POC Capillary Glucose (65-105) mg/dl Lactic Acid 4.9 H* (0.7-2.0) mmol/L ALT 43 H (6-35) U/L NT-Pro-B Natriuret Pep 256 H (19.9-100) pg/mL Urine Glucose (UA) 3+ H (Negative) mg/dL Urine Ketones Trace H (Negative) mg/dL 09/07/25 09/07/25 09/07/25 Range/Units 00:36 02:08 06:53 Lymph % (Auto) (18.3-44.2) % Eos % (Auto) (0-4.4) % Davis # (Auto) (0.1-0.6) K/mm3 Eos # (Auto) (0-0.3) K/mm3 Abs Immat Gran (auto) (0.00-0.031) K/mm3 VBG pH 7.446 H* (7.300-7.400) VBG pCO2 27.0 L* (42.0-48.0) mmHg VBG pO2 59.4 H (35.0-45.0) mmHg VBG HCO3 18.2 L (24.0-30.0) mEq/l Sodium (137-145) mmol/L Chloride (98-107) mmol/L Carbon Dioxide (22-30) mmol/L Anion Gap (4-12) mmol/L BUN (7-17) mg/dL Creatinine (0.7-1.0) mg/dL Estimated GFR (59 - ) Glucose (65-110) mg/dL POC Capillary Glucose 158 H (65-105) mg/dl Lactic Acid 4.6 H* (0.7-2.0) mmol/L ALT (6-35) U/L NT-Pro-B Natriuret Pep (19.9-100) pg/mL Urine Glucose (UA) (Negative) mg/dL Urine Ketones (Negative) mg/dL 09/07/25 09/07/25 Range/Units 07:40 11:36 Lymph % (Auto) (18.3-44.2) % Eos % (Auto) (0-4.4) % Davis # (Auto) (0.1-0.6) K/mm3 Eos # (Auto) (0-0.3) K/mm3 Abs Immat Gran (auto) (0.00-0.031) K/mm3 VBG pH (7.300-7.400) VBG pCO2 (42.0-48.0) mmHg VBG pO2 (35.0-45.0) mmHg VBG HCO3 (24.0-30.0) mEq/l Sodium 129 L (137-145) mmol/L Chloride (98-107) mmol/L Carbon Dioxide (22-30) mmol/L Anion Gap (4-12) mmol/L BUN 23 H (7-17) mg/dL Creatinine 1.16 H (0.7-1.0) mg/dL Estimated GFR 46 L (59 - ) Glucose 141 H (65-110) mg/dL POC Capillary Glucose 216 H (65-105) mg/dl Lactic Acid (0.7-2.0) mmol/L ALT (6-35) U/L NT-Pro-B Natriuret Pep (19.9-100) pg/mL Urine Glucose (UA) (Negative) mg/dL Urine Ketones (Negative) mg/dL Diabetes panel 09/06/25 09/07/25 Range/Units 23:36 07:40 Sodium 126 L 129 L (137-145) mmol/L Potassium 4.4 4.8 (3.4-5.0) mmol/L Chloride 92 L 99 (98-107) mmol/L Carbon Dioxide 21 L 22 (22-30) mmol/L BUN 25 H 23 H (7-17) mg/dL Creatinine 1.35 H 1.16 H (0.7-1.0) mg/dL Glucose 140 H 141 H (65-110) mg/dL Calcium 10.0 9.5 (8.4-10.2) mg/dL AST 31 25 (14-36) U/L ALT 43 H 30 (6-35) U/L Alkaline Phosphatase 84 83 (38-126) U/L Total Protein 7.7 6.9 (6.3-8.2) g/dL Albumin 4.8 4.3 (3.5-5.1) g/dL Calcium panel 09/06/25 09/07/25 09/07/25 Range/Units 23:36 00:18 07:40 Calcium 10.0 9.5 (8.4-10.2) mg/dL Phosphorus 3.3 (2.5-4.5) mg/dL Albumin 4.8 4.3 (3.5-5.1) g/dL Pituitary panel 09/06/25 09/07/25 Range/Units 23:36 07:40 Sodium 126 L 129 L (137-145) mmol/L Potassium 4.4 4.8 (3.4-5.0) mmol/L Chloride 92 L 99 (98-107) mmol/L Carbon Dioxide 21 L 22 (22-30) mmol/L BUN 25 H 23 H (7-17) mg/dL Creatinine 1.35 H 1.16 H (0.7-1.0) mg/dL Glucose 140 H 141 H (65-110) mg/dL Calcium 10.0 9.5 (8.4-10.2) mg/dL Adrenal panel 09/06/25 09/07/25 Range/Units 23:36 07:40 Sodium 126 L 129 L (137-145) mmol/L Potassium 4.4 4.8 (3.4-5.0) mmol/L Chloride 92 L 99 (98-107) mmol/L Carbon Dioxide 21 L 22 (22-30) mmol/L BUN 25 H 23 H (7-17) mg/dL Creatinine 1.35 H 1.16 H (0.7-1.0) mg/dL Glucose 140 H 141 H (65-110) mg/dL Calcium 10.0 9.5 (8.4-10.2) mg/dL Total Bilirubin 0.5 0.5 (0.2-1.3) mg/dL AST 31 25 (14-36) U/L ALT 43 H 30 (6-35) U/L Alkaline Phosphatase 84 83 (38-126) U/L Total Protein 7.7 6.9 (6.3-8.2) g/dL Albumin 4.8 4.3 (3.5-5.1) g/dL All other labs normal. Imaging Chest x-ray: report reviewed and image reviewed Abdomen CT scan report/results: report reviewed and image reviewed (On sagittal view, agree SARAH is occluded. SMA and celiac arteries look open) CT scan - chest: report reviewed and image reviewed CT scan - pelvis: report reviewed and image reviewed EKG: report reviewed and image reviewed
--- NOTE | 2025-09-07 14:12 | PM.IMPN2 ---
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 patient was seen by the surgery service, it was intestinally occluded 5 years ago doing her colon surgery as patient does not have any pain. patient with multiple complaints and etiology is uncertain, will gently hydrate the patient and monitor. Continue fluids. Hold Jardiance, metformin, hydrochlorothiazide. Trend sodium, renal function. Trend lactic acid. Patient wishes to be full code. Diabetic heart healthy diet. SCDs. Subjective Date/time seen: 09/07/25 14:12 Interval history: Lower back discomfort, breathing issues Narrative: 75-year-old female presents with multiple complaints. She has some lower back discomfort for a week. She has a low-grade fever however she reports this to be 98? F. she has been taking her medications as prescribed. She has been eating and drinking adequately. No nausea, vomiting, fever, cough, shortness of breath except that her breathing is weird, denies abdominal pain. She had diarrhea for a few days, on day of admission 09/07/2025 only once. Saturating 97% on room air. Temperature 98.1? F. WBC normal at 8300, INR 1.0, VBG reveals pH 7.446, pCO2 27, PO2 59, bicarb 18, sodium 126, chloride 92, bicarb 21, anion gap 13, BUN 25, serum creatinine 1.35 only slightly above her average baseline. Lactic acid 4.9. Serum osmolality pending. ALT 43, troponin negative. BNP 256, TSH 1.420. Urinalysis reveals glucose, quad viral screen negative. 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 patient was seen by the surgery service, it was intestinally occluded 5 years ago doing her colon surgery as patient does not have any pain. patient with multiple complaints and etiology is uncertain, will gently hydrate the patient and monitor. Review of Systems Review of Systems: All systems reviewed & are unremarkable except as noted in HPI and below (Subjective) Exam Narrative: Patient is comfortable, NAD HEENT: eyes are clear and none icteric LUNGS:CTA HEART: RR S1S2 ABD: BS+, Soft and nontender Lower extremities: no edema SKIN: nonjaundiced Neuro: grossly intact. Objective Data Vital Signs Vital Signs: Vital Signs - 24 hr 09/06/25 20:25 09/06/25 23:39 09/07/25 00:45 Temperature 36.7 C Pulse Rate 81 77 85 Respiratory Rate 15 18 18 Blood Pressure 213/78 H 160/92 H 148/73 H Pulse Oximetry 97 96 94 Oxygen Delivery Room Air 09/07/25 03:08 09/07/25 04:46 09/07/25 05:46 Temperature Pulse Rate 71 72 78 Respiratory Rate 18 18 18 Blood Pressure 133/92 H 162/95 H 139/59 L Pulse Oximetry 97 98 96 Oxygen Delivery 09/07/25 06:51 09/07/25 07:20 09/07/25 09:03 Temperature 36.6 C 36.0 C L Pulse Rate 65 67 68 Respiratory Rate 18 16 16 Blood Pressure 149/59 H 135/63 155/65 H Pulse Oximetry 96 97 100 Oxygen Delivery Intake/Output Intake/Output: Intake & Output 09/04/25 09/05/25 09/06/25 09/07/25 23:59 23:59 23:59 23:59 Intake Total 1200 Balance 1200 Meds/Results Medications: Active Medications Generic Name Dose Route Start Last Admin Trade Name Freq PRN Reason Stop Dose Admin Dextrose 12.5 gm 09/07/25 06:36 Dextrose 50% 25 Gm/50 Ml Syringe IV PUSH PRN PRN Hypoglycemia Protocol Glucose 15 gm 09/07/25 06:36 Glucose Oral Gel 15 Gm Of Glucse In 37.5 Gm Tube PO PRN PRN Hypoglycemia Protocol Sodium Chloride 1,000 mls @ 125 mls/hr 09/07/25 05:20 09/07/25 05:44 Normal Saline Iv IV CONT 125 mls/hr .Q8H [place] Administration Dextrose 1,000 mls @ 100 mls/hr 09/07/25 06:36 Dextrose 5% 1,000 Ml IVPB PRN PRN Hypoglycemia Protocol Insulin Aspart 2 - 5 units 09/07/25 08:00 09/07/25 11:48 Insulin Aspart (*Bkc) 100 Units/Ml SUB-Q Not Given TIDWM [facility] Protocol Insulin Aspart 1 - 2 units 09/07/25 21:00 Insulin Aspart (*Bkc) 100 Units/Ml SUB-Q HS [facility] Protocol Radiology Results: ITS Impressions Chest CTA 09/07/25 08:29 IMPRESSION: 1. No pulmonary embolus. 2. Wall thickening of the esophagus, consistent with esophagitis. Abdomen/Pelvis CTA 09/07/25 08:50 IMPRESSION: 1. Total occlusion of inferior mesenteric artery. Chest X-Ray 09/07/25 09:06 IMPRESSION: 1. No acute cardiopulmonary findings given portable technique. Labs Labs: Laboratory Results - last 24 hr 09/06/25 09/06/25 09/07/25 20:52 23:36 00:18 WBC 8.3 RBC 4.74 Hgb 14.2 Hct 40.6 MCV 85.7 MCH 30.0 MCHC 35.0 RDW 13.2 Plt Count 216 MPV 10.1 Immature Gran % (Auto) 0.5 Neut % (Auto) 69.3 Lymph % (Auto) 15.7 L [place] % (Auto) 8.3 Eos % (Auto) 5.2 H Baso % (Auto) 1.0 Lymph # (Auto) 1.30 [place] # (Auto) 0.7 H Eos # (Auto) 0.4 H Baso # (Auto) 0.1 Abs Immat Gran (auto) 0.04 H Absolute Neuts (auto) 5.7 Absolute Nucleated RBC 0.000 Nucleated RBC % 0.0 ESR PT 12.9 INR 1.0 APTT 27.9 VBG pH VBG pCO2 VBG pO2 VBG HCO3 O2 Delivery Device O2 Liters/Min FiO2 Sodium 126 L Potassium 4.4 Chloride 92 L Carbon Dioxide 21 L Anion Gap 13 H BUN 25 H Creatinine 1.35 H Estim Creat Clear Calc 34 Estimated GFR 38 L Glucose 140 H POC Capillary Glucose Serum Osmolality Lactic Acid 4.9 H* Calcium 10.0 Phosphorus 3.3 Magnesium 1.6 Total Bilirubin 0.5 AST 31 ALT 43 H Alkaline Phosphatase 84 Total Creatine Kinase 43 Troponin I < 0.012 C-Reactive Protein < 0.5 NT-Pro-B Natriuret Pep 256 H Total Protein 7.7 Albumin 4.8 Lipase 134 TSH (Reflex) 1.420 Urine Color Yellow Urine Appearance Clear Urine pH 6.0 Ur Specific [place] 1.012 Urine Protein Negative Urine Glucose (UA) 3+ H Urine Ketones Trace H Ur Blood (Man) Negative Urine Nitrate Negative Urine Bilirubin Negative Urine Urobilinogen 0.2 Leukocyte Esterase Rfl Negative Influenza A (RT-PCR) Influenza B (RT-PCR) RSV (RT-PCR) SARS-CoV-2 RNA (RT-PCR) 09/07/25 09/07/25 09/07/25 00:36 02:08 06:53 WBC RBC Hgb Hct MCV MCH MCHC RDW Plt Count MPV Immature Gran % (Auto) Neut % (Auto) Lymph % (Auto) [place] % (Auto) Eos % (Auto) Baso % (Auto) Lymph # (Auto) [place] # (Auto) Eos # (Auto) Baso # (Auto) Abs Immat Gran (auto) Absolute Neuts (auto) Absolute Nucleated RBC Nucleated RBC % ESR PT INR APTT VBG pH 7.446 H* VBG pCO2 27.0 L* VBG pO2 59.4 H VBG HCO3 18.2 L O2 Delivery Device Room air O2 Liters/Min Not Reportable FiO2 21 Sodium Potassium Chloride Carbon Dioxide Anion Gap BUN Creatinine Estim Creat Clear Calc Estimated GFR Glucose POC Capillary Glucose 158 H Serum Osmolality Cancelled Lactic Acid 4.6 H* Calcium Phosphorus Magnesium Total Bilirubin AST ALT Alkaline Phosphatase Total Creatine Kinase Troponin I C-Reactive Protein NT-Pro-B Natriuret Pep Total Protein Albumin Lipase TSH (Reflex) Urine Color Urine Appearance Urine pH Ur Specific [place] Urine Protein Urine Glucose (UA) Urine Ketones Ur Blood (Man) Urine Nitrate Urine Bilirubin Urine Urobilinogen Leukocyte Esterase Rfl Influenza A (RT-PCR) Negative Influenza B (RT-PCR) Negative RSV (RT-PCR) Negative SARS-CoV-2 RNA (RT-PCR) Negative 09/07/25 09/07/25 07:40 11:36 WBC 6.1 RBC 4.49 Hgb 13.3 Hct 38.7 MCV 86.2 MCH 29.6 MCHC 34.4 RDW 13.8 Plt Count 191 MPV 10.1 Immature Gran % (Auto) Neut % (Auto) Lymph % (Auto) [place] % (Auto) Eos % (Auto) Baso % (Auto) Lymph # (Auto) [place] # (Auto) Eos # (Auto) Baso # (Auto) Abs Immat Gran (auto) Absolute Neuts (auto) Absolute Nucleated RBC Nucleated RBC % ESR 12 PT INR APTT VBG pH VBG pCO2 VBG pO2 VBG HCO3 O2 Delivery Device O2 Liters/Min FiO2 Sodium 129 L Potassium 4.8 Chloride 99 Carbon Dioxide 22 Anion Gap 8 BUN 23 H Creatinine 1.16 H Estim Creat Clear Calc 39 Estimated GFR 46 L Glucose 141 H POC Capillary Glucose 216 H Serum Osmolality Lactic Acid 2.0 Calcium 9.5 Phosphorus Magnesium 1.8 Total Bilirubin 0.5 AST 25 ALT 30 Alkaline Phosphatase 83 Total Creatine Kinase Troponin I C-Reactive Protein < 0.5 NT-Pro-B Natriuret Pep Total Protein 6.9 Albumin 4.3 Lipase TSH (Reflex) Urine Color Urine Appearance Urine pH Ur Specific [place] Urine Protein Urine Glucose (UA) Urine Ketones Ur Blood (Man) Urine Nitrate Urine Bilirubin Urine Urobilinogen Leukocyte Esterase Rfl Influenza A (RT-PCR) Influenza B (RT-PCR) RSV (RT-PCR) SARS-CoV-2 RNA (RT-PCR)
[2025-09-07] MEDS: MAGNESIUM OXIDE 400 MG TABLET PO (16:36)
[2025-09-07] MEDS: GABAPENTIN 100 MG CAPSULE PO (16:36)
[2025-09-07] MEDS: ATORVASTATIN 20 MG TABLET BY MOUTH (16:36)
[2025-09-07] MEDS: VALSARTAN 160 MG TABLET 320 MG PO (16:36)
[2025-09-07] MEDS: CALCIUM CARBONATE (OSCAL) 500 MG TABLET 600 MG PO (20:13)
[2025-09-07] MEDS: METOPROLOL SUCCINATE EXT REL 50 MG TABCR PO (20:13)
[2025-09-07] MEDS: OMEGA 3 POLYUNSAT FATTY ACIDS 1 GM CAP PO (20:13)
[2025-09-07] MEDS: ZOLPIDEM TARTRATE (*CRX) 5 MG TABLET 10 MG PO (23:45)
[2025-09-08] VITALS (13 sets, daily range): BP systolic 155–209; BP diastolic 56–96; PULSE 54–69; RESP 18; TEMP 36.2–36.7; O2SAT 100
[2025-09-08 05:15] LABS: Hematocrit 35.4 % (37.0-47.0); Hemoglobin 12.0 g/dL (12.0-15.0); Mean Corpuscular HGB Conc 33.9 g/dl (32-36); Mean Corpuscular Hemoglobin 30.0 pg (26-34); Mean Corpuscular Volume 88.5 fl (80-100); Platelet Count Result 161 k/mm3 (150-375); Red Blood Count 4.00 M/mm3 (4.2-5.4); White Blood Count 4.9 K/mm3 (4.5-10.0)
[2025-09-08 05:43] LABS: Alanine Aminotransferase 25 U/L (6-35); Albumin Level 3.6 g/dL (3.5-5.1); Alkaline Phosphatase 74 U/L (38-126); Anion Gap 4 mmol/L (4-12); Aspartate Amino Transferase 24 U/L (14-36); Bilirubin,Total 0.5 mg/dL (0.2-1.3); Blood Urea Nitrogen 16 mg/dL (7-17); Calcium 9.6 mg/dL (8.4-10.2); Carbon Dioxide 25 mmol/L (22-30); Chloride 107 mmol/L (98-107); Estimated CRCL calculation 39 ml/min; Estimated Glomerular Filt Rate 46; Glucose 135 mg/dL (65-110); Magnesium 1.8 mg/dL (1.6-2.3); Potassium 3.9 mmol/L (3.4-5.0); Sodium 136 mmol/L (137-145); Total Protein 6.1 g/dL (6.3-8.2)
[2025-09-08] MEDS: LEVOTHYROXINE SODIUM 125 MCG TABLET 124 MCG BY MOUTH (06:17)
[2025-09-08] MEDS: SODIUM CHLORIDE 0.9% IV 1,000 ML 125 ML IV CONT (06:56)
[2025-09-08] MEDS: GABAPENTIN 100 MG CAPSULE PO ×2 (09:44→18:23)
[2025-09-08] MEDS: CALCIUM CARBONATE (OSCAL) 500 MG TABLET 600 MG PO (09:45)
[2025-09-08] MEDS: OMEGA 3 POLYUNSAT FATTY ACIDS 1 GM CAP PO (09:45)
[2025-09-08] MEDS: MAGNESIUM OXIDE 400 MG TABLET PO (13:05)
--- NOTE | 2025-09-08 13:36 | P.DS_ITS ---
DS: Summary Time Spent with Patient Time attestation: Total time spent providing and/or coordinating discharge services: DS: Data Data Completed and Pending Labs on day of discharge: Labs from last 24 hours 09/08/25 09/08/25 09/08/25 11:58 07:27 04:50 WBC 4.9 RBC 4.00 L Hgb 12.0 Hct 35.4 L MCV 88.5 MCH 30.0 MCHC 33.9 RDW 13.9 Plt Count 161 MPV 10.4 Sodium 136 L Potassium 3.9 Chloride 107 Carbon Dioxide 25 Anion Gap 4 BUN 16 Creatinine 1.16 H Estim Creat Clear Calc 39 Estimated GFR 46 L Glucose 135 H POC Capillary Glucose 147 H 144 H Calcium 9.6 Magnesium 1.8 Total Bilirubin 0.5 AST 24 ALT 25 Alkaline Phosphatase 74 Total Protein 6.1 L Albumin 3.6 09/07/25 09/07/25 20:04 16:37 WBC RBC Hgb Hct MCV MCH MCHC RDW Plt Count MPV Sodium Potassium Chloride Carbon Dioxide Anion Gap BUN Creatinine Estim Creat Clear Calc Estimated GFR Glucose POC Capillary Glucose 190 H 179 H Calcium Magnesium Total Bilirubin AST ALT Alkaline Phosphatase Total Protein Albumin Discharge Plan Discharge Attending physician on discharge: Lety Becker Discharging Clinician: Simona Vick Patient Disposition: Home Activity: as tolerated Diet: heart healthy Discharge Instructions: patient follow up with her primary care provider as soon as possible, patient is instructed if any symptoms redevelop to go to nearest ER Patient Instructions: Antibiotic Form, Pain Management in Older Adults (GEN) Patient Language: Setswana Stand Alone Forms: General Discharge Information Follow-up/Referrals: Jus Gallego MD [Primary Care Provider, Internal Medicine] Discharge Medications: Continued omega 7-[id number]-[id number]-fish oil [Fish Oil] 1,200 (144-216) mg Capsule 1 cap PO Q12H valsartan 320 mg tablet 320 mg PO DAILY Qty: 90 1RF Rx Instructions: Please D/C the Losartan HCTZ. Thank you esomeprazole magnesium [Nexium] 20 mg capsule,delayed release(DR/EC) 20 mg PO DAILY hydrochlorothiazide 25 mg tablet 25 mg PO DAILY Qty: 90 1RF magnesium 100 mg capsule 400 mg PO BID estradiol 0.01 % (0.1 mg/gram) cream 1 g vaginal 3XW Qty: 42.5 1RF calcium 600 mg Capsule 600 mg PO Q12H [employer] 3 billion cell capsule 1 cap PO DAILY cetirizine [24Hour Allergy] 10 mg tablet 10 mg PO DAILY PRN (Reason: allergy symptoms) Tylenol Sinus Headache 5-325 mg tablet 1 tablet PO Q6H PRN (Reason: sinus symptoms) metoprolol succinate 50 mg tablet extended release 24 hr 50 mg PO QHS Patient Comments: take one tablet QHS per patient metformin 1,000 mg tablet 1,000 mg PO QAM gabapentin 100 mg capsule 100 mg PO BID atorvastatin 20 mg tablet See Rx Instructions .ROUTE .COMPLEX Qty: 90 1RF Dose Instruction: TAKE 1 TABLET BY MOUTH EVERY DAY Rx Instructions: TAKE 1 TABLET BY MOUTH EVERY DAY lorazepam 1 mg tablet 1 mg PO BID PRN (Reason: anxiety) Qty: 60 1RF Jardiance 10 mg tablet 10 mg PO DAILY Qty: 90 2RF ondansetron 8 mg tablet,disintegrating 8 mg PO Q8H PRN (Reason: nausea and vomiting) Qty: 30 0RF zolpidem 12.5 mg tablet,ext release multiphase 12.5 mg PO QHS Qty: 90 0RF levothyroxine 125 mcg tablet See Rx Instructions .ROUTE .COMPLEX Qty: 90 0RF Dose Instruction: TAKE 1 TABLET BY MOUTH DAILY Rx Instructions: TAKE 1 TABLET BY MOUTH DAILY Date of admission: 09/07/25 06:04 Primary Care Provider: Jus Gallego Admitting Provider: Lety Becker Attending physician on admission: Lety Becker Condition: Stable
[2025-09-08] MEDS: VALSARTAN 160 MG TABLET 320 MG PO (14:47)
--- NOTE | 2025-09-08 18:13 | PC.NURSE ---
Notified Dr. Vick of elevated blood pressure 209/78 at 1705 after giving patient's home valsartan dose. Orders received to give scheduled 2100 metoprolol dose early now.
[2025-09-08] MEDS: METOPROLOL SUCCINATE EXT REL 50 MG TABCR PO (18:21)
[2025-09-08] MEDS: LORazepam (*CRX) 1 MG TABLET PO (18:21)
--- NOTE | 2025-09-08 18:37 | P.PNIM_ITS ---
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 patient was seen by the surgery service, it was intestinally occluded 5 years ago doing her colon surgery as patient does not have any pain. patient with multiple complaints and etiology is uncertain, will gently hydrate the patient and monitor. patient clinical symptoms were improving and was feeling better and plan was to discharge her home today however recheck of her blood pressure was significantly high in close to 200 and complains of [place], patient had not been taking her home medication, will restart patient home medications and reassess, will monitor and plan. will do head scan to further evaluate. Continue fluids. Hold Jardiance, metformin, hydrochlorothiazide. Trend sodium, renal function. Trend lactic acid. Patient wishes to be full code. Diabetic heart healthy diet. SCDs. Subjective Date/time seen: 09/08/25 18:37 Interval history: Lower back discomfort, breathing issues Narrative: 75-year-old female presents with multiple complaints. She has some lower back discomfort for a week. She has a low-grade fever however she reports this to be 98? F. she has been taking her medications as prescribed. She has been eating and drinking adequately. No nausea, vomiting, fever, cough, shortness of breath except that her breathing is weird, denies abdominal pain. She had diarrhea for a few days, on day of admission 09/07/2025 only once. Saturating 97% on room air. Temperature 98.1? F. WBC normal at 8300, INR 1.0, VBG reveals pH 7.446, pCO2 27, PO2 59, bicarb 18, sodium 126, chloride 92, bicarb 21, anion gap 13, BUN 25, serum creatinine 1.35 only slightly above her average baseline. Lactic acid 4.9. Serum osmolality pending. ALT 43, troponin negative. BNP 256, TSH 1.420. Urinalysis reveals glucose, quad viral screen negative. 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 patient was seen by the surgery service, it was intestinally occluded 5 years ago doing her colon surgery as patient does not have any pain. patient with multiple complaints and etiology is uncertain, will gently hydrate the patient and monitor. patient clinical symptoms were improving and was feeling better and plan was to discharge her home today however recheck of her blood pressure was significantly high in close to 200 and complains of [place], patient had not been taking her home medication, will restart patient home medications and reassess, will monitor and plan. will do head scan to further evaluate. Exam Narrative: Patient is comfortable, NAD HEENT: eyes are clear and none icteric LUNGS:CTA HEART: RR S1S2 ABD: BS+, Soft and nontender Lower extremities: no edema SKIN: nonjaundiced Neuro: grossly intact. Objective Data Vital Signs Vital Signs: Vital Signs - 24 hr 09/07/25 20:00 09/07/25 20:00 09/07/25 20:10 Temperature 36.7 C Pulse Rate 70 70 70 Respiratory Rate 17 17 Blood Pressure 154/68 H Pulse Oximetry 98 98 Oxygen Delivery Room Air 09/07/25 20:13 09/08/25 00:00 09/08/25 04:00 Temperature Pulse Rate 70 57 L 60 Respiratory Rate Blood Pressure Pulse Oximetry Oxygen Delivery 09/08/25 04:29 09/08/25 08:00 09/08/25 10:00 Temperature 36.5 C Pulse Rate 57 L 54 L Respiratory Rate 18 Blood Pressure 155/56 H Pulse Oximetry 100 Oxygen Delivery Room Air 09/08/25 12:00 09/08/25 14:00 09/08/25 14:50 Temperature 36.7 C Pulse Rate 59 L 65 Respiratory Rate 18 Blood Pressure 178/68 H 200/96 H Pulse Oximetry 100 Oxygen Delivery 09/08/25 16:00 09/08/25 17:09 09/08/25 18:21 Temperature Pulse Rate 61 66 Respiratory Rate Blood Pressure 209/78 H Pulse Oximetry Oxygen Delivery Intake/Output Intake/Output: Intake & Output 09/05/25 09/06/25 09/07/25 09/08/25 23:59 23:59 23:59 23:59 Intake Total 2800 4700.0 Balance 2800 4700.0 Meds/Results Medications: Active Medications Generic Name Dose Route Start Last Admin Trade Name Freq PRN Reason Stop Dose Admin Atorvastatin Calcium 20 mg 09/08/25 21:00 Atorvastatin 20 Mg Tablet BY MOUTH QHS [facility] Calcium Carbonate 600 mg 09/07/25 21:00 09/08/25 09:45 Calcium Carbonate (Oscal) 500 Mg Tablet PO 600 mg Q12HR [facility] Administration Dextrose 12.5 gm 09/07/25 06:36 Dextrose 50% 25 Gm/50 Ml Syringe IV PUSH PRN PRN Hypoglycemia Protocol Fish Oil 1 gm 09/07/25 21:00 09/08/25 09:45 [place] 3 Polyunsat Fatty Acids 1 Gm Cap PO 1 gm Q12HR [facility] Administration Gabapentin 100 mg 09/08/25 09:00 09/08/25 18:23 Gabapentin 100 Mg Capsule PO 100 mg 0000,0900,1700 [facility] Administration Glucose 15 gm 09/07/25 06:36 Glucose Oral Gel 15 Gm Of Glucse In 37.5 Gm Tube PO PRN PRN Hypoglycemia Protocol Dextrose 1,000 mls @ 100 mls/hr 09/07/25 06:36 Dextrose 5% 1,000 Ml IVPB PRN PRN Hypoglycemia Protocol Insulin Aspart 2 - 5 units 09/07/25 08:00 09/08/25 17:38 Insulin Aspart (*Bkc) 100 Units/Ml SUB-Q Not Given TIDWM [facility] Protocol Insulin Aspart 1 - 2 units 09/07/25 21:00 09/07/25 20:11 Insulin Aspart (*Bkc) 100 Units/Ml SUB-Q Not Given HS [facility] Protocol Lactobacillus Acidophilus 1 tablet 09/08/25 09:00 09/08/25 09:46 Acidophilus/Bulgaricus Chewable Tablet PO Not Given DAILY [facility] Levothyroxine Sodium 124 mcg 09/08/25 06:30 09/08/25 06:17 Levothyroxine Sodium 125 Mcg Tablet BY MOUTH 124 mcg DAILY@0630 [facility] Administration Loratadine 10 mg 09/07/25 15:04 Loratadine 10 Mg Tablet PO DAILY PRN allergy symptoms Lorazepam 1 mg 09/07/25 14:48 09/08/25 18:21 Lorazepam (*Crx) 1 Mg Tablet PO 1 mg BID PRN Administration Anxiety Magnesium Oxide 400 mg 09/08/25 12:00 09/08/25 13:05 Magnesium Oxide 400 Mg Tablet PO 400 mg 12,20 [facility] Administration Metoprolol Succinate 50 mg 09/07/25 21:00 09/08/25 18:21 Metoprolol Succinate Ext Rel 50 Mg Tabcr PO 50 mg QHS [facility] Administration Miscellaneous Information 1 each 09/08/25 00:01 Tylenol Sinus Is Nonform; Please Send To Pharmacy For Verification When Available XX 10/08/25 00:00 CLARIFY [facility] Non-Formulary Medication 1 tablet 09/07/25 14:48 Phenylephrine-Acetaminophen [Tylenol Sinus Headache] PO Q6H PRN sinus symptoms Ondansetron HCl 8 mg 09/07/25 15:06 Ondansetron Hcl Odt 4 Mg Tablet PO Q8H PRN nausea and vomiting Pantoprazole Sodium 40 mg 09/08/25 09:00 09/08/25 09:47 Pantoprazole 40 Mg Tablet PO Not Given QAM [facility] Valsartan 320 mg 09/08/25 14:40 09/08/25 14:47 Valsartan 160 Mg Tablet PO 320 mg DAILY [facility] Administration Zolpidem Tartrate 10 mg 09/07/25 21:00 09/07/25 23:45 Zolpidem Tartrate (*Crx) 5 Mg Tablet PO 10 mg QHS [facility] Administration Radiology Results: ITS Impressions Chest CTA 09/07/25 08:29 IMPRESSION: 1. No pulmonary embolus. 2. Wall thickening of the esophagus, consistent with esophagitis. Abdomen/Pelvis CTA 09/07/25 08:50 IMPRESSION: 1. Total occlusion of inferior mesenteric artery. Chest X-Ray 09/07/25 09:06 IMPRESSION: 1. No acute cardiopulmonary findings given portable technique. Labs Labs: Laboratory Results - last 24 hr 09/07/25 09/08/25 09/08/25 20:04 04:50 07:27 WBC 4.9 RBC 4.00 L Hgb 12.0 Hct 35.4 L MCV 88.5 MCH 30.0 MCHC 33.9 RDW 13.9 Plt Count 161 MPV 10.4 Sodium 136 L Potassium 3.9 Chloride 107 Carbon Dioxide 25 Anion Gap 4 BUN 16 Creatinine 1.16 H Estim Creat Clear Calc 39 Estimated GFR 46 L Glucose 135 H POC Capillary Glucose 190 H 144 H Calcium 9.6 Magnesium 1.8 Total Bilirubin 0.5 AST 24 ALT 25 Alkaline Phosphatase 74 Total Protein 6.1 L Albumin 3.6 09/08/25 09/08/25 11:58 17:19 WBC RBC Hgb Hct MCV MCH MCHC RDW Plt Count MPV Sodium Potassium Chloride Carbon Dioxide Anion Gap BUN Creatinine Estim Creat Clear Calc Estimated GFR Glucose POC Capillary Glucose 147 H 134 H Calcium Magnesium Total Bilirubin AST ALT Alkaline Phosphatase Total Protein Albumin
[2025-09-08] MEDS: ATORVASTATIN 20 MG TABLET BY MOUTH (20:41)
[2025-09-08] MEDS: INSULIN ASPART (*BKC) 100 UNITS/ML SUB-Q (20:42)
[2025-09-09] VITALS (12 sets, daily range): BP systolic 149–180; BP diastolic 58–82; PULSE 40–75; RESP 16–18; TEMP 35.9–36.6; O2SAT 95–98
[2025-09-09] MEDS: GABAPENTIN 100 MG CAPSULE PO ×4 (00:23→23:00)
[2025-09-09] MEDS: ACETAMINOPHEN 500 MG TABLET 1000 MG PO (00:23)
[2025-09-09] MEDS: ZOLPIDEM TARTRATE (*CRX) 5 MG TABLET 10 MG PO ×2 (00:24→22:59)
[2025-09-09 05:04] LABS: Hematocrit 37.3 % (37.0-47.0); Hemoglobin 12.5 g/dL (12.0-15.0); Mean Corpuscular HGB Conc 33.5 g/dl (32-36); Mean Corpuscular Hemoglobin 30.0 pg (26-34); Mean Corpuscular Volume 89.7 fl (80-100); Platelet Count Result 182 k/mm3 (150-375); Red Blood Count 4.16 M/mm3 (4.2-5.4); White Blood Count 5.3 K/mm3 (4.5-10.0)
[2025-09-09] MEDS: LEVOTHYROXINE SODIUM 125 MCG TABLET 124 MCG BY MOUTH (05:37)
[2025-09-09 05:45] LABS: Alanine Aminotransferase 28 U/L (6-35); Albumin Level 3.9 g/dL (3.5-5.1); Alkaline Phosphatase 74 U/L (38-126); Anion Gap 5 mmol/L (4-12); Aspartate Amino Transferase 28 U/L (14-36); Bilirubin,Total 0.5 mg/dL (0.2-1.3); Blood Urea Nitrogen 17 mg/dL (7-17); Calcium 9.7 mg/dL (8.4-10.2); Carbon Dioxide 23 mmol/L (22-30); Chloride 107 mmol/L (98-107); Estimated CRCL calculation 38 ml/min; Estimated Glomerular Filt Rate 45; Glucose 144 mg/dL (65-110); Magnesium 1.7 mg/dL (1.6-2.3); Potassium 3.7 mmol/L (3.4-5.0); Sodium 135 mmol/L (137-145); Total Protein 6.4 g/dL (6.3-8.2)
[2025-09-09] MEDS: CALCIUM CARBONATE (OSCAL) 500 MG TABLET 600 MG PO (09:39)
[2025-09-09] MEDS: PANTOPRAZOLE 40 MG TABLET PO (09:39)
[2025-09-09] MEDS: OMEGA 3 POLYUNSAT FATTY ACIDS 1 GM CAP PO (09:39)
[2025-09-09] MEDS: VALSARTAN 160 MG TABLET 320 MG PO (09:40)
[2025-09-09] MEDS: LORazepam (*CRX) 1 MG TABLET PO ×2 (10:38→17:59)
[2025-09-09] MEDS: INSULIN ASPART (*BKC) 100 UNITS/ML SUB-Q ×2 (12:13→21:26)
[2025-09-09] MEDS: MAGNESIUM OXIDE 400 MG TABLET PO ×2 (12:17→21:17)
[2025-09-09 13:09] LABS: Osmolality, Serum 283 mOsmol/kg (280-301)
--- NOTE | 2025-09-09 15:32 | P.PNIM_ITS ---
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 patient was seen by the surgery service, it was intestinally occluded 5 years ago doing her colon surgery as patient does not have any pain. patient with multiple complaints and etiology is uncertain, will gently hydrate the patient and monitor. patient clinical symptoms were improving and was feeling better and plan was to discharge her home today however recheck of her blood pressure was significantly high in close to 200 and complains of [place], patient had not been taking her home medication, will restart patient home medications and reassess, will monitor and plan. will do head scan to further evaluate. Patient was restarted on home medications and her blood pressure was trending down, to further evaluate her [place], CT scan of the head was ordered, which did not show any acute injury but concerning of old lesion and radiologist recommending MRI of brain to further evaluate, patient is clinically stable her baseline, will do MRI of brain to further evaluate and recommendation to follow. Continue fluids. Hold Jardiance, metformin, hydrochlorothiazide. Trend sodium, renal function. Trend lactic acid. Patient wishes to be full code. Diabetic heart healthy diet. SCDs. Subjective Date/time seen: 09/09/25 15:32 Interval history: Lower back discomfort, breathing issues Narrative: 75-year-old female presents with multiple complaints. She has some lower back discomfort for a week. She has a low-grade fever however she reports this to be 98? F. she has been taking her medications as prescribed. She has been eating and drinking adequately. No nausea, vomiting, fever, cough, shortness of breath except that her breathing is weird, denies abdominal pain. She had diarrhea for a few days, on day of admission 09/07/2025 only once. Saturating 97% on room air. Temperature 98.1? F. WBC normal at 8300, INR 1.0, VBG reveals pH 7.446, pCO2 27, PO2 59, bicarb 18, sodium 126, chloride 92, bicarb 21, anion gap 13, BUN 25, serum creatinine 1.35 only slightly above her average baseline. Lactic acid 4.9. Serum osmolality pending. ALT 43, troponin negative. BNP 256, TSH 1.420. Urinalysis reveals glucose, quad viral screen negative. 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 patient was seen by the surgery service, it was intestinally occluded 5 years ago doing her colon surgery as patient does not have any pain. patient with multiple complaints and etiology is uncertain, will gently hydrate the patient and monitor. patient clinical symptoms were improving and was feeling better and plan was to discharge her home today however recheck of her blood pressure was significantly high in close to 200 and complains of [place], patient had not been taking her home medication, will restart patient home medications and reassess, will monitor and plan. will do head scan to further evaluate. Patient was restarted on home medications and her blood pressure was trending down, to further evaluate her [place], CT scan of the head was ordered, which did not show any acute injury but concerning of old lesion and radiologist recommending MRI of brain to further evaluate, patient is clinically stable her baseline, will do MRI of brain to further evaluate and recommendation to follow. Review of Systems Review of Systems: All systems reviewed & are unremarkable except as noted in HPI and below (Subjective) Exam Narrative: Patient is comfortable, NAD HEENT: eyes are clear and none icteric LUNGS:CTA HEART: RR S1S2 ABD: BS+, Soft and nontender Lower extremities: no edema SKIN: nonjaundiced Neuro: grossly intact. Objective Data Vital Signs Vital Signs: Vital Signs - 24 hr 09/08/25 16:00 09/08/25 17:09 09/08/25 18:21 Temperature Pulse Rate 61 66 Respiratory Rate Blood Pressure 209/78 H Pulse Oximetry Oxygen Delivery 09/08/25 19:48 09/08/25 20:00 09/08/25 20:18 Temperature Pulse Rate 69 Respiratory Rate Blood Pressure 182/84 H Pulse Oximetry Oxygen Delivery Room Air 09/08/25 20:44 09/09/25 00:00 09/09/25 04:00 Temperature 36.2 C L Pulse Rate 64 55 L 46 L Respiratory Rate 18 Blood Pressure 162/78 H Pulse Oximetry 100 Oxygen Delivery 09/09/25 05:02 09/09/25 08:00 09/09/25 09:43 Temperature 35.9 C L Pulse Rate 52 L 40 L Respiratory Rate 16 Blood Pressure 149/58 H Pulse Oximetry 98 Oxygen Delivery Room Air 09/09/25 12:00 09/09/25 14:00 Temperature 36.6 C Pulse Rate 55 L 69 Respiratory Rate 16 Blood Pressure 154/66 H Pulse Oximetry 95 Oxygen Delivery Intake/Output Intake/Output: Intake & Output 09/06/25 09/07/25 09/08/25 09/09/25 23:59 23:59 23:59 23:59 Intake Total 2800 4700.0 340 Balance 2800 4700.0 340 Meds/Results Medications: Active Medications Generic Name Dose Route Start Last Admin Trade Name Freq PRN Reason Stop Dose Admin Acetaminophen 1,000 mg 09/08/25 22:30 09/09/25 00:23 Acetaminophen 500 Mg Tablet PO 1,000 mg Q6H PRN Administration Mild Pain (1-3) or Fever Atorvastatin Calcium 20 mg 09/08/25 21:00 09/08/25 20:41 Atorvastatin 20 Mg Tablet BY MOUTH 20 mg QHS [place] Administration Calcium Carbonate 600 mg 09/07/25 21:00 09/09/25 09:39 Calcium Carbonate (Oscal) 500 Mg Tablet PO 600 mg Q12HR [place] Administration Dextrose 12.5 gm 09/07/25 06:36 Dextrose 50% 25 Gm/50 Ml Syringe IV PUSH PRN PRN Hypoglycemia Protocol Fish Oil 1 gm 09/07/25 21:00 09/09/25 09:39 Notus 3 Polyunsat Fatty Acids 1 Gm Cap PO 1 gm Q12HR [place] Administration Gabapentin 100 mg 09/08/25 09:00 09/09/25 09:40 Gabapentin 100 Mg Capsule PO 100 mg 0000,0900,1700 [place] Administration Glucose 15 gm 09/07/25 06:36 Glucose Oral Gel 15 Gm Of Glucse In 37.5 Gm Tube PO PRN PRN Hypoglycemia Protocol Dextrose 1,000 mls @ 100 mls/hr 09/07/25 06:36 Dextrose 5% 1,000 Ml IVPB PRN PRN Hypoglycemia Protocol Insulin Aspart 2 - 5 units 09/07/25 08:00 09/09/25 12:13 Insulin Aspart (*Bkc) 100 Units/Ml SUB-Q 2 units TIDWM [place] Administration Protocol Insulin Aspart 1 - 2 units 09/07/25 21:00 09/08/25 20:42 Insulin Aspart (*Bkc) 100 Units/Ml SUB-Q 1 units HS [facility] Administration Protocol Lactobacillus Acidophilus 1 tablet 09/08/25 09:00 09/09/25 09:39 Acidophilus/Bulgaricus Chewable Tablet PO Not Given DAILY [facility] Levothyroxine Sodium 124 mcg 09/08/25 06:30 09/09/25 05:37 Levothyroxine Sodium 125 Mcg Tablet BY MOUTH 124 mcg DAILY@0630 [place] Administration Loratadine 10 mg 09/07/25 15:04 Loratadine 10 Mg Tablet PO DAILY PRN allergy symptoms Lorazepam 1 mg 09/07/25 14:48 09/09/25 10:38 Lorazepam (*Crx) 1 Mg Tablet PO 1 mg BID PRN Administration Anxiety Magnesium Oxide 400 mg 09/08/25 12:00 09/09/25 12:17 Magnesium Oxide 400 Mg Tablet PO 400 mg [facility] Administration Metoprolol Succinate 50 mg 09/07/25 21:00 09/08/25 18:21 Metoprolol Succinate Ext Rel 50 Mg Tabcr PO 50 mg QHS [facility] Administration Miscellaneous Information 1 each 09/08/25 00:01 Tylenol Sinus Is Nonform; Please Send To Pharmacy For Verification When Available XX 10/08/25 00:00 CLARIFY [facility] Non-Formulary Medication 1 tablet 09/07/25 14:48 Phenylephrine-Acetaminophen [Tylenol Sinus Headache] PO Q6H PRN sinus symptoms Ondansetron HCl 8 mg 09/07/25 15:06 Ondansetron Hcl Odt 4 Mg Tablet PO Q8H PRN nausea and vomiting Pantoprazole Sodium 40 mg 09/08/25 09:00 09/09/25 09:39 Pantoprazole 40 Mg Tablet PO 40 mg QAM [facility] Administration Valsartan 320 mg 09/08/25 14:40 09/09/25 09:40 Valsartan 160 Mg Tablet PO 320 mg DAILY [facility] Administration Zolpidem Tartrate 10 mg 09/07/25 21:00 09/09/25 00:24 Zolpidem Tartrate (*Crx) 5 Mg Tablet PO 10 mg QHS [facility] Administration Radiology Results: ITS Impressions Chest CTA 09/07/25 08:29 IMPRESSION: 1. No pulmonary embolus. 2. Wall thickening of the esophagus, consistent with esophagitis. Abdomen/Pelvis CTA 09/07/25 08:50 IMPRESSION: 1. Total occlusion of inferior mesenteric artery. Chest X-Ray 09/07/25 09:06 IMPRESSION: 1. No acute cardiopulmonary findings given portable technique. Head CT 09/08/25 19:09 IMPRESSION: 1. No acute intracranial lesions. Chronic small vessel ischemic change of periventricular white matter. 2. Partly calcified extra-axial lesion 1.5 cm in size in the right parasagittal location in the occipital region, probably representing a meningioma. Elective further evaluation with MRI with contrast is recommended. Labs Labs: Laboratory Results - last 24 hr 09/07/25 09/08/25 09/08/25 02:08 17:19 20:38 WBC RBC Hgb Hct MCV MCH MCHC RDW Plt Count MPV Sodium Potassium Chloride Carbon Dioxide Anion Gap BUN Creatinine Estim Creat Clear Calc Estimated GFR Glucose POC Capillary Glucose 134 H 220 H Serum Osmolality 283 Calcium Magnesium Total Bilirubin AST ALT Alkaline Phosphatase Total Protein Albumin 09/09/25 09/09/25 09/09/25 04:54 07:21 11:29 WBC 5.3 RBC 4.16 L Hgb 12.5 Hct 37.3 MCV 89.7 MCH 30.0 MCHC 33.5 RDW 14.1 Plt Count 182 MPV 10.3 Sodium 135 L Potassium 3.7 Chloride 107 Carbon Dioxide 23 Anion Gap 5 BUN 17 Creatinine 1.18 H Estim Creat Clear Calc 38 Estimated GFR 45 L Glucose 144 H POC Capillary Glucose 164 H 209 H Serum Osmolality Calcium 9.7 Magnesium 1.7 Total Bilirubin 0.5 AST 28 ALT 28 Alkaline Phosphatase 74 Total Protein 6.4 Albumin 3.9
[2025-09-09] MEDS: ATORVASTATIN 20 MG TABLET BY MOUTH (21:17)
[2025-09-09] MEDS: METOPROLOL SUCCINATE EXT REL 50 MG TABCR PO (21:17)
[2025-09-10] VITALS (7 sets, daily range): BP systolic 146–152; BP diastolic 62–70; PULSE 45–66; RESP 16–17; TEMP 36.2–36.4; O2SAT 99
[2025-09-10] MEDS: LEVOTHYROXINE SODIUM 125 MCG TABLET 124 MCG BY MOUTH (05:35)
[2025-09-10 06:13] LABS: Hematocrit 40.0 % (37.0-47.0); Hemoglobin 13.1 g/dL (12.0-15.0); Mean Corpuscular HGB Conc 32.8 g/dl (32-36); Mean Corpuscular Hemoglobin 29.8 pg (26-34); Mean Corpuscular Volume 91.1 fl (80-100); Platelet Count Result 186 k/mm3 (150-375); Red Blood Count 4.39 M/mm3 (4.2-5.4); White Blood Count 6.5 K/mm3 (4.5-10.0)
[2025-09-10 06:34] LABS: Alanine Aminotransferase 35 U/L (6-35); Albumin Level 4.0 g/dL (3.5-5.1); Alkaline Phosphatase 72 U/L (38-126); Anion Gap 6 mmol/L (4-12); Aspartate Amino Transferase 28 U/L (14-36); Bilirubin,Total 0.5 mg/dL (0.2-1.3); Blood Urea Nitrogen 19 mg/dL (7-17); Calcium 9.7 mg/dL (8.4-10.2); Carbon Dioxide 26 mmol/L (22-30); Chloride 103 mmol/L (98-107); Estimated CRCL calculation 37 ml/min; Estimated Glomerular Filt Rate 43; Glucose 150 mg/dL (65-110); Magnesium 1.9 mg/dL (1.6-2.3); Potassium 3.6 mmol/L (3.4-5.0); Sodium 135 mmol/L (137-145); Total Protein 6.5 g/dL (6.3-8.2)
[2025-09-10] MEDS: GABAPENTIN 100 MG CAPSULE PO (08:51)
[2025-09-10] MEDS: PANTOPRAZOLE 40 MG TABLET PO (08:51)
[2025-09-10] MEDS: CALCIUM CARBONATE (OSCAL) 500 MG TABLET 600 MG PO (08:51)
[2025-09-10] MEDS: OMEGA 3 POLYUNSAT FATTY ACIDS 1 GM CAP PO (08:51)
[2025-09-10] MEDS: ACIDOPHILUS/BULGARICUS CHEWABLE TABLET 1 TABLET PO (08:51)
[2025-09-10] MEDS: VALSARTAN 160 MG TABLET 320 MG PO (08:52)
[2025-09-10] MEDS: INSULIN ASPART (*BKC) 100 UNITS/ML SUB-Q (12:07)
[2025-09-10] MEDS: MAGNESIUM OXIDE 400 MG TABLET PO (12:07)
--- NOTE | 2025-09-10 14:25 | PM.DS ---
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 patient was seen by the surgery service, it was intestinally occluded 5 years ago doing her colon surgery as patient does not have any pain. patient with multiple complaints and etiology is uncertain, will gently hydrate the patient and monitor. patient clinical symptoms were improving and was feeling better and plan was to discharge her home today however recheck of her blood pressure was significantly high in close to 200 and complains of [place], patient had not been taking her home medication, will restart patient home medications and reassess, will monitor and plan. will do head scan to further evaluate. Patient was restarted on home medications and her blood pressure was trending down, to further evaluate her [place], CT scan of the head was ordered, which did not show any acute injury but concerning of old lesion and radiologist recommending MRI of brain to further evaluate, patient is clinically stable her baseline, will do MRI of brain to further evaluate and recommendation to follow. Continue fluids. Hold Jardiance, metformin, hydrochlorothiazide. Trend sodium, renal function. Trend lactic acid. Patient wishes to be full code. Diabetic heart healthy diet. SCDs. 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 patient was seen by the surgery service, it was intestinally occluded 5 years ago doing her colon surgery as patient does not have any pain. patient with multiple complaints and etiology is uncertain, will gently hydrate the patient and monitor. patient clinical symptoms were improving and was feeling better and plan was to discharge her home today however recheck of her blood pressure was significantly high in close to 200 and complains of [place], patient had not been taking her home medication, will restart patient home medications and reassess, will monitor and plan. will do head scan to further evaluate. Patient was restarted on home medications and her blood pressure was trending down, to further evaluate her [place], CT scan of the head was ordered, which did not show any acute injury but concerning of old lesion and radiologist recommending MRI of brain to further evaluate, patient is clinically stable her baseline, will do MRI of brain to further evaluate and recommendation to follow. MRI of brain showed, No evidence of acute ischemia or intracranial bleed. No ventriculomegaly or midline shift. 2. Well-circumscribed enhancing extra-axial mass in the right parasagittal location in the occipital region, 15 x 18 x 12 mm in size suggestive of meningioma. This is consistent with findings on the CT head dated 09/08/2025. patient stats she is aware of menningioma and her primary care provider is follow her progress, patient is clinically stable will discharge home today. Time Spent with Patient Time attestation: Total time spent providing and/or coordinating discharge services: Exam Narrative: Patient is comfortable, NAD HEENT: eyes are clear and none icteric LUNGS:CTA HEART: RR S1S2 ABD: BS+, Soft and nontender Lower extremities: no edema SKIN: nonjaundiced Neuro: grossly intact. DS: Data Data Completed and Pending Labs on day of discharge: Labs from last 24 hours 09/10/25 09/10/25 09/10/25 11:53 08:02 05:48 WBC 6.5 RBC 4.39 Hgb 13.1 Hct 40.0 MCV 91.1 MCH 29.8 MCHC 32.8 RDW 14.0 Plt Count 186 MPV 10.5 H Sodium 135 L Potassium 3.6 Chloride 103 Carbon Dioxide 26 Anion Gap 6 BUN 19 H Creatinine 1.22 H Estim Creat Clear Calc 37 Estimated GFR 43 L Glucose 150 H POC Capillary Glucose 201 H 182 H Calcium 9.7 Magnesium 1.9 Total Bilirubin 0.5 AST 28 ALT 35 Alkaline Phosphatase 72 Total Protein 6.5 Albumin 4.0 09/09/25 09/09/25 21:00 16:13 WBC RBC Hgb Hct MCV MCH MCHC RDW Plt Count MPV Sodium Potassium Chloride Carbon Dioxide Anion Gap BUN Creatinine Estim Creat Clear Calc Estimated GFR Glucose POC Capillary Glucose 203 H 183 H Calcium Magnesium Total Bilirubin AST ALT Alkaline Phosphatase Total Protein Albumin Discharge Plan Discharge Attending physician on discharge: Lety Becker Consulting providers: Roque Hernandez; Jimi Buenrostro; Himanshu Chaparro; Kevin Roblero Discharging Clinician: Simona Vick Patient Disposition: Home Activity: as tolerated Diet: heart healthy Discharge Instructions: patient follow up with her primary care provider as soon as possible, patient is instructed if any symptoms redevelop to go to nearest ER Patient Instructions: Antibiotic Form, Pain Management in Older Adults (GEN) Patient Language: Syrian Stand Alone Forms: General Discharge Information Follow-up/Referrals: Jus Gallego MD [Primary Care Provider, Internal Medicine] Discharge Medications: Continued omega [id number]-fish oil [Fish Oil] 1,200 (144-216) mg Capsule 1 cap PO Q12H valsartan 320 mg tablet 320 mg PO DAILY Qty: 90 1RF Rx Instructions: Please D/C the Losartan HCTZ. Thank you esomeprazole magnesium [Nexium] 20 mg capsule,delayed release(DR/EC) 20 mg PO DAILY hydrochlorothiazide 25 mg tablet 25 mg PO DAILY Qty: 90 1RF magnesium 100 mg capsule 400 mg PO DAILY estradiol 0.01 % (0.1 mg/gram) cream 1 g vaginal 3XW Qty: 42.5 1RF calcium 600 mg Capsule 600 mg PO Q12H [employer]ader 3 billion cell capsule 1 cap PO DAILY cetirizine [24Hour Allergy] 10 mg tablet 10 mg PO DAILY PRN (Reason: allergy symptoms) Tylenol Sinus Headache 5-325 mg tablet 1 tablet PO Q6H PRN (Reason: sinus symptoms) metoprolol succinate 50 mg tablet extended release 24 hr 50 mg PO QHS Patient Comments: take one tablet QHS per patient metformin 1,000 mg tablet 1,000 mg PO QAM gabapentin 100 mg capsule 100 mg PO BID atorvastatin 20 mg tablet See Rx Instructions .ROUTE .COMPLEX Qty: 90 1RF Dose Instruction: TAKE 1 TABLET BY MOUTH EVERY DAY Rx Instructions: TAKE 1 TABLET BY MOUTH EVERY DAY lorazepam 1 mg tablet 1 mg PO BID PRN (Reason: anxiety) Qty: 60 1RF Jardiance 10 mg tablet 10 mg PO DAILY Qty: 90 2RF ondansetron 8 mg tablet,disintegrating 8 mg PO Q8H PRN (Reason: nausea and vomiting) Qty: 30 0RF zolpidem 12.5 mg tablet,ext release multiphase 12.5 mg PO QHS Qty: 90 0RF levothyroxine 125 mcg tablet See Rx Instructions .ROUTE .COMPLEX Qty: 90 0RF Dose Instruction: TAKE 1 TABLET BY MOUTH DAILY Rx Instructions: TAKE 1 TABLET BY MOUTH DAILY Date of admission: 09/07/25 05:20 Primary Care Provider: Jus Gallego Admitting Provider: Lety Becker Attending physician on admission: Simona Vick Condition: Stable
== END 2025-09-10 15:05 | disposition home or self-care (01) ==
LOC: ANHED 09-07 05:21 → ANH2MED 09-08 05:20 → ANH3MEDSUR 09-11 08:47
PROVIDERS: Admitting Provider General Practice; Emergency Provider Student in an Organized Health Care Education/Training Program; PCP Internal Medicine; Visit Provider Family Medicine
DX: E87.1 Hypo-osmolality and hyponatremia (principal); E87.20 Acidosis, unspecified; E87.3 Alkalosis; R93.3 Abnormal findings on diagnostic imaging of other parts of digestive tract; R06.9 Unspecified abnormalities of breathing; D42.0 Neoplasm of uncertain behavior of cerebral meninges; I11.9 Hypertensive heart disease without heart failure; I12.9 Hypertensive chronic kidney disease with stage 1 through stage 4 chronic kidney disease, or unspecified chronic kidney disease; N18.9 Chronic kidney disease, unspecified; E08.40 Diabetes mellitus due to underlying condition with diabetic neuropathy, unspecified; G89.29 Other chronic pain; M54.9 Dorsalgia, unspecified; M25.561 Pain in right knee; M17.9 Osteoarthritis of knee, unspecified; E78.5 Hyperlipidemia, unspecified; K21.00 Gastro-esophageal reflux disease with esophagitis, without bleeding; L50.5 Cholinergic urticaria; Z20.822 Contact with and (suspected) exposure to COVID-19; Z79.84 Long term (current) use of oral hypoglycemic drugs; Z79.890 Hormone replacement therapy; Z87.19 Personal history of other diseases of the digestive system; Z85.43 Personal history of malignant neoplasm of ovary; Z86.79 Personal history of other diseases of the circulatory system; Z90.49 Acquired absence of other specified parts of digestive tract; Z81.8 Family history of other mental and behavioral disorders; Z82.49 Family history of ischemic heart disease and other diseases of the circulatory system; Z83.42 Family history of familial hypercholesterolemia; Z82.0 Family history of epilepsy and other diseases of the nervous system; Z83.3 Family history of diabetes mellitus; Z83.438 Family history of other disorder of lipoprotein metabolism and other lipidemia
CPT/HCPCS: 36415; 70450; 70553; 71045; 71275; 74174; 80053; 81003; 82550; 82803; 82948; 83605; 83690; 83735; 83880; 83930; 84100; 84443; 84484; 85025; 85027; 85610; 85652; 85730; 86140; 87637; 93005; 96360; 99285; A9270; A9577; G0378; J1815; J7030; Q9967